=== PATIENT | female | born 1995 | race Two or more races ===

== ENCOUNTER 2024-10-04 10:55 | Emergency (ER) | payer SELFPAY ==
[~2024-10-04] VITALS: Ht 152.4 cm; Wt 92.5 kg
--- NOTE | 2024-10-04 11:58 | ED.PDOC ---
History of Present Illness HPI Comments A 29 YEAR OLD FEMALE PRESENTS TO THE ED WITH COMPLAINT OF CONSTIPATION AND LUMP OF COCCYX REGION. PATIENT STATES SHE HAS BEEN CONSTIPATED FOR THE PAST 2 DAYS. PATIENT REPORTS SHE HAS ALSO HAD A PAINFUL LUMP/CYST ON HER COCCYX REGION FOR THE PAST 2 DAYS. PATIENT DENIES FEVER, CHILLS, SHORTNESS OF BREATH, CHEST PAIN, ABDOMINAL PAIN, NAUSEA, VOMITING, HEADACHE, OR OTHER COMPLAINTS. NO OTHER SYMPTOMS OR MODIFYING FACTORS AT THIS TIME. PATIENT IS ALERT, ORIENTED X 4, AND HAS STEADY GAIT. 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 MAINTENANCE TECHNICIAN History Family History Family History: Reviewed,noncontributory to illness Social History Smoker: Non-Smoker Alcohol: Denies ETOH Use Drugs: Denies Drug Use Lives In: Home Constitutional: denies: chills, diaphoresis, fatigue, fever, malaise, sweats, weakness, others EENTM: denies: blurred vision, double vision, ear bleeding, ear discharge, ear drainage, ear pain, ear ringing, eye pain, eye redness, hearing loss, mouth pain, mouth swelling, nasal discharge, nose bleeding, nose congestion, nose pain, photophobia, tearing, throat pain, throat swelling, voice changes, others Respiratory: denies: cough, hemoptysis, orthopnea, SOB at rest, shortness of breath, SOB with excertion, stridor, wheezing, others Cardiovascular: denies: chest pain, dizzy spells, diaphoresis, Dyspnea on exertion, edema, irregular heart beat, left arm pain, lightheadedness, palpitations, PND, syncope, others Gastrointestinal: reports: constipated; denies: abdomen distended, abdominal pain, blood streaked bowels, diarrhea, dysphagia, difficulty swallowing, hematemesis, melena, nausea, poor appetite, poor fluid intake, rectal bleeding, rectal pain, vomiting, others Genitourinary: denies: abnormal vagina bleeding, burning, dyspareunia, dysuria, flank pain, frequency, hematuria, incontinence, pain, , vagina discharge, urgency, others Neurological: denies: dizziness, fainting, headache, left sided numbness, left sided weakness, numbness, paresthesia, pre-existing deficit, right sided numbness, right sided weakness, seizure, speech problems, tingling, tremors, weakness, others Musculoskeletal: reports: back pain; denies: gout, joint pain, joint swelling, muscle pain, muscle stiffness, neck pain, others Integumetry: reports: lumps (LUMP OF COCCYX REGION); denies: bruises, change in color, change in hair/nails, dryness, laceration, lesions, rash, wounds, others Allergic/Immunocompromised: denies: Difficulty Healing, Frequent Infections, Hives, Itching, others Hematologic/Lymphatic: denies: anemia, blood clots, easy bleeding, easy bruising, swollen glands, others Endocrine: denies: excessive hunger, excessive sweating, excessive thirst, excessive urination, flushing, intolerance to cold, intolerance to heat, unexplained weight gain, unexplained weight loss, others Psychiatric: denies: anxiety, bipolar disorder, depression, hopeless, panic disorder, schizophrenia, sleepless, suicidal, others All Other Systems: Reviewed and Negative Physical Exam General Appearance: Mild Distress, Obese HEENT: Normal ENT Inspection, PERRL/EOMI, Pharynx Normal, TMs Normal Neck: Full Range of Motion, Non-Tender, Normal, Normal Inspection Respiratory: Chest Non-Tender, Lungs Clear, No Accessory Muscle Use, No Respiratory Distress, Normal Breath Sounds Cardiovascular: No Edema, No JVD, No Murmur, No Gallop, Normal Peripheral Pulses, Regular Rate/Rhythm Breast Exam: Deferred Gastrointestinal: No Organomegaly, Non Tender, No Pulsatile Mass, Normal Bowel Sounds, Soft Genitalia: Deferred Pelvic: Deferred Rectal: Deferred Extremities: No calf tenderness, Normal capillary refill, Normal inspection, Normal range of motion, Non-tender, No pedal edema Musculoskeletal : Location: Bilateral Extremity Location: Back Apperance: Tenderness (WITH RED BUMP ON TAILBONE REGION, +PILONIDAL CYST, ) 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 ) Peripheral Pulses: 2+ carotid (R), 2+ carotid (L) Lymphatic: No Adenopathy Was a procedure done? Was a procedure done?: No Differential Dx Considerations may include: PILONIDAL CYST, PILONIDAL ABSCESS, SOFT TISSUE INFECTION, SKIN PIMPLE, CONSTIPATION, FECAL IMPACTION X-Ray, Labs, Meds, VS Vital Signs Date Time Temp Pulse Resp B/P (MAP) Pulse Ox O2 Delivery O2 Flow Rate FiO2 10/04/24 11:26 98.2 109 16 117/99 (105) 98 98.2 Lab Test 10/04/24 11:23 Range/Units POC Glucose 302 H 70-106 mg/dl X-Ray, Labs, Meds, VS Comment EXTERNAL MEDICAL RECORDS REVIEWED: [NONE] INDEPENDENT HISTORIANS: [NONE] SOCIAL DETERMINANTS OF HEALTH: [NONE] LABS ORDERED: NONE REVIEWED AND INTERPRETED RESULTS: NONE IMAGING ORDERED: NONE PATIENT DECLINED ANY IMAGING AT THIS TIME AND IS REQUESTING ONLY PAIN MEDICINE HERE IN THE ED. TREATMENTS ORDERED: TORADOL 60MG IM, LACTULOSE 60ML PO AND ROCEPHIN 1GM IM PROCEDURES PERFORMED: NONE CRITICAL CARE TIME: NONE I HAVE DISCUSSED THE PATIENT WITH THE ATTENDING PHYSICIAN AND HE AGREES WITH THE PATIENT'S PLAN OF CARE AND DISPOSITION. BASED ON HISTORY OF PRESENT ILLNESS, AND PHYSICAL EXAM, PATIENT WILL BE DISCHARGED HOME. DISCUSSED PLAN FOR DISCHARGE HOME WITH RX [LACTULOSE, MOTRIN 800MG, AND KEFLEX]. MEDICATION WARNINGS GIVEN. SHARED DECISION MAKING: PATIENT INSTRUCTED TO FOLLOW UP WITH PRIMARY CARE PROVIDER IN 1-2 DAYS FOR RE-EVALUATION OF SYMPTOMS. PATIENT VERBALIZES UNDERSTANDING TO RETURN TO ED FOR NEW OR WORSENING SYMPTOMS OR IF FOLLOW UP WITH PCP CANNOT BE OBTAINED. PATIENT FEELS COMFORTABLE GOING HOME AT THIS TIME. ALL QUESTIONS ADDRESSED AT TIME OF DISCHARGE. Time of 1ST Reevaluation: 13:20 Reevaluation 1ST: Improved Patient Education/Counseling: Diagnosis, Treatment, Need For Follow Up Family Education/Counseling: Diagnosis, Treatment, Need For Follow Up Medical Screening: No EMC Exist At This Time SEPSIS Sepsis Screen Vital Signs Date Time Temp Pulse Resp B/P (MAP) Pulse Ox O2 Delivery O2 Flow Rate FiO2 10/04/24 11:26 98.2 109 16 117/99 (105) 98 98.2 Departure 1 Departure Time of Disposition: 13:20 Impression: Primary Impression: Acute constipation Additional Impression: Pilonidal cyst Disposition: HOME / SELF CARE / HOMELESS Condition: Stable Additional Instructions: FOLLOW-UP WITH PCP IN 1 TO 2 DAYS. TAKE MEDICATIONS PRESCRIBED. RETURN TO ED FOR ANY NEW OR WORSENING SYMPTOMS. e-Prescriptions Lactulose (Lactulose) 10 Gm/15 Ml Keshia 30 ML PO BID, #280 ML Prov: BERT AHUMADA 10/04/24 Cephalexin Monohydrate (Cephalexin) 500 Mg Cap 1 CAP PO QID, #40 CAP Prov: BERT AHUMADA 10/04/24 Ibuprofen (Ibuprofen) 800 Mg Tab 1 TAB PO TID, #30 TAB Prov: BERT AHUMADA 10/04/24 Discharged With: Self Critical Care Note Critical Care Time?: No Stability Stability form required: No I personally scribed for BERT AHUMADA ([email or web address]) on 10/04/24 at 11:58. Electronically submitted by Gil Boles ([email or web address]). BERT AHUMADA Oct 04, 2024 11:58
[2024-10-04] MEDS: LACTULOSE 20Gm/30ML SOLN PO ONE (12:54)
[2024-10-04] MEDS ORDERED: IBUP-1456 PO (12:55)
[2024-10-04] MEDS ORDERED: LACT10SO3 PO (12:55)
[2024-10-04] MEDS ORDERED: CEPH500C PO (12:55)
[2024-10-04] MEDS: cefTRIAXone SOD 1,000 MG VL IM ONE (12:55)
[2024-10-04] MEDS: KETOROLAC TROMETH 60MG/2ML VIAL IM ONE (12:55)
[2024-10-04 13:08] VITALS: BP 108/52; PULSE 100; RESP 20; TEMP 98; O2SAT 99
== END 2024-10-04 13:26 | disposition home or self-care (01) ==
LOC: ER 10:55
DX: L05.91 Pilonidal cyst without abscess (principal); K59.00 Constipation, unspecified; Z79.899 Other long term (current) drug therapy
CPT/HCPCS: 82947; 96372; 99284; J0696; J1885; 82962

== ENCOUNTER 2024-10-06 10:28 | Inpatient (IN) | payer MEDICAID, OTHER ==
[~2024-10-06] VITALS: Ht 154.9 cm; Wt 88.5 kg
[~2024-10-06 10:28] MED LIST: CEPH500C PO; IBUP-1456 PO; LACT10SO3 PO
--- NOTE | 2024-10-06 10:56 | ED.PDOC ---
History of present illness HPI Comments 29 y.o female with PMHx of DM and thyroid disease, presents to the ED for a chief complaint of generalized weakness associated with dizziness x 1 day and diffused abdominal pain with nausea and vomiting x today. Patient reports pain is constant, non radiating, and rating a 4/10 on the pain scale. Patient admits to no DM medication for the past 2 years and presents with BG of 524 with a blood pressure of 84/39. Patient denies any fever, chills, diarrhea, chest pain or SOB. Chief Complaint: Hyperglycemia Time Seen by MD: 10:47 Primary Care Provider: NONE History of present illness: Nurses Notes, Medications, Allergies Allergies: Coded Allergies: NO KNOWN ALLERGIES (Unverified , 10/04/24) Home Meds Active Scripts Lactulose (Lactulose) 10 Gm/15 Ml Keshia, 30 ML PO BID, #280 ML Prov:BERT AHUMADA 10/04/24 Cephalexin Monohydrate (Cephalexin) 500 Mg Cap, 1 CAP PO QID, #40 CAP Prov:BERT AHUMADA 10/04/24 Ibuprofen (Ibuprofen) 800 Mg Tab, 1 TAB PO TID, #30 TAB Prov:BERT AHUMADA 10/04/24 Information Source: Patient Mode of Arrival: Ambulatory Timing: Days (1) Duration: Since onset [place]: Other History of: Diabetes Modifying factors: Nothing Associated signs and symptoms: Abdominal Pain Past Medical History PAST MEDICAL HISTORY: DM, Thyroid Surgical History: Denies all surgeries COMMERCIAL LINES MANAGER 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: No Pertinent COMMERCIAL LINES MANAGER History Family History Family History: Family hx of DM Social History Smoker: Non-Smoker Alcohol: Denies ETOH Use Drugs: Denies Drug Use Lives In: Home Constitutional: reports: weakness; denies: chills, diaphoresis, fatigue, fever, malaise, sweats, others EENTM: denies: blurred vision, double vision, ear bleeding, ear discharge, ear drainage, ear pain, ear ringing, eye pain, eye redness, hearing loss, mouth pain, mouth swelling, nasal discharge, nose bleeding, nose congestion, nose pain, photophobia, tearing, throat pain, throat swelling, voice changes, others Respiratory: denies: cough, hemoptysis, orthopnea, SOB at rest, shortness of breath, SOB with excertion, stridor, wheezing, others Cardiovascular: denies: chest pain, dizzy spells, diaphoresis, Dyspnea on exertion, edema, irregular heart beat, left arm pain, lightheadedness, palpitations, PND, syncope, others Gastrointestinal: reports: abdominal pain; denies: abdomen distended, blood streaked bowels, constipated, diarrhea, dysphagia, difficulty swallowing, hematemesis, melena, nausea, poor appetite, poor fluid intake, rectal bleeding, rectal pain, vomiting, others Genitourinary: denies: abnormal vagina bleeding, burning, dyspareunia, dysuria, flank pain, frequency, hematuria, incontinence, pain, , vagina discharge, urgency, others Neurological: reports: dizziness; denies: fainting, headache, left sided numbness, left sided weakness, numbness, paresthesia, pre-existing deficit, right sided numbness, right sided weakness, seizure, speech problems, tingling, tremors, weakness, others Musculoskeletal: denies: back pain, gout, joint pain, joint swelling, muscle pain, muscle stiffness, neck pain, others Integumetry: denies: bruises, change in color, change in hair/nails, dryness, laceration, lesions, lumps, rash, wounds, others Allergic/Immunocompromised: denies: Difficulty Healing, Frequent Infections, Hives, Itching, others Hematologic/Lymphatic: denies: anemia, blood clots, easy bleeding, easy bruising, swollen glands, others Endocrine: denies: excessive hunger, excessive sweating, excessive thirst, excessive urination, flushing, intolerance to cold, intolerance to heat, unexplained weight gain, unexplained weight loss, others Psychiatric: denies: anxiety, bipolar disorder, depression, hopeless, panic disorder, schizophrenia, sleepless, suicidal, others All Other Systems: Reviewed and Negative Physical Exam General Appearance: Moderate Distress, Obese HEENT: Pale Conjuntivae (L), Pale Conjuntivae (R), Pharynx Normal, TMs Normal Neck: Full Range of Motion, Non-Tender, Normal, Normal Inspection Respiratory: Chest Non-Tender, Lungs Clear, No Accessory Muscle Use, No Respiratory Distress, Normal Breath Sounds Cardiovascular: No Edema, No JVD, No Murmur, No Gallop, Normal Peripheral Pulses, Regular Rate/Rhythm Breast Exam: Deferred Gastrointestinal: No Organomegaly, Non Tender, No Pulsatile Mass, Normal Bowel Sounds, Soft Genitalia: Deferred Pelvic: Deferred Rectal: Deferred Extremities: No calf tenderness, Normal capillary refill, Normal inspection, Normal range of motion, Non-tender, No pedal edema Musculoskeletal : Apperance: Normal 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 Was a procedure done?: No Differential Diagnosis (DM) Differential Diagnosis: Dehydration, Diabetic Coma, DKA, Electrolyte Abnormality, Gastritis, Gastroenteritis, Hyperglycemia, Hyperosmolar State, Pancreatitis, Pyelonephritis X-Ray, Labs, Meds, VS Vital Signs Date Time Temp Pulse Resp B/P (MAP) Pulse Ox O2 Delivery O2 Flow Rate FiO2 10/06/24 14:00 100 31 99/46 (63) 97 10/06/24 13:02 109 20 120/51 (74) 10/06/24 12:14 102 20 89/32 10/06/24 12:01 99 10/06/24 12:01 108 24 64/27 (39) 96 10/06/24 12:00 111 10/06/24 11:25 101 10/06/24 11:00 100 22 96 Room Air* 0 21 10/06/24 10:54 80/60 (67) 10/06/24 10:46 101 10/06/24 10:30 98.2 109 24 84/37 (53) 99 98.2 10/06/24 10:28 98.2 109 18 84/39 (54) 99 98.2 Lab Test 10/06/24 13:12 10/06/24 11:19 10/06/24 11:15 10/06/24 11:10 Range/Units Lactic Acid Level 4.9 *H 4.5 *H 0.4-2.0 mmol/L White Blood Count 31.0 *H 4.4-10.8 10^3/uL Red Blood Count 3.80 L 4.0-5.20 10^6/uL Hemoglobin 11.1 L 12.2-16.2 g/dL Hematocrit 33.1 L 36.0-46.0 % Mean Corpuscular Volume 87.1 80.0-100.0 fL Mean Corpuscular Hemoglobin 29.2 28.0-32.0 pg Mean Corpuscular Hemoglobin Concent 33.5 32.0-36.0 g/dL Red Cell Distribution Width 13.0 11.8-14.3 % Platelet Count 369 140-450 10^3/uL Mean Platelet Volume 10.4 6.9-10.8 fL Neutrophils (%) (Auto) 37.0-80.0 % Lymphocytes (%) (Auto) 10.0-50.0 % Monocytes (%) (Auto) 0.0-12.0 % Basophils (%) (Auto) 0.0-2.0 % Neutrophils # (Auto) 1.6-8.6 10 ^3/uL Lymphocytes # (Auto) 0.4-5.4 10 ^3/uL Monocytes # (Auto) 0-1.3 10 ^3/uL Differential Total Cells Counted 100.0 100 Neutrophils % (Manual) 73 37.0-80.0 Band Neutrophils % (Manual) 17 Lymphocytes % (Manual) 4 L 10.0-50.0 Monocytes % (Manual) 6 0-12 Eosinophils % (Manual) 0 0-7 Basophils % (Manual) 0 0.0-2.0 Metamyelocytes % (manual) 0 Myelocytes % (Manual) 0 Promyelocytes % (Manual) 0 Blast Cells % (Manual) 0 Reactive Lymphocytes 0 Platelet Estimate Adequate Anisocytosis (manual) Slight Sodium Level 125 L 136-145 mmol/L Potassium Level 4.7 3.5-5.1 mmol/L Chloride Level 92 L 98-107 mmol/L Carbon Dioxide Level 17 L 20-31 mmol/L Anion Gap 16 H 5-15 Blood Urea Nitrogen 28 H 9-23 mg/dL Creatinine 2.61 H 0.550-1.02 mg/dL Glomerular Filtration Rate Calc 25 >90 mL/min BUN/Creatinine Ratio 10.7 10.0-20.0 Serum Glucose 531 *H 74-106 mg/dL Calcium Level 9.3 8.7-10.4 mg/dL Beta-Hydroxybutyric Acid 0.267 < 0.4 mmol/L Blood Gas Specimen Type Arterial Blood Gas Sample Site Right radial Blood Gas Patient Temperature 37.0 Arterial Blood Date Drawn [id number] Arterial Blood pH 7.343 L 7.350-7.450 Arterial Blood Partial Pressure CO2 26.3 L 32.0-45.0 mmHg Arterial Blood Partial Pressure O2 83.5 83.0-108.0 mmHg Arterial Blood HCO3 14.0 L 21.0-28.0 mmol/L Arterial Blood Oxygen Saturation 95.7 94.0-98.0 % Arterial Blood Base Excess -10.2 L -2.0-3.0 mmol/L Arterial Blood Oxyhemoglobin 95.0 94.0-98.0 % Arterial Blood Carboxyhemoglobin 0.4 L 0.5-1.5 % Arterial Blood Methemoglobin 0.3 0.0-1.5 % Kerwin Test Yes Blood Gas Total Hemoglobin 11.60 L 12.0-16.0 g/dL Blood Gas Modality Room air FiO2 % 21.0 Test 10/06/24 10:43 10/06/24 10:42 Range/Units POC Glucose 512 *H 491 *H 70-106 mg/dl Current Medications Medications (Trade) Dose Ordered Sig/Geo Route Start Time Stop Time Status Last Admin Sodium Chloride 1,000 ml @ 150 mls/hr Q6H40M ONCE IV 10/06/24 11:00 10/06/24 12:56 DC 10/06/24 11:25 Vancomycin HCl 200 ml @ 200 mls/hr ONCE ONCE IV 10/06/24 12:15 10/06/24 13:14 DC 10/06/24 12:21 Ceftriaxone Sodium 50 ml @ 100 mls/hr ONCE ONCE IV 10/06/24 12:15 10/06/24 12:44 GA 10/06/24 12:19 Morphine Sulfate 4 mg ONCE ONCE IV 10/06/24 12:15 10/06/24 12:16 GA 10/06/24 12:14 Ondansetron HCl (Zofran) 4 mg ONCE ONCE IV 10/06/24 12:15 10/06/24 12:16 DC 10/06/24 12:13 Insulin Human Regular (InsuLIN R) 5 units ONCE ONCE IV 10/06/24 12:30 10/06/24 12:31 DC 10/06/24 12:35 Sodium Chloride 1,450 ml @ 1,450 mls/hr ONCE ONCE IV 10/06/24 13:00 10/06/24 13:15 DC 10/06/24 13:11 Sodium Chloride 2,900 ml @ 2,900 mls/hr ONCE ONCE IV 10/06/24 13:30 10/06/24 14:29 10/06/24 13:17 CAT scan of the abdomen and pelvis shows: IMPRESSION: Bilateral gluteal region soft tissue edema and subcutaneous emphysema extending to the perianal region and lower back. Correlate for necrotizing fasciitis. Mild wall thickening of the urinary bladder which may be due to inadequate distention. Correlation with urinalysis is recommended to exclude cystitis. Mild hepatomegaly. Critical Result: Necrotizing fasciitis IV Hep-Lock was established. The patient is being bolused with normal saline per sepsis protocol The patient was given morphine 4 mg IV push for the pain The patient was given Zofran 4 mg IV push for the nausea The patient was also given insulin 5 units IV push secondary to hyperglycemia at a 512. The patient was given vancomycin IV piggyback and Rocephin IV piggyback and following blood cultures An ABG was done which shows no sign of any DKA The patient[place] an [place] [address] The lactic acid level was 4.9. The chemistry panel shows a CO2 level is 16 and an anion gap of 17 The BUN creatinine are also elevated We are contacting the general surgeon and at this time there is a concern because of the necrotizing fasciitis the patient to be transferred to higher level of care. [facility] is currently on capacity Images Reviewed?: Images reviewed and evaluated by me Time of 1ST Reevaluation: 10:53 Reevaluation 1ST: Unchanged Patient Education/Counseling: Diagnosis, Treatment, Prognosis Family Education/Counseling: No Family Present SEPSIS Sepsis Screen Date sepsis recognized/suspect: Oct 06, 2024 Time Sepsis recognized/suspect: 1028 Recent Procedure: No On Antibiotic Therapy: No Respiratory Rate >20: No Heart Rate >90: Yes Temp<36 C (96.8 F) or >38.3 C: No SBP <90 or MAP <65 mmHG: Yes New Acute Mental Status Change: No Is the patient on CPAP, BIPAP,: No Physician Orders Electrocardigram (10/06/24 11:50) Urinalysis (10/06/24 10:52) Mine Exploration Engineer (10/06/24 10:52) Pulse Oximetry (10/06/24 10:52) Blood Pressure (10/06/24 10:52) Heplock Iv (10/06/24 10:52) Blood Culture (10/06/24 10:52) Abg W/ Co-Ox (10/06/24 10:52) Ct Ab Pel Wo Con-No Oral Or Iv (10/06/24 11:02) Sodium Chloride 0.9% (10/06/24 13:30) Vital Signs Date Time Temp Pulse Resp B/P (MAP) Pulse Ox O2 Delivery O2 Flow Rate FiO2 10/06/24 14:00 100 31 99/46 (63) 97 10/06/24 13:02 109 20 120/51 (74) 10/06/24 12:14 102 20 89/32 10/06/24 12:01 99 10/06/24 12:01 108 24 64/27 (39) 96 10/06/24 12:00 111 10/06/24 11:25 101 10/06/24 11:00 100 22 96 Room Air* 0 21 10/06/24 10:54 80/60 (67) 10/06/24 10:46 101 10/06/24 10:30 98.2 109 24 84/37 (53) 99 98.2 10/06/24 10:28 98.2 109 18 84/39 (54) 99 98.2 Laboratory Tests Test 10/06/24 11:10 10/06/24 11:19 10/06/24 13:12 Lactic Acid Level 4.5 mmol/L (0.4-2.0) *H 4.9 mmol/L (0.4-2.0) *H White Blood Count 31.0 10^3/uL (4.4-10.8) *H Medications Medications Dose Ordered Sig/Geo Route Start Time Stop Time Status Last Admin Dose Admin Ceftriaxone Sodium 50 ml @ 100 mls/hr ONCE ONCE IV 10/06/24 12:15 10/06/24 12:44 DC 10/06/24 12:19 Insulin Human Regular 5 units ONCE ONCE IV 10/06/24 12:30 10/06/24 12:31 DC 10/06/24 12:35 Morphine Sulfate 4 mg ONCE ONCE IV 10/06/24 12:15 10/06/24 12:16 DC 10/06/24 12:14 Ondansetron HCl 4 mg ONCE ONCE IV 10/06/24 12:15 10/06/24 12:16 DC 10/06/24 12:13 Sodium Chloride 1,000 ml @ 150 mls/hr Q6H40M ONCE IV 10/06/24 11:00 10/06/24 12:56 DC 10/06/24 11:25 Sodium Chloride 1,450 ml @ 1,450 mls/hr ONCE ONCE IV 10/06/24 13:00 10/06/24 13:15 DC 10/06/24 13:11 Sodium Chloride 2,900 ml @ 2,900 mls/hr ONCE ONCE IV 10/06/24 13:30 10/06/24 14:29 10/06/24 13:17 Vancomycin HCl 200 ml @ 200 mls/hr ONCE ONCE IV 10/06/24 12:15 10/06/24 13:14 DC 10/06/24 12:21 Departure 1 Departure Time of Disposition: 14:30 Impression: Primary Impression: Necrotizing fasciitis Additional Impressions: Hyperglycemia Generalized weakness Sepsis Qualified Codes: A41.9 - Sepsis, unspecified organism; R65.21 - Severe sepsis with septic shock Disposition: 51 HOSPICE/MEDICAL FACILITY Condition: Guarded Critical Care Note Critical Care Time?: Yes Stability Stability form required: Yes Stable for transfer: Intended for transfer (Health plan request transfer), To designated facility Heart Score Heart Score: Heart Score Response (Comments) Value History N/A 0 EKG N/A 0 Age N/A 0 Risk Factors N/A 0 Troponin N/A 0 Total 0 I personally scribed for TAHIRA FRANKS MD ([email or web address]) on 10/06/24 at 10:56. Electronically submitted by Nubia Hinojosa ([facility]). TAHIRA FRANKS MD Oct 06, 2024 10:56
[2024-10-06 11:00] VITALS: PULSE 100; RESP 22; O2SAT 96
[2024-10-06] MEDS: SODIUM CHLORIDE 0.9% 1,000 ML IV ONE ×2 (11:25→19:58)
[2024-10-06 11:31] LABS: Base Excess -10.2 mmol/L (-2.0-3.0)
[2024-10-06 11:51] LABS: Hemoglobin 11.1 g/dL (12.2-16.2)
[2024-10-06 11:52] LABS: Hematocrit 33.1 % (36.0-46.0); Mean Corpuscular Hemoglobin 29.2 pg (28.0-32.0); Mean Corpuscular Volume 87.1 fL (80.0-100.0)
[2024-10-06 12:03] LABS: Potassium 4.7 mmol/L (3.5-5.1)
--- NOTE | 2024-10-06 12:03 | ECG ---
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
[2024-10-06 12:04] LABS: Anion Gap 16 (5-15); Calcium 9.3 mg/dL (8.7-10.4)
[2024-10-06 12:09] LABS: BUN/Creatinine Ratio 10.7 (10.0-20.0)
[2024-10-06] MEDS: ONDANSETRON HCL 4 MG/2 ML VIAL IV ONE (12:13)
[2024-10-06] MEDS: MORPHINE SULFATE 4 MG/ML SYR/VIAL IV ONE (12:14)
[2024-10-06] MEDS: cefTRIAXone 1GM/50ML D5W 50 ML IV ONE (12:19)
[2024-10-06] MEDS: VANCOMYCIN 1GM/200ML PM 200 ML IV ONE ×2 (12:21→20:45)
[2024-10-06 12:25] LABS: Lactic Acid w/Reflex 4.5 mmol/L (0.4-2.0)
[2024-10-06 12:26] LABS: Carbon Dioxide 17 mmol/L (20-31); Chloride 92 mmol/L (98-107); Sodium 125 mmol/L (136-145)
[2024-10-06 12:28] LABS: Blood Urea Nitrogen 28 mg/dL (9-23); Glucose 531 mg/dL (74-106)
[2024-10-06 12:35] LABS: Total Cells Counted 100.0 (100)
[2024-10-06] MEDS: InsuLIN REG 1unit/0.01ml Soln (100units/ml) IV ONE (12:35)
[2024-10-06 12:36] LABS: Anisocytosis Slight
[2024-10-06] MEDS: SODIUM CHLORIDE 0.9% 1,450 ML IV ONE (13:11)
[2024-10-06] MEDS: SODIUM CHLORIDE 0.9% 2,900 ML IV ONE (13:17)
--- NOTE | 2024-10-06 14:07 | DVH ---
Exam: CT CT AB PEL WO CON-NO ORAL OR IV History: pain Comparison Study: None TECHNIQUE: Multidetector CT of the abdomen and pelvis without IV contrast. Axial, coronal and sagitta l multiplanar reformats were obtained from the axial data set by the technologist. Radiation Dose Information: CT Dose: CTDI volume is 24.89 mGy. Dose-length product is 1502.7 mGy*cm FINDINGS: The lung bases are clear. Partially visualized heart is unremarkable. Mild hepatomegaly. Otherwise, liver, spleen, gallbladder, pancreas and adrenal glands are unremarkab le. Kidneys, and ureters unremarkable. Mild wall thickening of the urinary bladder. Uterus and adnexa a re unremarkable. Stomach is unremarkable. Small bowel loops are fluid-filled and nondistended. Appendix is unremarkabl e. Large bowel is unremarkable. No evidence of intraperitoneal free air or free fluid. No evidence of aortic aneurysm . No significant lymphadenopathy. Minimal body wall edema. Gluteal region subcutaneous emphysema extending into the perianal region and lower back with associated mild soft tissue edema obvious overlying wound. Bilateral inguinal lympha denopathy which are most likely reactive. No destructive osseous lesions noted. Partial fusion of the left transverse process of L5 and the sacrum IMPRESSION: Bilateral gluteal region soft tissue edema and subcutaneous emphysema extending to the perianal enrico on and lower back. Correlate for necrotizing fasciitis. Mild wall thickening of the urinary bladder which may be due to inadequate distention. Correlation w ith urinalysis is recommended to exclude cystitis. Mild hepatomegaly. Critical Result: Necrotizing fasciitis Findings discussed with TAHIRA FRANKS at 10/06/2024 02:05 PM, and acknowledged receipt and understand ing of the findings. ..
--- NOTE | 2024-10-06 16:41 | DVHPN2 ---
Progress Note Date Seen: Oct 06, 2024 Medical Necessity Reason Pt with a Central, PICC or Fol: No Objective vital signs Vital Sign Date Time Temp Pulse Resp B/P (MAP) Pulse Ox O2 Delivery O2 Flow Rate FiO2 10/06/24 16:00 96 10/06/24 14:00 31 99/46 (63) 97 10/06/24 11:00 Room Air* 0 21 10/06/24 10:30 98.2 98.2 laboratory and microbiology Laboratory Tests 10/06/24 11:19 Test 10/06/24 11:19 Range/Units Serum Glucose 531 *H 74-106 mg/dL Problem List/Assessment/Plan Problem List/Assessment/Plan 10/06/24 P[ATIENT HAS BEEN HAVING PAIN IN HER LOWER BACK AND LEFT BUTTOCK FOR TWO DAYS AND NOW PRESENTS WITH TENDERNESS AND ERYTHEMA OF THE AFFECTED AREA, THERE IS REDNESS OF THE AFFECTED SKIN, NO SUBCUTANEOUS COMITANCE IS NOTED, NO BULGING , NO DRAINAGE. THE AREA HAS THE APPEARANCE OF A PILONIDAL INFECTION, NO CLINICAL EVIDENCE OF NECROTIZING INFECTION. INCISION AND DRAINAGE AND POSSIBLE DEBRIDEMENT EXPLAINED TO PATIENT WERE RISKS AND COMPLICATIONS., Plan discussed with: Patient VERONICA TOLLIVER MD Oct 06, 2024 16:41
[2024-10-06] MEDS: LACTATED RINGER'S 1,000 ML IV ONE (17:03)
[2024-10-06 17:04] LABS: Hematocrit 32.2 % (36.0-46.0); Hemoglobin 10.7 g/dL (12.2-16.2); Mean Corpuscular Hemoglobin 29.0 pg (28.0-32.0); Mean Corpuscular Volume 87.5 fL (80.0-100.0); Nucleated Red Blood Cells % 0.0 %
[2024-10-06] MEDS ORDERED: ONDANSETRON HCL 4 MG/2 ML VIAL IV PRN (17:15)
[2024-10-06 17:20] LABS: INR 1.09 (0.9-1.15); Partial Thromboplastin Time 35.7 SEC (24.5-34.5); Prothrombin Time 11.5 sec (9.3-11.8)
--- NOTE | 2024-10-06 17:47 | DVH ---
XY CHEST PORTABLE, HISTORY: PRE OP COMPARISON: None None TECHNICAL DATA: 1 view of the chest was obtained. FINDINGS: Lines and tubes: None Cardiomediastinal silhouette: normal Pulmonary vasculature: normal Lung expansion: low Lung airspace: normal Lung interstitium: normal Pleura: normal Pneumothorax: no Bones: Unremarkable Other: no IMPRESSION: No acute intrathoracic abnormality.
[2024-10-06] MEDS: MORPHINE SULFATE INJ 2 MG/ml SYRG IV PRN (18:28)
[2024-10-06] MEDS ORDERED: MORPHINE SULFATE INJ 2 MG/ml SYRG IV PRN (19:30)
[2024-10-06] MEDS ORDERED: VANCOMYCIN PER PHARMACY 0 MG IV SCH (19:30)
[2024-10-06] MEDS ORDERED: DEXTROSE (50%) 50ML SYRG IV PRN (19:30)
[2024-10-06] MEDS ORDERED: NITROGLYCERIN 0.4 MG SL TAB SL PRN (19:30)
[2024-10-06 19:51] VITALS: PULSE 90; RESP 20; O2SAT 97
[2024-10-06] MEDS: ACCU-CHEK COMFORT CURVE STRIP VI SCH (20:20)
[2024-10-06] MEDS: InsuLIN REG 1unit/0.01ml Soln (100units/ml) SC SCH (20:45)
[2024-10-06] MEDS: SODIUM CHLORIDE 0.9% 500 ML IV ONE (23:29)
[2024-10-07] VITALS (67 sets, daily range): BP systolic 81–154; BP diastolic 23–91; PULSE 82–103; RESP 12–33; TEMP 97.8–98.4; O2SAT 90–100
[2024-10-07] MEDS: ONDANSETRON HCL 4 MG/2 ML VIAL IV PRN (01:19)
[2024-10-07] MEDS: PHENYLEPHRINE IV 250 ML IV ONE (04:02)
--- NOTE | 2024-10-07 04:02 | DVHHP2 ---
History of Present Illness Reason for Visit: Possible abscess History of Present Illness 29-year-old female presents for evaluation of possible abscess. Patient reports a two day history of not being able to keep her blood sugars under control. She also developed left gluteal lower back tenderness so she presented for evaluat ion of possible infection. She also reports having dizziness. Past Medical History Diabetes mellitus and thyroid Past Surgical History Denies Family History Noncontributory Smoke: No ALCOHOL: none Drugs: None Lives: with Family Review of Systems Review of Systems Review of systems are currently negative otherwise addressed in HPI. Allergies: Coded Allergies: NO KNOWN ALLERGIES (Unverified , 10/04/24) Medications Current Medications Medications Dose Ordered Sig/Geo Route Start Time Stop Time Status Last Admin Dose Admin Piperacillin Sod/ Tazobactam Sod 100 ml @ 25 mls/hr Q8HR IV 10/07/24 22:00 Vancomycin HCl 0 ml @ 0 mls/hr UD IV 10/06/24 19:30 UNV Diagnostic Test (Pha) 1 strip IQ4HR 10/06/24 20:00 10/06/24 23:50 1 STRIP Insulin Human Regular IQ4HR SC 10/06/24 20:00 10/06/24 23:53 10 UNITS Dextrose 50 ml UD PRN IV 10/06/24 19:30 Ondansetron HCl 4 mg Q4HP PRN IV 10/06/24 19:30 10/07/24 01:19 4 MG Morphine Sulfate 2 mg Q4HPRN PRN IV 10/06/24 19:30 Nitroglycerin 0.4 mg Q5MINP PRN SL 10/06/24 19:30 Morphine Sulfate 2 mg Q30M PRN IV 10/06/24 19:30 Phenylephrine HCl 250 ml @ 30 mls/hr Q8H20M IV 10/07/24 03:45 UNV Exam Vital Signs Vital Signs Date Time Temp Pulse Resp B/P (MAP) Pulse Ox O2 Delivery O2 Flow Rate FiO2 10/07/24 00:45 89 20 83/49 (60) 98 10/06/24 20:06 97.9 97.9 10/06/24 19:51 Room Air* 0 21 Exam Gen: 29-year-old female in mild distress Skin: Warm, dry, normal color and texture, no rash. HEENT: Normocephalic atraumatic, mucous membranes moist and pink. Neck: Cervical and supraclavicular nodes normal without enlargement, trachea is midline, thyroid gland is normal without masses. Pulmonary: Clear to auscultation and percussion bilaterally. Cardiac: Regular rate and rhythm. No murmur Abdomen: Soft, nontender, nondistended, bowel sounds present all 4 quadrants, no guarding, no rigidity, no organomegaly. Extremities: No cyanosis, clubbing, left gluteal erythema with tenderness Neuro: Cranial nerves II through XII grossly intact, normal affect and speech, no focal motor deficits. Labs/Xrays ORDERING PHYSICIAN: VERONICA TOLLIVER MD PROCEDURE(s): CXRP - CHEST PORTABLE REASON: PRE OP ORDER NUMBER(s): [id number], ACCESSION NUMBER(s): [id number] XY CHEST PORTABLE, HISTORY: PRE OP COMPARISON: None None TECHNICAL DATA: 1 view of the chest was obtained. FINDINGS: Lines and tubes: None Cardiomediastinal silhouette: normal Pulmonary vasculature: normal Lung expansion: low Lung airspace: normal Lung interstitium: normal Pleura: normal Pneumothorax: no Bones: Unremarkable Other: no IMPRESSION: No acute intrathoracic abnormality. RING PHYSICIAN: TAHIRA FRANKS MD PROCEDURE(s): ABPL - CT AB PEL WO CON-NO ORAL OR IV REASON: pain ORDER NUMBER(s): [id number], ACCESSION NUMBER(s): [id number] Exam: CT CT AB PEL WO CON-NO ORAL OR IV History: pain Comparison Study: None TECHNIQUE: Multidetector CT of the abdomen and pelvis without IV contrast. Axial, coronal and sagittal multiplanar reformats were obtained from the axial data set by the technologist. Radiation Dose Information: CT Dose: CTDI volume is 24.89 mGy. Dose-length product is 1502.7 mGy*cm FINDINGS: The lung bases are clear. Partially visualized heart is unremarkable. Mild hepatomegaly. Otherwise, liver, spleen, gallbladder, pancreas and adrenal glands are unremarkable. Kidneys, and ureters unremarkable. Mild wall thickening of the urinary bladder. Uterus and adnexa are unremarkable. Stomach is unremarkable. Small bowel loops are fluid-filled and nondistended. Appendix is unremarkable. Large bowel is unremarkable. No evidence of intraperitoneal free air or free fluid. No evidence of aortic aneurysm . No significant lymphadenopathy. Minimal body wall edema. Gluteal region subcutaneous emphysema extending into the perianal region and lower back with associated mild soft tissue edema obvious overlying wound. Bilateral inguinal lymphadenopathy which are most likely reactive. No destructive osseous lesions noted. Partial fusion of the left transverse process of L5 and the sacrum IMPRESSION: Bilateral gluteal region soft tissue edema and subcutaneous emphysema extending to the perianal region and lower back. Correlate for necrotizing fasciitis. Mild wall thickening of the urinary bladder which may be due to inadequate distention. Correlation with urinalysis is recommended to exclude cystitis. Mild hepatomegaly. Critical Result: Necrotizing fasciitis Findings discussed with TAHIRA FRANKS at 10/06/2024 02:05 PM, and acknowledged receipt and understanding of the findings. .. ATED BY: LUCÍA LEWIS DO DICTATED DATE/TIME: 10/06/24 1405 Labs Test 10/07/24 02:59 10/06/24 23:47 10/06/24 16:50 10/06/24 11:19 Range/Units POC Glucose 380 H 70-106 mg/dl Eosinophils (%) (Auto) 0.1 0.0-7.0 % Eosinophils # (Auto) 0 0-0.8 10 ^3/uL Basophils # (Auto) 0.1 0-0.2 10 ^3/uL Nucleated Red Blood Cells 0.0 % Prothrombin Time 11.5 9.3-11.8 sec Prothrombin Time INR 1.09 0.9-1.15 Activated Partial Thromboplast Time 35.7 H 24.5-34.5 SEC Differential Total Cells Counted 100.0 100 Neutrophils % (Manual) 73 37.0-80.0 Band Neutrophils % (Manual) 17 Lymphocytes % (Manual) 4 L 10.0-50.0 Monocytes % (Manual) 6 0-12 Eosinophils % (Manual) 0 0-7 Basophils % (Manual) 0 0.0-2.0 Metamyelocytes % (manual) 0 Myelocytes % (Manual) 0 Promyelocytes % (Manual) 0 Blast Cells % (Manual) 0 Reactive Lymphocytes 0 Platelet Estimate Adequate Anisocytosis (manual) Slight Beta-Hydroxybutyric Acid 0.267 < 0.4 mmol/L Test 10/06/24 11:15 Range/Units Blood Gas Specimen Type Arterial Blood Gas Sample Site Right radial Blood Gas Patient Temperature 37.0 Arterial Blood Date Drawn [id number] Arterial Blood pH 7.343 L 7.350-7.450 Arterial Blood Partial Pressure CO2 26.3 L 32.0-45.0 mmHg Arterial Blood Partial Pressure O2 83.5 83.0-108.0 mmHg Arterial Blood HCO3 14.0 L 21.0-28.0 mmol/L Arterial Blood Oxygen Saturation 95.7 94.0-98.0 % Arterial Blood Base Excess -10.2 L -2.0-3.0 mmol/L Arterial Blood Oxyhemoglobin 95.0 94.0-98.0 % Arterial Blood Carboxyhemoglobin 0.4 L 0.5-1.5 % Arterial Blood Methemoglobin 0.3 0.0-1.5 % Kerwin Test Yes Blood Gas Total Hemoglobin 11.60 L 12.0-16.0 g/dL Blood Gas Modality Room air FiO2 % 21.0 SEPSIS Sepsis Screen Date sepsis recognized/suspect: Oct 07, 2024 Time Sepsis recognized/suspect: 221 Recent Procedure: No On Antibiotic Therapy: No Respiratory Rate >20: No Heart Rate >90: No Temp<36 C (96.8 F) or >38.3 C: No SBP <90 or MAP <65 mmHG: No New Acute Mental Status Change: No Is the patient on CPAP, BIPAP,: No Physician Orders Lactic Acid W/ Reflex Order (10/07/24 04:00) Phenylephrine Iv (Phenylephrine/Ns) (10/07/24 03:45) Sodium Chloride 0.9% (10/07/24 04:00) Zosyn Extended Infusion (10/07/24 04:00) Vital Signs Date Time Temp Pulse Resp B/P (MAP) Pulse Ox O2 Delivery O2 Flow Rate FiO2 10/07/24 00:45 89 20 83/49 (60) 98 10/06/24 23:45 111/69 (83) 10/06/24 22:46 98 152/127 10/06/24 22:45 95 152/127 (135) 10/06/24 22:35 100 81/54 10/06/24 22:30 101 81/51 10/06/24 22:25 99 85/51 10/06/24 22:00 94 24 90/37 (54) 94 10/06/24 21:00 97 20 90/53 (65) 96 10/06/24 20:45 173/141 (152) 10/06/24 20:06 97.9 91 21 83/51 (62) 94 97.9 Laboratory Tests Test 10/06/24 16:50 10/07/24 02:59 White Blood Count 26.7 10^3/uL (4.4-10.8) H Pending Lactic Acid Level Pending Medications Medications Dose Ordered Sig/Geo Route Start Time Stop Time Status Last Admin Dose Admin Diagnostic Test (Pha) 1 strip IQ4HR 10/06/24 20:00 10/06/24 23:50 1 STRIP Insulin Human Regular IQ4HR SC 10/06/24 20:00 10/06/24 23:53 10 UNITS Lactated Ringer's 1,000 ml @ 100 mls/hr Q10H ONCE IV 10/06/24 16:30 10/06/24 19:54 DC 10/06/24 17:03 100 MLS/HR Metronidazole 100 ml @ 100 mls/hr ONCE ONCE IV 10/06/24 16:30 10/06/24 17:29 DC 10/06/24 17:03 100 MLS/HR Morphine Sulfate 1 mg Q4HP PRN IV 10/06/24 17:15 10/06/24 19:26 DC 10/06/24 18:28 1 MG Ondansetron HCl 4 mg Q4HP PRN IV 10/06/24 19:30 10/07/24 01:19 4 MG Sodium Chloride 500 ml @ 500 mls/hr Q1H ONCE IV 10/06/24 23:15 10/07/24 00:14 DC 10/06/24 23:29 500 MLS/HR Sodium Chloride 1,000 ml @ 100 mls/hr Q10H ONCE IV 10/06/24 19:30 10/07/24 05:29 10/06/24 19:58 100 MLS/HR Vancomycin HCl 200 ml @ 200 mls/hr ONCE ONCE IV 10/06/24 20:00 10/06/24 20:59 DC 10/06/24 20:45 200 MLS/HR Assessment/Plan Assessment/Plan Assessment Sepsis Possible pilonidal abscess Uncontrolled diabetes mellitus Plan Admit the patient to ICU to the hospitalist Zosyn/vancomycin NPO Surgical consultation Continue treatment per orders. Total critical care time excluding procedures performed this 50 minutes. Plan discussed with: Patient My Orders Orders - JESSICA SALMERON Procedure Category Date Status Time Piperacillin-Tazob PHA 10/07/24 In Process 3.375gm (Zosyn 3.375g 22:00 Vancomycin Per PHA 10/06/24 Pending Pharmacy 19:30 Sodium Chloride 0.9% PHA 10/06/24 In Process 19:30 Glucose Blood PHA 10/06/24 In Process (Accu-Chek Comfort 20:00 Insulin R (Human) PHA 10/06/24 In Process (Insulin R) 20:00 Dextrose 50% Syringe PHA 10/06/24 In Process 19:30 Admit ADMIT 10/06/24 Transmitted 19:20 Ondansetron Hcl PHA 10/06/24 In Process (Zofran) 19:30 Complete Blood Count LAB 10/07/24 In Process 04:00 Comprehensive LAB 10/07/24 In Process Metabolic Panel 04:00 Condition: Stable SHEFALI 10/06/24 In Process 19:20 Bedrest With Bathroom SHEFALI 10/06/24 In Process Privileg 19:20 Morphine Sulfate PHA 10/06/24 In Process Injection 19:30 Nitroglycerin PHA 10/06/24 In Process Sublingual (Ntrostat 19:30 Morphine Sulfate PHA 10/06/24 In Process Injection 19:30 Stat Ekg For Chest SHEFALI 10/06/24 In Process Pain 19:20 Notify Md Of Changes SHEFALI 10/06/24 In Process From Base 19:20 Hand Engraver For SHEFALI 10/06/24 In Process 24 Hours 19:20 Emergency Dysrhythmia SHEFALI 10/06/24 In Process Protocol 19:20 Rhythm Strips Once SHEFALI 10/06/24 In Process Every Shift 19:20 Oxygen By Nasal RT 10/06/24 Transmitted Cannula 19:20 Lactic Acid W/ Reflex LAB 10/07/24 In Process Order 04:00 Phenylephrine Iv PHA 10/07/24 Logged (Phenylephrine/Ns) 03:45 Sodium Chloride 0.9% PHA 10/07/24 Logged 04:00 Zosyn Extended PHA 10/07/24 Verified Infusion 04:00 Date of Service: Oct 07, 2024 Billing Provider: JESSICA SALMERON Common Visit Codes: [id number] CARE 30-74 MIN JESSICA SALMERON [facility] Oct 07, 2024 04:02
[2024-10-07 04:04] LABS: Hematocrit 32.5 % (36.0-46.0); Hemoglobin 10.7 g/dL (12.2-16.2); Mean Corpuscular Hemoglobin 29.2 pg (28.0-32.0); Mean Corpuscular Volume 88.4 fL (80.0-100.0); Nucleated Red Blood Cells % 0.0 %
[2024-10-07] MEDS: PHENYLEPHRINE IV 250 ML IV SCH (04:14)
[2024-10-07 04:18] LABS: Anion Gap 17 (5-15); BUN/Creatinine Ratio 11.3 (10.0-20.0); Chloride 100 mmol/L (98-107); Potassium 4.4 mmol/L (3.5-5.1); Total Protein 6.7 g/dL (5.7-8.2)
[2024-10-07 04:19] LABS: Albumin 3.5 g/dL (3.2-4.8)
[2024-10-07 04:36] LABS: Lactic Acid w/Reflex 4.8 mmol/L (0.4-2.0)
[2024-10-07 04:37] LABS: Alanine Aminotransferase 68 U/L (7-40); Alkaline Phosphatase 329 U/L (46-116); Bilirubin, Total 1.3 mg/dL (0.2-1.0); Blood Urea Nitrogen 33 mg/dL (9-23); Calcium 8.4 mg/dL (8.7-10.4); Carbon Dioxide 14 mmol/L (20-31); Glucose 247 mg/dL (74-106); Sodium 131 mmol/L (136-145)
[2024-10-07] MEDS: SODIUM CHLORIDE 0.9% 500 ML IV ONE (04:47)
[2024-10-07] MEDS: PIPERACILLIN-TAZOB 3.375GM 100 ML IV SCH (04:47)
[2024-10-07 05:32] LABS: Urine Protein, UAD 1+ (Negative)
[2024-10-07] MEDS ORDERED: HYDROmorphone HCL 2 MG/ML VL/or syr ONE (07:15)
[2024-10-07] MEDS ORDERED: fentaNYL CITRATE 100 MCG/2 ML VL ONE (07:15)
[2024-10-07] MEDS ORDERED: PROPOFOL 10 MG/ML 20 ML IV ONE (07:16)
[2024-10-07] MEDS ORDERED: PHENYLEPHRINE HCL 10 MG/ML VL ONE (07:18)
--- NOTE | 2024-10-07 07:21 | DVHPN2 ---
Progress Note Date Seen: Oct 07, 2024 Medical Necessity Reason Pt with a Central, PICC or Fol: No Objective vital signs Vital Sign Date Time Temp Pulse Resp B/P (MAP) Pulse Ox O2 Delivery O2 Flow Rate FiO2 10/07/24 06:50 84/49 10/07/24 06:30 86 19 99 10/07/24 06:00 Nasal Cannula* 2 28 10/07/24 04:45 98.4 98.4 Total Intake and Output 10/06/24 10/06/24 10/07/24 15:00 23:00 07:00 Intake Total 550 ml 3200 ml 1047.5 ml Output Total 50 ml Balance 550 ml 3200 ml 997.5 ml medications Current Medications Medications Dose Ordered Sig/Geo Route Start Time Stop Time Status Last Admin Dose Admin Vancomycin HCl 0 ml @ 0 mls/hr UD IV 10/06/24 19:30 UNV Diagnostic Test (Pha) 1 strip IQ4HR 10/06/24 20:00 10/07/24 04:01 1 STRIP Insulin Human Regular IQ4HR SC 10/06/24 20:00 10/07/24 04:09 4 UNITS Dextrose 50 ml UD PRN IV 10/06/24 19:30 Ondansetron HCl 4 mg Q4HP PRN IV 10/06/24 19:30 10/07/24 01:19 4 MG Morphine Sulfate 2 mg Q4HPRN PRN IV 10/06/24 19:30 Nitroglycerin 0.4 mg Q5MINP PRN SL 10/06/24 19:30 Morphine Sulfate 2 mg Q30M PRN IV 10/06/24 19:30 Phenylephrine HCl 250 ml @ 30 mls/hr Q8H20M IV 10/07/24 03:45 10/07/24 04:14 30 MLS/HR Piperacillin Sod/ Tazobactam Sod 100 ml @ 25 mls/hr Q8H IV 10/07/24 04:00 10/07/24 04:47 25 MLS/HR laboratory and microbiology Laboratory Tests 10/07/24 02:59 Test 10/07/24 02:59 Range/Units Serum Glucose 247 H 74-106 mg/dL Problem List/Assessment/Plan Problem List/Assessment/Plan 10/06/24 P[ATIENT HAS BEEN HAVING PAIN IN HER LOWER BACK AND LEFT BUTTOCK FOR TWO DAYS AND NOW PRESENTS WITH TENDERNESS AND ERYTHEMA OF THE AFFECTED AREA, THERE IS REDNESS OF THE AFFECTED SKIN, NO SUBCUTANEOUS COMITANCE IS NOTED, NO BULGING , NO DRAINAGE. THE AREA HAS THE APPEARANCE OF A PILONIDAL INFECTION, NO CLINICAL EVIDENCE OF NECROTIZING INFECTION. INCISION AND DRAINAGE AND POSSIBLE DEBRIDEMENT EXPLAINED TO PATIENT WERE RISKS AND COMPLICATIONS., 10/07/24 PATIENT HAD bp OF 90,S WHEN EXAMINED BY ME AT 1600 YESTERDAY AFTERNOON, DESPITE MY EXPLICIT COMMUNICATION ORDER TO BE NOTIFIED IF THE PATIENT DEVELOPS CHANGES IN HER BP OR HEART RATE OR DEVELOPS FEVER AND INCREASING PAIN I WAS NOT NOTIFIED UNTIL THIS MORNING AT 6:50 HRS THAT THE PATIENT IS ON 115MCG/MIN OF PHENYLEPHRINE, WHEN QUESTIONED THE ICU NURSE INFORMED ME THAT SHE RECEIVED THE PATIENT FROM THE ER ALREADY ON PHENYLEPHRINE AT 4 O'CLOCK THIS AM. Plan discussed with: VERONICA Welsh MD Oct 07, 2024 07:21
[2024-10-07] MEDS ORDERED: ONDANSETRON HCL 4 MG/2 ML VIAL ONE (08:10)
[2024-10-07] MEDS ORDERED: LACTATED RINGER'S 1,000 ML IV SCH (08:45)
[2024-10-07] MEDS: LACTATED RINGER'S 1,000 ML IV ONE (08:45)
[2024-10-07] MEDS ORDERED: HYDROmorphone HCL 2 MG/ML VL/or syr IV PRN (09:00)
[2024-10-07] MEDS ORDERED: ACETAMINOPHEN IV 1000 MG/100ML (10MG/ML) IV PRN (09:00)
[2024-10-07] MEDS: NOREPINEPHRINE 8 MG/250ML KIT 250 ML IV SCH (10:00)
--- NOTE | 2024-10-07 10:26 | DVHOP ---
DATE OF SURGERY: 10/07/2024 PREOPERATIVE DIAGNOSES: Pilonidal cyst infection plus necrotizing infection of buttocks. POSTOPERATIVE DIAGNOSES: Pilonidal cyst infection plus necrotizing infection of buttocks. SURGEON: Dennis Pretty MD. ANESTHESIA: Local with IV sedation. ANESTHESIOLOGIST: Dr. Nicholas. PREOPERATIVE NARRATIVE: The patient was admitted with a radiographic suspicion of necrotizing infection, which clinically was not evident at the time of my original inspection. However, the patient became hypotensive during the night. I was not notified and the patient came to the operating room on at max dose with a blood pressure in the 80s. She was profoundly dehydrated and not properly rehydrated during her preoperative course. The patient on inspection now had map-like demarcation of tissues with cyanosis of tissues in the buttocks including the pilonidal area. PROCEDURE IN DETAIL: The patient was placed on lateral decubitus with the left buttock facing upward, down axilla protected with an axillary roll, knees on pillows and she was given sedation and analgesia by Dr. Nicholas. Following preparation of the buttocks and lower back with Betadine, an incision was made into the map-like demarcation of the tissues, which included tissues close to the anal sphincter. Tissues were then removed. The baker nonviable tissues were submitted for histopathologic examination and cultures were obtained. An incision into the pilonidal area revealed a yellowish collection of approximately 150 mL of fluid, which was evacuated and submitted for cultures and sensitivities. The entire area that was denuded of nonviable tissue including the cyst cavity was then irrigated with pulse lavage irrigation containing antibiotic to 3 L volume. Following irrigation, the wound was packed with iodine saturated Kerlix roll. The patient was then taken to the recovery room in unchanged clinical condition. She will require massive IV rehydration, antibiotics, and then she will require a second look debridement as well as a colostomy in order to reroute her fecal stream from the affected area. The debridement did not include sphincter muscles, but is very close to them. I called the patient's father, Darwin, at [phone]. He said that he is from the patient's mother and that there is a restraining order for him not to contact the mother. He does not have the mother's phone number. I explained to Darwin, the father, that the patient is very ill. I explained that extent of the operation and the need for second operation tomorrow morning with a colostomy, and I explained what a colostomy accomplishes. The patient at the time of this dictation remains heavily sedated. I will communicate with her upon awakening. MD IRENA Park/CED/GUME TID: [id number] RECEIPT: [id number]
[2024-10-07] MEDS: MEROPENEM 1GM IVPB 50 ML IV ONE (10:37)
[2024-10-07 10:59] LABS: Base Excess -13.2 mmol/L (-2.0-3.0)
[2024-10-07] MEDS: INSULIN LANTUS (GLARGINE) 1 /0.01ml (100units/ml) SC ONE (11:15)
[2024-10-07] MEDS ORDERED: DEXTROSE (50%) 50ML SYRG IV PRN ×2 (11:15→15:00)
[2024-10-07] MEDS: LACTATED RINGER'S 1,000 ML IV SCH (11:22)
--- NOTE | 2024-10-07 11:30 | DVH ---
EXAM: XY CHEST XRAY 1 VIEW Indication: SEPTIC SHOCK Technique: Single frontal view of the chest was obtained Comparison: XY CHEST PORTABLE on DOS: 10/06/24 FINDINGS: Lines and Tubes: None Lungs: Evaluation of the left hemithorax is limited due to under penetration. Low lung volumes. Pleura: No effusion. No pneumothorax. Cardiomediastinal contours: Unremarkable Bones: No acute osseous abnormality. IMPRESSION: Evaluation of the left hemithorax is limited due to under penetration. Low lung volumes.
--- NOTE | 2024-10-07 12:02 | DVH ---
RENAL ULTRASOUND History: RULE OUT CKD Comparison: None Technique: Multiple real-time sonographic images of the kidney and bladder were obtained in conjuncti on with Doppler imaging. Findings: The bilateral kidneys are echogenic in appearance. The right kidney measures 12.6 cm and demonstrates no evidence of hydronephrosis, perinephric fluid c ollection, or shadowing stone. The left kidney measures 11.5 cm and demonstrates no evidence of hydronephrosis, perinephric fluid co llection, or shadowing stone. Urinary bladder: Decompressed by Prajapati catheter Impression: No hydronephrosis. Echogenic kidneys which can be seen with medical renal disease.
[2024-10-07] MEDS: INSULIN DRIP 100 UNIT/100ML 100 ML IV SCH ×2 (12:03→15:00)
[2024-10-07] MEDS: ACCU-CHEK COMFORT CURVE STRIP VI SCH ×2 (12:08→15:00)
[2024-10-07] MEDS: D5W/SOD CHL 0.45% 1,000 ML IV ONE (12:19)
[2024-10-07 12:22] LABS: Protein, Urine 218.6 mg/dL (1-14)
[2024-10-07 12:25] LABS: Opiate Scree,Urine Neg (NEGATIVE)
[2024-10-07 12:33] LABS: Amphetamine Screen, Urine Neg (NEGATIVE); Barbiturate Scree,Urine Neg (NEGATIVE); Benzodiazephine Screen, Urine Neg (NEGATIVE); Cannabinoid Screen, Urine Neg (NEGATIVE); Cocaine Screen, Urine Neg (NEGATIVE); Phencyclidine Screen, Urine Neg (NEGATIVE)
--- NOTE | 2024-10-07 12:46 | ECG ---
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
[2024-10-07] MEDS ORDERED: MEROPENEM 1GM IVPB 50 ML IV SCH (14:00)
--- NOTE | 2024-10-07 14:17 | DVHPN2 ---
Progress Note Date Seen: Oct 07, 2024 Medical Necessity Reason Pt with a Central, PICC or Fol: No Objective vital signs Vital Sign Date Time Temp Pulse Resp B/P (MAP) Pulse Ox O2 Delivery O2 Flow Rate FiO2 10/07/24 11:10 88/56 10/07/24 10:00 99 10/07/24 09:50 15 97 10/07/24 09:12 Nasal Cannula 4.0 98 10/07/24 08:40 97.7 97.7 Total Intake and Output 10/06/24 10/06/24 10/07/24 15:00 23:00 07:00 Intake Total 550 ml 3200 ml 1047.5 ml Output Total 50 ml Balance 550 ml 3200 ml 997.5 ml medications Current Medications Medications Dose Ordered Sig/Geo Route Start Time Stop Time Status Last Admin Dose Admin Vancomycin HCl 0 ml @ 0 mls/hr UD IV 10/06/24 19:30 Dextrose 50 ml UD PRN IV 10/06/24 19:30 Morphine Sulfate 2 mg Q4HPRN PRN IV 10/06/24 19:30 Phenylephrine HCl 250 ml @ 30 mls/hr Q8H20M IV 10/07/24 03:45 10/07/24 04:14 30 MLS/HR Norepinephrine Bitartrate 250 ml @ 3.75 mls/hr Q24H IV 10/07/24 10:00 Meropenem 50 ml @ 17 mls/hr Q12HR IV 10/07/24 22:00 Insulin Human (Reg)/Sodium Chloride 100 ml @ 0.5 mls/hr Q24H IV 10/07/24 11:15 10/07/24 12:03 2 MLS/HR Dextrose 50 ml UD PRN IV 10/07/24 11:15 Diagnostic Test (Pha) 1 strip Q90MIN 10/07/24 12:00 10/07/24 13:37 1 STRIP Insulin Glargine 15 units DAILY SC 10/08/24 10:00 Cancel Insulin Glargine 15 units DAILY SC 10/08/24 10:00 Pantoprazole Sodium 40 mg DAILY IV 10/07/24 14:00 laboratory and microbiology Laboratory Tests 10/07/24 02:59 Test 10/07/24 02:59 Range/Units Serum Glucose 247 H 74-106 mg/dL Problem List/Assessment/Plan Problem List/Assessment/Plan 10/06/24 P[ATIENT HAS BEEN HAVING PAIN IN HER LOWER BACK AND LEFT BUTTOCK FOR TWO DAYS AND NOW PRESENTS WITH TENDERNESS AND ERYTHEMA OF THE AFFECTED AREA, THERE IS REDNESS OF THE AFFECTED SKIN, NO SUBCUTANEOUS COMITANCE IS NOTED, NO BULGING , NO DRAINAGE. THE AREA HAS THE APPEARANCE OF A PILONIDAL INFECTION, NO CLINICAL EVIDENCE OF NECROTIZING INFECTION. INCISION AND DRAINAGE AND POSSIBLE DEBRIDEMENT EXPLAINED TO PATIENT WERE RISKS AND COMPLICATIONS., 10/07/24 PATIENT HAD bp OF 90,S WHEN EXAMINED BY ME AT 1600 YESTERDAY AFTERNOON, DESPITE MY EXPLICIT COMMUNICATION ORDER TO BE NOTIFIED IF THE PATIENT DEVELOPS CHANGES IN HER BP OR HEART RATE OR DEVELOPS FEVER AND INCREASING PAIN I WAS NOT NOTIFIED UNTIL THIS MORNING AT 6:50 HRS THAT THE PATIENT IS ON 115MCG/MIN OF PHENYLEPHRINE, WHEN QUESTIONED THE ICU NURSE INFORMED ME THAT SHE RECEIVED THE PATIENT FROM THE ER ALREADY ON PHENYLEPHRINE AT 4 O'CLOCK THIS AM. 10/07/24 waited till patient fully awake after this morning operation, she is fully oriented, explained the seriousness of her problems and the need for a diverting colostomy, also explained that I spoke to her father, sshe expressed wish not to communicate with her mother.operation, risks and complications explained in detail Plan discussed with: Patient Dietary Evaluation Review Comments: 1) TPN if NPO > 7 days 2) [facility] 3) Cuco 1 pk BID for wound healing 4) Monitor I/O, lab values, wt trend Expected Outcomes/Goals: To meet >75% estimated needs wound to improve Fu 2-3 days VERONICA TOLLIVER MD Oct 07, 2024 14:17
[2024-10-07] MEDS: PANTOPRAZOLE 40 MG/10 ML VIAL INJ IV SCH (14:48)
[2024-10-07 14:49] LABS: Albumin 3.3 g/dL (3.2-4.8); Anion Gap 14 (5-15); BUN/Creatinine Ratio 10.7 (10.0-20.0); Chloride 103 mmol/L (98-107); Potassium 4.9 mmol/L (3.5-5.1); Total Protein 6.5 g/dL (5.7-8.2)
[2024-10-07 14:53] LABS: Free T3 1.18 pg/mL (2.3-4.2); Free T4 (Free Thyroxine) 0.71 ng/dL (0.89-1.76)
[2024-10-07 15:04] LABS: Alanine Aminotransferase 70 U/L (7-40); Alkaline Phosphatase 328 U/L (46-116); Bilirubin, Total 1.8 mg/dL (0.2-1.0); Blood Urea Nitrogen 32 mg/dL (9-23); Calcium 8.6 mg/dL (8.7-10.4); Carbon Dioxide 14 mmol/L (20-31); Glucose 275 mg/dL (74-106); Sodium 131 mmol/L (136-145)
[2024-10-07 15:09] LABS: Lactic Acid w/Reflex 2.2 mmol/L (0.4-2.0)
[2024-10-07 15:10] LABS: Magnesium 1.5 mg/dL (1.6-2.6)
[2024-10-07 15:49] LABS: Base Excess -14.7 mmol/L (-2.0-3.0)
[2024-10-07] MEDS: SODIUM BICARB 50mEq/50ml Vial 50 ML in SOD CHL 0.45% 1,000 ML IV SCH (15:58)
[2024-10-07] MEDS: CLINDAMYCIN 600MG IV 50 ML IV ONE (16:02)
--- NOTE | 2024-10-07 16:14 | ECG ---
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
--- NOTE | 2024-10-07 17:17 | DVHPNRES ---
Progress Note Date Seen: Oct 07, 2024 Resident Creating Document: UMESH BARAHONA RESIDENT Medical Necessity Reason Pt with a Central, PICC or Fol: No Subjective Review of Systems 29-year-old female with PMHx of poorly controlled DM and hypothyroidism (not on medications), presented with 1 day of generalized weakness, dizziness, and diffuse abdominal pain with nausea and vomiting. BG was 524 and BP 84/39 at triage. On further evaluation, she had left lower back pain for 2 weeks with associated tenderness and erythema over the gluteal area. CT abdomen/pelvis revealed extensive soft tissue edema and subcutaneous emphysema extending into the perianal region, concerning for necrotizing fasciitis. Hospital Course: She was started on sepsis protocol with IV fluids, broad-spectrum antibiotics and insulin for hyperglycemia. Labs showed leukocytosis (WBC up to 31K), lactic acidosis, anion gap metabolic acidosis, and elevated inflammatory markers. She underwent emergent surgical debridement for necrotizing fasciitis and pilonidal cyst infection with removal of nonviable tissues and drain placement. Intra-op cultures were obtained. She remains intubated and sedated post-op with plans for possible colostomy depending on extent of further debridement. PMHx: DM (off meds 1 yrs), hypothyroidism (no meds) PSHx: None FHx: DM SHx: Social alcohol, non-smoker, no drug use, live with his father and brother, previously was working on [employer] Vitals on admission: BP 84/39, BG 524 Objective vital signs Vital Sign Date Time Temp Pulse Resp B/P (MAP) Pulse Ox O2 Delivery O2 Flow Rate FiO2 10/07/24 17:00 98 21 101/63 (76) 96 10/07/24 16:00 97.8 97.8 10/07/24 16:00 Nasal Cannula* 2 28 Total Intake and Output 10/06/24 10/06/24 10/07/24 15:00 23:00 07:00 Intake Total 550 ml 3200 ml 1133.75 ml Output Total 50 ml Balance 550 ml 3200 ml 1083.75 ml medications Current Medications Medications Dose Ordered Sig/Ego Route Start Time Stop Time Status Last Admin Dose Admin Vancomycin HCl 0 ml @ 0 mls/hr UD IV 10/06/24 19:30 Morphine Sulfate 2 mg Q4HPRN PRN IV 10/06/24 19:30 Phenylephrine HCl 250 ml @ 30 mls/hr Q8H20M IV 10/07/24 03:45 10/07/24 04:14 30 MLS/HR Norepinephrine Bitartrate 250 ml @ 3.75 mls/hr Q24H IV 10/07/24 10:00 Meropenem 50 ml @ 17 mls/hr Q12HR IV 10/07/24 22:00 Dextrose 50 ml UD PRN IV 10/07/24 11:15 Cancel Insulin Glargine 15 units DAILY SC 10/08/24 10:00 Cancel Pantoprazole Sodium 40 mg DAILY IV 10/07/24 14:00 10/07/24 14:48 40 MG Diagnostic Test (Pha) 1 strip Q90MIN 10/07/24 15:00 10/07/24 17:15 1 STRIP Insulin Human (Reg)/Sodium Chloride 100 ml @ 0.5 mls/hr Q24H IV 10/07/24 15:00 Dextrose 50 ml PRN PRN IV 10/07/24 15:00 Sodium Bicarbonate 50 ml/ Sodium Chloride 1,050 ml @ 100 mls/hr [id number] IV 10/07/24 15:45 10/07/24 15:58 100 MLS/HR Clindamycin Phosphate 50 ml @ 50 mls/hr Q8HR IV 10/07/24 22:00 Examination Gen: 29-year-old female in acute distress Skin: Warm, dry, normal color and texture, no rash. HEENT: Normocephalic atraumatic, mucous membranes moist and pink.hypothyroisidm fascies Neck: Cervical and supraclavicular nodes normal without enlargement, trachea is midline, thyroid gland is normal without masses. Pulmonary: hypoventilation Cardiac: Regular rate and rhythm. No murmur Abdomen: Soft, nontender, nondistended, bowel sounds present all 4 quadrants, no guarding, no rigidity, no organomegaly. Extremities: lumbar an sacral area coverd by dressing, per dr Pretty do not open Neuro: Cranial nerves II through XII grossly intact, normal affect and speech, no focal motor deficits, drowsy AX2 laboratory and microbiology Laboratory Tests 10/07/24 14:19 10/07/24 02:59 Test 10/07/24 14:19 Range/Units Serum Glucose 275 H 74-106 mg/dL Microbiology Date/Time Source Procedure Growth Status 10/07/24 04:30 Nose MRSA Screen - Final Complete 10/06/24 11:20 Blood Blood Culture - Preliminary NO GROWTH AFTER 24 HOURS OF INCUBATION. Resulted Problem List/Assessment/Plan Problem List/Assessment/Plan -Neurologic: #Acute metabolic encephalopathy secondary to sepsis and metabolic derangements. No focal neurological deficits documented. Drowsy, AOX2 No signs of seizure. Infectious Diseases #Septic shock due to necrotizing fasciitis of the gluteal and sacral region secondary to pilonidal cyst infection. Confirmed intra-op with devitalized tissue and large purulent collection WBC peaked at 31K with left shift Source control achieved with surgical debridement Started on broad-spectrum antibiotics (Zosyn + Vanc): now meropenem+ vanco+ clindamycin Blood cultures pending Cardiovascular: #Septic shock due to necrotizing fasciitis with hypotension (84/39 on arrival), requiring fluid resuscitation and vasopressor support with phenylephrine. Lactate peaked at 4.9 MAP goal >65 mmHg maintained Improving hemodynamics post-op wean off phenylephrine levophed drip midline placed Respiratory: #Acute hypoxemic respiratory failure secondary to sepsis and poor perfusion #Respiratory acidosis possible obesity hypoventilation syndrome O2 sat >95% on 23 L NC No mechanical ventilation ABG trends: 10/06: pH 7.34, HCO 14 compensated metabolic acidosis 10/07: pH 7.18 then 7.20, HCO 12.1 worsening primary metabolic acidosis No respiratory compensation, consistent with acute process: respiratory acidosis Lactate-driven AGMA, more than DKA Metabolic/Endocrine: #Severe AGMA due to lactic acidosis B, but beta-hydroxybutyrate only 0.9, no ketonemia AG >17, HCO <15 consistent with lactic acidosis Insulin drip started for tight control of sugars 140- 180 Bicarbonate drip initiated #Uncontrolled diabetes hba1c 13 continue insulin drip to achieve control 140-180 of the sugars #Hypothyroidism: TSH 12.1, low free T4 free T3 Given severity of illness, IV levothyroxine started to prevent myxedema Cortisol: 30.84 normal, adrenal insufficiency ruled out #Hypomagnesemia replaced Hematology: #Leukocytosis with neutrophilic predominance (WBC >30K) #Anemia Hgb trending down (11 --> 9.7), likely hemodilutional or inflammatory No evidence of DIC, platelets stable Monitor for anemia of critical illness Renal: АНДРЕЙ due to VMN on CKD stage 4? (from hypoperfusion and sepsis + chronic component from diabetes) Cr trending high UA: proteinuria (1+), trace ketones, glucosuria (4+), WBC 16 possible UTI component or inflammation Protein/Creatinine ratio = 218.6 mg/g suggests underlying CKD Renal US: Echogenic kidneys, no hydronephrosis, medical kidney disease consistent with diabetic nephropathy : #Complicated UTI UA: trace ketones, glucosuria, 1+ protein, few bacteria Bladder decompressed via Prajapati, likely due to altered mental status and hypotension No obstruction on renal imaging MSK/Soft Tissue: #Extensive necrotizing fasciitis involving gluteal/sacral regions Large abscess drained (~150 mL purulent fluid), tissue debrided Pulse lavage and wound packed Second-look surgery planned; possible colostomy pending involvement of deeper structures Case discussed with Dr Orr Time spent on critical care 113 min, excluding procedures, extensive discussion with the father Darwin, full code Plan discussed with: Patient, Other (father) My Orders My Orders Orders - UMESH BARAHONA Procedure Category Date Status Time * Picc Line Consult CONS 10/07/24 Transmitted 09:44 Norepinephrine 8 PHA 10/07/24 In Process Mg/250ml Kit 10:00 Abg W/ Co-Ox RT 10/07/24 Logged 10:18 Kidney US 10/07/24 Resulted 10:18 Chest Xray 1 View XY 10/07/24 Resulted 10:21 Urine Bacterial BRONSON 10/07/24 In Process Culture 10:22 * Wound Consult CONS 10/07/24 Transmitted Meropenem 1gm Ivpb PHA 10/07/24 In Process (Merrem 1gm/ Ns) 22:00 Insulin Drip Protocol SHEFALI 10/07/24 In Process Basic Metabolic Panel LAB 10/07/24 Logged 17:03 Basic Metabolic Panel LAB 10/07/24 Logged 23:03 Basic Metabolic Panel LAB 10/08/24 Verified 05:03 Neurological SHEFALI 10/07/24 In Process Assessment 11:03 Vs/Hemodynamics SHEFALI 10/07/24 In Process 11:03 Electrocardigram EKG 10/07/24 Resulted 11:19 Pantoprazole PHA 10/07/24 In Process (Protonix) 14:00 Glucose Blood PHA 10/07/24 In Process (Accu-Chek Comfort 15:00 Insulin Drip 100 PHA 10/07/24 In Process Unit/100ml (Myxredlin 15:00 Dextrose 50% Syringe PHA 10/07/24 In Process 15:00 Cortisol Am LAB 10/07/24 Logged 15:47 Communication Order ORDERS 10/07/24 Transmitted 15:47 Basic Metabolic Panel LAB 10/07/24 Logged 20:00 Insert Midline ORDERS 10/07/24 Transmitted 17:15 Dietary Evaluation Review Comments: 1) TPN if NPO > 7 days 2) [facility] 3) Cuco 1 pk BID for wound healing 4) Monitor I/O, lab values, wt trend Expected Outcomes/Goals: To meet >75% estimated needs wound to improve Fu 2-3 days Date of Service: Oct 07, 2024 Billing Provider: DARWIN ORR MD Common Visit Codes: 69731-[id number] CARE 30-74 MIN, 70192-RAZTFTER CARE-EACH +30MIN (x2) UMESH BARAHONA RESIDENT Oct 07, 2024 17:17 DARWIN ORR MD Oct 08, 2024 15:51
[2024-10-07 17:54] LABS: Chloride 104 mmol/L (98-107); Potassium 4.7 mmol/L (3.5-5.1)
[2024-10-07 17:55] LABS: Anion Gap 14 (5-15)
[2024-10-07 17:56] LABS: Calcium 8.3 mg/dL (8.7-10.4); Carbon Dioxide 14 mmol/L (20-31); Sodium 132 mmol/L (136-145)
[2024-10-07 18:00] LABS: BUN/Creatinine Ratio 11.4 (10.0-20.0)
[2024-10-07 18:03] LABS: Blood Urea Nitrogen 35 mg/dL (9-23); Glucose 240 mg/dL (74-106)
[2024-10-07 20:29] LABS: Chloride 105 mmol/L (98-107); Potassium 4.8 mmol/L (3.5-5.1)
[2024-10-07 20:30] LABS: Anion Gap 13 (5-15); Carbon Dioxide 15 mmol/L (20-31); Sodium 133 mmol/L (136-145)
[2024-10-07 20:35] LABS: BUN/Creatinine Ratio 12.3 (10.0-20.0)
[2024-10-07 20:37] LABS: Blood Urea Nitrogen 38 mg/dL (9-23); Calcium 8.3 mg/dL (8.7-10.4); Glucose 227 mg/dL (74-106)
[2024-10-07] MEDS: MEROPENEM 1GM IVPB 50 ML IV SCH (21:25)
[2024-10-07] MEDS: CLINDAMYCIN 600MG IV 50 ML IV SCH (21:25)
[2024-10-07] MEDS ORDERED: PIPERACILLIN-TAZOB 3.375GM 100 ML IV SCH (22:00)
[2024-10-07] MEDS: MAGNESIUM SULFATE 1GM/100ML 100 ML IV ONE (23:24)
[2024-10-07 23:31] LABS: Chloride 104 mmol/L (98-107); Potassium 4.7 mmol/L (3.5-5.1)
[2024-10-07 23:32] LABS: Anion Gap 12 (5-15)
[2024-10-07 23:33] LABS: Calcium 7.8 mg/dL (8.7-10.4); Carbon Dioxide 16 mmol/L (20-31); Sodium 132 mmol/L (136-145)
[2024-10-07 23:37] LABS: BUN/Creatinine Ratio 13.3 (10.0-20.0)
[2024-10-07 23:43] LABS: Blood Urea Nitrogen 40 mg/dL (9-23); Glucose 175 mg/dL (74-106)
[2024-10-08] VITALS (52 sets, daily range): BP systolic 78–123; BP diastolic 39–73; PULSE 79–97; RESP 11–27; TEMP 97.3–99; O2SAT 92–100
[2024-10-08] MEDS: ACCU-CHEK COMFORT CURVE STRIP VI SCH ×2 (00:05→09:03)
[2024-10-08] MEDS: InsuLIN REG 1unit/0.01ml Soln (100units/ml) SC SCH (00:09)
[2024-10-08 03:36] LABS: Anion Gap 17 (5-15); BUN/Creatinine Ratio 13.9 (10.0-20.0); Chloride 103 mmol/L (98-107); Magnesium 1.8 mg/dL (1.6-2.6); Potassium 5.0 mmol/L (3.5-5.1); Total Protein 6.0 g/dL (5.7-8.2)
[2024-10-08 03:37] LABS: Alanine Aminotransferase 58 U/L (7-40); Albumin 3.0 g/dL (3.2-4.8); Alkaline Phosphatase 268 U/L (46-116); Bilirubin, Total 1.7 mg/dL (0.2-1.0); Blood Urea Nitrogen 41 mg/dL (9-23); Calcium 7.8 mg/dL (8.7-10.4); Carbon Dioxide 12 mmol/L (20-31); Glucose 237 mg/dL (74-106); Sodium 132 mmol/L (136-145)
[2024-10-08 03:44] LABS: Hematocrit 28.5 % (36.0-46.0); Hemoglobin 9.7 g/dL (12.2-16.2); Mean Corpuscular Hemoglobin 29.8 pg (28.0-32.0); Mean Corpuscular Volume 87.9 fL (80.0-100.0)
[2024-10-08] MEDS: INSULIN LANTUS (GLARGINE) 1 /0.01ml (100units/ml) SC ONE (03:57)
[2024-10-08] MEDS: LEVOTHYROXINE SODIUM 50 MCG TAB PO SCH (04:21)
[2024-10-08 04:51] LABS: Total Cells Counted 100.0 (100)
--- NOTE | 2024-10-08 06:57 | DVH ---
CHEST RADIOGRAPH Indication: intubated Technique: Single frontal view of the chest was obtained Comparison: XY CHEST XRAY 1 VIEW on DOS: 10/07/24 FINDINGS: Lines and Tubes: None Lungs: Hazy bilateral opacities. Pleura: No effusion. No pneumothorax. Cardiomediastinal contours: Cardiomegaly. Bones: No acute osseous abnormality. IMPRESSION: 1. Pulmonary vascular congestion. 2. Cardiomegaly.
[2024-10-08] MEDS ORDERED: DEXTROSE (50%) 50ML SYRG IV PRN (08:15)
[2024-10-08] MEDS: INSULIN DRIP 100 UNIT/100ML 100 ML IV SCH (09:10)
[2024-10-08] MEDS: SODIUM BICARB 50mEq/50ml Vial 100 ML in SOD CHL 0.45% 1,000 ML IV SCH (09:11)
[2024-10-08] MEDS: LEVOTHYROXINE SODIUM 100 MCG/5 ML INJ IV SCH (09:34)
[2024-10-08] MEDS ORDERED: INSULIN LANTUS (GLARGINE) 1 /0.01ml (100units/ml) SC SCH ×2 (10:00)
[2024-10-08 11:12] LABS: Base Excess -10.6 mmol/L (-2.0-3.0)
--- NOTE | 2024-10-08 12:32 | DVHPN2 ---
Progress Note Date Seen: Oct 08, 2024 Medical Necessity Reason Pt with a Central, PICC or Fol: No Objective vital signs Vital Sign Date Time Temp Pulse Resp B/P (MAP) Pulse Ox O2 Delivery O2 Flow Rate FiO2 10/08/24 11:30 84 16 98/69 (79) 92 10/08/24 10:00 Nasal Cannula* 2 28 10/08/24 08:00 98.6 98.6 Total Intake and Output 10/07/24 10/07/24 10/08/24 15:00 23:00 07:00 Intake Total 1502.50 ml 817 ml 767 ml Output Total 300 ml 750 ml Balance 1502.50 ml 517 ml 17 ml medications Current Medications Medications Dose Ordered Sig/Geo Route Start Time Stop Time Status Last Admin Dose Admin Vancomycin HCl 0 ml @ 0 mls/hr UD IV 10/06/24 19:30 Morphine Sulfate 2 mg Q4HPRN PRN IV 10/06/24 19:30 Phenylephrine HCl 250 ml @ 30 mls/hr Q8H20M IV 10/07/24 03:45 10/07/24 04:14 30 MLS/HR Norepinephrine Bitartrate 250 ml @ 3.75 mls/hr Q24H IV 10/07/24 10:00 Meropenem 50 ml @ 17 mls/hr Q12HR IV 10/07/24 22:00 10/08/24 09:34 17 MLS/HR Dextrose 50 ml UD PRN IV 10/07/24 11:15 Cancel Insulin Glargine 15 units DAILY SC 10/08/24 10:00 Cancel Pantoprazole Sodium 40 mg DAILY IV 10/07/24 14:00 10/08/24 09:33 40 MG Dextrose 50 ml PRN PRN IV 10/07/24 15:00 Cancel Clindamycin Phosphate 50 ml @ 50 mls/hr Q8HR IV 10/07/24 22:00 10/08/24 05:37 50 MLS/HR Levothyroxine Sodium 50 mcg DAILY IV 10/08/24 10:00 10/08/24 09:34 50 MCG Sodium Bicarbonate 100 ml/Sodium Chloride 1,100 ml @ 100 mls/hr Q11H IV 10/08/24 08:00 10/08/24 09:11 100 MLS/HR Insulin Human (Reg)/Sodium Chloride 100 ml @ 0.5 mls/hr Q24H IV 10/08/24 08:15 10/08/24 09:10 3 MLS/HR Diagnostic Test (Pha) 1 strip Q90MIN 10/08/24 09:00 10/08/24 12:01 1 STRIP Dextrose 50 ml PRN PRN IV 10/08/24 08:15 laboratory and microbiology Laboratory Tests 10/08/24 03:05 Test 10/08/24 03:05 Range/Units Serum Glucose 237 H 74-106 mg/dL Problem List/Assessment/Plan Problem List/Assessment/Plan 10/06/24 P[ATIENT HAS BEEN HAVING PAIN IN HER LOWER BACK AND LEFT BUTTOCK FOR TWO DAYS AND NOW PRESENTS WITH TENDERNESS AND ERYTHEMA OF THE AFFECTED AREA, THERE IS REDNESS OF THE AFFECTED SKIN, NO SUBCUTANEOUS COMITANCE IS NOTED, NO BULGING , NO DRAINAGE. THE AREA HAS THE APPEARANCE OF A PILONIDAL INFECTION, NO CLINICAL EVIDENCE OF NECROTIZING INFECTION. INCISION AND DRAINAGE AND POSSIBLE DEBRIDEMENT EXPLAINED TO PATIENT WERE RISKS AND COMPLICATIONS., 10/07/24 PATIENT HAD bp OF 90,S WHEN EXAMINED BY ME AT 1600 YESTERDAY AFTERNOON, DESPITE MY EXPLICIT COMMUNICATION ORDER TO BE NOTIFIED IF THE PATIENT DEVELOPS CHANGES IN HER BP OR HEART RATE OR DEVELOPS FEVER AND INCREASING PAIN I WAS NOT NOTIFIED UNTIL THIS MORNING AT 6:50 HRS THAT THE PATIENT IS ON 115MCG/MIN OF PHENYLEPHRINE, WHEN QUESTIONED THE ICU NURSE INFORMED ME THAT SHE RECEIVED THE PATIENT FROM THE ER ALREADY ON PHENYLEPHRINE AT 4 O'CLOCK THIS AM. 10/07/24 waited till patient fully awake after this morning operation, she is fully oriented, explained the seriousness of her problems and the need for a diverting colostomy, also explained that I spoke to her father, sshe expressed wish not to communicate with her mother.operation, risks and complications explained in detail 10/08/24 BP and HR improved. continues with acidosis and leukocytosis, had several bowel movements, explained upcoming re operation on her buttocks again and again explained colostomy procedure Plan discussed with: Patient Dietary Evaluation Review Comments: 1) TPN if NPO > 7 days 2) [facility] 3) Cuco 1 pk BID for wound healing 4) Monitor I/O, lab values, wt trend Expected Outcomes/Goals: To meet >75% estimated needs wound to improve Fu 2-3 days VERONICA TOLLIVER MD Oct 08, 2024 12:32
[2024-10-08] MEDS ORDERED: MIDAZOLAM HCL 2MG/2ML 2ml VIAL (1mg/ml) ONE (13:08)
[2024-10-08] MEDS ORDERED: METOCLOPRAMIDE HCL 5MG/ml INJ 2ml VIAL ONE (13:08)
[2024-10-08] MEDS ORDERED: ONDANSETRON HCL 4 MG/2 ML VIAL ONE (13:08)
[2024-10-08] MEDS ORDERED: LIDOCAINE 2% (LOCAL ANESTH.) PF 5ml SDV ONE (13:08)
[2024-10-08] MEDS ORDERED: fentaNYL CITRATE 100 MCG/2 ML VL ONE (13:08)
[2024-10-08] MEDS ORDERED: PROPOFOL 10 MG/ML 20 ML IV ONE (13:09)
[2024-10-08] MEDS ORDERED: ROCURONIUM 10MG/ML 10ML VIAL IV ONE (13:09)
[2024-10-08] MEDS: VANCOMYCIN HCL 1000 MG VL ONE (14:25)
[2024-10-08] MEDS ORDERED: SUGAMMADEX 200mg/2ml Vial (100MG/ML) IV ONE (15:41)
[2024-10-08] MEDS ORDERED: ACETAMINOPHEN IV 1000 MG/100ML (10MG/ML) IV PRN (16:30)
[2024-10-08] MEDS ORDERED: HYDROmorphone HCL 2 MG/ML VL/or syr IV PRN (16:30)
[2024-10-08] MEDS ORDERED: SODIUM BICARB 50mEq/50ml Vial 150 ML in D5W 5% 1,000 ML IV SCH (16:45)
--- NOTE | 2024-10-08 16:46 | DVHOP ---
PREOPERATIVE DIAGNOSES: Necrotizing infection, pilonidal cyst, buttocks, perianal area. POSTOPERATIVE DIAGNOSES: Necrotizing infection, pilonidal cyst, buttocks, perianal area. SURGEON: Dennis Pretty MD MANAGER MARKET INTELLIGENCE: Rodriguez King NP ANESTHESIA: General endotracheal, Shayan Figueroa. PROCEDURES: Secondary debridement of affected area (pilonidal cyst both buttocks, perianal area) and creation of a diverting colostomy. DESCRIPTION OF PROCEDURE: Under general endotracheal anesthesia with the patient in lateral decubitus position with the body secured with a beanbag and propped up with the left side up and axilla was protected on an axillary roll, knees by pillows, the patient's area of previous debridement was exposed and inspected. There was necrotic tissue in the cavity of the pilonidal cyst as well as necrotic tissue in the buttocks areas which were excised. The debridement continued with all the non-vital devitalized tissue which was submitted for histopathologic examination. Great caution was exercised so as to not enter the retroperitoneum and injure the rectum and to attempt to avoid incision of the anal sphincter. 3 liter saline pulse lavage containing 2 grams of vancomycin was then used after achievement of complete hemostasis. Subsequently, the wound was packed with iodoform, iodine-saturated Kerlix, and sterilely dressed. The patient was then returned into supine position. The second operation was performed with new instruments and after changing gloves and gowns and re-scrubbing, the surgical team continued to perform a colostomy with the incision being made into the lower abdomen after the skin was prepped and draped. The abdomen was entered and manually explored. The rectosigmoid colon was delivered into the wound. The mesentery was divided between metallic clips, carefully avoiding the large vessels, namely the inferior mesenteric artery remaining intact. The descending rectosigmoid segment was mobilized to allow its exteriorization through a defect in the left lower abdominal wall which was created to accommodate two of the surgeon's fingers through which the rectosigmoid segment was delivered after dividing the continuity of the bowel with a JAVIER stapler. The distal portion of the division of the rectosigmoid colon was allowed to retreat into the pelvis. The colostomy was exteriorized and the bowel was protected. The abdomen was irrigated. The irrigant was aspirated. Hemostasis was meticulously accomplished. Closure of the abdominal wall with #1 double-stranded PDS skin tico was accomplished and only following closure of the abdominal wall did the colostomy undergo maturation with 3-0 Monocryl sutures. The mucosa and all the layers of the bowel appeared well-perfused and viable. The patient remained hemodynamically stable and left the operating room following an accurate needle and sponge count. The patient's father, Darwin, was thoroughly informed in person in the waiting area. I explained to him that his daughter is very critically ill, that this infection could progress to , that the infection is causing of the tissues of her buttocks, and the buttocks had to be partially resected due to the of the tissues. I also explained that the dissection is close to the anal sphincter and that the patient's colostomy might become a permanent fixture. Depending on the patient's progress if she continues to remain acidotic and septic and more tissues are nonviable, then the patient would have to be transferred to a higher level of care for definitive management. MD IRENA Park/USHA/DAVE TID: [id number] RECEIPT: [id number]
[2024-10-08] MEDS: SODIUM BICARB 50mEq/50ml Vial 150 ML in D5W 5% 1,000 ML IV SCH (17:47)
[2024-10-08] MEDS: ONDANSETRON HCL 4 MG/2 ML VIAL IV ONE ×2 (17:58→17:59)
[2024-10-08] MEDS: POVIDONE IODINE 10 % TOPICAL OINT 30GM TOP ONE (17:58)
[2024-10-08] MEDS: BUPIVACAINE 0.5% P/F INJ 10 ML VIAL ONE (18:00)
[2024-10-08] MEDS: METHYLENE BLUE 0.5% 5MG/ML 10ml AMP IV ONE (18:00)
[2024-10-08] MEDS: LIDOCAINE W/ EPINEPHRINE 1% 20ML VIAL ONE (18:01)
[2024-10-08 18:44] LABS: Chloride 106 mmol/L (98-107); Potassium 4.3 mmol/L (3.5-5.1)
[2024-10-08 18:45] LABS: Anion Gap 14 (5-15)
[2024-10-08 18:49] LABS: Calcium 7.7 mg/dL (8.7-10.4); Carbon Dioxide 16 mmol/L (20-31); Sodium 136 mmol/L (136-145)
[2024-10-08 18:50] LABS: BUN/Creatinine Ratio 16.8 (10.0-20.0)
[2024-10-08 18:51] LABS: Blood Urea Nitrogen 49 mg/dL (9-23); Glucose 212 mg/dL (74-106)
--- NOTE | 2024-10-08 21:36 | DVHPNRES ---
Progress Note Date Seen: Oct 08, 2024 Resident Creating Document: UMESH BARAHONA RESIDENT Medical Necessity Reason Pt with a Central, PICC or Fol: No Subjective Review of Systems 29-year-old female with PMHx of poorly controlled DM and hypothyroidism (not on medications), presented with 1 day of generalized weakness, dizziness, and diffuse abdominal pain with nausea and vomiting. BG was 524 and BP 84/39 at triage. On further evaluation, she had left lower back pain for 2 weeks with associated tenderness and erythema over the gluteal area. CT abdomen/pelvis revealed extensive soft tissue edema and subcutaneous emphysema extending into the perianal region, concerning for necrotizing fasciitis. Hospital Course: She was started on sepsis protocol with IV fluids, broad-spectrum antibiotics and insulin for hyperglycemia. Labs showed leukocytosis (WBC up to 31K), lactic acidosis, anion gap metabolic acidosis, and elevated inflammatory markers. She underwent emergent surgical debridement for necrotizing fasciitis and pilonidal cyst infection with removal of nonviable tissues and drain placement. Intra-op cultures were obtained. She remains intubated and sedated post-op with plans for possible colostomy depending on extent of further debridement. PMHx: DM (off meds 1 yrs), hypothyroidism (no meds) PSHx: None FHx: DM SHx: Social alcohol, non-smoker, no drug use, live with his father and brother, previously was working on [employer] Vitals on admission: BP 84/39, BG 524 10/08/24: ABG still showing acidosis, we restarted insulin drip, dressing change was done, extensive sacral and lumbar ulcer, extending trough anal area, extensive discussion was held with the father and brother about the poor prognosis of the condition, later in the afternoon patient was taken to Secondary debridement of affected area (pilonidal cyst both buttocks, perianal area) and creation of a diverting colostomy. Patient came back to the unit, on levophed low dose, extubated, we changed the fluids: d5w+ 3amp hco3: 125cc/h Objective vital signs Vital Sign Date Time Temp Pulse Resp B/P (MAP) Pulse Ox O2 Delivery O2 Flow Rate FiO2 10/08/24 20:00 86 10/08/24 20:00 20 92 Room Air* 0 21 10/08/24 19:00 123/72 (89) 10/08/24 17:30 97.8 97.8 Total Intake and Output 10/07/24 10/07/24 10/08/24 15:00 23:00 07:00 Intake Total 1502.50 ml 817 ml 767 ml Output Total 300 ml 750 ml Balance 1502.50 ml 517 ml 17 ml medications Current Medications Medications Dose Ordered Sig/Geo Route Start Time Stop Time Status Last Admin Dose Admin Vancomycin HCl 0 ml @ 0 mls/hr UD IV 10/06/24 19:30 Morphine Sulfate 2 mg Q4HPRN PRN IV 10/06/24 19:30 Phenylephrine HCl 250 ml @ 30 mls/hr Q8H20M IV 10/07/24 03:45 10/07/24 04:14 30 MLS/HR Norepinephrine Bitartrate 250 ml @ 3.75 mls/hr Q24H IV 10/07/24 10:00 10/08/24 16:44 3.75 MLS/HR Meropenem 50 ml @ 17 mls/hr Q12HR IV 10/07/24 22:00 10/08/24 09:34 17 MLS/HR Dextrose 50 ml UD PRN IV 10/07/24 11:15 Cancel Insulin Glargine 15 units DAILY SC 10/08/24 10:00 Cancel Pantoprazole Sodium 40 mg DAILY IV 10/07/24 14:00 10/08/24 09:33 40 MG Dextrose 50 ml PRN PRN IV 10/07/24 15:00 Cancel Clindamycin Phosphate 50 ml @ 50 mls/hr Q8HR IV 10/07/24 22:00 10/08/24 05:37 50 MLS/HR Levothyroxine Sodium 50 mcg DAILY IV 10/08/24 10:00 10/08/24 09:34 50 MCG Insulin Human (Reg)/Sodium Chloride 100 ml @ 0.5 mls/hr Q24H IV 10/08/24 08:15 10/08/24 09:10 3 MLS/HR Diagnostic Test (Pha) 1 strip Q90MIN 10/08/24 09:00 10/08/24 21:12 1 STRIP Dextrose 50 ml PRN PRN IV 10/08/24 08:15 Insulin Glargine 20 units HS SC 10/08/24 22:00 Sodium Bicarbonate 150 ml/Dextrose 1,150 ml @ 125 mls/hr Q9H12M IV 10/08/24 17:15 10/08/24 17:47 125 MLS/HR Examination Gen: 29-year-old female in acute distress Skin: Warm, dry, normal color and texture, no rash. HEENT: Normocephalic atraumatic, mucous membranes moist and pink.hypothyroisidm fascies Neck: Cervical and supraclavicular nodes normal without enlargement, trachea is midline, thyroid gland is normal without masses. Pulmonary: hypoventilation Cardiac: Regular rate and rhythm. No murmur Abdomen: Soft, nontender, nondistended, bowel sounds present all 4 quadrants, no guarding, no rigidity, no organomegaly. Extremities: extensive sacral and lumbar ulcer, extending trough anal area with necrotic tissue Neuro: Cranial nerves II through XII grossly intact, normal affect and speech, no focal motor deficits, drowsy AX2 laboratory and microbiology Laboratory Tests 10/08/24 18:02 10/08/24 03:05 Test 10/08/24 18:02 Range/Units Serum Glucose 212 H 74-106 mg/dL Microbiology Date/Time Source Procedure Growth Status 10/07/24 10:30 Voided Urine Urine Culture - Preliminary Resulted 10/07/24 08:21 Other Other Gram Stain - Final Resulted 10/07/24 08:21 Other Other Anaerobic Culture - Preliminary Resulted 10/07/24 08:21 Other Other Aerobic Culture - Preliminary Resulted 10/06/24 11:20 Blood Blood Culture - Preliminary NO GROWTH AFTER 48 HOURS OF INCUBATION. Resulted Problem List/Assessment/Plan Problem List/Assessment/Plan -Neurologic: #Acute metabolic encephalopathy secondary to sepsis and metabolic derangements. No focal neurological deficits documented. Drowsy, AOX2 No signs of seizure. Infectious Diseases #Septic shock due to necrotizing fasciitis of the gluteal and sacral region secondary to pilonidal cyst infection. #sp I&D 10/07/24 #sp debridement of affected area (pilonidal cyst both buttocks, perianal area) and creation of a diverting colostomy 10/08/24 Confirmed intra-op with devitalized tissue and large purulent collection WBC peaked at 31K with left shift Source control achieved with surgical debridement Started on broad-spectrum antibiotics (Zosyn + Vanc): now meropenem+ vanco+ clindamycin Blood cultures pending ID consulted per Dr Pretty Cardiovascular: #Septic shock due to necrotizing fasciitis with hypotension (84/39 on arrival), requiring fluid resuscitation and vasopressor support with phenylephrine. Lactate peaked at 4.9 MAP goal >65 mmHg maintained Improving hemodynamics post-op wean off phenylephrine levophed drip: low dose midline placed Respiratory: #Acute hypoxemic respiratory failure secondary to sepsis and poor perfusion #Respiratory acidosis possible obesity hypoventilation syndrome O2 sat >95% on 23 L NC No mechanical ventilation ABG trends: 10/06: pH 7.34, HCO 14 compensated metabolic acidosis 10/07: pH 7.18 then 7.20, HCO 12.1 worsening primary metabolic acidosis No respiratory compensation, consistent with acute process: respiratory acidosis Lactate-driven AGMA, more than DKA 10/08 ph 7.316 pco2 28.6 po2 99.2 hco3 14.3 Metabolic/Endocrine: #Severe AGMA due to lactic acidosis B, but beta-hydroxybutyrate only 0.9, no ketonemia AG >17, HCO <15 consistent with lactic acidosis Insulin drip started for tight control of sugars 140- 180 Bicarbonate drip initiated: d5w + 3amp = 125cc/h lantus 20 ui #Uncontrolled diabetes hba1c 13 continue insulin drip to achieve control 140-180 of the sugars #Hypothyroidism: TSH 12.1, low free T4 free T3 Given severity of illness, IV levothyroxine started to prevent myxedema daily Cortisol: 30.84 normal, adrenal insufficiency ruled out #Hypomagnesemia replaced Hematology: #Leukocytosis with neutrophilic predominance (WBC >30K) #Anemia Hgb trending down (11 --> 9.7 --> 8.7), likely hemodilutional or inflammatory No evidence of DIC, platelets stable Monitor for anemia of critical illness Renal: АНДРЕЙ due to VMN on possible CKD, baseline creatinine unknown (from hypoperfusion and sepsis + chronic component from diabetes) Cr trending high UA: proteinuria (1+), trace ketones, glucosuria (4+), WBC 16 possible UTI component or inflammation Protein/Creatinine ratio = 218.6 mg/g suggests underlying CKD Renal US: Echogenic kidneys, no hydronephrosis, medical kidney disease consistent with diabetic nephropathy Nephrology consulted : #Complicated UTI UA: trace ketones, glucosuria, 1+ protein, few bacteria Bladder decompressed via Prajapati, likely due to altered mental status and hypotension MSK/Soft Tissue: #Extensive necrotizing fasciitis involving gluteal/sacral regions Large abscess drained (~150 mL purulent fluid), tissue debrided Pulse lavage and wound packed sp debridement of affected area (pilonidal cyst both buttocks, perianal area) and creation of a diverting colostomy 10/08/[address] Orr Time spent on critical care 93 min, excluding procedures, extensive discussion with the father Darwin, full code Plan discussed with: Other (father and brother ) My Orders My Orders Orders - UMESH BARAHONA RESIDENT Procedure Category Date Status Time Levothyroxine PHA 10/08/24 In Process Injection (Synthroid 10:00 Insulin Drip 100 PHA 10/08/24 In Process Unit/100ml (Myxredlin 08:15 Glucose Blood PHA 10/08/24 In Process (Accu-Chek Comfort 09:00 Dextrose 50% Syringe PHA 10/08/24 In Process 08:15 *[facility] CONS 10/08/24 Transmitted -[place] 16:42 Insulin Lantus PHA 10/08/24 In Process (Glargine) (Lantus) 22:00 D5w 5% (Dextrose 5%) PHA 10/08/24 In Process W/Sodium Bicarb 50m 17:15 Complete Blood Count LAB 10/09/24 Verified 04:00 Comprehensive LAB 10/09/24 Verified Metabolic Panel 04:00 Chest Xray 1 View XY 10/09/24 Logged 04:00 Abg W/ Co-Ox RT 10/09/24 Logged 04:00 Basic Metabolic Panel LAB 10/09/24 Verified 00:00 Basic Metabolic Panel LAB 10/09/24 Verified 06:00 Basic Metabolic Panel LAB 10/09/24 Verified 12:00 Basic Metabolic Panel LAB 10/09/24 Verified 18:00 Dietary Evaluation Review Comments: 1) TPN if NPO > 7 days 2) Advance to CCHO 60gm as medically feasible 3) Cuco 1 pk BID for wound healing 4) Monitor I/O, lab values, wt trend Expected Outcomes/Goals: To meet >75% estimated needs wound to improve Fu 2-3 days Date of Service: Oct 08, 2024 Billing Provider: DARWIN ORR MD Common Visit Codes: 88821-[id number] CARE 30-74 MIN, [id number] CARE-EACH +30MIN UMESH BARAHONA Oct 08, 2024 21:36 DARWIN ORR MD Oct 09, 2024 14:57
[2024-10-08] MEDS: INSULIN LANTUS (GLARGINE) 1 /0.01ml (100units/ml) SC SCH (21:38)
--- NOTE | 2024-10-08 21:48 | DVHINCON2 ---
Date of service: Oct 08, 2024 History of Present Illness 29-year-old female presents for evaluation of possible abscess. Patient reports a two day history of not being able to keep her blood sugars under control. She also developed left gluteal lower back tenderness so she presented for evaluation of possible infection. She also reports having dizziness. Past Medical History Past Medical History Diabetes mellitus and thyroid Past Surgical History Denies Family History Noncontributory Smoke: No ALCOHOL: none Drugs: None Lives: with Family Family History: Diabetes mellitus G8 FATHER Hypertension G8 FATHER Allergies: Coded Allergies: NO KNOWN ALLERGIES (Unverified , 10/04/24) Home Meds Active Scripts Lactulose (Lactulose) 10 Gm/15 Ml Keshia, 30 ML PO BID, #280 ML Prov:BERT AHUMADA 10/04/24 Cephalexin Monohydrate (Cephalexin) 500 Mg Cap, 1 CAP PO QID, #40 CAP Prov:BERT AHUMADA 10/04/24 Ibuprofen (Ibuprofen) 800 Mg Tab, 1 TAB PO TID, #30 TAB Prov:BERT AHUMADA 10/04/24 Current Medications Current Medications Medications (Trade) Dose Ordered Sig/Geo Route PRN Reason Start Time Stop Time Status Last Admin Piperacillin Sod/ Tazobactam Sod 100 ml @ 25 mls/hr Q8HR IV 10/07/24 22:00 10/07/24 03:57 DC Meropenem 50 ml @ 17 mls/hr Q12HR IV 10/07/24 22:00 10/08/24 21:35 Insulin Glargine (Lantus) 15 units DAILY SC 10/08/24 10:00 Cancel Insulin Glargine (Lantus) 15 units DAILY SC 10/08/24 10:00 10/07/24 16:48 DC Clindamycin Phosphate 50 ml @ 50 mls/hr Q8HR IV 10/07/24 22:00 10/08/24 21:35 Levothyroxine Sodium (Synthroid Tablet) 50 mcg QAM PO 10/08/24 07:00 10/08/24 07:54 DC Diagnostic Test (Pha) (Accu-Chek Comfort Curve T) 1 strip IQ4HR 10/08/24 00:00 10/08/24 08:36 DC 10/08/24 08:04 Insulin Human Regular (InsuLIN R) IQ4HR SC 10/08/24 00:00 10/08/24 11:06 DC 10/08/24 04:32 Levothyroxine Sodium (Synthroid Injection) 50 mcg DAILY IV 10/08/24 10:00 10/08/24 09:34 Sodium Bicarbonate 100 ml/Sodium Chloride 1,100 ml @ 100 mls/hr Q11H IV 10/08/24 08:00 10/08/24 16:52 DC 10/08/24 09:11 Insulin Human (Reg)/Sodium Chloride 100 ml @ 0.5 mls/hr Q24H IV 10/08/24 08:15 10/08/24 09:10 Diagnostic Test (Pha) (Accu-Chek Comfort Curve T) 1 strip Q90MIN 10/08/24 09:00 10/08/24 21:12 Dextrose 50 ml PRN PRN IV BG LESS Than 70 AND CALL MD 10/08/24 08:15 Acetaminophen (Ofirmev) 1,000 mg [id number] PRN IV PAIN SCALE 1-3 OR TEMP>100.4 10/08/24 16:30 10/08/24 16:31 DC Hydromorphone HCl (Dilaudid Injection) 0.5 mg Q10M PRN IV SEVERE PAIN (7-10 PAIN SCALE) 10/08/24 16:30 10/08/24 17:11 DC Sodium Bicarbonate 150 ml/Dextrose 1,150 ml @ 100 mls/hr [id number] IV 10/08/24 16:45 10/08/24 17:03 DC Insulin Glargine (Lantus) 20 units HS SC 10/08/24 22:00 10/08/24 21:38 Sodium Bicarbonate 150 ml/Dextrose 1,150 ml @ 125 mls/hr Q9H12M IV 10/08/24 17:15 10/08/24 17:47 Vital Signs Vital Signs Date Time Temp Pulse Resp B/P (MAP) Pulse Ox O2 Delivery O2 Flow Rate FiO2 10/08/24 20:00 86 10/08/24 20:00 20 92 Room Air* 0 21 10/08/24 19:00 123/72 (89) 10/08/24 17:30 97.8 97.8 Labs/Diagnostic Data Labs Test 10/08/24 21:14 10/08/24 18:02 10/08/24 11:07 10/08/24 03:05 Range/Units POC Glucose 209 H 70-106 mg/dl Sodium Level 136 136-145 mmol/L Potassium Level 4.3 3.5-5.1 mmol/L Chloride Level 106 98-107 mmol/L Carbon Dioxide Level 16 L 20-31 mmol/L Anion Gap 14 5-15 Blood Urea Nitrogen 49 H 9-23 mg/dL Creatinine 2.92 H 0.550-1.02 mg/dL Glomerular Filtration Rate Calc 22 >90 mL/min BUN/Creatinine Ratio 16.8 10.0-20.0 Serum Glucose 212 H 74-106 mg/dL Calcium Level 7.7 L 8.7-10.4 mg/dL Blood Gas Specimen Type Arterial Blood Gas Sample Site Right radial Blood Gas Patient Temperature 37.0 Arterial Blood Date Drawn [id number] Arterial Blood pH 7.316 L 7.350-7.450 Arterial Blood Partial Pressure CO2 28.6 L 32.0-45.0 mmHg Arterial Blood Partial Pressure O2 99.2 83.0-108.0 mmHg Arterial Blood HCO3 14.3 L 21.0-28.0 mmol/L Arterial Blood Oxygen Saturation 96.7 94.0-98.0 % Arterial Blood Base Excess -10.6 L -2.0-3.0 mmol/L Arterial Blood Oxyhemoglobin 95.9 94.0-98.0 % Arterial Blood Carboxyhemoglobin 0.5 0.5-1.5 % Arterial Blood Methemoglobin 0.3 0.0-1.5 % Kerwin Test Yes Blood Gas Total Hemoglobin 9.90 L 12.0-16.0 g/dL Blood Gas Liter Flow 2.00 Blood Gas Modality Nasal cannula FiO2 % 28.0 White Blood Count 29.8 H 4.4-10.8 10^3/uL Red Blood Count 3.24 L 4.0-5.20 10^6/uL Hemoglobin 9.7 L 12.2-16.2 g/dL Hematocrit 28.5 #L 36.0-46.0 % Mean Corpuscular Volume 87.9 80.0-100.0 fL Mean Corpuscular Hemoglobin 29.8 28.0-32.0 pg Mean Corpuscular Hemoglobin Concent 34.0 32.0-36.0 g/dL Red Cell Distribution Width 13.6 11.8-14.3 % Platelet Count 282 140-450 10^3/uL Mean Platelet Volume 9.5 6.9-10.8 fL Neutrophils (%) (Auto) 37.0-80.0 % Lymphocytes (%) (Auto) 10.0-50.0 % Monocytes (%) (Auto) 0.0-12.0 % Basophils (%) (Auto) 0.0-2.0 % Neutrophils # (Auto) 1.6-8.6 10 ^3/uL Lymphocytes # (Auto) 0.4-5.4 10 ^3/uL Monocytes # (Auto) 0-1.3 10 ^3/uL Differential Total Cells Counted 100.0 100 Neutrophils % (Manual) 89 H 37.0-80.0 Band Neutrophils % (Manual) 2 Lymphocytes % (Manual) 5 L 10.0-50.0 Monocytes % (Manual) 4 0-12 Eosinophils % (Manual) 0 0-7 Basophils % (Manual) 0 0.0-2.0 Metamyelocytes % (manual) 0 Myelocytes % (Manual) 0 Promyelocytes % (Manual) 0 Blast Cells % (Manual) 0 Reactive Lymphocytes 0 Platelet Estimate Adequate Magnesium Level 1.8 1.6-2.6 mg/dL Total Bilirubin 1.7 H 0.2-1.0 mg/dL Aspartate Amino Transferase (AST) 66 H 13-40 U/L Alanine Aminotransferase (ALT) 58 H 7-40 U/L Alkaline Phosphatase 268 H 46-116 U/L Total Protein 6.0 5.7-8.2 g/dL Albumin 3.0 L 3.2-4.8 g/dL Random Vancomycin Level 22.6 H 5-10 ug/mL Test 10/07/24 17:24 10/07/24 15:43 10/07/24 14:19 10/07/24 11:26 Range/Units Lactic Acid Level 2.8 *H 0.4-2.0 mmol/L Blood Gas Critical Value Read Back yes Blood Gas Notified Whom kannan pabon Blood Gas Notified Time [id number] Blood Gas Notified By jacqueline brown Serum Osmolality 301 H 278-298 mOsm/kg Phosphorus Level 3.7 2.4-5.1 mg/dL B-Type Natriuretic Peptide 682.46 0-100 pg/mL Beta-Hydroxybutyric Acid 0.927 H < 0.4 mmol/L Free Thyroxine (T4) Calculated 0.71 L 0.89-1.76 ng/dL Free Triiodothyronine (T3) pg/mL 1.18 L 2.3-4.2 pg/mL Cortisol AM Sample 30.84 H 5.27-22.45 ug/dL Urine Osmolality 241 mOsm/kg Urine Opiates Screen Neg NEGATIVE Urine Fentanyl Screen Neg NEGATIVE Urine Barbiturates Screen Neg NEGATIVE Urine Phencyclidine Screen Neg NEGATIVE Urine Amphetamines Screen Neg NEGATIVE Urine Benzodiazepines Screen Neg NEGATIVE Urine Cocaine Screen Neg NEGATIVE Urine Cannabinoids Screen Neg NEGATIVE Test 10/07/24 11:25 10/07/24 02:59 10/06/24 16:50 10/06/24 11:19 Range/Units Urine Creatinine 77.58 30.0-125.0 mg/dL Urine Sodium 33 L 40-220 mmol/L Urine Total Protein 218.6 H 1-14 mg/dL Eosinophils (%) (Auto) 1.3 0.0-7.0 % Eosinophils # (Auto) 0.3 0-0.8 10 ^3/uL Basophils # (Auto) 0 0-0.2 10 ^3/uL Nucleated Red Blood Cells 0.0 % Hemoglobin A1c 13.1 H <5.7 % A1C Thyroid Stimulating Hormone (TSH) 12.12 H 0.55-4.78 uIU/mL Prothrombin Time 11.5 9.3-11.8 sec Prothrombin Time INR 1.09 0.9-1.15 Activated Partial Thromboplast Time 35.7 H 24.5-34.5 SEC Anisocytosis (manual) Slight Test 10/06/24 05:09 Range/Units Urine Color Yellow Yellow Urine Clarity Turbid H Clear Urine pH 5.5 5.0-9.0 Urine Specific [place] 1.019 1.001-1.035 Urine Protein 1+ H Negative Urine Ketones Trace Negative Urine Blood 1+ H Negative /uL Urine Nitrite Negative Negative Urine Bilirubin Negative Negative Urine Urobilinogen Normal Negative mg/dL Urine Leukocyte Esterase 1+ Negative /uL Urine RBC 3 0 - 4 /hpf Urine Microscopic WBC 16 H 0-5 /HPF Urine Squamous Epithelial Cells Few <5 /hpf Urine Bacteria Few H None Seen /hpf Urine Glucose 4+ H Normal mg/dL Urine Test Negative Negative Microbiology Date/Time Source Procedure Growth Status 10/07/24 10:30 Voided Urine Urine Culture - Preliminary Resulted 10/07/24 08:21 Other Other Gram Stain - Final Resulted 10/07/24 08:21 Other Other Anaerobic Culture - Preliminary Resulted 10/07/24 08:21 Other Other Aerobic Culture - Preliminary Resulted 10/06/24 11:20 Blood Blood Culture - Preliminary NO GROWTH AFTER 48 HOURS OF INCUBATION. Resulted Plan discussed with: Other AGNIESZKA MARSH MD Oct 08, 2024 21:48
[2024-10-09] VITALS (96 sets, daily range): BP systolic 79–125; BP diastolic 39–81; PULSE 77–89; RESP 7–26; TEMP 97.3–98.1; O2SAT 89–99
[2024-10-09 01:09] LABS: Chloride 105 mmol/L (98-107); Potassium 4.1 mmol/L (3.5-5.1); Sodium 136 mmol/L (136-145)
[2024-10-09 01:10] LABS: Anion Gap 13 (5-15); Calcium 7.4 mg/dL (8.7-10.4); Carbon Dioxide 18 mmol/L (20-31)
[2024-10-09 01:15] LABS: BUN/Creatinine Ratio 16.6 (10.0-20.0)
[2024-10-09 01:20] LABS: Blood Urea Nitrogen 51 mg/dL (9-23); Glucose 239 mg/dL (74-106)
[2024-10-09 04:00] LABS: Hematocrit 25.8 % (36.0-46.0); Hemoglobin 8.7 g/dL (12.2-16.2); Mean Corpuscular Hemoglobin 29.1 pg (28.0-32.0); Mean Corpuscular Volume 86.3 fL (80.0-100.0); Nucleated Red Blood Cells % 0.0 %
[2024-10-09 04:19] LABS: Anion Gap 13 (5-15); BUN/Creatinine Ratio 17.0 (10.0-20.0); Bilirubin, Total 1.1 mg/dL (0.2-1.0); Chloride 105 mmol/L (98-107); Potassium 3.9 mmol/L (3.5-5.1); Sodium 137 mmol/L (136-145)
[2024-10-09 04:20] LABS: Alanine Aminotransferase 53 U/L (7-40); Albumin 2.7 g/dL (3.2-4.8); Alkaline Phosphatase 220 U/L (46-116); Blood Urea Nitrogen 51 mg/dL (9-23); Calcium 7.3 mg/dL (8.7-10.4); Carbon Dioxide 19 mmol/L (20-31); Glucose 210 mg/dL (74-106); Total Protein 5.6 g/dL (5.7-8.2)
--- NOTE | 2024-10-09 05:09 | DVH ---
CHEST RADIOGRAPH Indication: septic shock Technique: Single frontal view of the chest was obtained COMPARISON: XY CHEST XRAY 1 VIEW on DOS: 10/08/24, XY CHEST XRAY 1 VIEW on DOS: 10/07/24, XY CHEST PORT ABLE on DOS: 10/06/24 FINDINGS: Lines and Tubes: None Lungs: Redistribution of opacification now predominantly on the left, likely secondary to positioning and layering of pleural fluid. No definite evidence of focal consolidation. No pneumothorax. Cardiomediastinal contours: Unremarkable Bones: Unremarkable IMPRESSION: 1. Probable layering bilateral pleural effusions.
[2024-10-09] MEDS ORDERED: APIX5TAB PO (08:57)
[2024-10-09] MEDS ORDERED: ATOR40TA52 PO (08:59)
[2024-10-09] MEDS ORDERED: DIPH25CA66 PO (09:03)
[2024-10-09] MEDS ORDERED: BUSP1TAB57 PO (09:06)
[2024-10-09] MEDS ORDERED: CALC750C98 PO (09:09)
[2024-10-09] MEDS ORDERED: CARV25TA55 PO (09:11)
[2024-10-09] MEDS ORDERED: FER325T PO (09:14)
[2024-10-09] MEDS ORDERED: IPRIH INH (09:18)
[2024-10-09] MEDS ORDERED: GLUC0.8I2 (09:18)
[2024-10-09] MEDS ORDERED: HYDR-4609 PO (09:20)
[2024-10-09] MEDS ORDERED: POLY335015 PO (09:23)
[2024-10-09] MEDS ORDERED: IPRA0.00 IN ×2 (09:23→09:33)
[2024-10-09] MEDS ORDERED: SEVE800T8 PO (09:25)
[2024-10-09] MEDS ORDERED: B-CO-5 OR (09:25)
[2024-10-09] MEDS ORDERED: INSLISPI SC (09:27)
[2024-10-09] MEDS ORDERED: [UNRECOGNIZED DRUG - CODE] OR (09:27)
[2024-10-09] MEDS ORDERED: FURO1TAB32 PO (09:29)
[2024-10-09] MEDS ORDERED: ESCI20TA PO (09:31)
[2024-10-09] MEDS ORDERED: GUAI600T78 PO (09:32)
[2024-10-09] MEDS ORDERED: ACET-6 PO (09:34)
[2024-10-09] MEDS: VANCOMYCIN 500mg/100mL 100 ML IV ONE (10:23)
[2024-10-09 11:52] LABS: Base Excess -2.9 mmol/L (-2.0-3.0)
[2024-10-09] MEDS: LEVOTHYROXINE SODIUM 100 MCG/5 ML INJ IV ONE (12:25)
[2024-10-09 12:43] LABS: Chloride 105 mmol/L (98-107); Potassium 3.7 mmol/L (3.5-5.1); Sodium 139 mmol/L (136-145)
[2024-10-09 12:44] LABS: Anion Gap 11 (5-15); Carbon Dioxide 23 mmol/L (20-31)
[2024-10-09 12:45] LABS: Calcium 8.0 mg/dL (8.7-10.4)
[2024-10-09 12:49] LABS: BUN/Creatinine Ratio 19.6 (10.0-20.0)
[2024-10-09 12:50] LABS: Blood Urea Nitrogen 53 mg/dL (9-23); Glucose 149 mg/dL (74-106)
--- NOTE | 2024-10-09 12:58 | DVHPN2 ---
Subjective Date Seen: Oct 09, 2024 Post op day Post op day: 1 Patient reports: No new complaints Nursing reports: No new complaints General: Normal HNT: Normal Cardiovascular: Normal Respiratory: Normal Gastrointestinal: Normal Genitourinary: Normal Musculoskeletal: Normal Neurological: Normal Objective Vitals Vital Sign Date Time Temp Pulse Resp B/P (MAP) Pulse Ox O2 Delivery O2 Flow Rate FiO2 10/09/24 11:45 82 22 102/61 (75) 92 10/09/24 10:00 Room Air* 0 21 10/09/24 08:00 97.9 97.9 Total Intake and Output 10/08/24 10/08/24 10/09/24 15:00 23:00 07:00 Intake Total 461 ml 849 ml 909 ml Output Total 1200 ml 900 ml Balance 461 ml -351 ml 9 ml Medications Current Medications Medications Dose Ordered Sig/Geo Route Start Time Stop Time Status Last Admin Dose Admin Vancomycin HCl 0 ml @ 0 mls/hr UD IV 10/06/24 19:30 Morphine Sulfate 2 mg Q4HPRN PRN IV 10/06/24 19:30 Phenylephrine HCl 250 ml @ 30 mls/hr Q8H20M IV 10/07/24 03:45 10/07/24 04:14 30 MLS/HR Norepinephrine Bitartrate 250 ml @ 3.75 mls/hr Q24H IV 10/07/24 10:00 10/08/24 16:44 3.75 MLS/HR Meropenem 50 ml @ 17 mls/hr Q12HR IV 10/07/24 22:00 10/08/24 21:35 17 MLS/HR Dextrose 50 ml UD PRN IV 10/07/24 11:15 Cancel Insulin Glargine 15 units DAILY SC 10/08/24 10:00 Cancel Pantoprazole Sodium 40 mg DAILY IV 10/07/24 14:00 10/09/24 10:03 40 MG Dextrose 50 ml PRN PRN IV 10/07/24 15:00 Cancel Clindamycin Phosphate 50 ml @ 50 mls/hr Q8HR IV 10/07/24 22:00 10/09/24 06:04 50 MLS/HR Insulin Human (Reg)/Sodium Chloride 100 ml @ 0.5 mls/hr Q24H IV 10/08/24 08:15 10/08/24 09:10 3 MLS/HR Diagnostic Test (Pha) 1 strip Q90MIN 10/08/24 09:00 10/09/24 12:12 1 STRIP Dextrose 50 ml PRN PRN IV 10/08/24 08:15 Insulin Glargine 20 units HS SC 10/08/24 22:00 10/08/24 21:38 20 UNITS Sodium Bicarbonate 150 ml/Dextrose 1,150 ml @ 125 mls/hr Q9H12M IV 10/08/24 17:15 10/09/24 02:43 125 MLS/HR Levothyroxine Sodium 50 mcg QAM IV 10/10/24 07:00 General: Normal, Obese Head/Eyes: Normal ENT: Normal Neck: Normal Lungs: Normal Cardiovascular: Normal, Regular rate and rhythm Musculoskeletal: Normal Extremities: Normal Skin: Other (sacral/ buttock wound ) Labs and Microbiology Laboratory Tests 10/09/24 12:02 10/09/24 03:34 Test 10/09/24 12:02 Range/Units Serum Glucose 149 H 74-106 mg/dL Ass/Plan Labs and/or images reviewed: Labs reviewed by me Problem List -Neurologic: #Acute metabolic encephalopathy secondary to sepsis and metabolic derangements. No focal neurological deficits documented. Drowsy, AOX2 No signs of seizure. Infectious Diseases #Septic shock due to necrotizing fasciitis of the gluteal and sacral region secondary to pilonidal cyst infection. #sp I&D 10/07/24 #sp debridement of affected area (pilonidal cyst both buttocks, perianal area) and creation of a diverting colostomy 10/08/24 Confirmed intra-op with devitalized tissue and large purulent collection WBC peaked at 31K with left shift Source control achieved with surgical debridement Started on broad-spectrum antibiotics (Zosyn + Vanc): now meropenem+ vanco+ clindamycin Blood cultures pending ID consulted per Dr Pretty Cardiovascular: #Septic shock due to necrotizing fasciitis with hypotension (84/39 on arrival), requiring fluid resuscitation and vasopressor support with phenylephrine. Lactate peaked at 4.9 MAP goal >65 mmHg maintained Improving hemodynamics post-op wean off phenylephrine levophed drip: low dose midline placed Respiratory: #Acute hypoxemic respiratory failure secondary to sepsis and poor perfusion #Respiratory acidosis possible obesity hypoventilation syndrome O2 sat >95% on 23 L NC No mechanical ventilation ABG trends: 10/06: pH 7.34, HCO 14 compensated metabolic acidosis 10/07: pH 7.18 then 7.20, HCO 12.1 worsening primary metabolic acidosis No respiratory compensation, consistent with acute process: respiratory acidosis Lactate-driven AGMA, more than DKA 10/08 ph 7.316 pco2 28.6 po2 99.2 hco3 14.3 Metabolic/Endocrine: #Severe AGMA due to lactic acidosis B, but beta-hydroxybutyrate only 0.9, no ketonemia AG >17, HCO <15 consistent with lactic acidosis Insulin drip started for tight control of sugars 140- 180 Bicarbonate drip initiated: d5w + 3amp = 125cc/h lantus 20 ui #Uncontrolled diabetes hba1c 13 continue insulin drip to achieve control 140-180 of the sugars #Hypothyroidism: TSH 12.1, low free T4 free T3 Given severity of illness, IV levothyroxine started to prevent myxedema daily Cortisol: 30.84 normal, adrenal insufficiency ruled out #Hypomagnesemia replaced Hematology: #Leukocytosis with neutrophilic predominance (WBC >30K) #Anemia Hgb trending down (11 --> 9.7 --> 8.7), likely hemodilutional or inflammatory No evidence of DIC, platelets stable Monitor for anemia of critical illness Renal: АНДРЕЙ due to VMN on possible CKD, baseline creatinine unknown (from hypoperfusion and sepsis + chronic component from diabetes) Cr trending high UA: proteinuria (1+), trace ketones, glucosuria (4+), WBC 16 possible UTI component or inflammation Protein/Creatinine ratio = 218.6 mg/g suggests underlying CKD Renal US: Echogenic kidneys, no hydronephrosis, medical kidney disease consistent with diabetic nephropathy Nephrology consulted : #Complicated UTI UA: trace ketones, glucosuria, 1+ protein, few bacteria Bladder decompressed via Prajapati, likely due to altered mental status and hypotension MSK/Soft Tissue: #Extensive necrotizing fasciitis involving gluteal/sacral regions Large abscess drained (~150 mL purulent fluid), tissue debrided Pulse lavage and wound packed sp debridement of affected area (pilonidal cyst both buttocks, perianal area) and creation of a diverting colostomy 10/08/[address] Shore Time spent on critical care 113 min, excluding procedures, extensive discussion with the father Darwin, full code Problems(with codes): (1) Necrotizing fasciitis Assessment/Plan stoma ok , no gas wound clean dry and intact Nurse reports overnight drainage from wound labs and notes reviewed Plan: wound dressing to be change twice a day patient to lie on right or left side, not on her back continue current treatment Plan discussed with patient, Dr. Pretty Visit Coding Surgery Date of Service if different f: Oct 09, 2024 Billing Provider: VERONICA PRETTY MD Surgery Visit Codes: [id number] INP/OBS CARE(HIGH) MAGNOLIA TELLO NP Oct 09, 2024 12:58
[2024-10-09] MEDS: SODIUM BICARB 50mEq/50ml Vial 150 ML in D5W 5% 1,000 ML IV SCH (15:00)
--- NOTE | 2024-10-09 15:22 | DVHCONRES ---
Date Seen: Oct 09, 2024 Resident Creating Document: LEORA FULLER RESIDENT Referring Physician This is a 29-year-old with diabetes mellitus type 1 diagnosed at the age of 12, hypothyroidism, does not take any medications at home who presented to the ER with a chief complaint of buttock pain and generalized weakness. Patient reports that she has been experiencing pain in her buttock, redness and swelling, nausea vomiting for the past 2 days. On arrival patient was hypotensive 84/39 mmHg, tachycardic and tachypneic. CT scan showed necrotizing fascitis in the patient underwent I and D 10/07, 150 mL of yellow colored fluid was drained and sent for culture. 10/08-patient underwent colostomy placement. Serum glucose was 500 on arrival and patient was started on IV insulin drip. A1c greater than 13. Nephrology consulted for АНДРЕЙ likely on CKD Past medical history: See above Home medication: None Social history: Lives with family Patient seen and examined at bedside. Urine output 2100 cc. Serum bicarb improving, acidosis resolving. Creatinine trending down. Family History: Diabetes mellitus G8 FATHER Hypertension G8 FATHER Allergies: Coded Allergies: NO KNOWN ALLERGIES (Unverified , 10/04/24) Home Meds Active Scripts Lactulose (Lactulose) 10 Gm/15 Ml Kayden, 30 ML PO BID, #280 ML Prov:BERT AHUMADA 10/04/24 Cephalexin Monohydrate (Cephalexin) 500 Mg Cap, 1 CAP PO QID, #40 CAP Prov:BERT AHUMADA 10/04/24 Ibuprofen (Ibuprofen) 800 Mg Tab, 1 TAB PO TID, #30 TAB Prov:BERT AHUMADA 10/04/24 Reported Medications Acetaminophen (Acetaminophen Extra Stren) 500 Mg Tab, 500 MG PO Q6HPRN PRN for Mild pain (1-4), TAB 10/09/24 Ipratropium-Albuterol (Ipratropium Randolph/Albut) 1 Kayden Kayden, 1 KAYDEN IN Q6HPRN PRN for SHORTNESS OF BREATH, ML 10/09/24 Guaifenesin (Mucinex) 600 Mg Tab, 1 TAB PO BID PRN for FOR COUGH, #14 TAB 10/09/24 Escitalopram Oxalate (Lexapro) 20 Mg Tab, 1 TAB PO DAILY, #90 TAB 3 Refills 10/09/24 Furosemide (Lasix) 80 Mg Tab, 1 TAB PO DAILY, TAB 5 Refills 10/09/24 Insulin Lispro (Human) (Humalog) 100 Unit/Ml Inj, 100 UNIT SC, INJ 10/09/24 Nutritional Supplements (Nepro With Carb Steady) Liq, 1 OR, LIQ 10/09/24 Sevelamer Carbonate (Renvela) 800 Mg Tab, 3 TAB PO TID for hyperphospetemia r/t ESRD, #810 TAB 3 Refills 10/09/24 B-Complex W/ C & Folic Acid (Caroline-Wilton) Tab, 1 OR, TAB 10/09/24 Polyethylene Glycol 3350 (Miralax) 17 Gm Pow, 17 GM PO for constipation, POW 10/09/24 Ipratropium-Albuterol (Ipratropium Randolph/Albut) 1 Kayden Kayden, 1 KAYDEN IN, ML 10/09/24 Hydrocodone-Acetaminophen (Hydrocodone Bitartrate/AC 7.5-300 mg) 1 Tab Tab, 1 TAB PO every 8 hours for moderate to severe pain (6-10), TAB 10/09/24 Ipratropium Randolph Hfa (Atrovent Hfa) 17 Mcg Aer, 2 PUFF INH QID, #12.9 GRAMS 5 Refills 10/09/24 Ferrous Sulfate (FERROUS SULFATE) 325 Mg Tb, 1 TAB PO DAILY, #30 TAB 3 Refills 10/09/24 Carvedilol (Carvedilol) 25 Mg Tab, 25 MG PO BID for hypertension for 30 Days, MG 10/09/24 Calcium Carbonate (Antacid) (Antacid) 750 Mg Chw, 750 MG PO every 8 hours for indigestion, TAB.CHEW 10/09/24 Buspirone HCl (Buspirone Hydrochloride) 7.5 Mg Tab, 7.5 MG PO BID PRN for ANXIETY, TAB 10/09/24 Diphenhydramine Hcl (Benadryl Allergy) 25 Mg Cap, 25 MG PO every 6 hours PRN for FOR ITCHING, CAP 10/09/24 Atorvastatin Calcium (ATORVASTATIN CALCIUM) 40 Mg Tab, 1 TAB PO DAILY for hyperlipidemia, #30 TAB 5 Refills 10/09/24 Apixaban Base (ELIQUIS) 5 Mg Tab, 5 MG PO BID, TAB 10/09/24 Current Medications Current Medications Medications (Trade) Dose Ordered Sig/Geo Route PRN Reason Start Time Stop Time Status Last Admin Acetaminophen (Ofirmev) 1,000 mg [id number] PRN IV PAIN SCALE 1-3 OR TEMP>100.4 10/08/24 16:30 10/08/24 16:31 DC Hydromorphone HCl (Dilaudid Injection) 0.5 mg Q10M PRN IV SEVERE PAIN (7-10 PAIN SCALE) 10/08/24 16:30 10/08/24 17:11 DC Sodium Bicarbonate 150 ml/Dextrose 1,150 ml @ 100 mls/hr [id number] IV 10/08/24 16:45 10/08/24 17:03 DC Insulin Glargine (Lantus) 20 units HS SC 10/08/24 22:00 10/08/24 21:38 Sodium Bicarbonate 150 ml/Dextrose 1,150 ml @ 125 mls/hr Q9H12M IV 10/08/24 17:15 10/09/24 14:54 DC 10/09/24 13:00 Levothyroxine Sodium (Synthroid Injection) 50 mcg QAM IV 10/10/24 07:00 Sodium Bicarbonate 150 ml/Dextrose 1,150 ml @ 75 mls/hr [id number] IV 10/09/24 15:00 UNV Vital Signs Vital Signs Date Time Temp Pulse Resp B/P (MAP) Pulse Ox O2 Delivery O2 Flow Rate FiO2 10/09/24 11:45 82 22 102/61 (75) 92 10/09/24 10:00 Room Air* 0 21 10/09/24 08:00 97.9 97.9 Physical Exam Young female patient lying in bed, in no acute distress General: Morbidly obese, afebrile, mucosae are moist Cardiovascular: Regular S1 and S2. No murmurs, gallops or rubs. No JVD elevation. No pedal edema Respiratory: Normal B/L air entry on room air. Clear lung sounds on auscultation Abdomen: Soft, nontender, nondistended, hypoactive bowel sounds, no rebound tenderness, no organomegaly, no masses. Status post I&D and abscess drainage, not draining purulent substance. Genitourinary: Prajapati catheter seen MSK/skin: Mobilizes 4 limbs. Skin is dry and warm Neurological: No motor, no sensitive deficits, normal speech. Pupils are isocoric and reactive. Psych/Mental Status: A/Ox3 Labs/Diagnostic Data Labs Test 10/09/24 13:50 10/09/24 12:11 10/09/24 12:02 10/09/24 11:31 Range/Units Lactic Acid Level 1.6 0.4-2.0 mmol/L Vitamin D 25-Hydroxy 9.2 L 30.0-100 ng/mL POC Glucose 171 H 70-106 mg/dl Sodium Level 139 136-145 mmol/L Potassium Level 3.7 3.5-5.1 mmol/L Chloride Level 105 98-107 mmol/L Carbon Dioxide Level 23 20-31 mmol/L Anion Gap 11 5-15 Blood Urea Nitrogen 53 H 9-23 mg/dL Creatinine 2.71 H 0.550-1.02 mg/dL Glomerular Filtration Rate Calc 24 >90 mL/min BUN/Creatinine Ratio 19.6 10.0-20.0 Serum Glucose 149 H 74-106 mg/dL Calcium Level 8.0 L 8.7-10.4 mg/dL Phosphorus Level 4.6 2.4-5.1 mg/dL Creatine Kinase 59 34-145 U/L Blood Gas Specimen Type Arterial Blood Gas Sample Site Right radial Blood Gas Patient Temperature 37.0 Arterial Blood Date Drawn [id number] Arterial Blood pH 7.429 7.350-7.450 Arterial Blood Partial Pressure CO2 32.3 32.0-45.0 mmHg Arterial Blood Partial Pressure O2 73.6 L 83.0-108.0 mmHg Arterial Blood HCO3 20.9 L 21.0-28.0 mmol/L Arterial Blood Oxygen Saturation 93.6 L 94.0-98.0 % Arterial Blood Base Excess -2.9 L -2.0-3.0 mmol/L Arterial Blood Oxyhemoglobin 92.6 L 94.0-98.0 % Arterial Blood Carboxyhemoglobin 0.8 0.5-1.5 % Arterial Blood Methemoglobin 0.3 0.0-1.5 % Kerwin Test Yes Blood Gas Total Hemoglobin 9.20 L 12.0-16.0 g/dL Blood Gas Liter Flow 0.00 Blood Gas Modality Room air FiO2 % 21.0 Test 10/09/24 03:34 10/08/24 03:05 10/07/24 15:43 10/07/24 14:19 Range/Units White Blood Count 19.5 #H 4.4-10.8 10^3/uL Red Blood Count 2.99 L 4.0-5.20 10^6/uL Hemoglobin 8.7 L 12.2-16.2 g/dL Hematocrit 25.8 L 36.0-46.0 % Mean Corpuscular Volume 86.3 80.0-100.0 fL Mean Corpuscular Hemoglobin 29.1 28.0-32.0 pg Mean Corpuscular Hemoglobin Concent 33.7 32.0-36.0 g/dL Red Cell Distribution Width 13.5 11.8-14.3 % Platelet Count 320 140-450 10^3/uL Mean Platelet Volume 8.9 6.9-10.8 fL Neutrophils (%) (Auto) 88.0 H 37.0-80.0 % Lymphocytes (%) (Auto) 7.6 L 10.0-50.0 % Monocytes (%) (Auto) 4.1 0.0-12.0 % Eosinophils (%) (Auto) 0.2 0.0-7.0 % Basophils (%) (Auto) 0.1 0.0-2.0 % Neutrophils # (Auto) 17.1 H 1.6-8.6 10 ^3/uL Lymphocytes # (Auto) 1.5 0.4-5.4 10 ^3/uL Monocytes # (Auto) 0.8 0-1.3 10 ^3/uL Eosinophils # (Auto) 0 0-0.8 10 ^3/uL Basophils # (Auto) 0 0-0.2 10 ^3/uL Nucleated Red Blood Cells 0.0 % Magnesium Level 1.8 1.6-2.6 mg/dL Total Bilirubin 1.1 H 0.2-1.0 mg/dL Aspartate Amino Transferase (AST) 63 H 13-40 U/L Alanine Aminotransferase (ALT) 53 H 7-40 U/L Alkaline Phosphatase 220 H 46-116 U/L Total Protein 5.6 L 5.7-8.2 g/dL Albumin 2.7 L 3.2-4.8 g/dL Parathyroid Hormone (Intact) 372.1 H 18.4-80.1 pg/mL Random Vancomycin Level 14.5 H 5-10 ug/mL Differential Total Cells Counted 100.0 100 Neutrophils % (Manual) 89 H 37.0-80.0 Band Neutrophils % (Manual) 2 Lymphocytes % (Manual) 5 L 10.0-50.0 Monocytes % (Manual) 4 0-12 Eosinophils % (Manual) 0 0-7 Basophils % (Manual) 0 0.0-2.0 Metamyelocytes % (manual) 0 Myelocytes % (Manual) 0 Promyelocytes % (Manual) 0 Blast Cells % (Manual) 0 Reactive Lymphocytes 0 Platelet Estimate Adequate Blood Gas Critical Value Read Back yes Blood Gas Notified Whom kannan pabon Blood Gas Notified Time [id number] Blood Gas Notified By jacqueline brown Serum Osmolality 301 H 278-298 mOsm/kg B-Type Natriuretic Peptide 682.46 0-100 pg/mL Beta-Hydroxybutyric Acid 0.927 H < 0.4 mmol/L Free Thyroxine (T4) Calculated 0.71 L 0.89-1.76 ng/dL Free Triiodothyronine (T3) pg/mL 1.18 L 2.3-4.2 pg/mL Cortisol AM Sample 30.84 H 5.27-22.45 ug/dL Test 10/07/24 11:26 10/07/24 11:25 10/07/24 02:59 10/06/24 16:50 Range/Units Urine Osmolality 241 mOsm/kg Urine Opiates Screen Neg NEGATIVE Urine Fentanyl Screen Neg NEGATIVE Urine Barbiturates Screen Neg NEGATIVE Urine Phencyclidine Screen Neg NEGATIVE Urine Amphetamines Screen Neg NEGATIVE Urine Benzodiazepines Screen Neg NEGATIVE Urine Cocaine Screen Neg NEGATIVE Urine Cannabinoids Screen Neg NEGATIVE Urine Creatinine 77.58 30.0-125.0 mg/dL Urine Sodium 33 L 40-220 mmol/L Urine Total Protein 218.6 H 1-14 mg/dL Hemoglobin A1c 13.1 H <5.7 % A1C Thyroid Stimulating Hormone (TSH) 12.12 H 0.55-4.78 uIU/mL Prothrombin Time 11.5 9.3-11.8 sec Prothrombin Time INR 1.09 0.9-1.15 Activated Partial Thromboplast Time 35.7 H 24.5-34.5 SEC Test 10/06/24 11:19 10/06/24 05:09 Range/Units Anisocytosis (manual) Slight Urine Color Yellow Yellow Urine Clarity Turbid H Clear Urine pH 5.5 5.0-9.0 Urine Specific [place] 1.019 1.001-1.035 Urine Protein 1+ H Negative Urine Ketones Trace Negative Urine Blood 1+ H Negative /uL Urine Nitrite Negative Negative Urine Bilirubin Negative Negative Urine Urobilinogen Normal Negative mg/dL Urine Leukocyte Esterase 1+ Negative /uL Urine RBC 3 0 - 4 /hpf Urine Microscopic WBC 16 H 0-5 /HPF Urine Squamous Epithelial Cells Few <5 /hpf Urine Bacteria Few H None Seen /hpf Urine Glucose 4+ H Normal mg/dL Urine Test Negative Negative Microbiology Date/Time Source Procedure Growth Status 10/07/24 10:30 Voided Urine Urine Culture - Preliminary Resulted 10/07/24 08:21 Other Other Gram Stain - Final Resulted 10/07/24 08:21 Other Other Anaerobic Culture - Preliminary Resulted 10/07/24 08:21 Other Other Aerobic Culture - Preliminary Resulted 10/06/24 11:20 Blood Blood Culture - Preliminary NO GROWTH AFTER 72 HOURS OF INCUBATION. Resulted Assessment Acute kidney injury likely in the setting of sepsis and likely contrast induced nephropathy Likely baseline chronic kidney disease Uncontrolled type 1 diabetes mellitus-A1c greater than 13 Septic shock due to necrotizing fascitis and perineal abscess status post I and D and colostomy requiring pressor support Anion gap metabolic acidosis secondary to lactic acidosis Complicated cystitis Anemia likely due to chronic kidney disease Secondary hyperparathyroidism Vitamin-D deficiency FENA 0.9% 10/06 Renal ultrasound shows bilateral echogenic kidneys Urine culture growing ten thousand CFU yeast Blood culture prelim negative, MRSA nares neck Wound culture resulting in preliminary anaerobes, Gram-positive cocci and Gram- negative Plan: BUN/creatinine downtrending, GFR improving, serum bicarb improving, we recommend continuing IV D5W with serum bicarb at 75 cc/hour. FENA 0.9% consistent with prerenal Patient likely has CKD given uncontrolled diabetes mellitus, secondary parathyroidism, anemia, echogenic kidneys on ultrasound Continue renal dose antibiotics Patient is off pressors Follow up with iron panel and ferritin We will continue to follow up NPO Plan discussed with patient, nurse at bedside in which all questions have been answered Case discussed with Plan discussed with: Patient LEORA FULLER RESIDENT Oct 09, 2024 15:22
--- NOTE | 2024-10-09 17:26 | DVHPNRES ---
Progress Note Date Seen: Oct 09, 2024 Resident Creating Document: UMESH BARAHONA RESIDENT Medical Necessity Reason Pt with a Central, PICC or Fol: No Subjective Review of Systems 29-year-old female with PMHx of poorly controlled DM and hypothyroidism (not on medications), presented with 1 day of generalized weakness, dizziness, and diffuse abdominal pain with nausea and vomiting. BG was 524 and BP 84/39 at triage. On further evaluation, she had left lower back pain for 2 weeks with associated tenderness and erythema over the gluteal area. CT abdomen/pelvis revealed extensive soft tissue edema and subcutaneous emphysema extending into the perianal region, concerning for necrotizing fasciitis. Hospital Course: She was started on sepsis protocol with IV fluids, broad-spectrum antibiotics and insulin for hyperglycemia. Labs showed leukocytosis (WBC up to 31K), lactic acidosis, anion gap metabolic acidosis, and elevated inflammatory markers. She underwent emergent surgical debridement for necrotizing fasciitis and pilonidal cyst infection with removal of nonviable tissues and drain placement. Intra-op cultures were obtained. She remains intubated and sedated post-op with plans for possible colostomy depending on extent of further debridement. PMHx: DM (off meds 1 yrs), hypothyroidism (no meds) PSHx: None FHx: DM SHx: Social alcohol, non-smoker, no drug use, live with his father and brother, previously was working on [employer] Vitals on admission: BP 84/39, BG 524 10/08/24: ABG still showing acidosis, we restarted insulin drip, dressing change was done, extensive sacral and lumbar ulcer, extending trough anal area, extensive discussion was held with the father and brother about the poor prognosis of the condition, later in the afternoon patient was taken to Secondary debridement of affected area (pilonidal cyst both buttocks, perianal area) and creation of a diverting colostomy. Patient came back to the unit, on levophed low dose, extubated, we changed the fluids: d5w+ 3amp hco3: 125cc/h 10/09/24: dressing change, there are some baker and white patches in the ulcer, nephrology agrees on continue bicarb drip, decrease rate 75cc/h, transfer to [facility] for plastic surgery due to extensive skin defect, continue current treatment, patient can be downgraded to MISAEL Objective vital signs Vital Sign Date Time Temp Pulse Resp B/P (MAP) Pulse Ox O2 Delivery O2 Flow Rate FiO2 10/09/24 11:45 82 22 102/61 (75) 92 10/09/24 10:00 Room Air* 0 21 10/09/24 08:00 97.9 97.9 Total Intake and Output 10/08/24 10/08/24 10/09/24 15:00 23:00 07:00 Intake Total 461 ml 849 ml 911 ml Output Total 1200 ml 900 ml Balance 461 ml -351 ml 11 ml medications Current Medications Medications Dose Ordered Sig/Geo Route Start Time Stop Time Status Last Admin Dose Admin Vancomycin HCl 0 ml @ 0 mls/hr UD IV 10/06/24 19:30 Morphine Sulfate 2 mg Q4HPRN PRN IV 10/06/24 19:30 Phenylephrine HCl 250 ml @ 30 mls/hr Q8H20M IV 10/07/24 03:45 10/07/24 04:14 30 MLS/HR Norepinephrine Bitartrate 250 ml @ 3.75 mls/hr Q24H IV 10/07/24 10:00 10/08/24 16:44 3.75 MLS/HR Meropenem 50 ml @ 17 mls/hr Q12HR IV 10/07/24 22:00 10/09/24 13:01 17 MLS/HR Dextrose 50 ml UD PRN IV 10/07/24 11:15 Cancel Insulin Glargine 15 units DAILY SC 10/08/24 10:00 Cancel Pantoprazole Sodium 40 mg DAILY IV 10/07/24 14:00 10/09/24 10:03 40 MG Dextrose 50 ml PRN PRN IV 10/07/24 15:00 Cancel Clindamycin Phosphate 50 ml @ 50 mls/hr Q8HR IV 10/07/24 22:00 10/09/24 15:37 50 MLS/HR Insulin Human (Reg)/Sodium Chloride 100 ml @ 0.5 mls/hr Q24H IV 10/08/24 08:15 10/08/24 09:10 3 MLS/HR Diagnostic Test (Pha) 1 strip Q90MIN 10/08/24 09:00 10/09/24 16:30 1 STRIP Dextrose 50 ml PRN PRN IV 10/08/24 08:15 Insulin Glargine 20 units HS SC 10/08/24 22:00 10/08/24 21:38 20 UNITS Levothyroxine Sodium 50 mcg QAM IV 10/10/24 07:00 Sodium Bicarbonate 150 ml/Dextrose 1,150 ml @ 75 mls/hr [id number] IV 10/09/24 15:00 10/09/24 15:00 75 MLS/HR Fluconazole 100 ml @ 100 mls/hr DAILY@1800 IV 10/09/24 17:15 Examination Gen: 29-year-old female in acute distress Skin: Warm, dry, normal color and texture, no rash. HEENT: Normocephalic atraumatic, mucous membranes moist and pink.hypothyroisidm fascies Neck: Cervical and supraclavicular nodes normal without enlargement, trachea is midline, thyroid gland is normal without masses. Pulmonary: hypoventilation Cardiac: Regular rate and rhythm. No murmur Abdomen: Soft, nontender, nondistended, bowel sounds present all 4 quadrants, no guarding, no rigidity, no organomegaly. Extremities: extensive sacral and lumbar ulcer, extending trough anal area with necrotic tissue, now baker and white patches Neuro: Cranial nerves II through XII grossly intact, normal affect and speech, no focal motor deficits, drowsy AX2 laboratory and microbiology Laboratory Tests 10/09/24 12:02 10/09/24 03:34 Test 10/09/24 12:02 Range/Units Serum Glucose 149 H 74-106 mg/dL Microbiology Date/Time Source Procedure Growth Status 10/07/24 10:30 Voided Urine Urine Culture - Preliminary Resulted 10/07/24 08:21 Other Other Gram Stain - Final Resulted 10/07/24 08:21 Other Other Anaerobic Culture - Preliminary Resulted 10/07/24 08:21 Other Other Aerobic Culture - Preliminary Resulted 10/06/24 11:20 Blood Blood Culture - Preliminary NO GROWTH AFTER 72 HOURS OF INCUBATION. Resulted Problem List/Assessment/Plan Problem List/Assessment/Plan -Neurologic: #Acute metabolic encephalopathy secondary to sepsis and metabolic derangements. No focal neurological deficits documented. more alert, AOX3 No signs of seizure. Infectious Diseases #Septic shock due to necrotizing fasciitis of the gluteal and sacral region secondary to pilonidal cyst infection. #sp I&D 10/07/24 #sp debridement of affected area (pilonidal cyst both buttocks, perianal area) and creation of a diverting colostomy 10/08/24 Confirmed intra-op with devitalized tissue and large purulent collection WBC peaked at 31K with left shift Source control achieved with surgical debridement Started on broad-spectrum antibiotics (Zosyn + Vanc): now meropenem+ vanco+ clindamycin Blood cultures pending ID consulted per Dr Pretty Cardiovascular: #Septic shock due to necrotizing fasciitis with hypotension (84/39 on arrival), requiring fluid resuscitation and vasopressor support with phenylephrine. Lactate peaked at 4.9 MAP goal >65 mmHg maintained Improving hemodynamics post-op wean off phenylephrine levophed drip: low dose midline placed Respiratory: #Acute hypoxemic respiratory failure secondary to sepsis and poor perfusion #Respiratory acidosis possible obesity hypoventilation syndrome O2 sat >95% on 23 L NC, today room air No mechanical ventilation ABG trends: 10/06: pH 7.34, HCO 14 compensated metabolic acidosis 10/07: pH 7.18 then 7.20, HCO 12.1 worsening primary metabolic acidosis No respiratory compensation, consistent with acute process: respiratory acidosis Lactate-driven AGMA, more than DKA 10/08 ph 7.316 pco2 28.6 po2 99.2 hco3 14.3 Metabolic/Endocrine: #Severe AGMA due to lactic acidosis B, but beta-hydroxybutyrate only 0.9, no ketonemia AG >17, HCO <15 consistent with lactic acidosis Insulin drip started for tight control of sugars 140- 180 Bicarbonate drip initiated: d5w + 3amp = 125cc/h lantus 20 ui #Uncontrolled diabetes hba1c 13 continue insulin drip to achieve control 140-180 of the sugars #Hypothyroidism: TSH 12.1, low free T4 free T3 Given severity of illness, IV levothyroxine started to prevent myxedema daily Cortisol: 30.84 normal, adrenal insufficiency ruled out #Hypomagnesemia replaced Hematology: #Leukocytosis, improving with neutrophilic predominance (WBC >30K) #Anemia Hgb trending (11 --> 9.7 --> 8.7 -->8,9 ), likely hemodilutional or inflammatory No evidence of DIC, platelets stable Monitor for anemia of critical illness Renal: АНДРЕЙ due to VMN on possible CKD, baseline creatinine unknown, mildly improving (from hypoperfusion and sepsis + chronic component from diabetes) Cr trending high UA: proteinuria (1+), trace ketones, glucosuria (4+), WBC 16 possible UTI component or inflammation Protein/Creatinine ratio = 218.6 mg/g suggests underlying CKD Renal US: Echogenic kidneys, no hydronephrosis, medical kidney disease consistent with diabetic nephropathy Nephrology consulted: continue current treatment bicarb drip 75 cc/h : #Complicated UTI, yeast UA: trace ketones, glucosuria, 1+ protein, few bacteria Bladder decompressed via Prajapati, likely due to altered mental status and hypotension fluconazol iv MSK/Soft Tissue: #Extensive necrotizing fasciitis involving gluteal/sacral regions Large abscess drained (~150 mL purulent fluid), tissue debrided Pulse lavage and wound packed sp debridement of affected area (pilonidal cyst both buttocks, perianal area) and creation of a diverting colostomy 10/08/24 wound is having baker and white patches, patient will benefit for transfer to [facility] for plastic surgery Case discussed with Dr Orr Time spent on critical care 82 min, excluding procedures, extensive discussion with the father Darwin, full code Plan discussed with: Patient, Other (father ) My Orders My Orders Orders - UMESH BARAHONA RESIDENT Procedure Category Date Status Time Levothyroxine PHA 10/10/24 In Process Injection (Synthroid 07:00 Incentive Spirometry ORDERS 10/09/24 Transmitted 09:03 Thyroid Stimulating LAB 10/10/24 Verified Hormone 04:00 Complete Blood Count LAB 10/10/24 Verified 04:00 Comprehensive LAB 10/10/24 Verified Metabolic Panel 04:00 Magnesium LAB 10/10/24 Verified 04:00 Phosphorus LAB 10/10/24 Verified 04:00 Chest Xray 1 View XY 10/10/24 Logged 04:00 Abg W/ Co-Ox RT 10/10/24 Logged 04:00 Fluconazole PHA 10/09/24 In Process 200mg/100ml (Diflucan 17:15 * Science Education Professor CONS 10/09/24 Transmitted Consult Dietary Evaluation Review Comments: 1) TPN if NPO > 7 days 2) Advance to [facility] 60gm as medically feasible 3) Cuco 1 pk BID for wound healing 4) Monitor I/O, lab values, wt trend Expected Outcomes/Goals: To meet >75% estimated needs wound to improve Fu 2-3 days Date of Service: Oct 09, 2024 Billing Provider: DARWIN ORR MD Common Visit Codes: 96286-ALTTAOZP CARE 30-74 MIN, 05090-ZATNBXSH CARE-EACH +30MIN UMESH BARAHONA RESIDENT Oct 09, 2024 17:26 DARWIN ORR MD Oct 10, 2024 11:08
[2024-10-09] MEDS: FLUCONAZOLE 200MG/100ML 100 ML IV SCH (17:34)
[2024-10-09 18:41] LABS: Anion Gap 12 (5-15); Carbon Dioxide 24 mmol/L (20-31); Chloride 104 mmol/L (98-107); Potassium 3.7 mmol/L (3.5-5.1); Sodium 140 mmol/L (136-145)
[2024-10-09 18:47] LABS: BUN/Creatinine Ratio 22.2 (10.0-20.0); Blood Urea Nitrogen 55 mg/dL (9-23); Calcium 7.7 mg/dL (8.7-10.4); Glucose 148 mg/dL (74-106)
[2024-10-10] VITALS (72 sets, daily range): BP systolic 92–139; BP diastolic 46–85; PULSE 78–89; RESP 6–27; TEMP 97.5–98.5; O2SAT 87–100
[2024-10-10 04:14] LABS: Iron 55.0 ug/dL (50-170)
[2024-10-10 04:15] LABS: Hematocrit 26.1 % (36.0-46.0); Hemoglobin 8.9 g/dL (12.2-16.2); Mean Corpuscular Hemoglobin 29.2 pg (28.0-32.0); Mean Corpuscular Volume 85.5 fL (80.0-100.0)
[2024-10-10 04:18] LABS: Anion Gap 9 (5-15); BUN/Creatinine Ratio 22.1 (10.0-20.0); Carbon Dioxide 27 mmol/L (20-31); Chloride 105 mmol/L (98-107); Glucose 100 mg/dL (74-106); Magnesium 1.7 mg/dL (1.6-2.6); Potassium 3.6 mmol/L (3.5-5.1); Sodium 141 mmol/L (136-145)
[2024-10-10 04:19] LABS: Bilirubin, Total 1.0 mg/dL (0.2-1.0)
[2024-10-10 04:22] LABS: Total Iron Binding Capacity 184.0 ug/dL (250-425)
[2024-10-10 04:24] LABS: Alanine Aminotransferase 44 U/L (7-40); Albumin 2.6 g/dL (3.2-4.8); Alkaline Phosphatase 198 U/L (46-116); Blood Urea Nitrogen 49 mg/dL (9-23); Calcium 8.5 mg/dL (8.7-10.4); Total Protein 5.5 g/dL (5.7-8.2)
[2024-10-10 04:54] LABS: Total Cells Counted 100.0 (100)
--- NOTE | 2024-10-10 05:37 | DVH ---
CHEST RADIOGRAPH Indication: septic shock Technique: Single frontal view of the chest was obtained Comparison: XY CHEST XRAY 1 VIEW on DOS: 10/09/24 FINDINGS: Lines and Tubes: None Lungs: Hazy right lung opacities. Pleura: No effusion. No pneumothorax. Cardiomediastinal contours: Stable Cardiovascular silhouette. Bones: No acute osseous abnormality. IMPRESSION: 1. Right lung opacities reflecting pulmonary edema.
[2024-10-10] MEDS: LEVOTHYROXINE SODIUM 100 MCG/5 ML INJ IV SCH (06:17)
[2024-10-10] MEDS ORDERED: DEXTROSE (50%) 50ML SYRG IV PRN (08:45)
--- NOTE | 2024-10-10 09:36 | DVHPN2 ---
Progress Note Date Seen: Oct 10, 2024 Medical Necessity Reason Pt with a Central, PICC or Fol: No Objective vital signs Vital Sign Date Time Temp Pulse Resp B/P (MAP) Pulse Ox O2 Delivery O2 Flow Rate FiO2 10/10/24 06:30 83 16 111/67 (82) 97 10/10/24 06:00 Nasal Cannula* 1 24 10/10/24 04:00 98.3 98.3 Total Intake and Output 10/09/24 10/09/24 10/10/24 15:00 23:00 07:00 Intake Total 775.0 ml 828.0 ml 580.0 ml Output Total 1200 ml 1300 ml Balance 775.0 ml -372.0 ml -720.0 ml medications Current Medications Medications Dose Ordered Sig/Geo Route Start Time Stop Time Status Last Admin Dose Admin Vancomycin HCl 0 ml @ 0 mls/hr UD IV 10/06/24 19:30 Morphine Sulfate 2 mg Q4HPRN PRN IV 10/06/24 19:30 Phenylephrine HCl 250 ml @ 30 mls/hr Q8H20M IV 10/07/24 03:45 10/07/24 04:14 30 MLS/HR Norepinephrine Bitartrate 250 ml @ 3.75 mls/hr Q24H IV 10/07/24 10:00 10/08/24 16:44 3.75 MLS/HR Meropenem 50 ml @ 17 mls/hr Q12HR IV 10/07/24 22:00 10/09/24 21:49 17 MLS/HR Dextrose 50 ml UD PRN IV 10/07/24 11:15 Cancel Insulin Glargine 15 units DAILY SC 10/08/24 10:00 Cancel Pantoprazole Sodium 40 mg DAILY IV 10/07/24 14:00 10/09/24 10:03 40 MG Dextrose 50 ml PRN PRN IV 10/07/24 15:00 Cancel Clindamycin Phosphate 50 ml @ 50 mls/hr Q8HR IV 10/07/24 22:00 10/10/24 06:11 50 MLS/HR Dextrose 50 ml PRN PRN IV 10/08/24 08:15 Cancel Insulin Glargine 20 units HS SC 10/08/24 22:00 10/09/24 21:59 20 UNITS Levothyroxine Sodium 50 mcg QAM IV 10/10/24 07:00 10/10/24 06:17 50 MCG Fluconazole 100 ml @ 100 mls/hr DAILY@1800 IV 10/09/24 17:15 10/09/24 17:34 100 MLS/HR Diagnostic Test (Pha) 1 strip IQ4HR 10/10/24 12:00 Insulin Human Regular IQ4HR SC 10/10/24 12:00 Dextrose 50 ml UD PRN IV 10/10/24 08:45 Lactated Ringer's 1,000 ml @ 75 mls/hr [id number] IV 10/10/24 08:45 laboratory and microbiology Laboratory Tests 10/10/24 03:25 Test 10/10/24 03:25 Range/Units Serum Glucose 100 74-106 mg/dL Problem List/Assessment/Plan Problem List/Assessment/Plan 10/06/24 P[ATIENT HAS BEEN HAVING PAIN IN HER LOWER BACK AND LEFT BUTTOCK FOR TWO DAYS AND NOW PRESENTS WITH TENDERNESS AND ERYTHEMA OF THE AFFECTED AREA, THERE IS REDNESS OF THE AFFECTED SKIN, NO SUBCUTANEOUS COMITANCE IS NOTED, NO BULGING , NO DRAINAGE. THE AREA HAS THE APPEARANCE OF A PILONIDAL INFECTION, NO CLINICAL EVIDENCE OF NECROTIZING INFECTION. INCISION AND DRAINAGE AND POSSIBLE DEBRIDEMENT EXPLAINED TO PATIENT WERE RISKS AND COMPLICATIONS., 10/07/24 PATIENT HAD bp OF 90,S WHEN EXAMINED BY ME AT 1600 YESTERDAY AFTERNOON, DESPITE MY EXPLICIT COMMUNICATION ORDER TO BE NOTIFIED IF THE PATIENT DEVELOPS CHANGES IN HER BP OR HEART RATE OR DEVELOPS FEVER AND INCREASING PAIN I WAS NOT NOTIFIED UNTIL THIS MORNING AT 6:50 HRS THAT THE PATIENT IS ON 115MCG/MIN OF PHENYLEPHRINE, WHEN QUESTIONED THE ICU NURSE INFORMED ME THAT SHE RECEIVED THE PATIENT FROM THE ER ALREADY ON PHENYLEPHRINE AT 4 O'CLOCK THIS AM. 10/07/24 waited till patient fully awake after this morning operation, she is fully oriented, explained the seriousness of her problems and the need for a diverting colostomy, also explained that I spoke to her father, sshe expressed wish not to communicate with her mother.operation, risks and complications explained in detail 10/08/24 BP and HR improved. continues with acidosis and leukocytosis, had several bowel movements, explained upcoming re operation on her buttocks again and again explained colostomy procedure 10/10/24 slightly improved, stoma viable without output, wound dressings being changed, the patient will need to transfer to a facility with higher level of care, needs plastic,reconstructive surgical expertise which I do not have. Plan discussed with: Patient, Other Dietary Evaluation Review Comments: 1) TPN if NPO > 7 days 2) Advance to [facility] 60gm as medically feasible 3) Cuco 1 pk BID for wound healing 4) Monitor I/O, lab values, wt trend Expected Outcomes/Goals: To meet >75% estimated needs wound to improve Fu 2-3 days VERONICA TOLLIVER MD Oct 10, 2024 09:36
[2024-10-10] MEDS ORDERED: VANCOMYCIN 750MG KIT 100 ML IV ONE (10:00)
[2024-10-10] MEDS: MAGNESIUM SULFATE 1GM/100ML 100 ML IV ONE (10:23)
[2024-10-10] MEDS: LACTATED RINGER'S 1,000 ML IV SCH (10:23)
--- NOTE | 2024-10-10 10:26 | DVHPN2 ---
Progress Note Date Seen: Oct 10, 2024 Resident Creating Document: LEORA FULLER RESIDENT Medical Necessity Reason Pt with a Central, PICC or Fol: No Subjective Review of Systems This is a 29-year-old with diabetes mellitus type 1 diagnosed at the age of 12, hypothyroidism, does not take any medications at home who presented to the ER with a chief complaint of buttock pain and generalized weakness. Patient reports that she has been experiencing pain in her buttock, redness and swelling, nausea vomiting for the past 2 days. On arrival patient was hypotensive 84/39 mmHg, tachycardic and tachypneic. CT scan showed necrotizing fascitis in the patient underwent I and D 10/07, 150 mL of yellow colored fluid was drained and sent for culture. 10/08-patient underwent colostomy placement. Serum glucose was 500 on arrival and patient was started on IV insulin drip. A1c greater than 13. Nephrology consulted for АНДРЕЙ likely on CKD Past medical history: See above Home medication: None Social history: Lives with family 10/09-Patient seen and examined at bedside. Urine output 2100 cc. Serum bicarb improving, acidosis resolving. Creatinine trending down. 10/10-patient reports feeling better, 2500 cc of urine in 24 hours. Surgeon started full liquid diet. BUN/creatinine downtrending, GFR improving. Magnesium and potassium replenished. Objective vital signs Vital Sign Date Time Temp Pulse Resp B/P (MAP) Pulse Ox O2 Delivery O2 Flow Rate FiO2 10/10/24 06:30 83 16 111/67 (82) 97 10/10/24 06:00 Nasal Cannula* 1 24 10/10/24 04:00 98.3 98.3 Total Intake and Output 10/09/24 10/09/24 10/10/24 15:00 23:00 07:00 Intake Total 775.0 ml 828.0 ml 580.0 ml Output Total 1200 ml 1300 ml Balance 775.0 ml -372.0 ml -720.0 ml medications Current Medications Medications Dose Ordered Sig/Geo Route Start Time Stop Time Status Last Admin Dose Admin Vancomycin HCl 0 ml @ 0 mls/hr UD IV 10/06/24 19:30 Morphine Sulfate 2 mg Q4HPRN PRN IV 10/06/24 19:30 Phenylephrine HCl 250 ml @ 30 mls/hr Q8H20M IV 10/07/24 03:45 10/07/24 04:14 30 MLS/HR Norepinephrine Bitartrate 250 ml @ 3.75 mls/hr Q24H IV 10/07/24 10:00 10/08/24 16:44 3.75 MLS/HR Meropenem 50 ml @ 17 mls/hr Q12HR IV 10/07/24 22:00 10/09/24 21:49 17 MLS/HR Dextrose 50 ml UD PRN IV 10/07/24 11:15 Cancel Insulin Glargine 15 units DAILY SC 10/08/24 10:00 Cancel Pantoprazole Sodium 40 mg DAILY IV 10/07/24 14:00 10/09/24 10:03 40 MG Dextrose 50 ml PRN PRN IV 10/07/24 15:00 Cancel Clindamycin Phosphate 50 ml @ 50 mls/hr Q8HR IV 10/07/24 22:00 10/10/24 06:11 50 MLS/HR Dextrose 50 ml PRN PRN IV 10/08/24 08:15 Cancel Insulin Glargine 20 units HS SC 10/08/24 22:00 10/09/24 21:59 20 UNITS Levothyroxine Sodium 50 mcg QAM IV 10/10/24 07:00 10/10/24 06:17 50 MCG Fluconazole 100 ml @ 100 mls/hr DAILY@1800 IV 10/09/24 17:15 10/09/24 17:34 100 MLS/HR Diagnostic Test (Pha) 1 strip IQ4HR 10/10/24 12:00 Insulin Human Regular IQ4HR SC 10/10/24 12:00 Dextrose 50 ml UD PRN IV 10/10/24 08:45 Lactated Ringer's 1,000 ml @ 75 mls/hr [id number] IV 10/10/24 08:45 Examination Young female patient lying in bed, in no acute distress General: Morbidly obese, afebrile, mucosae are moist Cardiovascular: Regular S1 and S2. No murmurs, gallops or rubs. No JVD elevation. No pedal edema Respiratory: Normal B/L air entry on room air. Clear lung sounds on auscultation Abdomen: Soft, nontender, nondistended, hypoactive bowel sounds, no rebound tenderness, no organomegaly, no masses. Colostomy bag seen with 10 cc output. Status post I&D and abscess drainage, not draining purulent substance. Genitourinary: Prajapati catheter seen MSK/skin: Mobilizes 4 limbs. Skin is dry and warm Neurological: No motor, no sensitive deficits, normal speech. Pupils are isocoric and reactive. Psych/Mental Status: A/Ox3 laboratory and microbiology Laboratory Tests 10/10/24 03:25 Test 10/10/24 03:25 Range/Units Serum Glucose 100 74-106 mg/dL Microbiology Date/Time Source Procedure Growth Status 10/07/24 10:30 Voided Urine Urine Culture - Preliminary Resulted 10/07/24 08:21 Other Other Gram Stain - Final Resulted 10/07/24 08:21 Other Other Anaerobic Culture - Preliminary Resulted 10/07/24 08:21 Other Other Aerobic Culture - Preliminary Resulted 10/06/24 11:20 Blood Blood Culture - Preliminary NO GROWTH AFTER 72 HOURS OF INCUBATION. Resulted Labs and/or images reviewed: Labs reviewed by me, Image(s) reviewed by me Problem List/Assessment/Plan Problem List/Assessment/Plan Acute kidney injury likely in the setting of sepsis and likely contrast induced nephropathy Likely baseline chronic kidney disease Uncontrolled type 1 diabetes mellitus-A1c greater than 13 Septic shock due to necrotizing fascitis and perineal abscess status post I and D and colostomy requiring pressor support Anion gap metabolic acidosis secondary to lactic acidosis Complicated cystitis Anemia likely due to chronic kidney disease Secondary hyperparathyroidism Vitamin-D deficiency FENA 0.9% 10/06 Renal ultrasound shows bilateral echogenic kidneys Urine culture growing ten thousand CFU yeast Blood culture prelim negative, MRSA nares neck Wound culture resulting in preliminary anaerobes, Gram-positive cocci and Gram- negative Plan: BUN/creatinine downtrending, GFR improving, serum bicarb improving, discontinued bicarb supplementation. Continue LR 75 cc/hour. Discontinue if the patient tolerates diet. FENA 0.9% consistent with prerenal Patient likely has CKD given uncontrolled diabetes mellitus, secondary parathyroidism, anemia, echogenic kidneys on ultrasound Continue renal dose antibiotics Patient is off pressors Iron panel suggestive of chronic kidney disease, we will consider Epogen supplementation We will continue to follow up Diet started: full liquid Plan discussed with patient, nurse at bedside in which all questions have been answered Case discussed with Plan discussed with: Patient My Orders My Orders Orders - LEORA FULLER RESIDENT Procedure Category Date Status Time Strict I & O SHEFALI 10/09/24 In Process 12:59 Potassium Chl PHA 10/10/24 In Process 20meq/100ml 10:15 Dietary Evaluation Review Comments: 1) TPN if NPO > 7 days 2) Advance to [facility] 60gm as medically feasible 3) Cuco 1 pk BID for wound healing 4) Monitor I/O, lab values, wt trend Expected Outcomes/Goals: To meet >75% estimated needs wound to improve Fu 2-3 days Critical Care Time (mins): 33 ADDENDUM ADDENDUM agree with resident A/P carlos today acidosis resolved fluids now LR rest of care per primary team LEORA FULLER Oct 10, 2024 10:26 INES MASON MD Oct 10, 2024 16:03
[2024-10-10] MEDS: MORPHINE SULFATE INJ 2 MG/ml SYRG IV PRN (11:16)
[2024-10-10] MEDS: ACCU-CHEK COMFORT CURVE STRIP VI SCH (11:16)
[2024-10-10] MEDS: InsuLIN REG 1unit/0.01ml Soln (100units/ml) SC SCH (11:17)
[2024-10-10] MEDS: POTASSIUM CHL 20MEQ/100ML 100 ML IV ONE (11:17)
[2024-10-10 12:10] LABS: Base Excess 1.2 mmol/L (-2.0-3.0)
--- NOTE | 2024-10-10 13:55 | DVHPNRES ---
Progress Note Date Seen: Oct 10, 2024 Resident Creating Document: UMESH BARAHONA RESIDENT Medical Necessity Reason Pt with a Central, PICC or Fol: No Subjective Review of Systems 29-year-old female with PMHx of poorly controlled DM and hypothyroidism (not on medications), presented with 1 day of generalized weakness, dizziness, and diffuse abdominal pain with nausea and vomiting. BG was 524 and BP 84/39 at triage. On further evaluation, she had left lower back pain for 2 weeks with associated tenderness and erythema over the gluteal area. CT abdomen/pelvis revealed extensive soft tissue edema and subcutaneous emphysema extending into the perianal region, concerning for necrotizing fasciitis. Hospital Course: She was started on sepsis protocol with IV fluids, broad-spectrum antibiotics and insulin for hyperglycemia. Labs showed leukocytosis (WBC up to 31K), lactic acidosis, anion gap metabolic acidosis, and elevated inflammatory markers. She underwent emergent surgical debridement for necrotizing fasciitis and pilonidal cyst infection with removal of nonviable tissues and drain placement. Intra-op cultures were obtained. She remains intubated and sedated post-op with plans for possible colostomy depending on extent of further debridement. PMHx: DM (off meds 1 yrs), hypothyroidism (no meds) PSHx: None FHx: DM SHx: Social alcohol, non-smoker, no drug use, live with his father and brother, previously was working on [employer] Vitals on admission: BP 84/39, BG 524 10/08/24: ABG still showing acidosis, we restarted insulin drip, dressing change was done, extensive sacral and lumbar ulcer, extending trough anal area, extensive discussion was held with the father and brother about the poor prognosis of the condition, later in the afternoon patient was taken to Secondary debridement of affected area (pilonidal cyst both buttocks, perianal area) and creation of a diverting colostomy. Patient came back to the unit, on levophed low dose, extubated, we changed the fluids: d5w+ 3amp hco3: 125cc/h 10/09/24: dressing change, there are some baker and white patches in the ulcer, nephrology agrees on continue bicarb drip, decrease rate 75cc/h, transfer to [facility] for plastic surgery due to extensive skin defect, continue current treatment, patient can be downgraded to MISAEL 10/10/24: dressing change: less necrotic tissue, bicarb and insulin drip stopped, downgrade to the floor, continue transfer, surgery ordered a ct scan: Redemonstrated bilateral gluteal region soft tissue edema and subcutaneous emphysema which extends from the perianal region to the lower back, suggestive of necrotizing fasciitis. Appears improved from prior.Interval laparotomy and left lower quadrant ostomy with associated postsurgical changes. Hepatomegaly. Objective vital signs Vital Sign Date Time Temp Pulse Resp B/P (MAP) Pulse Ox O2 Delivery O2 Flow Rate FiO2 10/10/24 12:00 83 10/10/24 12:00 16 97 Nasal Cannula* 1 24 10/10/24 11:16 107/68 10/10/24 04:00 98.3 98.3 Total Intake and Output 10/09/24 10/09/24 10/10/24 15:00 23:00 07:00 Intake Total 775.0 ml 828.0 ml 580.0 ml Output Total 1200 ml 1300 ml Balance 775.0 ml -372.0 ml -720.0 ml medications Current Medications Medications Dose Ordered Sig/Geo Route Start Time Stop Time Status Last Admin Dose Admin Vancomycin HCl 0 ml @ 0 mls/hr UD IV 10/06/24 19:30 Morphine Sulfate 2 mg Q4HPRN PRN IV 10/06/24 19:30 10/10/24 11:16 2 MG Phenylephrine HCl 250 ml @ 30 mls/hr Q8H20M IV 10/07/24 03:45 10/07/24 04:14 30 MLS/HR Meropenem 50 ml @ 17 mls/hr Q12HR IV 10/07/24 22:00 10/10/24 10:23 17 MLS/HR Dextrose 50 ml UD PRN IV 10/07/24 11:15 Cancel Insulin Glargine 15 units DAILY SC 10/08/24 10:00 Cancel Pantoprazole Sodium 40 mg DAILY IV 10/07/24 14:00 10/10/24 10:23 40 MG Dextrose 50 ml PRN PRN IV 10/07/24 15:00 Cancel Clindamycin Phosphate 50 ml @ 50 mls/hr Q8HR IV 10/07/24 22:00 10/10/24 06:11 50 MLS/HR Dextrose 50 ml PRN PRN IV 10/08/24 08:15 Cancel Insulin Glargine 20 units HS SC 10/08/24 22:00 10/09/24 21:59 20 UNITS Fluconazole 100 ml @ 100 mls/hr DAILY@1800 IV 10/09/24 17:15 10/09/24 17:34 100 MLS/HR Diagnostic Test (Pha) 1 strip IQ4HR 10/10/24 12:00 10/10/24 11:16 1 STRIP Insulin Human Regular IQ4HR SC 10/10/24 12:00 Dextrose 50 ml UD PRN IV 10/10/24 08:45 Lactated Ringer's 1,000 ml @ 75 mls/hr [id number] IV 10/10/24 08:45 10/10/24 10:23 75 MLS/HR Levothyroxine Sodium 50 mcg QAM@0600 PO 10/11/24 06:00 Sertraline HCl 50 mg DAILY PO 10/10/24 12:30 Examination Gen: 29-year-old female in acute distress Skin: Warm, dry, normal color and texture, no rash. HEENT: Normocephalic atraumatic, mucous membranes moist and pink.hypothyroidism facies Neck: Cervical and supraclavicular nodes normal without enlargement, trachea is midline, thyroid gland is normal without masses. Pulmonary: hypoventilation Cardiac: Regular rate and rhythm. No murmur Abdomen: Soft, nontender, nondistended, bowel sounds present all 4 quadrants, no guarding, no rigidity, no organomegaly. Extremities: extensive sacral and lumbar ulcer, extending trough anal area with less necrotic tissue Neuro: Cranial nerves II through XII grossly intact, normal affect and speech, no focal motor deficits, more alert AX3 laboratory and microbiology Laboratory Tests 10/10/24 03:25 Test 10/10/24 03:25 Range/Units Serum Glucose 100 74-106 mg/dL Microbiology Date/Time Source Procedure Growth Status 10/07/24 10:30 Voided Urine Urine Culture - Preliminary Presumptive Judie albicans Resulted 10/07/24 08:21 Other Other Gram Stain - Final Complete 10/07/24 08:21 Anaerobic Culture - Final Prevotella loescheii Complete 10/07/24 08:21 Other Other Aerobic Culture - Final Complete 10/06/24 11:20 Blood Blood Culture - Preliminary NO GROWTH AFTER 72 HOURS OF INCUBATION. Resulted Problem List/Assessment/Plan Problem List/Assessment/Plan -Neurologic: #Acute metabolic encephalopathy secondary to sepsis and metabolic derangements. No focal neurological deficits documented. more alert, AOX3 No signs of seizure. Infectious Diseases #Septic shock due to necrotizing fasciitis of the gluteal and sacral region secondary to pilonidal cyst infection due to prevotella loescheii #sp I&D 10/07/24 #sp debridement of affected area (pilonidal cyst both buttocks, perianal area) and creation of a diverting colostomy 10/08/24 Confirmed intra-op with devitalized tissue and large purulent collection WBC peaked at 31K with left shift Source control achieved with surgical debridement Started on broad-spectrum antibiotics (Zosyn + Vanc): now meropenem+ vanco+ clindamycin Blood cultures pending ID consulted per Dr Pretty 10/10/24: dressing change: less necrotic tissue, bicarb and insulin drip stopped, downgrade to the floor, continue transfer, surgery ordered a ct scan: Redemonstrated bilateral gluteal region soft tissue edema and subcutaneous emphysema which extends from the perianal region to the lower back, suggestive of necrotizing fasciitis. Appears improved from prior.Interval laparotomy and left lower quadrant ostomy with associated postsurgical changes. Hepatomegaly. Cardiovascular: #Septic shock due to necrotizing fasciitis with hypotension (84/39 on arrival), requiring fluid resuscitation and vasopressor support with phenylephrine. Lactate peaked at 4.9 MAP goal >65 mmHg maintained Improving hemodynamics post-op wean off phenylephrine levophed off midline placed Respiratory: #Acute hypoxemic respiratory failure secondary to sepsis and poor perfusion #Respiratory acidosis possible obesity hypoventilation syndrome today room air No mechanical ventilation ABG trends: 10/06: pH 7.34, HCO 14 compensated metabolic acidosis 10/07: pH 7.18 then 7.20, HCO 12.1 worsening primary metabolic acidosis No respiratory compensation, consistent with acute process: respiratory acidosis Lactate-driven AGMA, more than DKA 10/08 ph 7.316 pco2 28.6 po2 99.2 hco3 14.3 10/10 ph 7.44 pco2 37.5 po2 89.6 hco3 25.2 Metabolic/Endocrine: #Severe AGMA due to lactic acidosis B, but beta-hydroxybutyrate only 0.9, no ketonemia AG >17, HCO <15 consistent with lactic acidosis dc bicarb and insulin drip lantus 20 ui #Uncontrolled diabetes hba1c 13 continue insulin drip to achieve control 140-180 of the sugars #Hypothyroidism: TSH 12.1, low free T4 free T3 Given severity of illness, IV levothyroxine started to prevent myxedema daily Cortisol: 30.84 normal, adrenal insufficiency ruled out #Hypomagnesemia replaced Hematology: #Leukocytosis, improving with neutrophilic predominance (WBC >30K) at admission #Anemia Hgb trending (11 --> 9.7 --> 8.7 -->8,9 --> 9.7), likely hemodilutional or inflammatory No evidence of DIC, platelets stable Monitor for anemia of critical illness Renal: АНДРЕЙ due to VMN on possible CKD, baseline creatinine unknown, improving (from hypoperfusion and sepsis + chronic component from diabetes) Cr trending high UA: proteinuria (1+), trace ketones, glucosuria (4+), WBC 16 possible UTI component or inflammation Protein/Creatinine ratio = 218.6 mg/g suggests underlying CKD Renal US: Echogenic kidneys, no hydronephrosis, medical kidney disease consistent with diabetic nephropathy GI #sp colostomy 10/08/24 healthy restart diet : #Complicated UTI, presumptive judie albicans UA: trace ketones, glucosuria, 1+ protein, few bacteria Bladder decompressed via Prajapati, likely due to altered mental status and hypotension fluconazol iv MSK/Soft Tissue: #Extensive necrotizing fasciitis involving gluteal/sacral regions Large abscess drained (~150 mL purulent fluid), tissue debrided Pulse lavage and wound packed sp debridement of affected area (pilonidal cyst both buttocks, perianal area) and creation of a diverting colostomy 10/08/24 wound is having baker and white patches, patient will benefit for transfer to [facility] for plastic surgery 10/10/24: dressing change: less necrotic tissue Case discussed with Dr Orr Time spent on critical care 67 min, excluding procedures, extensive discussion with the father Darwin, full code Plan discussed with: Patient, Other (father ) My Orders My Orders Orders - UMESH BARAHONA RESIDENT Procedure Category Date Status Time Chest Xray 1 View XY 10/10/24 Resulted 04:00 Abg W/ Co-Ox RT 10/10/24 Logged 04:00 Fluconazole PHA 10/09/24 In Process 200mg/100ml (Diflucan 17:15 * Licensed Marriage And Family Therapist CONS 10/09/24 Transmitted Consult Transfer Orders XFER 10/10/24 Transmitted 08:28 Glucose Blood PHA 10/10/24 In Process (Accu-Chek Comfort 12:00 Insulin R (Human) PHA 10/10/24 In Process (Insulin R) 12:00 Dextrose 50% Syringe PHA 10/10/24 In Process 08:45 Lactated Ringer's PHA 10/10/24 In Process 08:45 Levothyroxine Tablet PHA 10/11/24 In Process (Synthroid Tablet) 06:00 Pt Request For Service PT 10/10/24 Logged 12:25 Sertraline Hcl PHA 10/10/24 In Process (Zoloft) 12:30 Dietary Evaluation Review Comments: 1) TPN if NPO > 7 days 2) [facility] to [facility] as medically feasible 3) Cuco 1 pk BID for wound healing 4) Monitor I/O, lab values, wt trend Expected Outcomes/Goals: To meet >75% estimated needs wound to improve Fu 2-3 days Date of Service: Oct 10, 2024 Billing Provider: DARWIN ORR MD Common Visit Codes: [id number] CARE 30-74 MIN UMESH BARAHONA RESIDENT Oct 10, 2024 13:55 DARWIN ORR MD Oct 12, 2024 11:05
--- NOTE | 2024-10-10 16:16 | DVH ---
Exam: CT CT AB PEL WO CON-NO ORAL OR IV History: f/u necrotizing infection both buttocks Comparison Study: CT CT AB PEL WO CON-NO ORAL OR IV on DOS: 10/06/24 TECHNIQUE: Multidetector CT of the abdomen and pelvis was performed from lung bases to pubic symphysi s. Imaging was performed without IV contrast. Axial, coronal, and sagittal multiplanar reformats were obtained from the axial data set by the technologist. RADIATION DOSE: DLP 1611.11 mGy.cm; CTDI vol 24.03 mGy. Findings: Lungs: Dependent atelectasis. Small bilateral pleural effusions. Heart: No cardiomegaly or pericardial effusion. Liver: The liver measures 19.8 cm in craniocaudal dimension. Gallbladder: Unremarkable. Spleen: Unremarkable Pancreas: Unremarkable Adrenals: Unremarkable Kidneys: Unremarkable GI tract: Postsurgical changes of the bowel. : The urinary bladder is decompressed via Prajapati catheter with intraluminal air. Vasculature: Unremarkable Lymphadenopathy: Enlarged bilateral inguinal nodes. Peritoneum: No ascites Musculoskeletal: Unremarkable Soft tissues: Interval laparotomy and left lower quadrant ostomy with associated postsurgical changes . Pockets of hyperattenuation along the midline anterior abdominal wall may reflect postsurgical mark sammie. Mild anasarca. Redemonstrated bilateral gluteal region soft tissue edema and subcutaneous emph ysema which extends from the perianal region to the lower back, appears improved. Impression: 1. Redemonstrated bilateral gluteal region soft tissue edema and subcutaneous emphysema which extends from the perianal region to the lower back, suggestive of necrotizing fasciitis. Appears improved f rom prior. 2. Interval laparotomy and left lower quadrant ostomy with associated postsurgical changes. 3. Hepatomegaly.
[2024-10-10] MEDS: VANCOMYCIN 500mg/100mL 100 ML IV ONE (17:03)
[2024-10-10] MEDS: SERTRALINE HCL 50 MG TAB PO SCH (17:15)
[2024-10-10] MEDS: EPOETIN ALFA-EPBX 10,000 UNIT/1ML VIAL SC ONE (21:38)
[2024-10-11] VITALS (8 sets, daily range): BP systolic 101–131; BP diastolic 54–83; PULSE 76–85; RESP 16–18; TEMP 97.5–98.3; O2SAT 95–99
[2024-10-11 05:38] LABS: Hematocrit 29.2 % (36.0-46.0); Hemoglobin 9.7 g/dL (12.2-16.2); Mean Corpuscular Hemoglobin 28.6 pg (28.0-32.0); Mean Corpuscular Volume 86.3 fL (80.0-100.0)
[2024-10-11 05:56] LABS: Anion Gap 8 (5-15); Carbon Dioxide 28 mmol/L (20-31); Chloride 106 mmol/L (98-107); Potassium 4.2 mmol/L (3.5-5.1); Sodium 142 mmol/L (136-145)
[2024-10-11 05:57] LABS: Iron 44.0 ug/dL (50-170)
[2024-10-11 05:58] LABS: Calcium 8.3 mg/dL (8.7-10.4)
[2024-10-11 06:02] LABS: BUN/Creatinine Ratio 25.8 (10.0-20.0); Blood Urea Nitrogen 41 mg/dL (9-23); Glucose 128 mg/dL (74-106); Total Iron Binding Capacity 184.0 ug/dL (250-425)
[2024-10-11] MEDS: LEVOTHYROXINE SODIUM 50 MCG TAB PO SCH (06:18)
[2024-10-11 06:35] LABS: Total Cells Counted 100.0 (100)
[2024-10-11] MEDS: VANCOMYCIN 1GM/200ML PM 200 ML IV ONE (10:02)
--- NOTE | 2024-10-11 11:07 | DVHPN2 ---
Progress Note Date Seen: Oct 11, 2024 Resident Creating Document: LEORA FULLER RESIDENT Medical Necessity Reason Pt with a Central, PICC or Fol: No Subjective Review of Systems This is a 29-year-old with diabetes mellitus type 1 diagnosed at the age of 12, hypothyroidism, does not take any medications at home who presented to the ER with a chief complaint of buttock pain and generalized weakness. Patient reports that she has been experiencing pain in her buttock, redness and swelling, nausea vomiting for the past 2 days. On arrival patient was hypotensive 84/39 mmHg, tachycardic and tachypneic. CT scan showed necrotizing fascitis in the patient underwent I and D 10/07, 150 mL of yellow colored fluid was drained and sent for culture. 10/08-patient underwent colostomy placement. Serum glucose was 500 on arrival and patient was started on IV insulin drip. A1c greater than 13. Nephrology consulted for АНДРЕЙ likely on CKD Past medical history: See above Home medication: None Social history: Lives with family 10/09-Patient seen and examined at bedside. Urine output 2100 cc. Serum bicarb improving, acidosis resolving. Creatinine trending down. 10/10-patient reports feeling better, 2500 cc of urine in 24 hours. Surgeon started full liquid diet. BUN/creatinine downtrending, GFR improving. Magnesium and potassium replenished. 10/11 - afebrile, getting better, u/o 1450cc, Hb trending up Objective vital signs Vital Sign Date Time Temp Pulse Resp B/P (MAP) Pulse Ox O2 Delivery O2 Flow Rate FiO2 10/11/24 09:00 97.7 76 18 115/65 (82) 98 97.7 10/10/24 20:00 Nasal Cannula* 2 28 Total Intake and Output 10/10/24 10/10/24 10/11/24 15:00 23:00 07:00 Intake Total 525 ml 1045 ml 320 ml Output Total 1450 ml Balance 525 ml -405 ml 320 ml medications Current Medications Medications Dose Ordered Sig/Geo Route Start Time Stop Time Status Last Admin Dose Admin Vancomycin HCl 0 ml @ 0 mls/hr UD IV 10/06/24 19:30 Morphine Sulfate 2 mg Q4HPRN PRN IV 10/06/24 19:30 10/11/24 01:55 2 MG Phenylephrine HCl 250 ml @ 30 mls/hr Q8H20M IV 10/07/24 03:45 10/07/24 04:14 30 MLS/HR Meropenem 50 ml @ 17 mls/hr Q12HR IV 10/07/24 22:00 10/10/24 21:36 17 MLS/HR Dextrose 50 ml UD PRN IV 10/07/24 11:15 Cancel Insulin Glargine 15 units DAILY SC 10/08/24 10:00 Cancel Pantoprazole Sodium 40 mg DAILY IV 10/07/24 14:00 10/10/24 10:23 40 MG Dextrose 50 ml PRN PRN IV 10/07/24 15:00 Cancel Clindamycin Phosphate 50 ml @ 50 mls/hr Q8HR IV 10/07/24 22:00 10/11/24 06:18 50 MLS/HR Dextrose 50 ml PRN PRN IV 10/08/24 08:15 Cancel Insulin Glargine 20 units HS SC 10/08/24 22:00 10/10/24 21:42 20 UNITS Fluconazole 100 ml @ 100 mls/hr DAILY@1800 IV 10/09/24 17:15 10/10/24 21:34 100 MLS/HR Diagnostic Test (Pha) 1 strip IQ4HR 10/10/24 12:00 10/11/24 08:07 1 STRIP Insulin Human Regular IQ4HR SC 10/10/24 12:00 10/11/24 01:57 2 UNITS Dextrose 50 ml UD PRN IV 10/10/24 08:45 Lactated Ringer's 1,000 ml @ 75 mls/hr [id number] IV 10/10/24 08:45 10/10/24 10:23 75 MLS/HR Levothyroxine Sodium 50 mcg QAM@0600 PO 10/11/24 06:00 10/11/24 06:18 50 MCG Sertraline HCl 50 mg DAILY PO 10/10/24 12:30 10/10/24 17:15 50 MG Examination Young female patient lying in bed, in no acute distress General: Morbidly obese, afebrile, mucosae are moist Cardiovascular: Regular S1 and S2. No murmurs, gallops or rubs. No JVD elevation. No pedal edema Respiratory: Normal B/L air entry on room air. Clear lung sounds on auscultation Abdomen: Soft, nontender, nondistended, hypoactive bowel sounds, no rebound tenderness, no organomegaly, no masses. Colostomy bag seen with 10 cc output. Status post I&D and abscess drainage, not draining purulent substance. Genitourinary: Prajapati catheter seen MSK/skin: Mobilizes 4 limbs. Skin is dry and warm Neurological: No motor, no sensitive deficits, normal speech. Pupils are isocoric and reactive. Psych/Mental Status: A/Ox3 laboratory and microbiology Laboratory Tests 10/11/24 04:49 Test 10/11/24 04:49 Range/Units Serum Glucose 128 H 74-106 mg/dL Microbiology Date/Time Source Procedure Growth Status 10/07/24 10:30 Voided Urine Urine Culture - Final Presumptive Tran albicans Complete 10/07/24 08:21 Other Other Gram Stain - Final Complete 10/07/24 08:21 Anaerobic Culture - Final Prevotella loescheii Complete 10/07/24 08:21 Other Other Aerobic Culture - Final Complete 10/06/24 11:20 Blood Blood Culture - Preliminary NO GROWTH AFTER 72 HOURS OF INCUBATION. Resulted Labs and/or images reviewed: Labs reviewed by me, Image(s) reviewed by me Problem List/Assessment/Plan Problem List/Assessment/Plan Acute kidney injury likely in the setting of sepsis and likely contrast induced nephropathy Likely baseline chronic kidney disease Uncontrolled type 1 diabetes mellitus-A1c greater than 13 Septic shock due to necrotizing fascitis and perineal abscess status post I and D and colostomy requiring pressor support Anion gap metabolic acidosis secondary to lactic acidosis Complicated cystitis Anemia likely due to chronic kidney disease Secondary hyperparathyroidism Vitamin-D deficiency FENA 0.9% 10/06 Renal ultrasound shows bilateral echogenic kidneys Urine culture growing ten thousand CFU yeast Blood culture prelim negative, MRSA nares neck Wound culture resulting in preliminary anaerobes, Gram-positive cocci and Gram- negative Plan: BUN/creatinine downtrending, GFR improving. Disontinue LR 75 cc/hour. FENA 0.9% consistent with prerenal Patient likely has CKD given uncontrolled diabetes mellitus, secondary parathyroidism, anemia, echogenic kidneys on ultrasound Continue renal dose antibiotics Patient is off pressors Sc Epogen 10.000units supplemented We will continue to follow up Diet started: Cons Carb diet Plan discussed with patient, nurse at bedside in which all questions have been answered Case discussed with Plan discussed with: Patient Dietary Evaluation Review Comments: 1) TPN if NPO > 7 days 2) [facility] as [facility] 3) Cuco 1 pk BID for wound healing 4) Monitor I/O, lab values, wt trend Expected Outcomes/Goals: To meet >75% estimated needs wound to improve Fu 2-3 days LEORA FULLER RESIDENT Oct 11, 2024 11:07
--- NOTE | 2024-10-11 12:46 | DVHPN2 ---
Subjective Date Seen: Oct 11, 2024 Post op day Post op day: 3 Patient reports: No new complaints Nursing reports: No new complaints General: Normal HNT: Normal Cardiovascular: Normal Respiratory: Normal Gastrointestinal: Normal Genitourinary: Normal Musculoskeletal: Normal Neurological: Normal Objective Vitals Vital Sign Date Time Temp Pulse Resp B/P (MAP) Pulse Ox O2 Delivery O2 Flow Rate FiO2 10/11/24 11:29 76 18 115/65 10/11/24 09:00 97.7 98 97.7 10/10/24 20:00 Nasal Cannula* 2 28 Total Intake and Output 10/10/24 10/10/24 10/11/24 15:00 23:00 07:00 Intake Total 525 ml 1045 ml 320 ml Output Total 1450 ml Balance 525 ml -405 ml 320 ml Medications Current Medications Medications Dose Ordered Sig/Geo Route Start Time Stop Time Status Last Admin Dose Admin Vancomycin HCl 0 ml @ 0 mls/hr UD IV 10/06/24 19:30 Morphine Sulfate 2 mg Q4HPRN PRN IV 10/06/24 19:30 10/11/24 11:29 2 MG Phenylephrine HCl 250 ml @ 30 mls/hr Q8H20M IV 10/07/24 03:45 10/07/24 04:14 30 MLS/HR Meropenem 50 ml @ 17 mls/hr Q12HR IV 10/07/24 22:00 10/11/24 10:00 17 MLS/HR Dextrose 50 ml UD PRN IV 10/07/24 11:15 Cancel Insulin Glargine 15 units DAILY SC 10/08/24 10:00 Cancel Pantoprazole Sodium 40 mg DAILY IV 10/07/24 14:00 10/11/24 11:26 40 MG Dextrose 50 ml PRN PRN IV 10/07/24 15:00 Cancel Clindamycin Phosphate 50 ml @ 50 mls/hr Q8HR IV 10/07/24 22:00 10/11/24 06:18 50 MLS/HR Dextrose 50 ml PRN PRN IV 10/08/24 08:15 Cancel Insulin Glargine 20 units HS SC 10/08/24 22:00 10/10/24 21:42 20 UNITS Fluconazole 100 ml @ 100 mls/hr DAILY@1800 IV 10/09/24 17:15 10/10/24 21:34 100 MLS/HR Diagnostic Test (Pha) 1 strip IQ4HR 10/10/24 12:00 10/11/24 08:07 1 STRIP Insulin Human Regular IQ4HR SC 10/10/24 12:00 10/11/24 01:57 2 UNITS Dextrose 50 ml UD PRN IV 10/10/24 08:45 Levothyroxine Sodium 50 mcg QAM@0600 PO 10/11/24 06:00 10/11/24 06:18 50 MCG Sertraline HCl 50 mg DAILY PO 10/10/24 12:30 10/11/24 11:27 50 MG General: Normal, Obese Head/Eyes: Normal ENT: Normal Neck: Normal Lungs: Normal Cardiovascular: Normal, Regular rate and rhythm Musculoskeletal: Normal Extremities: Normal Skin: Other (sacral/ buttock wound ) Labs and Microbiology Laboratory Tests 10/11/24 04:49 Test 10/11/24 04:49 Range/Units Serum Glucose 128 H 74-106 mg/dL Ass/Plan Labs and/or images reviewed: Labs reviewed by me, Image(s) reviewed by me Problem List Acute kidney injury likely in the setting of sepsis and likely contrast induced nephropathy Likely baseline chronic kidney disease Uncontrolled type 1 diabetes mellitus-A1c greater than 13 Septic shock due to necrotizing fascitis and perineal abscess status post I and D and colostomy requiring pressor support Anion gap metabolic acidosis secondary to lactic acidosis Complicated cystitis Anemia likely due to chronic kidney disease Secondary hyperparathyroidism Vitamin-D deficiency FENA 0.9% 10/06 Renal ultrasound shows bilateral echogenic kidneys Urine culture growing ten thousand CFU yeast Blood culture prelim negative, MRSA nares neck Wound culture resulting in preliminary anaerobes, Gram-positive cocci and Gram- negative Plan: BUN/creatinine downtrending, GFR improving. Disontinue LR 75 cc/hour. FENA 0.9% consistent with prerenal Patient likely has CKD given uncontrolled diabetes mellitus, secondary parathyroidism, anemia, echogenic kidneys on ultrasound Continue renal dose antibiotics Patient is off pressors Sc Epogen 10.000units supplemented We will continue to follow up Diet started: Cons Carb diet Plan discussed with patient, nurse at bedside in which all questions have been answered Case discussed with Assessment/Plan stoma ok, no gas wound clean dry and intact Nurse reports overnight drainage from wound labs and notes reviewed Plan: wound dressing to be change twice a day patient to lie on right or left side, not on her back continue current treatment 10/11/24 s/p debridement of sacral buttock necrotic tissue / colostomy no new complaints, stoma functioning wound covered in dressing per Nurse wound dressing changed today Plan: wound dressing to be changed as ordered wound consult patient needs Higher level of care for plastic surgery reconstruction sacral area Plan discussed with patient, Nurse, Dr. Pretty Visit Coding Surgery Date of Service if different f: Oct 11, 2024 Billing Provider: VERONICA PRETTY MD Surgery Visit Codes: [id number] INP/OBS CARE(HIGH) MAGNOLIA TELLO NP Oct 11, 2024 12:46
--- NOTE | 2024-10-11 15:50 | DVHPNRES ---
Progress Note Date Seen: Oct 11, 2024 Resident Creating Document: UMESH BARAHONA RESIDENT Medical Necessity Reason Pt with a Central, PICC or Fol: No Subjective Review of Systems 29-year-old female with PMHx of poorly controlled DM and hypothyroidism (not on medications), presented with 1 day of generalized weakness, dizziness, and diffuse abdominal pain with nausea and vomiting. BG was 524 and BP 84/39 at triage. On further evaluation, she had left lower back pain for 2 weeks with associated tenderness and erythema over the gluteal area. CT abdomen/pelvis revealed extensive soft tissue edema and subcutaneous emphysema extending into the perianal region, concerning for necrotizing fasciitis. Hospital Course: She was started on sepsis protocol with IV fluids, broad-spectrum antibiotics and insulin for hyperglycemia. Labs showed leukocytosis (WBC up to 31K), lactic acidosis, anion gap metabolic acidosis, and elevated inflammatory markers. She underwent emergent surgical debridement for necrotizing fasciitis and pilonidal cyst infection with removal of nonviable tissues and drain placement. Intra-op cultures were obtained. She remains intubated and sedated post-op with plans for possible colostomy depending on extent of further debridement. PMHx: DM (off meds 1 yrs), hypothyroidism (no meds) PSHx: None FHx: DM SHx: Social alcohol, non-smoker, no drug use, live with his father and brother, previously was working on [employer] Vitals on admission: BP 84/39, BG 524 10/08/24: ABG still showing acidosis, we restarted insulin drip, dressing change was done, extensive sacral and lumbar ulcer, extending trough anal area, extensive discussion was held with the father and brother about the poor prognosis of the condition, later in the afternoon patient was taken to Secondary debridement of affected area (pilonidal cyst both buttocks, perianal area) and creation of a diverting colostomy. Patient came back to the unit, on levophed low dose, extubated, we changed the fluids: d5w+ 3amp hco3: 125cc/h 10/09/24: dressing change, there are some baker and white patches in the ulcer, nephrology agrees on continue bicarb drip, decrease rate 75cc/h, transfer to [facility] for plastic surgery due to extensive skin defect, continue current treatment, patient can be downgraded to MISAEL 10/10/24: dressing change: less necrotic tissue, bicarb and insulin drip stopped, downgrade to the floor, continue transfer, surgery ordered a ct scan: Redemonstrated bilateral gluteal region soft tissue edema and subcutaneous emphysema which extends from the perianal region to the lower back, suggestive of necrotizing fasciitis. Appears improved from prior.Interval laparotomy and left lower quadrant ostomy with associated postsurgical changes. Hepatomegaly. 10/11/24: wbc is trending slightly higher, wound still has necrotic tissue but looks better than yesterday, patient will benefit for transfer to [facility] for colorectal surgery due to possible involvement of anal sphincter,as well as plastic surgery right now with colostomy on place Objective vital signs Vital Sign Date Time Temp Pulse Resp B/P (MAP) Pulse Ox O2 Delivery O2 Flow Rate FiO2 10/11/24 13:00 98.0 81 17 106/62 (77) 96 98.0 10/11/24 08:00 Nasal Cannula* 1 24 Total Intake and Output 10/10/24 10/10/24 10/11/24 15:00 23:00 07:00 Intake Total 525 ml 1045 ml 320 ml Output Total 1450 ml Balance 525 ml -405 ml 320 ml medications Current Medications Medications Dose Ordered Sig/Geo Route Start Time Stop Time Status Last Admin Dose Admin Vancomycin HCl 0 ml @ 0 mls/hr UD IV 10/06/24 19:30 Morphine Sulfate 2 mg Q4HPRN PRN IV 10/06/24 19:30 10/11/24 11:29 2 MG Phenylephrine HCl 250 ml @ 30 mls/hr Q8H20M IV 10/07/24 03:45 10/07/24 04:14 30 MLS/HR Meropenem 50 ml @ 17 mls/hr Q12HR IV 10/07/24 22:00 10/11/24 10:00 17 MLS/HR Dextrose 50 ml UD PRN IV 10/07/24 11:15 Cancel Insulin Glargine 15 units DAILY SC 10/08/24 10:00 Cancel Pantoprazole Sodium 40 mg DAILY IV 10/07/24 14:00 10/11/24 11:26 40 MG Dextrose 50 ml PRN PRN IV 10/07/24 15:00 Cancel Clindamycin Phosphate 50 ml @ 50 mls/hr Q8HR IV 10/07/24 22:00 10/11/24 14:00 50 MLS/HR Dextrose 50 ml PRN PRN IV 10/08/24 08:15 Cancel Insulin Glargine 20 units HS SC 10/08/24 22:00 10/10/24 21:42 20 UNITS Fluconazole 100 ml @ 100 mls/hr DAILY@1800 IV 10/09/24 17:15 10/10/24 21:34 100 MLS/HR Diagnostic Test (Pha) 1 strip IQ4HR 10/10/24 12:00 10/11/24 15:28 1 STRIP Insulin Human Regular IQ4HR SC 10/10/24 12:00 10/11/24 15:28 2 UNITS Dextrose 50 ml UD PRN IV 10/10/24 08:45 Levothyroxine Sodium 50 mcg QAM@0600 PO 10/11/24 06:00 10/11/24 06:18 50 MCG Sertraline HCl 50 mg DAILY PO 10/10/24 12:30 10/11/24 11:27 50 MG Examination Gen: 29-year-old female in acute distress Skin: Warm, dry, normal color and texture, no rash. HEENT: Normocephalic atraumatic, mucous membranes moist and pink.hypothyroidism facies Neck: Cervical and supraclavicular nodes normal without enlargement, trachea is midline, thyroid gland is normal without masses. Pulmonary: hypoventilation Cardiac: Regular rate and rhythm. No murmur Abdomen: Soft, nontender, nondistended, bowel sounds present all 4 quadrants, no guarding, no rigidity, no organomegaly. Extremities: extensive sacral and lumbar ulcer, extending trough anal area with less necrotic tissue than yesterdar Neuro: Cranial nerves II through XII grossly intact, normal affect and speech, no focal motor deficits, more alert AX3 laboratory and microbiology Laboratory Tests 10/11/24 04:49 Test 10/11/24 04:49 Range/Units Serum Glucose 128 H 74-106 mg/dL Microbiology Date/Time Source Procedure Growth Status 10/07/24 10:30 Voided Urine Urine Culture - Final Presumptive Judie albicans Complete 10/07/24 08:21 Other Other Gram Stain - Final Complete 10/07/24 08:21 Anaerobic Culture - Final Prevotella loescheii Complete 10/07/24 08:21 Other Other Aerobic Culture - Final Complete 10/06/24 11:20 Blood Blood Culture - Final NO GROWTH AFTER 5 DAYS OF INCUBATION. Complete Problem List/Assessment/Plan Problem List/Assessment/Plan -Neurologic: #Acute metabolic encephalopathy secondary to sepsis and metabolic derangements. No focal neurological deficits documented. more alert, AOX3 Infectious Diseases #Septic shock due to necrotizing fasciitis of the gluteal and sacral region secondary to pilonidal cyst infection due to prevotella loescheii #sp I&D 10/07/24 #sp debridement of affected area (pilonidal cyst both buttocks, perianal area) and creation of a diverting colostomy 10/08/24 Confirmed intra-op with devitalized tissue and large purulent collection WBC peaked at 31K with left shift Source control achieved with surgical debridement Started on broad-spectrum antibiotics (Zosyn + Vanc): now meropenem+ vanco+ clindamycin Blood cultures pending ID consulted per Dr Pretty 10/10/24: dressing change: less necrotic tissue, bicarb and insulin drip stopped, downgrade to the floor, continue transfer, surgery ordered a ct scan: Redemonstrated bilateral gluteal region soft tissue edema and subcutaneous emphysema which extends from the perianal region to the lower back, suggestive of necrotizing fasciitis. Appears improved from prior.Interval laparotomy and left lower quadrant ostomy with associated postsurgical changes. Hepatomegaly. 10/11/24: wbc is trending slightly higher, wound still has necrotic tissue but looks better than yesterday, patient will benefit for transfer to [facility] for colorectal surgery due to possible involvement of anal sphincter,as well as plastic surgery right now with colostomy on place Cardiovascular: #Septic shock due to necrotizing fasciitis with hypotension (84/39 on arrival), requiring fluid resuscitation and vasopressor support with phenylephrine. Lactate peaked at 4.9 MAP goal >65 mmHg maintained Improving hemodynamics post-op wean off phenylephrine levophed off midline placed Respiratory: #Acute hypoxemic respiratory failure secondary to sepsis and poor perfusion #Respiratory acidosis possible obesity hypoventilation syndrome today room air No mechanical ventilation ABG trends: 10/06: pH 7.34, HCO 14 compensated metabolic acidosis 10/07: pH 7.18 then 7.20, HCO 12.1 worsening primary metabolic acidosis No respiratory compensation, consistent with acute process: respiratory acidosis Lactate-driven AGMA, more than DKA 10/08 ph 7.316 pco2 28.6 po2 99.2 hco3 14.3 10/10 ph 7.44 pco2 37.5 po2 89.6 hco3 25.2 Metabolic/Endocrine: #Severe AGMA due to lactic acidosis B, but beta-hydroxybutyrate only 0.9, no ketonemia AG >17, HCO <15 consistent with lactic acidosis dc bicarb and insulin drip lantus 20 ui #Uncontrolled diabetes hba1c 13 continue insulin drip to achieve control 140-180 of the sugars #Hypothyroidism: TSH 12.1, low free T4 free T3 Given severity of illness, IV levothyroxine started to prevent myxedema daily Cortisol: 30.84 normal, adrenal insufficiency ruled out #Hypomagnesemia replaced Hematology: #Leukocytosis, improving with neutrophilic predominance (WBC >30K) at admission #Anemia Hgb trending (11 --> 9.7 --> 8.7 -->8,9 --> 9.7), likely hemodilutional or inflammatory No evidence of DIC, platelets stable Monitor for anemia of critical illness Renal: АНДРЕЙ due to VMN on possible CKD, baseline creatinine unknown, improving (from hypoperfusion and sepsis + chronic component from diabetes) Cr trending high UA: proteinuria (1+), trace ketones, glucosuria (4+), WBC 16 possible UTI component or inflammation Protein/Creatinine ratio = 218.6 mg/g suggests underlying CKD Renal US: Echogenic kidneys, no hydronephrosis, medical kidney disease consistent with diabetic nephropathy GI #sp colostomy 10/08/24 healthy diabetic diet : #Complicated UTI, presumptive judie albicans UA: trace ketones, glucosuria, 1+ protein, few bacteria Bladder decompressed via Prajapati, likely due to altered mental status and hypotension fluconazol iv MSK/Soft Tissue: #Extensive necrotizing fasciitis involving gluteal/sacral regions Large abscess drained (~150 mL purulent fluid), tissue debrided Pulse lavage and wound packed sp debridement of affected area (pilonidal cyst both buttocks, perianal area) and creation of a diverting colostomy 10/08/24 wound is having baker and white patches, patient will benefit for transfer to [facility] for plastic surgery 10/10/24: dressing change: less necrotic tissue Case discussed with Dr Darby Time spent on critical care 37 min, excluding procedures, extensive discussion with the father Darwin, full code Plan discussed with: Patient My Orders My Orders Orders - UMESH BARAHONA RESIDENT Procedure Category Date Status Time Consistent DIET 10/10/24 [facility]Diabetes Dinner * [employer] CONS 10/11/24 Transmitted Consult 14:59 Dietary Evaluation Review Comments: 1) TPN if NPO > 7 days 2) Advance to [facility] 60gm as medically feasible 3) Cuco 1 pk BID for wound healing 4) Monitor I/O, lab values, wt trend Expected Outcomes/Goals: To meet >75% estimated needs wound to improve Fu 2-3 days UMESH BARAHONA RESIDENT Oct 11, 2024 15:50
[2024-10-11] MEDS: MEROPENEM 1GM IVPB 50 ML IV SCH (22:19)
[2024-10-12] VITALS (8 sets, daily range): BP systolic 116–131; BP diastolic 69–83; PULSE 72–78; RESP 17–18; TEMP 98–98.6; O2SAT 92–94
[2024-10-12 07:18] LABS: Hematocrit 30.2 % (36.0-46.0); Hemoglobin 10.0 g/dL (12.2-16.2); Mean Corpuscular Hemoglobin 28.8 pg (28.0-32.0); Mean Corpuscular Volume 86.9 fL (80.0-100.0); Nucleated Red Blood Cells % 0.1 %
[2024-10-12 07:23] LABS: Alanine Aminotransferase 24 U/L (7-40); Anion Gap 5 (5-15); BUN/Creatinine Ratio 32.7 (10.0-20.0); Carbon Dioxide 28 mmol/L (20-31); Chloride 105 mmol/L (98-107); Potassium 4.7 mmol/L (3.5-5.1); Sodium 138 mmol/L (136-145)
[2024-10-12 07:24] LABS: Albumin 2.3 g/dL (3.2-4.8); Alkaline Phosphatase 217 U/L (46-116); Blood Urea Nitrogen 36 mg/dL (9-23); Calcium 8.5 mg/dL (8.7-10.4); Glucose 116 mg/dL (74-106); Total Protein 5.3 g/dL (5.7-8.2)
[2024-10-12 07:25] LABS: Bilirubin, Total 0.7 mg/dL (0.2-1.0)
--- NOTE | 2024-10-12 11:09 | DVHPN2 ---
Progress Note Date Seen: Oct 12, 2024 Medical Necessity Reason Pt with a Central, PICC or Fol: No Objective vital signs Vital Sign Date Time Temp Pulse Resp B/P (MAP) Pulse Ox O2 Delivery O2 Flow Rate FiO2 10/12/24 09:27 72 18 127/77 10/12/24 09:00 98.2 94 98.2 10/11/24 20:00 Room Air* 0 21 Total Intake and Output 10/11/24 10/11/24 10/12/24 14:59 22:59 06:59 Intake Total 1050 ml 1400 ml Output Total 1650 ml Balance 1050 ml -250 ml medications Current Medications Medications Dose Ordered Sig/Geo Route Start Time Stop Time Status Last Admin Dose Admin Vancomycin HCl 0 ml @ 0 mls/hr UD IV 10/06/24 19:30 Morphine Sulfate 2 mg Q4HPRN PRN IV 10/06/24 19:30 10/12/24 09:27 2 MG Phenylephrine HCl 250 ml @ 30 mls/hr Q8H20M IV 10/07/24 03:45 10/07/24 04:14 30 MLS/HR Dextrose 50 ml UD PRN IV 10/07/24 11:15 Cancel Insulin Glargine 15 units DAILY SC 10/08/24 10:00 Cancel Pantoprazole Sodium 40 mg DAILY IV 10/07/24 14:00 10/12/24 09:08 40 MG Dextrose 50 ml PRN PRN IV 10/07/24 15:00 Cancel Clindamycin Phosphate 50 ml @ 50 mls/hr Q8HR IV 10/07/24 22:00 10/12/24 05:07 50 MLS/HR Dextrose 50 ml PRN PRN IV 10/08/24 08:15 Cancel Insulin Glargine 20 units HS SC 10/08/24 22:00 10/11/24 22:23 20 UNITS Fluconazole 100 ml @ 100 mls/hr DAILY@1800 IV 10/09/24 17:15 10/11/24 18:00 100 MLS/HR Diagnostic Test (Pha) 1 strip IQ4HR 10/10/24 12:00 10/12/24 08:00 1 STRIP Insulin Human Regular IQ4HR SC 10/10/24 12:00 10/12/24 04:35 2 UNITS Dextrose 50 ml UD PRN IV 10/10/24 08:45 Levothyroxine Sodium 50 mcg QAM@0600 PO 10/11/24 06:00 10/12/24 06:20 50 MCG Sertraline HCl 50 mg DAILY PO 10/10/24 12:30 10/12/24 09:08 50 MG Meropenem 50 ml @ 17 mls/hr Q8HR IV 10/11/24 22:00 10/12/24 06:20 17 MLS/HR laboratory and microbiology Laboratory Tests 10/12/24 06:30 Test 10/12/24 06:30 Range/Units Serum Glucose 116 H 74-106 mg/dL Problem List/Assessment/Plan Problem List/Assessment/Plan 10/06/24 P[ATIENT HAS BEEN HAVING PAIN IN HER LOWER BACK AND LEFT BUTTOCK FOR TWO DAYS AND NOW PRESENTS WITH TENDERNESS AND ERYTHEMA OF THE AFFECTED AREA, THERE IS REDNESS OF THE AFFECTED SKIN, NO SUBCUTANEOUS COMITANCE IS NOTED, NO BULGING , NO DRAINAGE. THE AREA HAS THE APPEARANCE OF A PILONIDAL INFECTION, NO CLINICAL EVIDENCE OF NECROTIZING INFECTION. INCISION AND DRAINAGE AND POSSIBLE DEBRIDEMENT EXPLAINED TO PATIENT WERE RISKS AND COMPLICATIONS., 10/07/24 PATIENT HAD bp OF 90,S WHEN EXAMINED BY ME AT 1600 YESTERDAY AFTERNOON, DESPITE MY EXPLICIT COMMUNICATION ORDER TO BE NOTIFIED IF THE PATIENT DEVELOPS CHANGES IN HER BP OR HEART RATE OR DEVELOPS FEVER AND INCREASING PAIN I WAS NOT NOTIFIED UNTIL THIS MORNING AT 6:50 HRS THAT THE PATIENT IS ON 115MCG/MIN OF PHENYLEPHRINE, WHEN QUESTIONED THE ICU NURSE INFORMED ME THAT SHE RECEIVED THE PATIENT FROM THE ER ALREADY ON PHENYLEPHRINE AT 4 O'CLOCK THIS AM. 10/07/24 waited till patient fully awake after this morning operation, she is fully oriented, explained the seriousness of her problems and the need for a diverting colostomy, also explained that I spoke to her father, sshe expressed wish not to communicate with her mother.operation, risks and complications explained in detail 10/08/24 BP and HR improved. continues with acidosis and leukocytosis, had several bowel movements, explained upcoming re operation on her buttocks again and again explained colostomy procedure 10/10/24 slightly improved, stoma viable without output, wound dressings being changed, the patient will need to transfer to a facility with higher level of care, needs plastic,reconstructive surgical expertise which I do not have. 10/11/24 feels 'a little better" wbc higher, afebrile, colostomy functioning, will inspect wound and possibly debried more tissue if needed in the operating room on monday Plan discussed with: Patient, Other Dietary Evaluation Review Comments: 1) TPN if NPO > 7 days 2) Advance to [facility] 60gm as medically feasible 3) Cuco 1 pk BID for wound healing 4) Monitor I/O, lab values, wt trend Expected Outcomes/Goals: To meet >75% estimated needs wound to improve Fu 2-3 days VERONICA TOLLIVER MD Oct 12, 2024 11:09
--- NOTE | 2024-10-12 11:56 | DVHPN2 ---
Progress Note Date Seen: Oct 12, 2024 Medical Necessity Reason Pt with a Central, PICC or Fol: No Subjective Patient reports: Feels better Review of Systems: Deferred Objective vital signs Vital Sign Date Time Temp Pulse Resp B/P (MAP) Pulse Ox O2 Delivery O2 Flow Rate FiO2 10/12/24 09:27 72 18 127/77 10/12/24 09:00 98.2 94 98.2 10/11/24 20:00 Room Air* 0 21 Total Intake and Output 10/11/24 10/11/24 10/12/24 15:00 23:00 07:00 Intake Total 1050 ml 1400 ml Output Total 50 ml 1600 ml Balance 1000 ml -200 ml medications Current Medications Medications Dose Ordered Sig/Geo Route Start Time Stop Time Status Last Admin Dose Admin Vancomycin HCl 0 ml @ 0 mls/hr UD IV 10/06/24 19:30 Morphine Sulfate 2 mg Q4HPRN PRN IV 10/06/24 19:30 10/12/24 09:27 2 MG Phenylephrine HCl 250 ml @ 30 mls/hr Q8H20M IV 10/07/24 03:45 10/07/24 04:14 30 MLS/HR Dextrose 50 ml UD PRN IV 10/07/24 11:15 Cancel Insulin Glargine 15 units DAILY SC 10/08/24 10:00 Cancel Pantoprazole Sodium 40 mg DAILY IV 10/07/24 14:00 10/12/24 09:08 40 MG Dextrose 50 ml PRN PRN IV 10/07/24 15:00 Cancel Clindamycin Phosphate 50 ml @ 50 mls/hr Q8HR IV 10/07/24 22:00 10/12/24 05:07 50 MLS/HR Dextrose 50 ml PRN PRN IV 10/08/24 08:15 Cancel Insulin Glargine 20 units HS SC 10/08/24 22:00 10/11/24 22:23 20 UNITS Fluconazole 100 ml @ 100 mls/hr DAILY@1800 IV 10/09/24 17:15 10/11/24 18:00 100 MLS/HR Diagnostic Test (Pha) 1 strip IQ4HR 10/10/24 12:00 10/12/24 08:00 1 STRIP Insulin Human Regular IQ4HR SC 10/10/24 12:00 10/12/24 04:35 2 UNITS Dextrose 50 ml UD PRN IV 10/10/24 08:45 Levothyroxine Sodium 50 mcg QAM@0600 PO 10/11/24 06:00 10/12/24 06:20 50 MCG Sertraline HCl 50 mg DAILY PO 10/10/24 12:30 10/12/24 09:08 50 MG Meropenem 50 ml @ 17 mls/hr Q8HR IV 10/11/24 22:00 10/12/24 06:20 17 MLS/HR Examination: GENERAL:Abnormal, ABDOMEN:Abnormal, SKIN:Abnormal laboratory and microbiology Laboratory Tests 10/12/24 06:30 Test 10/12/24 06:30 Range/Units Serum Glucose 116 H 74-106 mg/dL Microbiology Date/Time Source Procedure Growth Status 10/07/24 10:30 Voided Urine Urine Culture - Final Presumptive Tran albicans Complete 10/07/24 08:21 Other Other Gram Stain - Final Complete 10/07/24 08:21 Anaerobic Culture - Final Prevotella loescheii Complete 10/07/24 08:21 Other Other Aerobic Culture - Final Complete 10/06/24 11:20 Blood Blood Culture - Final NO GROWTH AFTER 5 DAYS OF INCUBATION. Complete Problem List/Assessment/Plan Problem List/Assessment/Plan 29-year-old morbidly obese female with no previous medical follow-up presented to the hospital due to severe sepsis in the setting of necrotizing fasciitis which required debridement x2 with open back wound as well as now requiring colostomy. Nephrology was consulted for acute kidney injury Acute kidney injury has now resolved electrolytes have returned to acceptable limits. Replace electrolytes p.r.n. No further recommendations at this time I will sign off the case care time 26mins Plan discussed with: Patient Dietary Evaluation Review Comments: 1) TPN if NPO > 7 days 2) Advance to [facility] 60gm as medically feasible 3) Cuco 1 pk BID for wound healing 4) Monitor I/O, lab values, wt trend Expected Outcomes/Goals: To meet >75% estimated needs wound to improve Fu 2-3 days INES MASON MD Oct 12, 2024 11:56
--- NOTE | 2024-10-12 13:54 | DVHPN2 ---
Reviewed: Care Plan, H&P, Labs, Medications, Radiology Changes from previous H/P or p: No Changes General: Per HPI Objective Vitals Vital Signs Date Time Temp Pulse Resp B/P (MAP) Pulse Ox O2 Delivery O2 Flow Rate FiO2 10/12/24 09:27 72 18 127/77 10/12/24 09:00 98.2 94 98.2 10/11/24 20:00 Room Air* 0 21 Intake/Output Intake and Output 10/12/24 07:00 Intake Total 2450 ml Output Total 1650 ml Balance 800 ml Intake Oral 1300 ml IV Total 1150 ml Output Urine Total 1600 ml Stool Total 50 ml General Appearance: Alert, Oriented X3 HEENT: Atraumatic Abdomen: Normal bowel sounds, Soft Neuro: Normal gait, Normal speech Medications Current Medications Medications Dose Ordered Sig/Geo Route Start Time Stop Time Status Last Admin Dose Admin Vancomycin HCl 0 ml @ 0 mls/hr UD IV 10/06/24 19:30 Morphine Sulfate 2 mg Q4HPRN PRN IV 10/06/24 19:30 10/12/24 09:27 2 MG Phenylephrine HCl 250 ml @ 30 mls/hr Q8H20M IV 10/07/24 03:45 10/07/24 04:14 30 MLS/HR Dextrose 50 ml UD PRN IV 10/07/24 11:15 Cancel Insulin Glargine 15 units DAILY SC 10/08/24 10:00 Cancel Pantoprazole Sodium 40 mg DAILY IV 10/07/24 14:00 10/12/24 09:08 40 MG Dextrose 50 ml PRN PRN IV 10/07/24 15:00 Cancel Clindamycin Phosphate 50 ml @ 50 mls/hr Q8HR IV 10/07/24 22:00 10/12/24 12:53 50 MLS/HR Dextrose 50 ml PRN PRN IV 10/08/24 08:15 Cancel Insulin Glargine 20 units HS SC 10/08/24 22:00 10/11/24 22:23 20 UNITS Fluconazole 100 ml @ 100 mls/hr DAILY@1800 IV 10/09/24 17:15 10/11/24 18:00 100 MLS/HR Diagnostic Test (Pha) 1 strip IQ4HR 10/10/24 12:00 10/12/24 12:00 1 STRIP Insulin Human Regular IQ4HR SC 10/10/24 12:00 10/12/24 12:54 3 UNITS Dextrose 50 ml UD PRN IV 10/10/24 08:45 Levothyroxine Sodium 50 mcg QAM@0600 PO 10/11/24 06:00 10/12/24 06:20 50 MCG Sertraline HCl 50 mg DAILY PO 10/10/24 12:30 10/12/24 09:08 50 MG Meropenem 50 ml @ 17 mls/hr Q8HR IV 10/11/24 22:00 10/12/24 06:20 17 MLS/HR Laboratory Results Laboratory Tests 10/12/24 06:30 Chemistry Test 10/12/24 06:30 Albumin 2.3 g/dL (3.2-4.8) L Calcium Level 8.5 mg/dL (8.7-10.4) L Total Protein 5.3 g/dL (5.7-8.2) L LFT Test 10/12/24 06:30 Alanine Aminotransferase (ALT) 24 U/L (7-40) Alkaline Phosphatase 217 U/L (46-116) H Aspartate Amino Transferase (AST) 28 U/L (13-40) Total Bilirubin 0.7 mg/dL (0.2-1.0) Urinalysis Test 10/06/24 05:09 10/07/24 11:25 10/07/24 11:26 Urine Color Yellow (Yellow) Urine Clarity Turbid (Clear) H Urine pH 5.5 (5.0-9.0) Urine Specific Termo 1.019 (1.001-1.035) Urine Protein 1+ (Negative) H Urine Ketones Trace (Negative) Urine Blood 1+ /uL (Negative) H Urine Nitrite Negative (Negative) Urine Bilirubin Negative (Negative) Urine Urobilinogen Normal mg/dL (Negative) Urine Leukocyte Esterase 1+ /uL (Negative) Urine RBC 3 /hpf (0 - 4) Urine Microscopic WBC 16 /HPF (0-5) H Urine Squamous Epithelial Cells Few /hpf (<5) Urine Bacteria Few /hpf (None Seen) H Urine Glucose 4+ mg/dL (Normal) H Urine Test Negative (Negative) Urine Creatinine 77.58 mg/dL (30.0-125.0) Urine Sodium 33 mmol/L (40-220) L Urine Total Protein 218.6 mg/dL (1-14) H Urine Osmolality 241 mOsm/kg Microbiology Microbiology Date/Time Source Procedure Growth Status 10/07/24 10:30 Voided Urine Urine Culture - Final Presumptive Judie albicans Complete 10/07/24 08:21 Other Other Gram Stain - Final Complete 10/07/24 08:21 Anaerobic Culture - Final Prevotella loescheii Complete 10/07/24 08:21 Other Other Aerobic Culture - Final Complete 10/06/24 11:20 Blood Blood Culture - Final NO GROWTH AFTER 5 DAYS OF INCUBATION. Complete Labs and/or images reviewed: Labs reviewed by me, Image(s) reviewed by me Assessment/Plan Assessment/Plan #Acute metabolic encephalopathy secondary to sepsis and metabolic derangements. #Septic shock due to necrotizing fasciitis of the gluteal and sacral region secondary to pilonidal cyst infection due to prevotella loescheii #sp I&D 10/07/24 #sp debridement of affected area (pilonidal cyst both buttocks, perianal area) and creation of a diverting colostomy 10/08/24 #Septic shock due to necrotizing fasciitis #Acute hypoxemic respiratory failure secondary to sepsis and poor perfusion #Respiratory acidosis possible obesity hypoventilation syndrome #Severe AGMA due to lactic acidosis #Uncontrolled diabetes hba1c 13 #Hypothyroidism: #Hypomagnesemia #Leukocytosis, improving #Anemia АНДРЕЙ due to VMN on possible CKD, baseline creatinine unknown, improving #sp colostomy 10/08/24 #Complicated UTI, presumptive judie albicans #Extensive necrotizing fasciitis involving gluteal/sacral regions Plan discussed with: Patient Date of Service: Oct 12, 2024 Billing Provider: DAVID PENNINGTON DO Common Visit Codes: [id number] INP/OBS CARE(HIGH) DAVID PENNINGTON DO Oct 12, 2024 13:54
[2024-10-12] MEDS: VANCOMYCIN 1GM/200ML PM 200 ML IV ONE (16:17)
[2024-10-13] VITALS (8 sets, daily range): BP systolic 118–132; BP diastolic 63–83; PULSE 72–76; RESP 17–20; TEMP 97.7–98.7; O2SAT 92–99
--- NOTE | 2024-10-13 09:17 | DVHPN2 ---
Progress Note Date Seen: Oct 13, 2024 Medical Necessity Reason Pt with a Central, PICC or Fol: No Subjective Patient reports: Feels better Changes from previous H/P or p: No Changes Objective vital signs Vital Sign Date Time Temp Pulse Resp B/P (MAP) Pulse Ox O2 Delivery O2 Flow Rate FiO2 10/13/24 05:00 97.7 73 17 123/81 (95) 97 97.7 10/12/24 20:00 Room Air* 0 21 Total Intake and Output 10/12/24 10/12/24 10/13/24 15:00 23:00 07:00 Intake Total 50 ml 1400 ml 350 ml Output Total 1800 ml 1850 ml Balance 50 ml -400 ml -1500 ml medications Current Medications Medications Dose Ordered Sig/Geo Route Start Time Stop Time Status Last Admin Dose Admin Vancomycin HCl 0 ml @ 0 mls/hr UD IV 10/06/24 19:30 Morphine Sulfate 2 mg Q4HPRN PRN IV 10/06/24 19:30 10/13/24 01:59 2 MG Phenylephrine HCl 250 ml @ 30 mls/hr Q8H20M IV 10/07/24 03:45 10/07/24 04:14 30 MLS/HR Dextrose 50 ml UD PRN IV 10/07/24 11:15 Cancel Insulin Glargine 15 units DAILY SC 10/08/24 10:00 Cancel Pantoprazole Sodium 40 mg DAILY IV 10/07/24 14:00 10/12/24 09:08 40 MG Dextrose 50 ml PRN PRN IV 10/07/24 15:00 Cancel Clindamycin Phosphate 50 ml @ 50 mls/hr Q8HR IV 10/07/24 22:00 10/13/24 04:58 50 MLS/HR Dextrose 50 ml PRN PRN IV 10/08/24 08:15 Cancel Insulin Glargine 20 units HS SC 10/08/24 22:00 10/12/24 22:19 20 UNITS Fluconazole 100 ml @ 100 mls/hr DAILY@1800 IV 10/09/24 17:15 10/12/24 18:07 100 MLS/HR Diagnostic Test (Pha) 1 strip IQ4HR 10/10/24 12:00 10/13/24 04:08 1 STRIP Insulin Human Regular IQ4HR SC 10/10/24 12:00 10/12/24 23:56 2 UNITS Dextrose 50 ml UD PRN IV 10/10/24 08:45 Levothyroxine Sodium 50 mcg QAM@0600 PO 10/11/24 06:00 10/13/24 05:51 50 MCG Sertraline HCl 50 mg DAILY PO 10/10/24 12:30 10/12/24 09:08 50 MG Meropenem 50 ml @ 17 mls/hr Q8HR IV 10/11/24 22:00 10/13/24 06:08 17 MLS/HR Examination: GENERAL:Abnormal, CVS:Normal, ABDOMEN:Abnormal, NEURO:Normal laboratory and microbiology Laboratory Tests 10/13/24 07:01 10/12/24 06:30 Test 10/12/24 06:30 Range/Units Serum Glucose 116 H 74-106 mg/dL Microbiology Date/Time Source Procedure Growth Status 10/07/24 10:30 Voided Urine Urine Culture - Final Presumptive Tran albicans Complete 10/07/24 08:21 Other Other Gram Stain - Final Complete 10/07/24 08:21 Anaerobic Culture - Final Prevotella loescheii Complete 10/07/24 08:21 Other Other Aerobic Culture - Final Complete 10/06/24 11:20 Blood Blood Culture - Final NO GROWTH AFTER 5 DAYS OF INCUBATION. Complete Problem List/Assessment/Plan Problem List/Assessment/Plan 29-year-old morbidly obese female with no previous medical follow-up presented to the hospital due to severe sepsis in the setting of necrotizing fasciitis which required debridement x2 with open back wound as well as now requiring colostomy. Nephrology was consulted for acute kidney injury Acute kidney injury has now resolved electrolytes have returned to acceptable limits. Replace electrolytes p.r.n. No further recommendations at this time I will sign off the case care time 26mins Plan discussed with: Patient Dietary Evaluation Review Comments: 1) TPN if NPO > 7 days 2) [facility] 3) Cuco 1 pk BID for wound healing 4) Monitor I/O, lab values, wt trend Expected Outcomes/Goals: To meet >75% estimated needs wound to improve Fu 2-3 days Total Time (mins): 33 INES MASON MD Oct 13, 2024 09:17
[2024-10-13] MEDS: VANCOMYCIN 750mg/150ml 150 ML IV SCH (13:12)
--- NOTE | 2024-10-13 13:40 | DVHPN2 ---
Reviewed: Care Plan, H&P, Labs, Medications, Radiology Changes from previous H/P or p: No Changes General: Per HPI Objective Vitals Vital Signs Date Time Temp Pulse Resp B/P (MAP) Pulse Ox O2 Delivery O2 Flow Rate FiO2 10/13/24 12:40 98.1 73 20 118/73 (88) 96 98.1 10/12/24 20:00 Room Air* 0 21 Intake/Output Intake and Output 10/13/24 07:00 Intake Total 1800 ml Output Total 3650 ml Balance -1850 ml Intake Oral 1500 ml IV Total 300 ml Output Urine Total 3600 ml Stool Total 50 ml General Appearance: Alert, Oriented X3 HEENT: Atraumatic Abdomen: Normal bowel sounds, Soft Neuro: Normal gait, Normal speech Medications Current Medications Medications Dose Ordered Sig/Geo Route Start Time Stop Time Status Last Admin Dose Admin Vancomycin HCl 0 ml @ 0 mls/hr UD IV 10/06/24 19:30 Morphine Sulfate 2 mg Q4HPRN PRN IV 10/06/24 19:30 10/13/24 09:17 2 MG Phenylephrine HCl 250 ml @ 30 mls/hr Q8H20M IV 10/07/24 03:45 10/07/24 04:14 30 MLS/HR Dextrose 50 ml UD PRN IV 10/07/24 11:15 Cancel Insulin Glargine 15 units DAILY SC 10/08/24 10:00 Cancel Pantoprazole Sodium 40 mg DAILY IV 10/07/24 14:00 10/13/24 09:25 40 MG Dextrose 50 ml PRN PRN IV 10/07/24 15:00 Cancel Clindamycin Phosphate 50 ml @ 50 mls/hr Q8HR IV 10/07/24 22:00 10/13/24 04:58 50 MLS/HR Dextrose 50 ml PRN PRN IV 10/08/24 08:15 Cancel Insulin Glargine 20 units HS SC 10/08/24 22:00 10/12/24 22:19 20 UNITS Fluconazole 100 ml @ 100 mls/hr DAILY@1800 IV 10/09/24 17:15 10/12/24 18:07 100 MLS/HR Diagnostic Test (Pha) 1 strip IQ4HR 10/10/24 12:00 10/13/24 11:42 1 STRIP Insulin Human Regular IQ4HR SC 10/10/24 12:00 10/12/24 23:56 2 UNITS Dextrose 50 ml UD PRN IV 10/10/24 08:45 Levothyroxine Sodium 50 mcg QAM@0600 PO 10/11/24 06:00 10/13/24 05:51 50 MCG Sertraline HCl 50 mg DAILY PO 10/10/24 12:30 10/13/24 09:25 50 MG Meropenem 50 ml @ 17 mls/hr Q8HR IV 10/11/24 22:00 10/13/24 06:08 17 MLS/HR Vancomycin HCl 150 ml @ 150 mls/hr Q24H IV 10/13/24 12:15 10/13/24 13:12 150 MLS/HR Laboratory Results Laboratory Tests 10/12/24 06:30 10/13/24 07:01 Urinalysis Test 10/06/24 05:09 10/07/24 11:25 10/07/24 11:26 Urine Color Yellow (Yellow) Urine Clarity Turbid (Clear) H Urine pH 5.5 (5.0-9.0) Urine Specific Boss 1.019 (1.001-1.035) Urine Protein 1+ (Negative) H Urine Ketones Trace (Negative) Urine Blood 1+ /uL (Negative) H Urine Nitrite Negative (Negative) Urine Bilirubin Negative (Negative) Urine Urobilinogen Normal mg/dL (Negative) Urine Leukocyte Esterase 1+ /uL (Negative) Urine RBC 3 /hpf (0 - 4) Urine Microscopic WBC 16 /HPF (0-5) H Urine Squamous Epithelial Cells Few /hpf (<5) Urine Bacteria Few /hpf (None Seen) H Urine Glucose 4+ mg/dL (Normal) H Urine Test Negative (Negative) Urine Creatinine 77.58 mg/dL (30.0-125.0) Urine Sodium 33 mmol/L (40-220) L Urine Total Protein 218.6 mg/dL (1-14) H Urine Osmolality 241 mOsm/kg Microbiology Microbiology Date/Time Source Procedure Growth Status 10/07/24 10:30 Voided Urine Urine Culture - Final Presumptive Judie albicans Complete 10/07/24 08:21 Other Other Gram Stain - Final Complete 10/07/24 08:21 Anaerobic Culture - Final Prevotella loescheii Complete 10/07/24 08:21 Other Other Aerobic Culture - Final Complete 10/06/24 11:20 Blood Blood Culture - Final NO GROWTH AFTER 5 DAYS OF INCUBATION. Complete Assessment/Plan Assessment/Plan #Acute metabolic encephalopathy secondary to sepsis and metabolic derangements. #Septic shock due to necrotizing fasciitis of the gluteal and sacral region secondary to pilonidal cyst infection due to prevotella loescheii #sp I&D 10/07/24 #sp debridement of affected area (pilonidal cyst both buttocks, perianal area) and creation of a diverting colostomy 10/08/24 #Septic shock due to necrotizing fasciitis #Acute hypoxemic respiratory failure secondary to sepsis and poor perfusion #Respiratory acidosis possible obesity hypoventilation syndrome #Severe AGMA due to lactic acidosis #Uncontrolled diabetes hba1c 13 #Hypothyroidism: #Hypomagnesemia #Leukocytosis, improving #Anemia #АНДРЕЙ due to VMN on possible CKD, baseline creatinine unknown, improving #sp colostomy 10/08/24 #Complicated UTI, presumptive judie albicans #Extensive necrotizing fasciitis involving gluteal/sacral regions pending further debridement on Monday Plan discussed with: Patient My Orders Orders - DAVID PENNINGTON DO Procedure Category Date Status Time Cleanse Wound With SHEFALI 10/12/24 In Process Wound Clean 11:50 Date of Service: Oct 13, 2024 Billing Provider: DAVID PENNINGTON DO Common Visit Codes: [id number] INP/OBS CARE(HIGH) DAVID PENNINGTON DO Oct 13, 2024 13:40
[2024-10-13] MEDS ORDERED: PIPERACILLIN-TAZOB 3.375GM 100 ML IV SCH (22:00)
[2024-10-14] VITALS (9 sets, daily range): BP systolic 100–125; BP diastolic 58–82; PULSE 78–91; RESP 17–20; TEMP 97.6–98.3; O2SAT 93–100
[2024-10-14] MEDS ORDERED: fentaNYL CITRATE 100 MCG/2 ML VL ONE (07:04)
[2024-10-14] MEDS ORDERED: HYDROmorphone HCL 2 MG/ML VL/or syr ONE (07:04)
[2024-10-14] MEDS ORDERED: ONDANSETRON HCL 4 MG/2 ML VIAL ONE (07:04)
[2024-10-14] MEDS ORDERED: PROPOFOL 10 MG/ML 20 ML IV ONE (07:04)
[2024-10-14] MEDS ORDERED: LIDOCAINE 1% INJ PF 5ML AMP ONE (07:04)
[2024-10-14] MEDS ORDERED: ROCURONIUM 10MG/ML 10ML VIAL IV ONE (07:04)
[2024-10-14] MEDS ORDERED: LIDOCAINE HCL 2% TOP JELLY 5ML TOP ONE (07:04)
[2024-10-14] MEDS ORDERED: MIDAZOLAM HCL 2MG/2ML 2ml VIAL (1mg/ml) ONE (07:04)
[2024-10-14] MEDS ORDERED: KETAMINE 50mg/ML 1ml syringe ONE (07:04)
[2024-10-14] MEDS ORDERED: SODIUM CHLORIDE LOCK 10 ML ONE (07:04)
[2024-10-14] MEDS: ceFAZolin 1GM/50ML 150 ML IV ONE (07:23)
[2024-10-14] MEDS: ceFAZolin 1GM VL ONE (08:00)
--- NOTE | 2024-10-14 08:18 | DVHOP ---
DATE OF SURGERY: 10/14/2024 PREOPERATIVE DIAGNOSIS: Wound, both buttocks. POSTOPERATIVE DIAGNOSIS: Wound, both buttocks. SURGEON: Dennis Pretty MD QUANTITATIVE RESEARCHER: Rodriguez King NP ANESTHESIA: General endotracheal. ANESTHESIOLOGIST: Dr. Arrieta. PROCEDURE: Debridement of wound. DESCRIPTION OF PROCEDURE: The patient was brought to the operating room, anesthetized, placed on lateral decubitus position, buttock , prepped and draped. Debridement of devitalized tissue was undertaken. There was no further evidence of necrotizing infection. The wound was then pulse lavaged with 3 L of saline containing Ancef. The wound was packed loosely with iodine saturated Kerlix. The patient will need plastic surgical attention which is not available at this facility as I had initially requested the patient to be transferred to a higher level of care, however, due to overwhelming sepsis and life-threatening condition, I intervened on the night of admission, explaining to the family and to the attending physicians that the patient would be better served at a facility of higher level of care. This remains my request at this point. MD IRENA Park/SIS TID: [id number] RECEIPT: [id number]
[2024-10-14] MEDS ORDERED: MORPHINE SULFATE INJ 2 MG/ml SYRG IV PRN (08:30)
[2024-10-14] MEDS: METOCLOPRAMIDE HCL 5MG/ml INJ 2ml VIAL IV ONE (08:30)
[2024-10-14] MEDS ORDERED: HYDROmorphone HCL 2 MG/ML VL/or syr IV PRN (08:30)
[2024-10-14] MEDS ORDERED: MORPHINE SULFATE 4 MG/ML SYR/VIAL IV PRN (08:30)
[2024-10-14] MEDS: HYDROmorphone HCL 2 MG/ML VL/or syr ONE (08:35)
[2024-10-14] MEDS: HYDROmorphone HCL 2 MG/ML VL/or syr IV PRN (08:37)
[2024-10-14 09:32] LABS: Hematocrit 29.5 % (36.0-46.0); Hemoglobin 10.1 g/dL (12.2-16.2); Mean Corpuscular Hemoglobin 29.2 pg (28.0-32.0); Mean Corpuscular Volume 85.5 fL (80.0-100.0); Nucleated Red Blood Cells % 0.1 %
[2024-10-14 09:40] LABS: Alanine Aminotransferase 15 U/L (7-40); Albumin 2.8 g/dL (3.2-4.8); Alkaline Phosphatase 205 U/L (46-116); Anion Gap 9 (5-15); BUN/Creatinine Ratio 15.9 (10.0-20.0); Bilirubin, Total 0.6 mg/dL (0.2-1.0); Blood Urea Nitrogen 13 mg/dL (9-23); Calcium 8.9 mg/dL (8.7-10.4); Carbon Dioxide 29 mmol/L (20-31); Chloride 102 mmol/L (98-107); Glucose 86 mg/dL (74-106); Potassium 4.3 mmol/L (3.5-5.1); Sodium 140 mmol/L (136-145); Total Protein 6.3 g/dL (5.7-8.2)
--- NOTE | 2024-10-14 11:13 | DVHPN2 ---
Progress Note Date Seen: Oct 14, 2024 Medical Necessity Reason Pt with a Central, PICC or Fol: No Subjective Changes from previous H/P or p: No Changes Objective vital signs Vital Sign Date Time Temp Pulse Resp B/P (MAP) Pulse Ox O2 Delivery O2 Flow Rate FiO2 10/14/24 10:10 Room Air* 0 21 10/14/24 10:09 98.1 83 100/64 (76) 98 98.1 10/14/24 09:31 15 Total Intake and Output 10/13/24 10/13/24 10/14/24 15:00 23:00 07:00 Intake Total 100 ml Output Total 1800 ml 1900 ml Balance -1800 ml -1800 ml medications Current Medications Medications Dose Ordered Sig/Geo Route Start Time Stop Time Status Last Admin Dose Admin Vancomycin HCl 0 ml @ 0 mls/hr UD IV 10/06/24 19:30 Morphine Sulfate 2 mg Q4HPRN PRN IV 10/06/24 19:30 10/14/24 04:08 2 MG Phenylephrine HCl 250 ml @ 30 mls/hr Q8H20M IV 10/07/24 03:45 Hold 10/07/24 04:14 30 MLS/HR Dextrose 50 ml UD PRN IV 10/07/24 11:15 Cancel Insulin Glargine 15 units DAILY SC 10/08/24 10:00 Cancel Pantoprazole Sodium 40 mg DAILY IV 10/07/24 14:00 10/13/24 09:25 40 MG Dextrose 50 ml PRN PRN IV 10/07/24 15:00 Cancel Clindamycin Phosphate 50 ml @ 50 mls/hr Q8HR IV 10/07/24 22:00 10/14/24 07:30 Dextrose 50 ml PRN PRN IV 10/08/24 08:15 Cancel Insulin Glargine 20 units HS SC 10/08/24 22:00 10/12/24 22:19 20 UNITS Fluconazole 100 ml @ 100 mls/hr DAILY@1800 IV 10/09/24 17:15 10/13/24 18:00 100 MLS/HR Diagnostic Test (Pha) 1 strip IQ4HR 10/10/24 12:00 10/14/24 04:12 1 STRIP Insulin Human Regular IQ4HR SC 10/10/24 12:00 10/12/24 23:56 2 UNITS Dextrose 50 ml UD PRN IV 10/10/24 08:45 Levothyroxine Sodium 50 mcg QAM@0600 PO 10/11/24 06:00 10/13/24 05:51 50 MCG Sertraline HCl 50 mg DAILY PO 10/10/24 12:30 10/13/24 09:25 50 MG Meropenem 50 ml @ 17 mls/hr Q8HR IV 10/11/24 22:00 10/13/24 22:02 17 MLS/HR Vancomycin HCl 150 ml @ 150 mls/hr Q24H IV 10/13/24 12:15 10/13/24 13:12 150 MLS/HR Morphine Sulfate 2 mg Q4H PRN IV 10/14/24 08:30 10/14/24 12:31 Examination: GENERAL:Normal, ABDOMEN:Abnormal laboratory and microbiology Laboratory Tests 10/14/24 08:00 10/14/24 05:57 Test 10/14/24 08:00 Range/Units Serum Glucose 86 74-106 mg/dL Microbiology Date/Time Source Procedure Growth Status 10/07/24 10:30 Voided Urine Urine Culture - Final Presumptive Tran albicans Complete 10/07/24 08:21 Other Other Gram Stain - Final Complete 10/07/24 08:21 Anaerobic Culture - Final Prevotella loescheii Complete 10/07/24 08:21 Other Other Aerobic Culture - Final Complete 10/06/24 11:20 Blood Blood Culture - Final NO GROWTH AFTER 5 DAYS OF INCUBATION. Complete Problem List/Assessment/Plan Problem List/Assessment/Plan 29-year-old morbidly obese female with no previous medical follow-up presented to the hospital due to severe sepsis in the setting of necrotizing fasciitis which required debridement x2 with open back wound as well as now requiring colostomy. Nephrology was consulted for acute kidney injury Acute kidney injury has now resolved electrolytes have returned to acceptable limits. Replace electrolytes p.r.n. went to OR today f/u labs and replace appropriately care time 26mins Plan discussed with: Patient Dietary Evaluation Review Comments: 1) TPN if NPO > 7 days 2) [facility] 3) Cuco 1 pk BID for wound healing 4) Monitor I/O, lab values, wt trend Expected Outcomes/Goals: To meet >75% estimated needs wound to improve Fu 2-3 days Total Time (mins): 25 OLADELE,INES M MD Oct 14, 2024 11:13
[2024-10-14] MEDS: InsuLIN REG 1unit/0.01ml Soln (100units/ml) SC SCH (17:00)
[2024-10-14] MEDS: ACCU-CHEK COMFORT CURVE STRIP VI SCH (17:00)
[2024-10-14] MEDS: INSULIN LANTUS (GLARGINE) 1 /0.01ml (100units/ml) SC SCH (22:46)
--- NOTE | 2024-10-14 23:02 | DVHPNRES ---
Progress Note Date Seen: Oct 14, 2024 Resident Creating Document: UMESH BARAHONA RESIDENT Medical Necessity Reason Pt with a Central, PICC or Fol: No Subjective Review of Systems 29-year-old female with PMHx of poorly controlled DM and hypothyroidism (not on medications), presented with 1 day of generalized weakness, dizziness, and diffuse abdominal pain with nausea and vomiting. BG was 524 and BP 84/39 at triage. On further evaluation, she had left lower back pain for 2 weeks with associated tenderness and erythema over the gluteal area. CT abdomen/pelvis revealed extensive soft tissue edema and subcutaneous emphysema extending into the perianal region, concerning for necrotizing fasciitis. Hospital Course: She was started on sepsis protocol with IV fluids, broad-spectrum antibiotics and insulin for hyperglycemia. Labs showed leukocytosis (WBC up to 31K), lactic acidosis, anion gap metabolic acidosis, and elevated inflammatory markers. She underwent emergent surgical debridement for necrotizing fasciitis and pilonidal cyst infection with removal of nonviable tissues and drain placement. Intra-op cultures were obtained. She remains intubated and sedated post-op with plans for possible colostomy depending on extent of further debridement. PMHx: DM (off meds 1 yrs), hypothyroidism (no meds) PSHx: None FHx: DM SHx: Social alcohol, non-smoker, no drug use, live with his father and brother, previously was working on [employer] Vitals on admission: BP 84/39, BG 524 10/08/24: ABG still showing acidosis, we restarted insulin drip, dressing change was done, extensive sacral and lumbar ulcer, extending trough anal area, extensive discussion was held with the father and brother about the poor prognosis of the condition, later in the afternoon patient was taken to Secondary debridement of affected area (pilonidal cyst both buttocks, perianal area) and creation of a diverting colostomy. Patient came back to the unit, on levophed low dose, extubated, we changed the fluids: d5w+ 3amp hco3: 125cc/h 10/09/24: dressing change, there are some baker and white patches in the ulcer, nephrology agrees on continue bicarb drip, decrease rate 75cc/h, transfer to [facility] for plastic surgery due to extensive skin defect, continue current treatment, patient can be downgraded to MISAEL 10/10/24: dressing change: less necrotic tissue, bicarb and insulin drip stopped, downgrade to the floor, continue transfer, surgery ordered a ct scan: Redemonstrated bilateral gluteal region soft tissue edema and subcutaneous emphysema which extends from the perianal region to the lower back, suggestive of necrotizing fasciitis. Appears improved from prior.Interval laparotomy and left lower quadrant ostomy with associated postsurgical changes. Hepatomegaly. 10/11/24: wbc is trending slightly higher, wound still has necrotic tissue but looks better than yesterday, patient will benefit for transfer to [facility] for colorectal surgery due to possible involvement of anal sphincter,as well as plastic surgery right now with colostomy on place 10/14/24: new Debridement of devitalized tissue was undertaken. There was no further evidence of necrotizing infection. The wound was then pulse lavaged with 3 L of saline containing Ancef. The wound was packed loosely with iodine saturated Kerlix. The patient will need plastic surgical attention which is not available at this facility, per general surgery patient will benefit for transfer to [facility], wound consult was placed for vac placement, kidney function recovers, lantus was decreased to 15 ui Objective vital signs Vital Sign Date Time Temp Pulse Resp B/P (MAP) Pulse Ox O2 Delivery O2 Flow Rate FiO2 10/14/24 21:03 97.7 80 17 119/72 (88) 95 97.7 10/14/24 10:10 Room Air* 0 21 Total Intake and Output 10/13/24 10/13/24 10/14/24 15:00 23:00 07:00 Intake Total 100 ml Output Total 1800 ml 1900 ml Balance -1800 ml -1800 ml medications Current Medications Medications Dose Ordered Sig/Geo Route Start Time Stop Time Status Last Admin Dose Admin Vancomycin HCl 0 ml @ 0 mls/hr UD IV 10/06/24 19:30 Morphine Sulfate 2 mg Q4HPRN PRN IV 10/06/24 19:30 10/14/24 20:24 2 MG Phenylephrine HCl 250 ml @ 30 mls/hr Q8H20M IV 10/07/24 03:45 Hold 10/07/24 04:14 30 MLS/HR Dextrose 50 ml UD PRN IV 10/07/24 11:15 Cancel Insulin Glargine 15 units DAILY SC 10/08/24 10:00 Cancel Pantoprazole Sodium 40 mg DAILY IV 10/07/24 14:00 10/14/24 11:11 40 MG Dextrose 50 ml PRN PRN IV 10/07/24 15:00 Cancel Clindamycin Phosphate 50 ml @ 50 mls/hr Q8HR IV 10/07/24 22:00 10/14/24 22:19 50 MLS/HR Dextrose 50 ml PRN PRN IV 10/08/24 08:15 Cancel Fluconazole 100 ml @ 100 mls/hr DAILY@1800 IV 10/09/24 17:15 10/14/24 17:37 100 MLS/HR Dextrose 50 ml UD PRN IV 10/10/24 08:45 Levothyroxine Sodium 50 mcg QAM@0600 PO 10/11/24 06:00 10/13/24 05:51 50 MCG Sertraline HCl 50 mg DAILY PO 10/10/24 12:30 10/14/24 11:12 50 MG Meropenem 50 ml @ 17 mls/hr Q8HR IV 10/11/24 22:00 10/14/24 22:19 17 MLS/HR Vancomycin HCl 150 ml @ 150 mls/hr Q24H IV 10/13/24 12:15 10/14/24 12:57 150 MLS/HR Diagnostic Test (Pha) 1 strip ACHS 10/14/24 17:00 10/14/24 22:36 1 STRIP Insulin Human Regular ACHS SC 10/14/24 17:00 Insulin Glargine 15 units HS SC 10/14/24 22:00 10/14/24 22:46 15 UNITS Examination Gen: 29-year-old female in acute distress Skin: Warm, dry, normal color and texture, no rash. HEENT: Normocephalic atraumatic, mucous membranes moist and pink.hypothyroidism facies Neck: Cervical and supraclavicular nodes normal without enlargement, trachea is midline, thyroid gland is normal without masses. Pulmonary: hypoventilation Cardiac: Regular rate and rhythm. No murmur Abdomen: Soft, nontender, nondistended, bowel sounds present all 4 quadrants, no guarding, no rigidity, no organomegaly.laparotomy with no bleeding, colostomy with stool Extremities: extensive sacral and lumbar ulcer, covered by dressing Neuro: Cranial nerves II through XII grossly intact, normal affect and speech, no focal motor deficits, more alert AX3 laboratory and microbiology Laboratory Tests 10/14/24 08:00 10/14/24 05:57 Test 10/14/24 08:00 Range/Units Serum Glucose 86 74-106 mg/dL Microbiology Date/Time Source Procedure Growth Status 10/07/24 10:30 Voided Urine Urine Culture - Final Presumptive Judie albicans Complete 10/07/24 08:21 Other Other Gram Stain - Final Complete 10/07/24 08:21 Anaerobic Culture - Final Prevotella loescheii Complete 10/07/24 08:21 Other Other Aerobic Culture - Final Complete 10/06/24 11:20 Blood Blood Culture - Final NO GROWTH AFTER 5 DAYS OF INCUBATION. Complete Problem List/Assessment/Plan Problem List/Assessment/Plan -Neurologic: #Acute metabolic encephalopathy secondary to sepsis and metabolic derangements. No focal neurological deficits documented. more alert, AOX3 Infectious Diseases #Septic shock due to necrotizing fasciitis of the gluteal and sacral region secondary to pilonidal cyst infection due to prevotella loescheii #sp I&D 10/07/24 #sp debridement of affected area (pilonidal cyst both buttocks, perianal area) and creation of a diverting colostomy 10/08/24 Confirmed intra-op with devitalized tissue and large purulent collection WBC peaked at 31K with left shift Source control achieved with surgical debridement Started on broad-spectrum antibiotics (Zosyn + Vanc): now meropenem+ vanco+ clindamycin Blood cultures pending ID consulted per Dr Pretty 10/10/24: dressing change: less necrotic tissue, bicarb and insulin drip stopped, downgrade to the floor, continue transfer, surgery ordered a ct scan: Redemonstrated bilateral gluteal region soft tissue edema and subcutaneous emphysema which extends from the perianal region to the lower back, suggestive of necrotizing fasciitis. Appears improved from prior.Interval laparotomy and left lower quadrant ostomy with associated postsurgical changes. Hepatomegaly. 10/11/24: wbc is trending slightly higher, wound still has necrotic tissue but looks better than yesterday, patient will benefit for transfer to [facility] for colorectal surgery due to possible involvement of anal sphincter,as well as plastic surgery right now with colostomy on place 10/14/24: new Debridement of devitalized tissue was undertaken. There was no further evidence of necrotizing infection. The wound was then pulse lavaged with 3 L of saline containing Ancef. The wound was packed loosely with iodine saturated Kerlix. The patient will need plastic surgical attention which is not available at this facility, per general surgery patient will benefit for transfer to [facility], wound consult was placed for vac placement, kidney function recovers, lantus was decreased to 15 ui Cardiovascular: #Septic shock due to necrotizing fasciitis with hypotension (84/39 on arrival), requiring fluid resuscitation and vasopressor support with phenylephrine. Lactate peaked at 4.9 MAP goal >65 mmHg maintained Improving hemodynamics post-op wean off phenylephrine levophed off midline placed Respiratory: #Acute hypoxemic respiratory failure secondary to sepsis and poor perfusion #Respiratory acidosis possible obesity hypoventilation syndrome today room air No mechanical ventilation ABG trends: 10/06: pH 7.34, HCO 14 compensated metabolic acidosis 10/07: pH 7.18 then 7.20, HCO 12.1 worsening primary metabolic acidosis No respiratory compensation, consistent with acute process: respiratory acidosis Lactate-driven AGMA, more than DKA 10/08 ph 7.316 pco2 28.6 po2 99.2 hco3 14.3 10/10 ph 7.44 pco2 37.5 po2 89.6 hco3 25.2 Metabolic/Endocrine: #Severe AGMA due to lactic acidosis #Uncontrolled diabetes hba1c 13 B, but beta-hydroxybutyrate only 0.9, no ketonemia AG >17, HCO <15 consistent with lactic acidosis dc bicarb and insulin drip lantus 15 ui #Hypothyroidism: TSH 12.1, low free T4 free T3 Given severity of illness, IV levothyroxine started to prevent myxedema daily Cortisol: 30.84 normal, adrenal insufficiency ruled out levothyroxine PO #Hypomagnesemia replaced Hematology: #Leukocytosis, improving with neutrophilic predominance (WBC >30K) at admission #Anemia Hgb 8.8, likely hemodilutional or inflammatory No evidence of DIC, platelets stable Monitor for anemia of critical illness Renal: АНДРЕЙ due to VMN on possible CKD, baseline creatinine unknown, resolved (from hypoperfusion and sepsis + chronic component from diabetes) Cr trending high UA: proteinuria (1+), trace ketones, glucosuria (4+), WBC 16 possible UTI component or inflammation Protein/Creatinine ratio = 218.6 mg/g suggests underlying CKD Renal US: Echogenic kidneys, no hydronephrosis, medical kidney disease consistent with diabetic nephropathy GI #sp colostomy 10/08/24 healthy diabetic diet : #Complicated UTI, presumptive judie albicans UA: trace ketones, glucosuria, 1+ protein, few bacteria Bladder decompressed via Prajapati, likely due to altered mental status and hypotension fluconazol iv MSK/Soft Tissue: #Extensive necrotizing fasciitis involving gluteal/sacral regions Large abscess drained (~150 mL purulent fluid), tissue debrided Pulse lavage and wound packed sp debridement of affected area (pilonidal cyst both buttocks, perianal area) and creation of a diverting colostomy 10/08/24 wound is having baker and white patches, patient will benefit for transfer to [facility] for plastic surgery 10/10/24: dressing change: less necrotic tissue 10/14/24: new Debridement of devitalized tissue was undertaken. There was no further evidence of necrotizing infection. The wound was then pulse lavaged with 3 L of saline containing Ancef. The wound was packed loosely with iodine saturated Kerlix. The patient will need plastic surgical attention which is not available at this facility, per general surgery patient will benefit for transfer to [facility], wound consult was placed for vac placement Case discussed with Dr Orr Time spent on critical care 36 min, excluding procedures, extensive discussion with the father Darwin, full code Plan discussed with: Patient, Other (father ) My Orders My Orders Orders - UMESH BARAHONA Procedure Category Date Status Time Glucose Blood PHA 10/14/24 In Process (Accu-Chek Comfort 17:00 Insulin R (Human) PHA 10/14/24 In Process (Insulin R) 17:00 Insulin Lantus PHA 10/14/24 In Process (Glargine) (Lantus) 22:00 Dietary Evaluation Review Comments: 1) TPN if NPO > 7 days 2) [facility] 3) Cuco 1 pk BID for wound healing 4) Monitor I/O, lab values, wt trend Expected Outcomes/Goals: To meet >75% estimated needs wound to improve Fu 2-3 days Date of Service: Oct 15, 2024 Billing Provider: DARWIN ORR MD Common Visit Codes: [id number] INP/OBS CARE(HIGH) Secondary Visit Codes: [id number] CARE PLAN 30 MINUTES UMESH BARAHONA Oct 14, 2024 23:02 DARWIN ORR MD Oct 15, 2024 16:50
[2024-10-15] VITALS (8 sets, daily range): BP systolic 104–123; BP diastolic 58–80; PULSE 78–85; RESP 15–18; TEMP 97.7–98.9; O2SAT 94–98
[2024-10-15 06:09] LABS: Hemoglobin 8.8 g/dL (12.2-16.2); Mean Corpuscular Volume 85.2 fL (80.0-100.0)
[2024-10-15 06:10] LABS: Hematocrit 25.9 % (36.0-46.0); Mean Corpuscular Hemoglobin 28.9 pg (28.0-32.0); Nucleated Red Blood Cells % 0.1 %
[2024-10-15 06:27] LABS: Alanine Aminotransferase 14 U/L (7-40); Anion Gap 7 (5-15); BUN/Creatinine Ratio 18.9 (10.0-20.0); Blood Urea Nitrogen 14 mg/dL (9-23); Carbon Dioxide 28 mmol/L (20-31); Chloride 102 mmol/L (98-107); Glucose 82 mg/dL (74-106); Potassium 4.0 mmol/L (3.5-5.1); Sodium 137 mmol/L (136-145); Total Protein 6.0 g/dL (5.7-8.2)
[2024-10-15 06:28] LABS: Bilirubin, Total 0.5 mg/dL (0.2-1.0)
[2024-10-15 06:29] LABS: Albumin 2.6 g/dL (3.2-4.8); Alkaline Phosphatase 206 U/L (46-116); Calcium 7.9 mg/dL (8.7-10.4)
[2024-10-15] MEDS: MORPHINE SULFATE INJ 2 MG/ml SYRG IV ONE (12:40)
[2024-10-15] MEDS: SODIUM CHLORIDE 0.9% 500 ML IV ONE (13:15)
--- NOTE | 2024-10-15 17:56 | DVHPNRES ---
Progress Note Date Seen: Oct 15, 2024 Resident Creating Document: UMESH BARAHONA RESIDENT Has the PT tested + for MRSA If YES, has PT been informed?: No Medical Necessity Reason Pt with a Central, PICC or Fol: No Subjective Review of Systems 29-year-old female with PMHx of poorly controlled DM and hypothyroidism (not on medications), presented with 1 day of generalized weakness, dizziness, and diffuse abdominal pain with nausea and vomiting. BG was 524 and BP 84/39 at triage. On further evaluation, she had left lower back pain for 2 weeks with associated tenderness and erythema over the gluteal area. CT abdomen/pelvis revealed extensive soft tissue edema and subcutaneous emphysema extending into the perianal region, concerning for necrotizing fasciitis. Hospital Course: She was started on sepsis protocol with IV fluids, broad-spectrum antibiotics and insulin for hyperglycemia. Labs showed leukocytosis (WBC up to 31K), lactic acidosis, anion gap metabolic acidosis, and elevated inflammatory markers. She underwent emergent surgical debridement for necrotizing fasciitis and pilonidal cyst infection with removal of nonviable tissues and drain placement. Intra-op cultures were obtained. She remains intubated and sedated post-op with plans for possible colostomy depending on extent of further debridement. PMHx: DM (off meds 1 yrs), hypothyroidism (no meds) PSHx: None FHx: DM SHx: Social alcohol, non-smoker, no drug use, live with his father and brother, previously was working on [employer] Vitals on admission: BP 84/39, BG 524 10/08/24: ABG still showing acidosis, we restarted insulin drip, dressing change was done, extensive sacral and lumbar ulcer, extending trough anal area, extensive discussion was held with the father and brother about the poor prognosis of the condition, later in the afternoon patient was taken to Secondary debridement of affected area (pilonidal cyst both buttocks, perianal area) and creation of a diverting colostomy. Patient came back to the unit, on levophed low dose, extubated, we changed the fluids: d5w+ 3amp hco3: 125cc/h 10/09/24: dressing change, there are some baker and white patches in the ulcer, nephrology agrees on continue bicarb drip, decrease rate 75cc/h, transfer to [facility] for plastic surgery due to extensive skin defect, continue current treatment, patient can be downgraded to MISAEL 10/10/24: dressing change: less necrotic tissue, bicarb and insulin drip stopped, downgrade to the floor, continue transfer, surgery ordered a ct scan: Redemonstrated bilateral gluteal region soft tissue edema and subcutaneous emphysema which extends from the perianal region to the lower back, suggestive of necrotizing fasciitis. Appears improved from prior.Interval laparotomy and left lower quadrant ostomy with associated postsurgical changes. Hepatomegaly. 10/11/24: wbc is trending slightly higher, wound still has necrotic tissue but looks better than yesterday, patient will benefit for transfer to [facility] for colorectal surgery due to possible involvement of anal sphincter,as well as plastic surgery right now with colostomy on place 10/14/24: new Debridement of devitalized tissue was undertaken. There was no further evidence of necrotizing infection. The wound was then pulse lavaged with 3 L of saline containing Ancef. The wound was packed loosely with iodine saturated Kerlix. The patient will need plastic surgical attention which is not available at this facility, per general surgery patient will benefit for transfer to [facility], wound consult was placed for vac placement, kidney function recovers, lantus was decreased to 15 ui 10/15/24: wound vac was placed, extra dose of morphine due to pain, BPs soft, 500 cc bolus, pending transfer [facility] Objective vital signs Vital Sign Date Time Temp Pulse Resp B/P (MAP) Pulse Ox O2 Delivery O2 Flow Rate FiO2 10/15/24 16:59 98.9 85 16 110/72 (85) 94 98.9 10/15/24 08:00 Nasal Cannula* 2 28 Total Intake and Output 10/14/24 10/14/24 10/15/24 15:00 23:00 07:00 Intake Total 250 ml 950 ml 770 ml Output Total 450 ml 1600 ml Balance 250 ml 500 ml -830 ml medications Current Medications Medications Dose Ordered Sig/Geo Route Start Time Stop Time Status Last Admin Dose Admin Vancomycin HCl 0 ml @ 0 mls/hr UD IV 10/06/24 19:30 Morphine Sulfate 2 mg Q4HPRN PRN IV 10/06/24 19:30 10/15/24 10:08 2 MG Dextrose 50 ml UD PRN IV 10/07/24 11:15 Cancel Insulin Glargine 15 units DAILY SC 10/08/24 10:00 Cancel Dextrose 50 ml PRN PRN IV 10/07/24 15:00 Cancel Dextrose 50 ml PRN PRN IV 10/08/24 08:15 Cancel Fluconazole 100 ml @ 100 mls/hr DAILY@1800 IV 10/09/24 17:15 10/14/24 17:37 100 MLS/HR Dextrose 50 ml UD PRN IV 10/10/24 08:45 Levothyroxine Sodium 50 mcg QAM@0600 PO 10/11/24 06:00 10/15/24 05:30 50 MCG Sertraline HCl 50 mg DAILY PO 10/10/24 12:30 10/15/24 09:44 50 MG Meropenem 50 ml @ 17 mls/hr Q8HR IV 10/11/24 22:00 10/15/24 14:28 17 MLS/HR Vancomycin HCl 150 ml @ 150 mls/hr Q24H IV 10/13/24 12:15 10/15/24 13:00 150 MLS/HR Diagnostic Test (Pha) 1 strip ACHS 10/14/24 17:00 10/15/24 16:48 1 STRIP Insulin Human Regular ACHS SC 10/14/24 17:00 10/15/24 11:30 2 UNITS Insulin Glargine 15 units HS SC 10/14/24 22:00 10/14/24 22:46 15 UNITS Acetaminophen 650 mg Q4HP PRN PO 10/15/24 12:15 Clindamycin HCl 300 mg Q8HR PO 10/15/24 22:00 Pantoprazole Sodium 40 mg DAILY@0600 PO 10/16/24 06:00 Examination Gen: 29-year-old female in acute distress Skin: Warm, dry, normal color and texture, no rash. HEENT: Normocephalic atraumatic, mucous membranes moist and pink.hypothyroidism facies Neck: Cervical and supraclavicular nodes normal without enlargement, trachea is midline, thyroid gland is normal without masses. Pulmonary: hypoventilation Cardiac: Regular rate and rhythm. No murmur Abdomen: Soft, nontender, nondistended, bowel sounds present all 4 quadrants, no guarding, no rigidity, no organomegaly.laparotomy with no bleeding, colostomy with stool Extremities: extensive sacral and lumbar ulcer, covered by wound vac Neuro: Cranial nerves II through XII grossly intact, normal affect and speech, no focal motor deficits, more alert AX3 laboratory and microbiology Laboratory Tests 10/15/24 05:14 Test 10/15/24 05:14 Range/Units Serum Glucose 82 74-106 mg/dL Microbiology Date/Time Source Procedure Growth Status 10/07/24 10:30 Voided Urine Urine Culture - Final Presumptive Judie albicans Complete 10/07/24 08:21 Other Other Gram Stain - Final Complete 10/07/24 08:21 Anaerobic Culture - Final Prevotella loescheii Complete 10/07/24 08:21 Other Other Aerobic Culture - Final Complete 10/06/24 11:20 Blood Blood Culture - Final NO GROWTH AFTER 5 DAYS OF INCUBATION. Complete Problem List/Assessment/Plan Problem List/Assessment/Plan -Neurologic: #Acute metabolic encephalopathy secondary to sepsis and metabolic derangements. No focal neurological deficits documented. more alert, AOX3 Infectious Diseases #Septic shock due to necrotizing fasciitis of the gluteal and sacral region secondary to pilonidal cyst infection due to prevotella loescheii #sp I&D 10/07/24 #sp debridement of affected area (pilonidal cyst both buttocks, perianal area) and creation of a diverting colostomy 10/08/24 Confirmed intra-op with devitalized tissue and large purulent collection WBC peaked at 31K with left shift Source control achieved with surgical debridement Started on broad-spectrum antibiotics (Zosyn + Vanc): now meropenem+ vanco+ clindamycin Blood cultures pending ID consulted per Dr Pretty 10/10/24: dressing change: less necrotic tissue, bicarb and insulin drip stopped, downgrade to the floor, continue transfer, surgery ordered a ct scan: Redemonstrated bilateral gluteal region soft tissue edema and subcutaneous emphysema which extends from the perianal region to the lower back, suggestive of necrotizing fasciitis. Appears improved from prior.Interval laparotomy and left lower quadrant ostomy with associated postsurgical changes. Hepatomegaly. 10/11/24: wbc is trending slightly higher, wound still has necrotic tissue but looks better than yesterday, patient will benefit for transfer to [facility] for colorectal surgery due to possible involvement of anal sphincter,as well as plastic surgery right now with colostomy on place 10/14/24: new Debridement of devitalized tissue was undertaken. There was no further evidence of necrotizing infection. The wound was then pulse lavaged with 3 L of saline containing Ancef. The wound was packed loosely with iodine saturated Kerlix. The patient will need plastic surgical attention which is not available at this facility, per general surgery patient will benefit for transfer to [facility], wound consult was placed for vac placement, kidney function recovers, lantus was decreased to 15 ui 10/15/24: wound vac was placed, extra dose of morphine due to pain, BPs soft, 500 cc bolus, pending transfer [facility] Cardiovascular: #Septic shock due to necrotizing fasciitis with hypotension (84/39 on arrival), requiring fluid resuscitation and vasopressor support with phenylephrine. Lactate peaked at 4.9 MAP goal >65 mmHg maintained Improving hemodynamics post-op wean off phenylephrine levophed off midline placed Respiratory: #Acute hypoxemic respiratory failure secondary to sepsis and poor perfusion #Respiratory acidosis possible obesity hypoventilation syndrome today room air No mechanical ventilation ABG trends: 10/06: pH 7.34, HCO 14 compensated metabolic acidosis 10/07: pH 7.18 then 7.20, HCO 12.1 worsening primary metabolic acidosis No respiratory compensation, consistent with acute process: respiratory acidosis Lactate-driven AGMA, more than DKA 10/08 ph 7.316 pco2 28.6 po2 99.2 hco3 14.3 10/10 ph 7.44 pco2 37.5 po2 89.6 hco3 25.2 Metabolic/Endocrine: #Severe AGMA due to lactic acidosis #Uncontrolled diabetes hba1c 13 B, but beta-hydroxybutyrate only 0.9, no ketonemia AG >17, HCO <15 consistent with lactic acidosis dc bicarb and insulin drip lantus 15 ui #Hypothyroidism: TSH 12.1, low free T4 free T3 Given severity of illness, IV levothyroxine started to prevent myxedema daily Cortisol: 30.84 normal, adrenal insufficiency ruled out levothyroxine PO #Hypomagnesemia replaced Hematology: #Leukocytosis, improving with neutrophilic predominance (WBC >30K) at admission #Anemia Hgb 9.3, likely hemodilutional or inflammatory No evidence of DIC, platelets stable Monitor for anemia of critical illness Renal: АНДРЕЙ due to VMN on possible CKD, baseline creatinine unknown, resolved (from hypoperfusion and sepsis + chronic component from diabetes) Cr trending high UA: proteinuria (1+), trace ketones, glucosuria (4+), WBC 16 possible UTI component or inflammation Protein/Creatinine ratio = 218.6 mg/g suggests underlying CKD Renal US: Echogenic kidneys, no hydronephrosis, medical kidney disease consistent with diabetic nephropathy GI #sp colostomy 10/08/24 healthy diabetic diet : #Complicated UTI, presumptive judie albicans UA: trace ketones, glucosuria, 1+ protein, few bacteria Bladder decompressed via Prajapati, likely due to altered mental status and hypotension fluconazol iv MSK/Soft Tissue: #Extensive necrotizing fasciitis involving gluteal/sacral regions Large abscess drained (~150 mL purulent fluid), tissue debrided Pulse lavage and wound packed sp debridement of affected area (pilonidal cyst both buttocks, perianal area) and creation of a diverting colostomy 10/08/24 wound is having baker and white patches, patient will benefit for transfer to [facility] for plastic surgery 10/10/24: dressing change: less necrotic tissue 10/14/24: new Debridement of devitalized tissue was undertaken. There was no further evidence of necrotizing infection. The wound was then pulse lavaged with 3 L of saline containing Ancef. The wound was packed loosely with iodine saturated Kerlix. The patient will need plastic surgical attention which is not available at this facility, per general surgery patient will benefit for transfer to [facility], wound consult was placed for vac placement 10/15/24: wound vac was placed, extra dose of morphine due to pain, BPs soft, 500 cc bolus, pending transfer [facility] Case discussed with Dr Orr Time spent on critical care 37 min, excluding procedures, extensive discussion with the father Darwin, full code Plan discussed with: Patient My Orders My Orders Orders - UMESH BARAHONA RESIDENT Procedure Category Date Status Time Insulin Lantus PHA 10/14/24 In Process (Glargine) (Lantus) 22:00 Acetaminophen Tablet PHA 10/15/24 In Process (Tylenol Tablet) 12:15 Wound Vac SHEFALI 10/15/24 In Process 10:18 Clindamycin Capsule PHA 10/15/24 In Process (Cleocin Capsule) 22:00 Pantoprazole Tablet PHA 10/16/24 In Process (Protonix Tablet) 06:00 Dietary Evaluation Review Comments: 1) TPN if NPO > 7 days 2) Advance to [facility] 60gm as medically feasible 3) Cuco 1 pk BID for wound healing 4) Monitor I/O, lab values, wt trend Expected Outcomes/Goals: To meet >75% estimated needs wound to improve Fu 2-3 days Date of Service: Oct 15, 2024 Billing Provider: DARWIN ORR MD Common Visit Codes: 01092-[id number] CARE 30-74 MIN UMESH BARAHONA RESIDENT Oct 15, 2024 17:56 DARWIN ORR MD Oct 16, 2024 14:03
[2024-10-15] MEDS: CLINDAMYCIN HCL 150 MG CAP PO SCH (22:01)
[2024-10-16] VITALS (9 sets, daily range): BP systolic 115–139; BP diastolic 59–84; PULSE 62–85; RESP 17–20; TEMP 98.1–98.7; O2SAT 93–99
[2024-10-16] MEDS: PANTOPRAZOLE 40 MG TAB PO SCH (05:57)
[2024-10-16 06:24] LABS: Hematocrit 28.0 % (36.0-46.0); Hemoglobin 9.3 g/dL (12.2-16.2); Mean Corpuscular Hemoglobin 28.6 pg (28.0-32.0); Mean Corpuscular Volume 85.8 fL (80.0-100.0); Nucleated Red Blood Cells % 0.0 %
[2024-10-16 06:41] LABS: Alanine Aminotransferase 15 U/L (7-40); Anion Gap 8 (5-15); BUN/Creatinine Ratio 14.1 (10.0-20.0); Blood Urea Nitrogen 10 mg/dL (9-23); Calcium 8.9 mg/dL (8.7-10.4); Carbon Dioxide 28 mmol/L (20-31); Chloride 103 mmol/L (98-107); Potassium 3.8 mmol/L (3.5-5.1); Sodium 139 mmol/L (136-145); Total Protein 6.4 g/dL (5.7-8.2)
[2024-10-16 06:42] LABS: Bilirubin, Total 0.5 mg/dL (0.2-1.0)
[2024-10-16 06:49] LABS: Albumin 2.8 g/dL (3.2-4.8); Alkaline Phosphatase 192 U/L (46-116); Glucose 111 mg/dL (74-106)
[2024-10-16] MEDS: PANTOPRAZOLE 40 MG/10 ML VIAL INJ IV ONE (08:15)
--- NOTE | 2024-10-16 10:15 | DVHPN2 ---
Progress Note Date Seen: Oct 16, 2024 Has the PT tested + for MRSA If YES, has PT been informed?: No Medical Necessity Reason Pt with a Central, PICC or Fol: No Objective vital signs Vital Sign Date Time Temp Pulse Resp B/P (MAP) Pulse Ox O2 Delivery O2 Flow Rate FiO2 10/16/24 08:58 98.6 76 20 129/77 (94) 96 98.6 10/15/24 20:00 Room Air* 0 21 Total Intake and Output 10/15/24 10/15/24 10/16/24 15:00 23:00 07:00 Intake Total 650 ml 1300 ml 1650 ml Output Total 1000 ml 2400 ml Balance 650 ml 300 ml -750 ml medications Current Medications Medications Dose Ordered Sig/Geo Route Start Time Stop Time Status Last Admin Dose Admin Vancomycin HCl 0 ml @ 0 mls/hr UD IV 10/06/24 19:30 Morphine Sulfate 2 mg Q4HPRN PRN IV 10/06/24 19:30 10/16/24 08:12 2 MG Dextrose 50 ml UD PRN IV 10/07/24 11:15 Cancel Insulin Glargine 15 units DAILY SC 10/08/24 10:00 Cancel Dextrose 50 ml PRN PRN IV 10/07/24 15:00 Cancel Dextrose 50 ml PRN PRN IV 10/08/24 08:15 Cancel Fluconazole 100 ml @ 100 mls/hr DAILY@1800 IV 10/09/24 17:15 10/15/24 17:58 100 MLS/HR Dextrose 50 ml UD PRN IV 10/10/24 08:45 Levothyroxine Sodium 50 mcg QAM@0600 PO 10/11/24 06:00 10/16/24 05:57 50 MCG Sertraline HCl 50 mg DAILY PO 10/10/24 12:30 10/16/24 09:44 50 MG Meropenem 50 ml @ 17 mls/hr Q8HR IV 10/11/24 22:00 10/16/24 05:58 17 MLS/HR Vancomycin HCl 150 ml @ 150 mls/hr Q24H IV 10/13/24 12:15 10/15/24 13:00 150 MLS/HR Diagnostic Test (Pha) 1 strip ACHS 10/14/24 17:00 10/16/24 06:22 1 STRIP Insulin Human Regular ACHS SC 10/14/24 17:00 10/15/24 21:56 3 UNITS Insulin Glargine 15 units HS SC 10/14/24 22:00 10/15/24 22:00 15 UNITS Acetaminophen 650 mg Q4HP PRN PO 10/15/24 12:15 Clindamycin HCl 300 mg Q8HR PO 10/15/24 22:00 10/16/24 05:57 300 MG Pantoprazole Sodium 40 mg DAILY@0600 PO 10/16/24 06:00 10/16/24 05:57 40 MG laboratory and microbiology Laboratory Tests 10/16/24 05:12 Test 10/16/24 05:12 Range/Units Serum Glucose 111 H 74-106 mg/dL Problem List/Assessment/Plan Problem List/Assessment/Plan 10/06/24 P[ATIENT HAS BEEN HAVING PAIN IN HER LOWER BACK AND LEFT BUTTOCK FOR TWO DAYS AND NOW PRESENTS WITH TENDERNESS AND ERYTHEMA OF THE AFFECTED AREA, THERE IS REDNESS OF THE AFFECTED SKIN, NO SUBCUTANEOUS COMITANCE IS NOTED, NO BULGING , NO DRAINAGE. THE AREA HAS THE APPEARANCE OF A PILONIDAL INFECTION, NO CLINICAL EVIDENCE OF NECROTIZING INFECTION. INCISION AND DRAINAGE AND POSSIBLE DEBRIDEMENT EXPLAINED TO PATIENT WERE RISKS AND COMPLICATIONS., 10/07/24 PATIENT HAD bp OF 90,S WHEN EXAMINED BY ME AT 1600 YESTERDAY AFTERNOON, DESPITE MY EXPLICIT COMMUNICATION ORDER TO BE NOTIFIED IF THE PATIENT DEVELOPS CHANGES IN HER BP OR HEART RATE OR DEVELOPS FEVER AND INCREASING PAIN I WAS NOT NOTIFIED UNTIL THIS MORNING AT 6:50 HRS THAT THE PATIENT IS ON 115MCG/MIN OF PHENYLEPHRINE, WHEN QUESTIONED THE ICU NURSE INFORMED ME THAT SHE RECEIVED THE PATIENT FROM THE ER ALREADY ON PHENYLEPHRINE AT 4 O'CLOCK THIS AM. 10/07/24 waited till patient fully awake after this morning operation, she is fully oriented, explained the seriousness of her problems and the need for a diverting colostomy, also explained that I spoke to her father, sshe expressed wish not to communicate with her mother.operation, risks and complications explained in detail 10/08/24 BP and HR improved. continues with acidosis and leukocytosis, had several bowel movements, explained upcoming re operation on her buttocks again and again explained colostomy procedure 10/10/24 slightly improved, stoma viable without output, wound dressings being changed, the patient will need to transfer to a facility with higher level of care, needs plastic,reconstructive surgical expertise which I do not have. 10/11/24 feels 'a little better" wbc higher, afebrile, colostomy functioning, will inspect wound and possibly debrided more tissue if needed in the operating room on Monday10/16/24 feels better, wound care note reviewed, wound vac in place with good seal. Plan discussed with: Patient Dietary Evaluation Review Comments: 1) TPN if NPO > 7 days 2) Advance to [facility] 60gm as medically feasible 3) Cuco 1 pk BID for wound healing 4) Monitor I/O, lab values, wt trend Expected Outcomes/Goals: To meet >75% estimated needs wound to improve Fu 2-3 days VERONICA TOLLIVER MD Oct 16, 2024 10:15
--- NOTE | 2024-10-16 15:21 | DVHPNRES ---
Progress Note Date Seen: Oct 16, 2024 Resident Creating Document: UMESH BARAHONA RESIDENT Has the PT tested + for MRSA If YES, has PT been informed?: No Medical Necessity Reason Pt with a Central, PICC or Fol: No Subjective Review of Systems 29-year-old female with PMHx of poorly controlled DM and hypothyroidism (not on medications), presented with 1 day of generalized weakness, dizziness, and diffuse abdominal pain with nausea and vomiting. BG was 524 and BP 84/39 at triage. On further evaluation, she had left lower back pain for 2 weeks with associated tenderness and erythema over the gluteal area. CT abdomen/pelvis revealed extensive soft tissue edema and subcutaneous emphysema extending into the perianal region, concerning for necrotizing fasciitis. Hospital Course: She was started on sepsis protocol with IV fluids, broad-spectrum antibiotics and insulin for hyperglycemia. Labs showed leukocytosis (WBC up to 31K), lactic acidosis, anion gap metabolic acidosis, and elevated inflammatory markers. She underwent emergent surgical debridement for necrotizing fasciitis and pilonidal cyst infection with removal of nonviable tissues and drain placement. Intra-op cultures were obtained. She remains intubated and sedated post-op with plans for possible colostomy depending on extent of further debridement. PMHx: DM (off meds 1 yrs), hypothyroidism (no meds) PSHx: None FHx: DM SHx: Social alcohol, non-smoker, no drug use, live with his father and brother, previously was working on [employer] Vitals on admission: BP 84/39, BG 524 10/08/24: ABG still showing acidosis, we restarted insulin drip, dressing change was done, extensive sacral and lumbar ulcer, extending trough anal area, extensive discussion was held with the father and brother about the poor prognosis of the condition, later in the afternoon patient was taken to Secondary debridement of affected area (pilonidal cyst both buttocks, perianal area) and creation of a diverting colostomy. Patient came back to the unit, on levophed low dose, extubated, we changed the fluids: d5w+ 3amp hco3: 125cc/h 10/09/24: dressing change, there are some baker and white patches in the ulcer, nephrology agrees on continue bicarb drip, decrease rate 75cc/h, transfer to [facility] for plastic surgery due to extensive skin defect, continue current treatment, patient can be downgraded to MISAEL 10/10/24: dressing change: less necrotic tissue, bicarb and insulin drip stopped, downgrade to the floor, continue transfer, surgery ordered a ct scan: Redemonstrated bilateral gluteal region soft tissue edema and subcutaneous emphysema which extends from the perianal region to the lower back, suggestive of necrotizing fasciitis. Appears improved from prior.Interval laparotomy and left lower quadrant ostomy with associated postsurgical changes. Hepatomegaly. 10/11/24: wbc is trending slightly higher, wound still has necrotic tissue but looks better than yesterday, patient will benefit for transfer to [facility] for colorectal surgery due to possible involvement of anal sphincter,as well as plastic surgery right now with colostomy on place 10/14/24: new Debridement of devitalized tissue was undertaken. There was no further evidence of necrotizing infection. The wound was then pulse lavaged with 3 L of saline containing Ancef. The wound was packed loosely with iodine saturated Kerlix. The patient will need plastic surgical attention which is not available at this facility, per general surgery patient will benefit for transfer to [facility], wound consult was placed for vac placement, kidney function recovers, lantus was decreased to 15 ui 10/15/24: wound vac was placed, extra dose of morphine due to pain, BPs soft, 500 cc bolus, pending transfer [facility] 10/16/24: patient was having epigastric pain, dr villafana came at bedside, pain improved with analgesia, meropenem dc and Levaquin PO was started, also fluconazol was transitioned to PO, later in the late afternoon, patient was having abdominal pain, immigration guard team ordered a CT scan that showed: The patient is status post sigmoidectomy with a left lower quadrant colostomy. There is moderate stool burden in the colon. The appendix is normal. There is fluid within a few proximal ileal small bowel loops although not pathologically enlarged and fecal material within a loop of ileum in the left abdomen which enters a convergence of bowel loops in the midabdomen and can no longer be distinguished. The distal ileum in the right lower quadrant is completely decompressed. There is trace free fluid in the abdomen and pelvis, new compared with the prior study. Consolidation of much of the visualized right middle and right lower lobes with air bronchograms concerning for pneumonia. At least small right pleural effusion. Significantly worse compared with the prior study. Objective vital signs Vital Sign Date Time Temp Pulse Resp B/P (MAP) Pulse Ox O2 Delivery O2 Flow Rate FiO2 10/16/24 13:33 85 18 122/54 10/16/24 13:00 98.4 93 98.4 10/15/24 20:00 Room Air* 0 21 Total Intake and Output 10/15/24 10/15/24 10/16/24 15:00 23:00 07:00 Intake Total 650 ml 1300 ml 1650 ml Output Total 1000 ml 2400 ml Balance 650 ml 300 ml -750 ml medications Current Medications Medications Dose Ordered Sig/Geo Route Start Time Stop Time Status Last Admin Dose Admin Vancomycin HCl 0 ml @ 0 mls/hr UD IV 10/06/24 19:30 Morphine Sulfate 2 mg Q4HPRN PRN IV 10/06/24 19:30 10/16/24 13:33 2 MG Dextrose 50 ml UD PRN IV 10/07/24 11:15 Cancel Insulin Glargine 15 units DAILY SC 10/08/24 10:00 Cancel Dextrose 50 ml PRN PRN IV 10/07/24 15:00 Cancel Dextrose 50 ml PRN PRN IV 10/08/24 08:15 Cancel Dextrose 50 ml UD PRN IV 10/10/24 08:45 Levothyroxine Sodium 50 mcg QAM@0600 PO 10/11/24 06:00 10/16/24 05:57 50 MCG Sertraline HCl 50 mg DAILY PO 10/10/24 12:30 10/16/24 09:44 50 MG Vancomycin HCl 150 ml @ 150 mls/hr Q24H IV 10/13/24 12:15 10/16/24 13:49 150 MLS/HR Diagnostic Test (Pha) 1 strip ACHS 10/14/24 17:00 10/16/24 11:30 1 STRIP Insulin Human Regular ACHS SC 10/14/24 17:00 10/15/24 21:56 3 UNITS Insulin Glargine 15 units HS SC 10/14/24 22:00 10/15/24 22:00 15 UNITS Acetaminophen 650 mg Q4HP PRN PO 10/15/24 12:15 Clindamycin HCl 300 mg Q8HR PO 10/15/24 22:00 10/16/24 13:34 300 MG Pantoprazole Sodium 40 mg DAILY@0600 PO 10/16/24 06:00 10/16/24 05:57 40 MG Levofloxacin 750 mg DAILY PO 10/17/24 10:00 UNV Fluconazole 200 mg DAILY PO 10/17/24 10:00 UNV Examination Gen: 29-year-old female in acute distress Skin: Warm, dry, normal color and texture, no rash. HEENT: Normocephalic atraumatic, mucous membranes moist and pink.hypothyroidism facies Neck: Cervical and supraclavicular nodes normal without enlargement, trachea is midline, thyroid gland is normal without masses. Pulmonary: hypoventilation Cardiac: Regular rate and rhythm. No murmur Abdomen: Soft, nontender, nondistended, bowel sounds present all 4 quadrants, no guarding, no rigidity, no organomegaly.laparotomy with no bleeding, colostomy with stool Extremities: extensive sacral and lumbar ulcer, covered by wound vac Neuro: Cranial nerves II through XII grossly intact, normal affect and speech, no focal motor deficits, more alert AX3 laboratory and microbiology Laboratory Tests 10/16/24 05:12 Test 10/16/24 05:12 Range/Units Serum Glucose 111 H 74-106 mg/dL Microbiology Date/Time Source Procedure Growth Status 10/07/24 10:30 Voided Urine Urine Culture - Final Presumptive Judie albicans Complete 10/07/24 08:21 Other Other Gram Stain - Final Complete 10/07/24 08:21 Anaerobic Culture - Final Prevotella loescheii Complete 10/07/24 08:21 Other Other Aerobic Culture - Final Complete 10/06/24 11:20 Blood Blood Culture - Final NO GROWTH AFTER 5 DAYS OF INCUBATION. Complete Problem List/Assessment/Plan Problem List/Assessment/Plan -Neurologic: #Acute metabolic encephalopathy secondary to sepsis and metabolic derangements. No focal neurological deficits documented. more alert, AOX3 Infectious Diseases #Septic shock due to necrotizing fasciitis of the gluteal and sacral region secondary to pilonidal cyst infection due to prevotella loescheii #sp I&D 10/07/24 #sp debridement of affected area (pilonidal cyst both buttocks, perianal area) and creation of a diverting colostomy 10/08/24 Confirmed intra-op with devitalized tissue and large purulent collection WBC peaked at 31K with left shift Source control achieved with surgical debridement Started on broad-spectrum antibiotics (Zosyn + Vanc): now meropenem+ vanco+ clindamycin Blood cultures pending ID consulted per Dr Villafana 10/10/24: dressing change: less necrotic tissue, bicarb and insulin drip stopped, downgrade to the floor, continue transfer, surgery ordered a ct scan: Redemonstrated bilateral gluteal region soft tissue edema and subcutaneous emphysema which extends from the perianal region to the lower back, suggestive of necrotizing fasciitis. Appears improved from prior.Interval laparotomy and left lower quadrant ostomy with associated postsurgical changes. Hepatomegaly. 10/11/24: wbc is trending slightly higher, wound still has necrotic tissue but looks better than yesterday, patient will benefit for transfer to [facility] for colorectal surgery due to possible involvement of anal sphincter,as well as plastic surgery right now with colostomy on place 10/14/24: new Debridement of devitalized tissue was undertaken. There was no further evidence of necrotizing infection. The wound was then pulse lavaged with 3 L of saline containing Ancef. The wound was packed loosely with iodine saturated Kerlix. The patient will need plastic surgical attention which is not available at this facility, per general surgery patient will benefit for transfer to [facility], wound consult was placed for vac placement, kidney function recovers, lantus was decreased to 15 ui 10/15/24: wound vac was placed, extra dose of morphine due to pain, BPs soft, 500 cc bolus, pending transfer [facility] Cardiovascular: #Septic shock due to necrotizing fasciitis with hypotension (84/39 on arrival), requiring fluid resuscitation and vasopressor support with phenylephrine. Lactate peaked at 4.9 MAP goal >65 mmHg maintained Improving hemodynamics post-op wean off phenylephrine levophed off midline placed Respiratory: #Pneumonia gram+/gram- Consolidation of much of the visualized right middle and right lower lobes with air bronchograms concerning for pneumonia. At least small right pleural effusion. clindamycin, levaquin, metronidazole #Acute hypoxemic respiratory failure secondary to sepsis and poor perfusion #Respiratory acidosis possible obesity hypoventilation syndrome today room air No mechanical ventilation ABG trends: 10/06: pH 7.34, HCO 14 compensated metabolic acidosis 10/07: pH 7.18 then 7.20, HCO 12.1 worsening primary metabolic acidosis No respiratory compensation, consistent with acute process: respiratory acidosis Lactate-driven AGMA, more than DKA 10/08 ph 7.316 pco2 28.6 po2 99.2 hco3 14.3 10/10 ph 7.44 pco2 37.5 po2 89.6 hco3 25.2 Metabolic/Endocrine: #Severe AGMA due to lactic acidosis #Uncontrolled diabetes hba1c 13 B, but beta-hydroxybutyrate only 0.9, no ketonemia AG >17, HCO <15 consistent with lactic acidosis dc bicarb and insulin drip lantus 15 ui #Hypothyroidism: TSH 12.1, low free T4 free T3 Given severity of illness, IV levothyroxine started to prevent myxedema daily Cortisol: 30.84 normal, adrenal insufficiency ruled out levothyroxine PO #Hypomagnesemia replaced Hematology: #Leukocytosis, improving with neutrophilic predominance (WBC >30K) at admission #Anemia Hgb 9.3, likely hemodilutional or inflammatory No evidence of DIC, platelets stable Monitor for anemia of critical illness Renal: АНДРЕЙ due to VMN on possible CKD, baseline creatinine unknown, resolved (from hypoperfusion and sepsis + chronic component from diabetes) Cr trending high UA: proteinuria (1+), trace ketones, glucosuria (4+), WBC 16 possible UTI component or inflammation Protein/Creatinine ratio = 218.6 mg/g suggests underlying CKD Renal US: Echogenic kidneys, no hydronephrosis, medical kidney disease consistent with diabetic nephropathy GI #sp colostomy 10/08/24 #Possible low-grade small bowel obstruction #Trace free fluid in the abdomen and pelvis NPO 10/16/24: patient was having epigastric pain, dr villafana came at bedside, pain improved with analgesia, meropenem dc and Levaquin PO was started, also fluconazol was transitioned to PO, later in the late afternoon, patient was having abdominal pain, immigration guard team ordered a CT scan that showed: The patient is status post sigmoidectomy with a left lower quadrant colostomy. There is moderate stool burden in the colon. The appendix is normal. There is fluid within a few proximal ileal small bowel loops although not pathologically enlarged and fecal material within a loop of ileum in the left abdomen which enters a convergence of bowel loops in the midabdomen and can no longer be distinguished. The distal ileum in the right lower quadrant is completely decompressed. There is trace free fluid in the abdomen and pelvis, new compared with the prior study. Consolidation of much of the visualized right middle and right lower lobes with air bronchograms concerning for pneumonia. At least small right pleural effusion. Significantly worse compared with the prior study. Findings discussed with dr Villafana : #Complicated UTI, presumptive judie albicans UA: trace ketones, glucosuria, 1+ protein, few bacteria Bladder decompressed via Prajapati, likely due to altered mental status and hypotension fluconazol iv MSK/Soft Tissue: #Extensive necrotizing fasciitis involving gluteal/sacral regions Large abscess drained (~150 mL purulent fluid), tissue debrided Pulse lavage and wound packed sp debridement of affected area (pilonidal cyst both buttocks, perianal area) and creation of a diverting colostomy 10/08/24 wound is having baker and white patches, patient will benefit for transfer to [facility] for plastic surgery 10/10/24: dressing change: less necrotic tissue 10/14/24: new Debridement of devitalized tissue was undertaken. There was no further evidence of necrotizing infection. The wound was then pulse lavaged with 3 L of saline containing Ancef. The wound was packed loosely with iodine saturated Kerlix. The patient will need plastic surgical attention which is not available at this facility, per general surgery patient will benefit for transfer to [facility], wound consult was placed for vac placement 10/15/24: wound vac was placed, extra dose of morphine due to pain, BPs soft, 500 cc bolus, pending transfer [facility] Case discussed with Dr Orr Time spent on critical care 34 min, excluding procedures, extensive discussion with the father Darwin, full code Plan discussed with: Patient, Other (rn) My Orders My Orders Orders - UMESH BARAHONA RESIDENT Procedure Category Date Status Time Clindamycin Capsule PHA 10/15/24 In Process (Cleocin Capsule) 22:00 Pantoprazole Tablet PHA 10/16/24 In Process (Protonix Tablet) 06:00 Levofloxacin Tablet PHA 10/17/24 Logged (Levaquin Tablet) 10:00 Fluconazole Tablet PHA 10/17/24 Logged (Diflucan Tablet) 10:00 Dietary Evaluation Review Comments: 1) TPN if NPO > 7 days 2) [facility] 3) Cuco 1 pk BID for wound healing 4) Monitor I/O, lab values, wt trend Expected Outcomes/Goals: To meet >75% estimated needs wound to improve Fu 2-3 days Date of Service: Oct 16, 2024 Billing Provider: DARWIN ORR MD Common Visit Codes: [id number] CARE 30-74 MIN UMESH BARAHONA RESIDENT Oct 16, 2024 15:21 DARWIN ORR MD Oct 17, 2024 12:43
--- NOTE | 2024-10-16 15:26 | DVHPN2 ---
Progress Note Date Seen: Oct 16, 2024 Has the PT tested + for MRSA If YES, has PT been informed?: No Medical Necessity Reason Pt with a Central, PICC or Fol: No Subjective Changes from previous H/P or p: No Changes Objective vital signs Vital Sign Date Time Temp Pulse Resp B/P (MAP) Pulse Ox O2 Delivery O2 Flow Rate FiO2 10/16/24 13:33 85 18 122/54 10/16/24 13:00 98.4 93 98.4 10/15/24 20:00 Room Air* 0 21 Total Intake and Output 10/15/24 10/15/24 10/16/24 15:00 23:00 07:00 Intake Total 650 ml 1300 ml 1650 ml Output Total 1000 ml 2400 ml Balance 650 ml 300 ml -750 ml medications Current Medications Medications Dose Ordered Sig/Geo Route Start Time Stop Time Status Last Admin Dose Admin Vancomycin HCl 0 ml @ 0 mls/hr UD IV 10/06/24 19:30 Morphine Sulfate 2 mg Q4HPRN PRN IV 10/06/24 19:30 10/16/24 13:33 2 MG Dextrose 50 ml UD PRN IV 10/07/24 11:15 Cancel Insulin Glargine 15 units DAILY SC 10/08/24 10:00 Cancel Dextrose 50 ml PRN PRN IV 10/07/24 15:00 Cancel Dextrose 50 ml PRN PRN IV 10/08/24 08:15 Cancel Dextrose 50 ml UD PRN IV 10/10/24 08:45 Levothyroxine Sodium 50 mcg QAM@0600 PO 10/11/24 06:00 10/16/24 05:57 50 MCG Sertraline HCl 50 mg DAILY PO 10/10/24 12:30 10/16/24 09:44 50 MG Vancomycin HCl 150 ml @ 150 mls/hr Q24H IV 10/13/24 12:15 10/16/24 13:49 150 MLS/HR Diagnostic Test (Pha) 1 strip ACHS 10/14/24 17:00 10/16/24 11:30 1 STRIP Insulin Human Regular ACHS SC 10/14/24 17:00 10/15/24 21:56 3 UNITS Insulin Glargine 15 units HS SC 10/14/24 22:00 10/15/24 22:00 15 UNITS Acetaminophen 650 mg Q4HP PRN PO 10/15/24 12:15 Clindamycin HCl 300 mg Q8HR PO 10/15/24 22:00 10/16/24 13:34 300 MG Pantoprazole Sodium 40 mg DAILY@0600 PO 10/16/24 06:00 10/16/24 05:57 40 MG Levofloxacin 750 mg DAILY PO 10/17/24 10:00 UNV Fluconazole 200 mg DAILY PO 10/17/24 10:00 UNV laboratory and microbiology Laboratory Tests 10/16/24 05:12 Test 10/16/24 05:12 Range/Units Serum Glucose 111 H 74-106 mg/dL Microbiology Date/Time Source Procedure Growth Status 10/07/24 10:30 Voided Urine Urine Culture - Final Presumptive Tran albicans Complete 10/07/24 08:21 Other Other Gram Stain - Final Complete 10/07/24 08:21 Anaerobic Culture - Final Prevotella loescheii Complete 10/07/24 08:21 Other Other Aerobic Culture - Final Complete 10/06/24 11:20 Blood Blood Culture - Final NO GROWTH AFTER 5 DAYS OF INCUBATION. Complete Problem List/Assessment/Plan Problem List/Assessment/Plan 29-year-old morbidly obese female with no previous medical follow-up presented to the hospital due to severe sepsis in the setting of necrotizing fasciitis which required debridement x2 with open back wound as well as now requiring colostomy. Nephrology was consulted for acute kidney injury Acute kidney injury has now resolved electrolytes have returned to acceptable limits. Replace electrolytes p.r.n. f/u labs and replace appropriately From a nephrology standpoint patient has been stable no further recommendations at this time. We will sign off the case. Reconsult if you have further questions or if condition changes care time 26mins Plan discussed with: Patient Dietary Evaluation Review Comments: 1) TPN if NPO > 7 days 2) Advance to [facility] 60gm as medically feasible 3) Cuco 1 pk BID for wound healing 4) Monitor I/O, lab values, wt trend Expected Outcomes/Goals: To meet >75% estimated needs wound to improve Fu 2-3 days Total Time (mins): 25 INES MASON MD Oct 16, 2024 15:26
--- NOTE | 2024-10-16 23:17 | DVH ---
COMPUTERIZED TOMOGRAPHY ABDOMEN AND PELVIS WITHOUT CONTRAST REASON FOR EXAM: Rule out small-bowel obstruction. Abdominal pain. COMPARISON: CT CT AB PEL WO CON-NO ORAL OR IV on DOS: 10/10/24, CT CT AB PEL WO CON-NO ORAL OR IV on D OS: 10/06/24 TECHNIQUE: Spiral scans were acquired from the diaphragm to the symphysis pubis without intravenous c ontrast administration. 2-D coronal and sagittal reformatted images were provided. Radiation optimiza tion: All CT scans at this facility use at least one of these dose optimization techniques: Automated exposure control mA and/or kV adjustment per patient size (includes targeted exams where dose is mat ched to clinical indication) or iterative reconstruction. RADIATION DOSE: CTDI: 27 mGy DLP: 1778 mGy-cm FINDINGS: There is consolidation of much of the visualized right middle and right lower lobes with air bronchog reza. The left lung base is unremarkable. There is at least small right pleural effusion. There is n o significant left pleural effusion. There is no pericardial effusion. The spleen is not enlarged. The liver is normal in size and contour. Evaluation of the abdominal orga ns is suboptimal in the absence of intravenous contrast. No calcified gallstone is identified. Unenha nced appearance of the pancreas is grossly unremarkable. Evaluation of the abdomen is further degrade d by streak artifact from the patient's arms. The adrenal glands are normal. The kidneys are similar in size. There is no hydronephrosis of either kidney. The urinary bladder is decompressed about a Fo justin catheter balloon. The uterus is within normal limits. The ovaries are not definitely seen. The p atient is status post sigmoidectomy with a left lower quadrant colostomy. There is moderate stool bu rden in the colon. The appendix is normal. There is fluid within a few proximal ileal small bowel lo ops although not pathologically enlarged and fecal material within a loop of ileum in the left abdome n which enters a convergence of bowel loops in the midabdomen and can no longer be distinguished. The distal ileum in the right lower quadrant is completely decompressed. There is trace free fluid in th e abdomen and pelvis, new compared with the prior study. There is no abdominal aortic aneurysm. There is severe sacral decubitus ulcer with gas reaching the coccyx and the pelvic floor musculature. No a cute osseous abnormality is identified. IMPRESSION: Possible early or low-grade small bowel obstruction in the midabdomen as described above. Trace free fluid in the abdomen and pelvis, new since the prior study. Consolidation of much of the visualized right middle and right lower lobes with air bronchograms conc erning for pneumonia. At least small right pleural effusion. Significantly worse compared with the pr ior study. Surgical changes associated with sigmoidectomy and a left lower quadrant colostomy. Normal appendix
[2024-10-17] VITALS (7 sets, daily range): BP systolic 108–123; BP diastolic 66–79; PULSE 73–78; RESP 16–19; TEMP 97.6–98.1; O2SAT 90–100
[2024-10-17 06:06] LABS: Hematocrit 25.7 % (36.0-46.0); Hemoglobin 9.1 g/dL (12.2-16.2); Mean Corpuscular Hemoglobin 29.9 pg (28.0-32.0); Mean Corpuscular Volume 84.4 fL (80.0-100.0); Nucleated Red Blood Cells % 0.0 %
[2024-10-17 06:22] LABS: Alanine Aminotransferase 13 U/L (7-40); Anion Gap 7 (5-15); BUN/Creatinine Ratio 15.2 (10.0-20.0); Blood Urea Nitrogen 10 mg/dL (9-23); Carbon Dioxide 30 mmol/L (20-31); Chloride 103 mmol/L (98-107); Potassium 4.2 mmol/L (3.5-5.1); Sodium 140 mmol/L (136-145); Total Protein 6.4 g/dL (5.7-8.2)
[2024-10-17 06:23] LABS: Bilirubin, Total 0.4 mg/dL (0.2-1.0)
[2024-10-17 06:35] LABS: Albumin 2.8 g/dL (3.2-4.8); Alkaline Phosphatase 174 U/L (46-116); Calcium 8.3 mg/dL (8.7-10.4); Glucose 120 mg/dL (74-106)
[2024-10-17] MEDS: levoFLOXacin 250 MG TAB PO SCH (09:45)
[2024-10-17] MEDS: FLUCONAZOLE 100 MG TAB PO SCH (09:45)
--- NOTE | 2024-10-17 10:36 | DVH ---
CHEST RADIOGRAPH Indication: pneumonia Technique: Single frontal view of the chest was obtained Comparison: XY CHEST XRAY 1 VIEW on DOS: 10/10/24, XY CHEST XRAY 1 VIEW on DOS: 10/09/24, XY CHEST XRAY 1 VIEW on DOS: 10/08/24, XY CHEST XRAY 1 VIEW on DOS: 10/07/24, XY CHEST PORTABLE on DOS: 10/06/24 FINDINGS: Lines and Tubes: None Lungs: Hazy right lung opacities. Pleura: No effusion. No pneumothorax. Cardiomediastinal contours: Stable Cardiovascular silhouette. Bones: No acute osseous abnormality. IMPRESSION: 1. Right lung opacities reflecting pulmonary edema.
[2024-10-17] MEDS: ACCU-CHEK COMFORT CURVE STRIP VI ONE (11:20)
[2024-10-17] MEDS: GASTROGRAFIN 120 ML SOL ONE (11:21)
--- NOTE | 2024-10-17 12:07 | DVHPN2 ---
Progress Note Date Seen: Oct 17, 2024 Has the PT tested + for MRSA If YES, has PT been informed?: No Medical Necessity Reason Pt with a Central, PICC or Fol: No Objective vital signs Vital Sign Date Time Temp Pulse Resp B/P (MAP) Pulse Ox O2 Delivery O2 Flow Rate FiO2 10/17/24 09:42 75 16 123/66 10/17/24 08:48 97.6 90 97.6 10/16/24 20:00 Room Air* 0 21 Total Intake and Output 10/16/24 10/16/24 10/17/24 15:00 23:00 07:00 Intake Total 17 ml 600 ml Output Total 1500 ml 550 ml Balance 17 ml -900 ml -550 ml medications Current Medications Medications Dose Ordered Sig/Geo Route Start Time Stop Time Status Last Admin Dose Admin Vancomycin HCl 0 ml @ 0 mls/hr UD IV 10/06/24 19:30 Morphine Sulfate 2 mg Q4HPRN PRN IV 10/06/24 19:30 10/17/24 09:42 2 MG Dextrose 50 ml UD PRN IV 10/07/24 11:15 Cancel Insulin Glargine 15 units DAILY SC 10/08/24 10:00 Cancel Dextrose 50 ml PRN PRN IV 10/07/24 15:00 Cancel Dextrose 50 ml PRN PRN IV 10/08/24 08:15 Cancel Dextrose 50 ml UD PRN IV 10/10/24 08:45 Levothyroxine Sodium 50 mcg QAM@0600 PO 10/11/24 06:00 10/16/24 05:57 50 MCG Sertraline HCl 50 mg DAILY PO 10/10/24 12:30 10/17/24 09:45 50 MG Diagnostic Test (Pha) 1 strip ACHS 10/14/24 17:00 10/17/24 11:56 1 STRIP Insulin Human Regular ACHS SC 10/14/24 17:00 10/16/24 21:48 2 UNITS Insulin Glargine 15 units HS SC 10/14/24 22:00 10/16/24 21:49 15 UNITS Acetaminophen 650 mg Q4HP PRN PO 10/15/24 12:15 Clindamycin HCl 300 mg Q8HR PO 10/15/24 22:00 10/16/24 21:46 300 MG Pantoprazole Sodium 40 mg DAILY@0600 PO 10/16/24 06:00 10/16/24 05:57 40 MG Levofloxacin 750 mg DAILY PO 10/17/24 10:00 10/17/24 09:45 750 MG Fluconazole 200 mg DAILY PO 10/17/24 10:00 10/17/24 09:45 200 MG Vancomycin HCl 200 ml @ 200 mls/hr Q8H IV 10/17/24 10:00 10/17/24 09:45 200 MLS/HR laboratory and microbiology Laboratory Tests 10/17/24 05:25 Test 10/17/24 05:25 Range/Units Serum Glucose 120 H 74-106 mg/dL Problem List/Assessment/Plan Problem List/Assessment/Plan 10/06/24 P[ATIENT HAS BEEN HAVING PAIN IN HER LOWER BACK AND LEFT BUTTOCK FOR TWO DAYS AND NOW PRESENTS WITH TENDERNESS AND ERYTHEMA OF THE AFFECTED AREA, THERE IS REDNESS OF THE AFFECTED SKIN, NO SUBCUTANEOUS COMITANCE IS NOTED, NO BULGING , NO DRAINAGE. THE AREA HAS THE APPEARANCE OF A PILONIDAL INFECTION, NO CLINICAL EVIDENCE OF NECROTIZING INFECTION. INCISION AND DRAINAGE AND POSSIBLE DEBRIDEMENT EXPLAINED TO PATIENT WERE RISKS AND COMPLICATIONS., 10/07/24 PATIENT HAD bp OF 90,S WHEN EXAMINED BY ME AT 1600 YESTERDAY AFTERNOON, DESPITE MY EXPLICIT COMMUNICATION ORDER TO BE NOTIFIED IF THE PATIENT DEVELOPS CHANGES IN HER BP OR HEART RATE OR DEVELOPS FEVER AND INCREASING PAIN I WAS NOT NOTIFIED UNTIL THIS MORNING AT 6:50 HRS THAT THE PATIENT IS ON 115MCG/MIN OF PHENYLEPHRINE, WHEN QUESTIONED THE ICU NURSE INFORMED ME THAT SHE RECEIVED THE PATIENT FROM THE ER ALREADY ON PHENYLEPHRINE AT 4 O'CLOCK THIS AM. 10/07/24 waited till patient fully awake after this morning operation, she is fully oriented, explained the seriousness of her problems and the need for a diverting colostomy, also explained that I spoke to her father, sshe expressed wish not to communicate with her mother.operation, risks and complications explained in detail 10/08/24 BP and HR improved. continues with acidosis and leukocytosis, had several bowel movements, explained upcoming re operation on her buttocks again and again explained colostomy procedure 10/10/24 slightly improved, stoma viable without output, wound dressings being changed, the patient will need to transfer to a facility with higher level of care, needs plastic,reconstructive surgical expertise which I do not have. 10/11/24 feels 'a little better" wbc higher, afebrile, colostomy functioning, will inspect wound and possibly debrided more tissue if needed in the operating room on Monday10/16/24 feels better, wound care note reviewed, wound vac in place with good seal. 10/17/24 COMPLANS ABOUT POST PRANDIAL UPPER ABDOMINAL PAIN, WOUND CLEAN AND WELL A[PPROXIMATED, STOMA VIABLE AND FUNCTIONING. WILL GET GI CONSULT Plan discussed with: Patient, Other Dietary Evaluation Review Comments: 1) TPN if NPO > 7 days 2) [facility] 3) Cuco 1 pk BID for wound healing 4) Monitor I/O, lab values, wt trend Expected Outcomes/Goals: To meet >75% estimated needs wound to improve Fu 2-3 days VERONICA TOLLIVER MD Oct 17, 2024 12:07
--- NOTE | 2024-10-17 14:00 | DVH ---
INDICATION: R/O GALLSTONES TECHNIQUE: Multiple real-time sonographic images were obtained of the right upper quadrant. COMPARISON: None FINDINGS: Suboptimal examination secondary to wound bandages and unable to tolerate pressure. The liver measures 17 cm. Main portal vein is patent with proper direction of flow. There is no intrahepatic or extrahepatic ductal dilatation. The common duct measures 0.4 cm. The gallbladder is without evidence of stone or sludge. The gallbladder wall measures 0.25 cm and is within normal limits. The right kidney measures 12 cm. The right kidney is normal in contour, size, and shape. The echoge nicity is normal. There is no hydronephrosis. The pancreas is not well visualized due to overlying bowel gas. IMPRESSION: 1. Unremarkable right upper quadrant sonogram within the limitations as described above.
--- NOTE | 2024-10-17 14:26 | DVH ---
Procedure: XY SMALL BOWEL SERIES-W GASTROGRA Exam Date: 10/17/2024 11:42 AM Reason for study/Clinical History: R/O OBSTRUCTION Comparison Study: None Technique: Single contrast small bowel series performed. Findings: Initial critical care unit nurse view of the abdomen and pelvis appears demonstrates no acute process. Contrast is identified within the colon by 2 hour. This represents a normal small bowel transit time . Small bowel loops are normal in size. Normal mucosal pattern. No evidence of small bowel obstructi on, stricture, or mucosal abnormality. The terminal ileum is well visualized and is unremarkable. IMPRESSION: Normal small bowel series. END IMPRESSION:
--- NOTE | 2024-10-17 14:56 | DVHINCON2 ---
GI Consult Consult Note GI consult note Date of Consultation: 10/17/2024 Chief Complaint: Upper abdominal pain, consider upper GI endoscopy Referring Physician: Dr. Pretty H&P: 29-year-old female presented to ER for possible abscess evaluation on 10/06/2024 Status post incision of pilonidal cyst infection plus necrotizing infection of buttocks Status post sigmoidectomy and left lower quadrant colostomy Patient is now complaining of courtney umbilical pain for two days, worse after eating food. No nausea vomiting.. No melena or red blood in stool Denies history of PUD. No history of GERD. No EGD in past Past Medical History: DM and thyroid Past Surgical History: As above Social History: NO smoking, drinking ETOH and use of illegal drugs. Family History: Noncontributory Review of Systems: Constitutional: no fever, chill, weight loss HEENT: no eye pain, no hearing loss, no oral lesion, no scleral icterus Heart: no chest pain, no chest pressure Lung: no cough, no dyspnea with exertion Abdomen: see HPI Physical exam: General: NAD, AAOX3 Chest: lung pinto clear to auscultation Heart: RRR, no murmur Abdomen: + mild periumbilical tenderness to palpation, +BS Labs: Test 10/16/24 05:12 Range/Units Serum Glucose 111 H 74-106 mg/dL Microbiology Date/Time Source Procedure Growth Status 10/07/24 10:30 Voided Urine Urine Culture - Final Presumptive Tran albicans Complete 10/07/24 08:21 Other Other Gram Stain - Final Complete 10/07/24 08:21 Anaerobic Culture - Final Prevotella loescheii Complete 10/07/24 08:21 Other Other Aerobic Culture - Final Complete 10/06/24 11:20 Blood Blood Culture - Final NO GROWTH AFTER 5 DAYS OF INCUBATION. Complete Imaging: CT abdomen pelvis 10/06/2024 IMPRESSION: Bilateral gluteal region soft tissue edema and subcutaneous emphysema extending to the perianal region and lower back. Correlate for necrotizing fasciitis. Mild wall thickening of the urinary bladder which may be due to inadequate distention. Correlation with urinalysis is recommended to exclude cystitis. Mild hepatomegaly. Critical Result: Necrotizing fasciitis CT abdomen pelvis 10/16/2024 IMPRESSION: Possible early or low-grade small bowel obstruction in the midabdomen as described above. Trace free fluid in the abdomen and pelvis, new since the prior study. Consolidation of much of the visualized right middle and right lower lobes with air bronchograms concerning for pneumonia. At least small right pleural effusion. Significantly worse compared with the prior study. Surgical changes associated with sigmoidectomy and a left lower quadrant colostomy. Normal appendix Assessment: Abdominal pain Small-bowel obstruction Septic shock due to necrotizing fasciitis Pneumonia UTI Plan: Discussed with Dr. Saunders Small-bowel follow-through with Gastrografin results pending NG tube to LIS Supportive care recommended at this time Protonix and Carafate We will continue to monitor patient Thank you for this consult Date of Service: Oct 17, 2024 Billing Provider: ISAIAH SMALL Common Visit Codes: CONSULT ONLY Consultation Codes: [id number] CONSULT <60MIN ISAIAH SMALL Oct 17, 2024 14:56
--- NOTE | 2024-10-17 18:05 | DVHPNRES ---
Progress Note Date Seen: Oct 17, 2024 Resident Creating Document: UMESH BARAHONA RESIDENT Has the PT tested + for MRSA If YES, has PT been informed?: No Medical Necessity Reason Pt with a Central, PICC or Fol: No Subjective Review of Systems 29-year-old female with PMHx of poorly controlled DM and hypothyroidism (not on medications), presented with 1 day of generalized weakness, dizziness, and diffuse abdominal pain with nausea and vomiting. BG was 524 and BP 84/39 at triage. On further evaluation, she had left lower back pain for 2 weeks with associated tenderness and erythema over the gluteal area. CT abdomen/pelvis revealed extensive soft tissue edema and subcutaneous emphysema extending into the perianal region, concerning for necrotizing fasciitis. Hospital Course: She was started on sepsis protocol with IV fluids, broad-spectrum antibiotics and insulin for hyperglycemia. Labs showed leukocytosis (WBC up to 31K), lactic acidosis, anion gap metabolic acidosis, and elevated inflammatory markers. She underwent emergent surgical debridement for necrotizing fasciitis and pilonidal cyst infection with removal of nonviable tissues and drain placement. Intra-op cultures were obtained. She remains intubated and sedated post-op with plans for possible colostomy depending on extent of further debridement. PMHx: DM (off meds 1 yrs), hypothyroidism (no meds) PSHx: None FHx: DM SHx: Social alcohol, non-smoker, no drug use, live with his father and brother, previously was working on [employer] Vitals on admission: BP 84/39, BG 524 10/08/24: ABG still showing acidosis, we restarted insulin drip, dressing change was done, extensive sacral and lumbar ulcer, extending trough anal area, extensive discussion was held with the father and brother about the poor prognosis of the condition, later in the afternoon patient was taken to Secondary debridement of affected area (pilonidal cyst both buttocks, perianal area) and creation of a diverting colostomy. Patient came back to the unit, on levophed low dose, extubated, we changed the fluids: d5w+ 3amp hco3: 125cc/h 10/09/24: dressing change, there are some baker and white patches in the ulcer, nephrology agrees on continue bicarb drip, decrease rate 75cc/h, transfer to [facility] for plastic surgery due to extensive skin defect, continue current treatment, patient can be downgraded to MISAEL 10/10/24: dressing change: less necrotic tissue, bicarb and insulin drip stopped, downgrade to the floor, continue transfer, surgery ordered a ct scan: Redemonstrated bilateral gluteal region soft tissue edema and subcutaneous emphysema which extends from the perianal region to the lower back, suggestive of necrotizing fasciitis. Appears improved from prior.Interval laparotomy and left lower quadrant ostomy with associated postsurgical changes. Hepatomegaly. 10/11/24: wbc is trending slightly higher, wound still has necrotic tissue but looks better than yesterday, patient will benefit for transfer to [facility] for colorectal surgery due to possible involvement of anal sphincter,as well as plastic surgery right now with colostomy on place 10/14/24: new Debridement of devitalized tissue was undertaken. There was no further evidence of necrotizing infection. The wound was then pulse lavaged with 3 L of saline containing Ancef. The wound was packed loosely with iodine saturated Kerlix. The patient will need plastic surgical attention which is not available at this facility, per general surgery patient will benefit for transfer to [facility], wound consult was placed for vac placement, kidney function recovers, lantus was decreased to 15 ui 10/15/24: wound vac was placed, extra dose of morphine due to pain, BPs soft, 500 cc bolus, pending transfer [facility] 10/16/24: patient was having epigastric pain, dr villfaana came at bedside, pain improved with analgesia, meropenem dc and Levaquin PO was started, also fluconazol was transitioned to PO, later in the late afternoon, patient was having abdominal pain, residential remodeling subcontractor team ordered a CT scan that showed: The patient is status post sigmoidectomy with a left lower quadrant colostomy. There is moderate stool burden in the colon. The appendix is normal. There is fluid within a few proximal ileal small bowel loops although not pathologically enlarged and fecal material within a loop of ileum in the left abdomen which enters a convergence of bowel loops in the midabdomen and can no longer be distinguished. The distal ileum in the right lower quadrant is completely decompressed. There is trace free fluid in the abdomen and pelvis, new compared with the prior study. Consolidation of much of the visualized right middle and right lower lobes with air bronchograms concerning for pneumonia. At least small right pleural effusion. Significantly worse compared with the prior study. 10/17/24: gastrografin showed no small bowel obstruction, abdominal pain is improving, RUQ US: normal, we will continue PO AB, wound vac change tomorrow Objective vital signs Vital Sign Date Time Temp Pulse Resp B/P (MAP) Pulse Ox O2 Delivery O2 Flow Rate FiO2 10/17/24 17:00 97.8 78 17 122/79 (93) 92 97.8 10/17/24 08:00 Room Air* 0 21 Total Intake and Output 10/16/24 10/16/24 10/17/24 15:00 23:00 07:00 Intake Total 17 ml 600 ml Output Total 1500 ml 550 ml Balance 17 ml -900 ml -550 ml medications Current Medications Medications Dose Ordered Sig/Geo Route Start Time Stop Time Status Last Admin Dose Admin Vancomycin HCl 0 ml @ 0 mls/hr UD IV 10/06/24 19:30 Morphine Sulfate 2 mg Q4HPRN PRN IV 10/06/24 19:30 10/17/24 13:55 2 MG Dextrose 50 ml UD PRN IV 10/07/24 11:15 Cancel Insulin Glargine 15 units DAILY SC 10/08/24 10:00 Cancel Dextrose 50 ml PRN PRN IV 10/07/24 15:00 Cancel Dextrose 50 ml PRN PRN IV 10/08/24 08:15 Cancel Dextrose 50 ml UD PRN IV 10/10/24 08:45 Levothyroxine Sodium 50 mcg QAM@0600 PO 10/11/24 06:00 10/16/24 05:57 50 MCG Sertraline HCl 50 mg DAILY PO 10/10/24 12:30 10/17/24 09:45 50 MG Diagnostic Test (Pha) 1 strip ACHS 10/14/24 17:00 10/17/24 11:56 1 STRIP Insulin Human Regular ACHS SC 10/14/24 17:00 10/16/24 21:48 2 UNITS Acetaminophen 650 mg Q4HP PRN PO 10/15/24 12:15 Clindamycin HCl 300 mg Q8HR PO 10/15/24 22:00 10/17/24 13:50 300 MG Pantoprazole Sodium 40 mg DAILY@0600 PO 10/16/24 06:00 10/16/24 05:57 40 MG Levofloxacin 750 mg DAILY PO 10/17/24 10:00 10/17/24 09:45 750 MG Fluconazole 200 mg DAILY PO 10/17/24 10:00 10/17/24 09:45 200 MG Vancomycin HCl 200 ml @ 200 mls/hr Q8H IV 10/17/24 10:00 10/17/24 09:45 200 MLS/HR Examination Gen: 29-year-old female in acute distress Skin: Warm, dry, normal color and texture, no rash. HEENT: Normocephalic atraumatic, mucous membranes moist and pink.hypothyroidism facies Neck: Cervical and supraclavicular nodes normal without enlargement, trachea is midline, thyroid gland is normal without masses. Pulmonary: hypoventilation Cardiac: Regular rate and rhythm. No murmur Abdomen: Soft, nontender, nondistended, bowel sounds present all 4 quadrants, no guarding, no rigidity, no organomegaly.laparotomy with no bleeding, colostomy with stool Extremities: extensive sacral and lumbar ulcer, covered by wound vac Neuro: Cranial nerves II through XII grossly intact, normal affect and speech, no focal motor deficits, more alert AX3 laboratory and microbiology Laboratory Tests 10/17/24 05:25 Test 10/17/24 05:25 Range/Units Serum Glucose 120 H 74-106 mg/dL Microbiology Date/Time Source Procedure Growth Status 10/07/24 10:30 Voided Urine Urine Culture - Final Presumptive Judie albicans Complete 10/07/24 08:21 Other Other Gram Stain - Final Complete 10/07/24 08:21 Anaerobic Culture - Final Prevotella loescheii Complete 10/07/24 08:21 Other Other Aerobic Culture - Final Complete 10/06/24 11:20 Blood Blood Culture - Final NO GROWTH AFTER 5 DAYS OF INCUBATION. Complete Problem List/Assessment/Plan Problem List/Assessment/Plan -Neurologic: #Acute metabolic encephalopathy secondary to sepsis and metabolic derangements. No focal neurological deficits documented. more alert, AOX3 Infectious Diseases #Septic shock due to necrotizing fasciitis of the gluteal and sacral region secondary to pilonidal cyst infection due to prevotella loescheii #sp I&D 10/07/24 #sp debridement of affected area (pilonidal cyst both buttocks, perianal area) and creation of a diverting colostomy 10/08/24 Confirmed intra-op with devitalized tissue and large purulent collection WBC peaked at 31K with left shift Source control achieved with surgical debridement Started on broad-spectrum antibiotics (Zosyn + Vanc): now meropenem+ vanco+ clindamycin Blood cultures pending ID consulted per Dr Villafana 10/10/24: dressing change: less necrotic tissue, bicarb and insulin drip stopped, downgrade to the floor, continue transfer, surgery ordered a ct scan: Redemonstrated bilateral gluteal region soft tissue edema and subcutaneous emphysema which extends from the perianal region to the lower back, suggestive of necrotizing fasciitis. Appears improved from prior.Interval laparotomy and left lower quadrant ostomy with associated postsurgical changes. Hepatomegaly. 10/11/24: wbc is trending slightly higher, wound still has necrotic tissue but looks better than yesterday, patient will benefit for transfer to [facility] for colorectal surgery due to possible involvement of anal sphincter,as well as plastic surgery right now with colostomy on place 10/14/24: new Debridement of devitalized tissue was undertaken. There was no further evidence of necrotizing infection. The wound was then pulse lavaged with 3 L of saline containing Ancef. The wound was packed loosely with iodine saturated Kerlix. The patient will need plastic surgical attention which is not available at this facility, per general surgery patient will benefit for transfer to [facility], wound consult was placed for vac placement, kidney function recovers, lantus was decreased to 15 ui 10/15/24: wound vac was placed, extra dose of morphine due to pain, BPs soft, 500 cc bolus, pending transfer [facility] Cardiovascular: #Septic shock due to necrotizing fasciitis with hypotension (84/39 on arrival), requiring fluid resuscitation and vasopressor support with phenylephrine. Lactate peaked at 4.9 MAP goal >65 mmHg maintained Improving hemodynamics post-op wean off phenylephrine levophed off midline placed Respiratory: #Pneumonia gram+/gram- Consolidation of much of the visualized right middle and right lower lobes with air bronchograms concerning for pneumonia. At least small right pleural effusion. clindamycin, levaquin, metronidazole #Acute hypoxemic respiratory failure secondary to sepsis and poor perfusion #Respiratory acidosis possible obesity hypoventilation syndrome today room air No mechanical ventilation ABG trends: 10/06: pH 7.34, HCO 14 compensated metabolic acidosis 10/07: pH 7.18 then 7.20, HCO 12.1 worsening primary metabolic acidosis No respiratory compensation, consistent with acute process: respiratory acidosis Lactate-driven AGMA, more than DKA 10/08 ph 7.316 pco2 28.6 po2 99.2 hco3 14.3 10/10 ph 7.44 pco2 37.5 po2 89.6 hco3 25.2 Metabolic/Endocrine: #Severe AGMA due to lactic acidosis #Uncontrolled diabetes hba1c 13 B, but beta-hydroxybutyrate only 0.9, no ketonemia AG >17, HCO <15 consistent with lactic acidosis dc bicarb and insulin drip lantus 15 ui #Hypothyroidism: TSH 12.1, low free T4 free T3 Given severity of illness, IV levothyroxine started to prevent myxedema daily Cortisol: 30.84 normal, adrenal insufficiency ruled out levothyroxine PO #Hypomagnesemia replaced Hematology: #Leukocytosis, improving with neutrophilic predominance (WBC >30K) at admission #Anemia Hgb 9.3, likely hemodilutional or inflammatory No evidence of DIC, platelets stable Monitor for anemia of critical illness Renal: АНДРЕЙ due to VMN on possible CKD, baseline creatinine unknown, resolved (from hypoperfusion and sepsis + chronic component from diabetes) Cr trending high UA: proteinuria (1+), trace ketones, glucosuria (4+), WBC 16 possible UTI component or inflammation Protein/Creatinine ratio = 218.6 mg/g suggests underlying CKD Renal US: Echogenic kidneys, no hydronephrosis, medical kidney disease consistent with diabetic nephropathy GI #sp colostomy 10/08/24 #Possible low-grade small bowel obstruction #Trace free fluid in the abdomen and pelvis NPO 10/16/24: patient was having epigastric pain, dr villafana came at bedside, pain improved with analgesia, meropenem dc and Levaquin PO was started, also fluconazol was transitioned to PO, later in the late afternoon, patient was having abdominal pain, residential remodeling subcontractor team ordered a CT scan that showed: The patient is status post sigmoidectomy with a left lower quadrant colostomy. There is moderate stool burden in the colon. The appendix is normal. There is fluid within a few proximal ileal small bowel loops although not pathologically enlarged and fecal material within a loop of ileum in the left abdomen which enters a convergence of bowel loops in the midabdomen and can no longer be distinguished. The distal ileum in the right lower quadrant is completely decompressed. There is trace free fluid in the abdomen and pelvis, new compared with the prior study. Consolidation of much of the visualized right middle and right lower lobes with air bronchograms concerning for pneumonia. At least small right pleural effusion. Significantly worse compared with the prior study. Findings discussed with dr Villafana 10/17/24: gastrografin showed no small bowel obstruction, abdominal pain is improving, RUQ US: normal, we will continue PO AB, wound vac change tomorrow, GI on board : #Complicated UTI, presumptive judie albicans UA: trace ketones, glucosuria, 1+ protein, few bacteria Bladder decompressed via Prajapati, likely due to altered mental status and hypotension fluconazol iv MSK/Soft Tissue: #Extensive necrotizing fasciitis involving gluteal/sacral regions Large abscess drained (~150 mL purulent fluid), tissue debrided Pulse lavage and wound packed sp debridement of affected area (pilonidal cyst both buttocks, perianal area) and creation of a diverting colostomy 10/08/24 wound is having baker and white patches, patient will benefit for transfer to [facility] for plastic surgery 10/10/24: dressing change: less necrotic tissue 10/14/24: new Debridement of devitalized tissue was undertaken. There was no further evidence of necrotizing infection. The wound was then pulse lavaged with 3 L of saline containing Ancef. The wound was packed loosely with iodine saturated Kerlix. The patient will need plastic surgical attention which is not available at this facility, per general surgery patient will benefit for transfer to [facility], wound consult was placed for vac placement 10/15/24: wound vac was placed, extra dose of morphine due to pain, BPs soft, 500 cc bolus, pending transfer [facility] Case discussed with Dr Orr Time spent on critical care 36 min, excluding procedures, extensive discussion with the father Darwin, full code Plan discussed with: Patient My Orders My Orders Orders - UMESH BARAHONA RESIDENT Procedure Category Date Status Time Chest Xray 1 View XY 10/17/24 Resulted 08:05 Npo Except For SHEFALI 10/17/24 In Process Medications 08:52 * Gi Dvh Brake Machine Operator CONS 10/17/24 Transmitted 12:58 Complete Blood Count LAB 10/18/24 Verified 04:00 Comprehensive LAB 10/18/24 Verified Metabolic Panel 04:00 Lipase LAB 10/18/24 Verified 04:00 Dietary Evaluation Review Comments: 1) TPN if NPO > 7 days 2) Advance to [facility] 60gm as medically feasible 3) Cuco 1 pk BID for wound healing 4) Monitor I/O, lab values, wt trend Expected Outcomes/Goals: To meet >75% estimated needs wound to improve Fu 2-3 days Date of Service: Oct 17, 2024 Billing Provider: DARWIN ORR MD Common Visit Codes: 88438-[id number] CARE 30-74 MIN UMESH BARAHONA RESIDENT Oct 17, 2024 18:05 DARWIN ORR MD Oct 19, 2024 12:58
[2024-10-18] VITALS (8 sets, daily range): BP systolic 110–134; BP diastolic 64–86; PULSE 73–87; RESP 16–22; TEMP 97.7–98.3; O2SAT 94–100
[2024-10-18 06:43] LABS: Hematocrit 32.6 % (36.0-46.0); Hemoglobin 10.9 g/dL (12.2-16.2); Mean Corpuscular Hemoglobin 28.8 pg (28.0-32.0); Mean Corpuscular Volume 85.8 fL (80.0-100.0); Nucleated Red Blood Cells % 0.0 %
[2024-10-18 07:02] LABS: Alanine Aminotransferase 14 U/L (7-40); Albumin 3.5 g/dL (3.2-4.8); Anion Gap 11 (5-15); BUN/Creatinine Ratio 13.3 (10.0-20.0); Bilirubin, Total 0.5 mg/dL (0.2-1.0); Blood Urea Nitrogen 10 mg/dL (9-23); Calcium 9.7 mg/dL (8.7-10.4); Carbon Dioxide 26 mmol/L (20-31); Chloride 101 mmol/L (98-107); Potassium 3.9 mmol/L (3.5-5.1); Sodium 138 mmol/L (136-145); Total Protein 7.8 g/dL (5.7-8.2)
[2024-10-18 07:09] LABS: Alkaline Phosphatase 190 U/L (46-116); Glucose 66 mg/dL (74-106)
[2024-10-18 07:33] LABS: Lipase 99 U/L (12-53)
--- NOTE | 2024-10-18 10:27 | DVHPN2 ---
Progress Note Date Seen: Oct 18, 2024 Has the PT tested + for MRSA If YES, has PT been informed?: No Medical Necessity Reason Pt with a Central, PICC or Fol: No Objective vital signs Vital Sign Date Time Temp Pulse Resp B/P (MAP) Pulse Ox O2 Delivery O2 Flow Rate FiO2 10/18/24 09:00 97.7 76 17 115/80 (92) 100 97.7 10/17/24 20:00 Room Air* 0 21 Total Intake and Output 10/17/24 10/17/24 10/18/24 15:00 23:00 07:00 Intake Total 0 ml 200 ml Output Total 550 ml 1350 ml Balance -550 ml -1150 ml medications Current Medications Medications Dose Ordered Sig/Geo Route Start Time Stop Time Status Last Admin Dose Admin Vancomycin HCl 0 ml @ 0 mls/hr UD IV 10/06/24 19:30 Morphine Sulfate 2 mg Q4HPRN PRN IV 10/06/24 19:30 10/17/24 22:44 2 MG Dextrose 50 ml UD PRN IV 10/07/24 11:15 Cancel Insulin Glargine 15 units DAILY SC 10/08/24 10:00 Cancel Dextrose 50 ml PRN PRN IV 10/07/24 15:00 Cancel Dextrose 50 ml PRN PRN IV 10/08/24 08:15 Cancel Dextrose 50 ml UD PRN IV 10/10/24 08:45 Levothyroxine Sodium 50 mcg QAM@0600 PO 10/11/24 06:00 10/18/24 05:20 50 MCG Sertraline HCl 50 mg DAILY PO 10/10/24 12:30 10/18/24 09:39 50 MG Diagnostic Test (Pha) 1 strip ACHS 10/14/24 17:00 10/18/24 06:21 1 STRIP Insulin Human Regular ACHS SC 10/14/24 17:00 10/16/24 21:48 2 UNITS Acetaminophen 650 mg Q4HP PRN PO 10/15/24 12:15 Clindamycin HCl 300 mg Q8HR PO 10/15/24 22:00 10/18/24 05:20 300 MG Pantoprazole Sodium 40 mg DAILY@0600 PO 10/16/24 06:00 10/18/24 05:19 40 MG Levofloxacin 750 mg DAILY PO 10/17/24 10:00 10/18/24 09:39 750 MG Fluconazole 200 mg DAILY PO 10/17/24 10:00 10/18/24 09:39 200 MG Vancomycin HCl 200 ml @ 200 mls/hr Q8H IV 10/17/24 10:00 10/18/24 09:39 200 MLS/HR laboratory and microbiology Laboratory Tests 10/18/24 05:50 Test 10/18/24 05:50 Range/Units Serum Glucose 66 L 74-106 mg/dL Problem List/Assessment/Plan Problem List/Assessment/Plan 10/06/24 P[ATIENT HAS BEEN HAVING PAIN IN HER LOWER BACK AND LEFT BUTTOCK FOR TWO DAYS AND NOW PRESENTS WITH TENDERNESS AND ERYTHEMA OF THE AFFECTED AREA, THERE IS REDNESS OF THE AFFECTED SKIN, NO SUBCUTANEOUS COMITANCE IS NOTED, NO BULGING , NO DRAINAGE. THE AREA HAS THE APPEARANCE OF A PILONIDAL INFECTION, NO CLINICAL EVIDENCE OF NECROTIZING INFECTION. INCISION AND DRAINAGE AND POSSIBLE DEBRIDEMENT EXPLAINED TO PATIENT WERE RISKS AND COMPLICATIONS., 10/07/24 PATIENT HAD bp OF 90,S WHEN EXAMINED BY ME AT 1600 YESTERDAY AFTERNOON, DESPITE MY EXPLICIT COMMUNICATION ORDER TO BE NOTIFIED IF THE PATIENT DEVELOPS CHANGES IN HER BP OR HEART RATE OR DEVELOPS FEVER AND INCREASING PAIN I WAS NOT NOTIFIED UNTIL THIS MORNING AT 6:50 HRS THAT THE PATIENT IS ON 115MCG/MIN OF PHENYLEPHRINE, WHEN QUESTIONED THE ICU NURSE INFORMED ME THAT SHE RECEIVED THE PATIENT FROM THE ER ALREADY ON PHENYLEPHRINE AT 4 O'CLOCK THIS AM. 10/07/24 waited till patient fully awake after this morning operation, she is fully oriented, explained the seriousness of her problems and the need for a diverting colostomy, also explained that I spoke to her father, sshe expressed wish not to communicate with her mother.operation, risks and complications explained in detail 10/08/24 BP and HR improved. continues with acidosis and leukocytosis, had several bowel movements, explained upcoming re operation on her buttocks again and again explained colostomy procedure 10/10/24 slightly improved, stoma viable without output, wound dressings being changed, the patient will need to transfer to a facility with higher level of care, needs plastic,reconstructive surgical expertise which I do not have. 10/11/24 feels 'a little better" wbc higher, afebrile, colostomy functioning, will inspect wound and possibly debrided more tissue if needed in the operating room on Monday10/16/24 feels better, wound care note reviewed, wound vac in place with good seal. 10/17/24 COMPLAINS ABOUT POST PRANDIAL UPPER ABDOMINAL PAIN, WOUND CLEAN AND WELL APPROXIMATED, STOMA VIABLE AND FUNCTIONING. WILL GET GI CONSULT 10/18/24 FEELS MUCH BETTER, WOUND WITHOUT SURROUNDING ERYTHEMA, WOUND VAC IN PLACE, ABDOPMEN SOFT, NON DISTENDED, NON TENDER, STOMA VIALBLE AND FUNCTIONING, ULTRASOUND G.B. WITHOUT STONES, SMALL BOWEL SERIES NORMAL. STABLE. Plan discussed with: Patient Dietary Evaluation Review Comments: 1) TPN if NPO > 7 days 2) [facility] 3) Cuco 1 pk BID for wound healing 4) Monitor I/O, lab values, wt trend Expected Outcomes/Goals: To meet >75% estimated needs wound to improve Fu 2-3 days VERONICA TOLLIVER MD Oct 18, 2024 10:27
[2024-10-18] MEDS ORDERED: ONDANSETRON HCL 4 MG/2 ML VIAL ONE (12:56)
[2024-10-18] MEDS ORDERED: KETAMINE 50mg/ML 10ml Vial 10 ML ONE (12:56)
[2024-10-18] MEDS ORDERED: PROPOFOL 10 MG/ML 20 ML IV ONE (12:56)
[2024-10-18] MEDS ORDERED: fentaNYL CITRATE 100 MCG/2 ML VL ONE (12:56)
[2024-10-18] MEDS ORDERED: SODIUM CHLORIDE LOCK 10 ML ONE (12:56)
[2024-10-18] MEDS ORDERED: MIDAZOLAM HCL 2MG/2ML 2ml VIAL (1mg/ml) ONE (12:56)
--- NOTE | 2024-10-18 12:57 | DVHPNRES ---
Progress Note Date Seen: Oct 18, 2024 Resident Creating Document: UMESH BARAHONA RESIDENT Has the PT tested + for MRSA If YES, has PT been informed?: No Medical Necessity Reason Pt with a Central, PICC or Fol: No Subjective Review of Systems 29-year-old female with PMHx of poorly controlled DM and hypothyroidism (not on medications), presented with 1 day of generalized weakness, dizziness, and diffuse abdominal pain with nausea and vomiting. BG was 524 and BP 84/39 at triage. On further evaluation, she had left lower back pain for 2 weeks with associated tenderness and erythema over the gluteal area. CT abdomen/pelvis revealed extensive soft tissue edema and subcutaneous emphysema extending into the perianal region, concerning for necrotizing fasciitis. Hospital Course: She was started on sepsis protocol with IV fluids, broad-spectrum antibiotics and insulin for hyperglycemia. Labs showed leukocytosis (WBC up to 31K), lactic acidosis, anion gap metabolic acidosis, and elevated inflammatory markers. She underwent emergent surgical debridement for necrotizing fasciitis and pilonidal cyst infection with removal of nonviable tissues and drain placement. Intra-op cultures were obtained. She remains intubated and sedated post-op with plans for possible colostomy depending on extent of further debridement. PMHx: DM (off meds 1 yrs), hypothyroidism (no meds) PSHx: None FHx: DM SHx: Social alcohol, non-smoker, no drug use, live with his father and brother, previously was working on [employer] Vitals on admission: BP 84/39, BG 524 10/08/24: ABG still showing acidosis, we restarted insulin drip, dressing change was done, extensive sacral and lumbar ulcer, extending trough anal area, extensive discussion was held with the father and brother about the poor prognosis of the condition, later in the afternoon patient was taken to Secondary debridement of affected area (pilonidal cyst both buttocks, perianal area) and creation of a diverting colostomy. Patient came back to the unit, on levophed low dose, extubated, we changed the fluids: d5w+ 3amp hco3: 125cc/h 10/09/24: dressing change, there are some baker and white patches in the ulcer, nephrology agrees on continue bicarb drip, decrease rate 75cc/h, transfer to [facility] for plastic surgery due to extensive skin defect, continue current treatment, patient can be downgraded to MISAEL 10/10/24: dressing change: less necrotic tissue, bicarb and insulin drip stopped, downgrade to the floor, continue transfer, surgery ordered a ct scan: Redemonstrated bilateral gluteal region soft tissue edema and subcutaneous emphysema which extends from the perianal region to the lower back, suggestive of necrotizing fasciitis. Appears improved from prior.Interval laparotomy and left lower quadrant ostomy with associated postsurgical changes. Hepatomegaly. 10/11/24: wbc is trending slightly higher, wound still has necrotic tissue but looks better than yesterday, patient will benefit for transfer to [facility] for colorectal surgery due to possible involvement of anal sphincter,as well as plastic surgery right now with colostomy on place 10/14/24: new Debridement of devitalized tissue was undertaken. There was no further evidence of necrotizing infection. The wound was then pulse lavaged with 3 L of saline containing Ancef. The wound was packed loosely with iodine saturated Kerlix. The patient will need plastic surgical attention which is not available at this facility, per general surgery patient will benefit for transfer to [facility], wound consult was placed for vac placement, kidney function recovers, lantus was decreased to 15 ui 10/15/24: wound vac was placed, extra dose of morphine due to pain, BPs soft, 500 cc bolus, pending transfer [facility] 10/16/24: patient was having epigastric pain, dr villafana came at bedside, pain improved with analgesia, meropenem dc and Levaquin PO was started, also fluconazol was transitioned to PO, later in the late afternoon, patient was having abdominal pain, director of vocational guidance team ordered a CT scan that showed: The patient is status post sigmoidectomy with a left lower quadrant colostomy. There is moderate stool burden in the colon. The appendix is normal. There is fluid within a few proximal ileal small bowel loops although not pathologically enlarged and fecal material within a loop of ileum in the left abdomen which enters a convergence of bowel loops in the midabdomen and can no longer be distinguished. The distal ileum in the right lower quadrant is completely decompressed. There is trace free fluid in the abdomen and pelvis, new compared with the prior study. Consolidation of much of the visualized right middle and right lower lobes with air bronchograms concerning for pneumonia. At least small right pleural effusion. Significantly worse compared with the prior study. 10/17/24: gastrografin showed no small bowel obstruction, abdominal pain is improving, RUQ US: normal, we will continue PO AB, wound vac change tomorrow 10/18/24: wound vac was changed, possible need of new debridement?, dr Villafana and dr Zamorano informed about the vac change, Dr Saunders GI, perfomed upper endoscope, showing gastric and duondenal ulcer, protonix and sucralfate per GI, lantus 10ui Objective vital signs Vital Sign Date Time Temp Pulse Resp B/P (MAP) Pulse Ox O2 Delivery O2 Flow Rate FiO2 10/18/24 10:33 76 17 115/80 10/18/24 09:00 97.7 100 97.7 10/18/24 08:00 Room Air* 0 21 Total Intake and Output 10/17/24 10/17/24 10/18/24 15:00 23:00 07:00 Intake Total 0 ml 200 ml Output Total 550 ml 1350 ml Balance -550 ml -1150 ml medications Current Medications Medications Dose Ordered Sig/Geo Route Start Time Stop Time Status Last Admin Dose Admin Vancomycin HCl 0 ml @ 0 mls/hr UD IV 10/06/24 19:30 Morphine Sulfate 2 mg Q4HPRN PRN IV 10/06/24 19:30 10/18/24 10:33 2 MG Dextrose 50 ml UD PRN IV 10/07/24 11:15 Cancel Insulin Glargine 15 units DAILY SC 10/08/24 10:00 Cancel Dextrose 50 ml PRN PRN IV 10/07/24 15:00 Cancel Dextrose 50 ml PRN PRN IV 10/08/24 08:15 Cancel Dextrose 50 ml UD PRN IV 10/10/24 08:45 Levothyroxine Sodium 50 mcg QAM@0600 PO 10/11/24 06:00 10/18/24 05:20 50 MCG Sertraline HCl 50 mg DAILY PO 10/10/24 12:30 10/18/24 09:39 50 MG Diagnostic Test (Pha) 1 strip ACHS 10/14/24 17:00 10/18/24 11:30 1 STRIP Insulin Human Regular ACHS SC 10/14/24 17:00 10/16/24 21:48 2 UNITS Acetaminophen 650 mg Q4HP PRN PO 10/15/24 12:15 Clindamycin HCl 300 mg Q8HR PO 10/15/24 22:00 10/18/24 05:20 300 MG Pantoprazole Sodium 40 mg DAILY@0600 PO 10/16/24 06:00 10/18/24 05:19 40 MG Levofloxacin 750 mg DAILY PO 10/17/24 10:00 10/18/24 09:39 750 MG Fluconazole 200 mg DAILY PO 10/17/24 10:00 10/18/24 09:39 200 MG Vancomycin HCl 200 ml @ 200 mls/hr Q8H IV 10/17/24 10:00 10/18/24 09:39 200 MLS/HR Examination Gen: 29-year-old female in acute distress Skin: Warm, dry, normal color and texture, no rash. HEENT: Normocephalic atraumatic, mucous membranes moist and pink.hypothyroidism facies Neck: Cervical and supraclavicular nodes normal without enlargement, trachea is midline, thyroid gland is normal without masses. Pulmonary: hypoventilation Cardiac: Regular rate and rhythm. No murmur Abdomen: Soft, nontender, nondistended, bowel sounds present all 4 quadrants, no guarding, no rigidity, no organomegaly.laparotomy with no bleeding, colostomy with stool Extremities: extensive sacral and lumbar ulcer, still fibrinopurulent tissue and a possible new collection in the left buttock, vac was placed again Neuro: Cranial nerves II through XII grossly intact, normal affect and speech, no focal motor deficits, more alert AX[facility] laboratory and microbiology Laboratory Tests 10/18/24 05:50 Test 10/18/24 05:50 Range/Units Serum Glucose 66 L 74-106 mg/dL Microbiology Date/Time Source Procedure Growth Status 10/07/24 10:30 Voided Urine Urine Culture - Final Presumptive Judie albicans Complete 10/07/24 08:21 Other Other Gram Stain - Final Complete 10/07/24 08:21 Anaerobic Culture - Final Prevotella loescheii Complete 10/07/24 08:21 Other Other Aerobic Culture - Final Complete 10/06/24 11:20 Blood Blood Culture - Final NO GROWTH AFTER 5 DAYS OF INCUBATION. Complete Problem List/Assessment/Plan Problem List/Assessment/Plan -Neurologic: #Acute metabolic encephalopathy secondary to sepsis and metabolic derangements. No focal neurological deficits documented. more alert, AOX[facility] Infectious Diseases #Septic shock due to necrotizing fasciitis of the gluteal and sacral region secondary to pilonidal cyst infection due to prevotella loescheii #sp I&D 10/07/24 #sp debridement of affected area (pilonidal cyst both buttocks, perianal area) and creation of a diverting colostomy 10/08/24 Confirmed intra-op with devitalized tissue and large purulent collection WBC peaked at 31K with left shift Source control achieved with surgical debridement Started on broad-spectrum antibiotics (Zosyn + Vanc): now meropenem+ vanco+ clindamycin Blood cultures pending ID consulted per Dr Villafana 10/10/24: dressing change: less necrotic tissue, bicarb and insulin drip stopped, downgrade to the floor, continue transfer, surgery ordered a ct scan: Redemonstrated bilateral gluteal region soft tissue edema and subcutaneous emphysema which extends from the perianal region to the lower back, suggestive of necrotizing fasciitis. Appears improved from prior.Interval laparotomy and left lower quadrant ostomy with associated postsurgical changes. Hepatomegaly. 10/11/24: wbc is trending slightly higher, wound still has necrotic tissue but looks better than yesterday, patient will benefit for transfer to [facility] for colorectal surgery due to possible involvement of anal sphincter,as well as plastic surgery right now with colostomy on place 10/14/24: new Debridement of devitalized tissue was undertaken. There was no further evidence of necrotizing infection. The wound was then pulse lavaged with 3 L of saline containing Ancef. The wound was packed loosely with iodine saturated Kerlix. The patient will need plastic surgical attention which is not available at this facility, per general surgery patient will benefit for transfer to [facility], wound consult was placed for vac placement, kidney function recovers, lantus was decreased to 15 ui 10/15/24: wound vac was placed, extra dose of morphine due to pain, BPs soft, 500 cc bolus, pending transfer [facility] 10/18/24: wound vac was changed, possible need of new debridement?, dr Villafana and dr Zamorano informed about the vac change, Cardiovascular: #Septic shock due to necrotizing fasciitis with hypotension (84/39 on arrival), requiring fluid resuscitation and vasopressor support with phenylephrine. Lactate peaked at 4.9 MAP goal >65 mmHg maintained Improving hemodynamics post-op wean off phenylephrine levophed off midline placed Respiratory: #Pneumonia gram+/gram- Consolidation of much of the visualized right middle and right lower lobes with air bronchograms concerning for pneumonia. At least small right pleural effusion. clindamycin, levaquin, metronidazole #Acute hypoxemic respiratory failure secondary to sepsis and poor perfusion #Respiratory acidosis possible obesity hypoventilation syndrome today room air No mechanical ventilation ABG trends: 10/06: pH 7.34, HCO 14 compensated metabolic acidosis 10/07: pH 7.18 then 7.20, HCO 12.1 worsening primary metabolic acidosis No respiratory compensation, consistent with acute process: respiratory acidosis Lactate-driven AGMA, more than DKA 10/08 ph 7.316 pco2 28.6 po2 99.2 hco3 14.3 10/10 ph 7.44 pco2 37.5 po2 89.6 hco3 25.2 Metabolic/Endocrine: #Severe AGMA due to lactic acidosis #Uncontrolled diabetes hba1c 13 B, but beta-hydroxybutyrate only 0.9, no ketonemia AG >17, HCO <15 consistent with lactic acidosis dc bicarb and insulin drip lantus 15 ui #Hypothyroidism: TSH 12.1, low free T4 free T3 Given severity of illness, IV levothyroxine started to prevent myxedema daily Cortisol: 30.84 normal, adrenal insufficiency ruled out levothyroxine PO #Hypomagnesemia replaced Hematology: #Leukocytosis, improving with neutrophilic predominance (WBC >30K) at admission #Anemia Hgb 9.3, likely hemodilutional or inflammatory No evidence of DIC, platelets stable Monitor for anemia of critical illness Renal: АНДРЕЙ due to VMN on possible CKD, baseline creatinine unknown, resolved (from hypoperfusion and sepsis + chronic component from diabetes) Cr trending high UA: proteinuria (1+), trace ketones, glucosuria (4+), WBC 16 possible UTI component or inflammation Protein/Creatinine ratio = 218.6 mg/g suggests underlying CKD Renal US: Echogenic kidneys, no hydronephrosis, medical kidney disease consistent with diabetic nephropathy GI #sp colostomy 10/08/24 #Possible low-grade small bowel obstruction #Trace free fluid in the abdomen and pelvis #gastric ulcer #duodenal ulcer clear liquid diet 10/16/24: patient was having epigastric pain, dr villafana came at bedside, pain improved with analgesia, meropenem dc and Levaquin PO was started, also fluconazol was transitioned to PO, later in the late afternoon, patient was having abdominal pain, director of vocational guidance team ordered a CT scan that showed: The patient is status post sigmoidectomy with a left lower quadrant colostomy. There is moderate stool burden in the colon. The appendix is normal. There is fluid within a few proximal ileal small bowel loops although not pathologically enlarged and fecal material within a loop of ileum in the left abdomen which enters a convergence of bowel loops in the midabdomen and can no longer be distinguished. The distal ileum in the right lower quadrant is completely decompressed. There is trace free fluid in the abdomen and pelvis, new compared with the prior study. Consolidation of much of the visualized right middle and right lower lobes with air bronchograms concerning for pneumonia. At least small right pleural effusion. Significantly worse compared with the prior study. Findings discussed with dr Villafana 10/17/24: gastrografin showed no small bowel obstruction, abdominal pain is improving, RUQ US: normal, we will continue PO AB, wound vac change tomorrow, GI on board 10/18/24Dr Saunders GI, perfomed upper endoscope, showing gastric and duondenal ulcer, protonix and sucralfate per GI, lantus 10ui : #Complicated UTI, presumptive judie albicans UA: trace ketones, glucosuria, 1+ protein, few bacteria Bladder decompressed via Prajapati, likely due to altered mental status and hypotension fluconazol iv MSK/Soft Tissue: #Extensive necrotizing fasciitis involving gluteal/sacral regions Large abscess drained (~150 mL purulent fluid), tissue debrided Pulse lavage and wound packed sp debridement of affected area (pilonidal cyst both buttocks, perianal area) and creation of a diverting colostomy 10/08/24 wound is having baker and white patches, patient will benefit for transfer to [facility] for plastic surgery 10/10/24: dressing change: less necrotic tissue 10/14/24: new Debridement of devitalized tissue was undertaken. There was no further evidence of necrotizing infection. The wound was then pulse lavaged with 3 L of saline containing Ancef. The wound was packed loosely with iodine saturated Kerlix. The patient will need plastic surgical attention which is not available at this facility, per general surgery patient will benefit for transfer to [facility], wound consult was placed for vac placement 10/15/24: wound vac was placed, extra dose of morphine due to pain, BPs soft, 500 cc bolus, pending transfer [facility] Case discussed with Dr Darby Time spent on critical care 36 min, excluding procedures, extensive discussion with the father Darwin, full code Plan discussed with: Patient My Orders My Orders Orders - UMESH BARAHONA Procedure Category Date Status Time * Gi Dvh It Senior Software Engineer Java CONS 10/17/24 Transmitted 12:58 Dietary Evaluation Review Comments: 1) TPN if NPO > 7 days 2) Advance to [facility] 60gm as medically feasible 3) Cuco 1 pk BID for wound healing 4) Monitor I/O, lab values, wt trend Expected Outcomes/Goals: To meet >75% estimated needs wound to improve Fu 2-3 days UMESH BARAHONA RESIDENT Oct 18, 2024 12:57
--- NOTE | 2024-10-18 14:48 | DVHOP2 ---
Operative Report DATE OF OPERATION: 10/18/24 PROCEDURE: Upper Endoscopy with biopsy. PREOPERATIVE INDICATION: The patient is a 29 -year-old female undergoing endoscopy for epigastric pain and dyspepsia POSTOPERATIVE DIAGNOSES: 1. There were two 1.5- 2 cm pre-pyloric antral gastric ulcers Kg classification C with no visible vessel or active bleeding ; there was surrounding gastritis 2. There was [id number] duodenitis with superficial coalescing duodenal bulb ulcers in the duodenal bulb and postbulbar area the 3. Slightly irregular squamocolumnar junction no significant erosive esophagitis otherwise normal examination up to the 2nd and 3rd part of the duodenum PROCEDURE PERFORMED BY: Eloina Mendoza GI NURSE: Jevon SCOPE: Olympus videoendoscope. ASA CLASS: 3 PREOPERATIVE MEDICATIONS: Agustin araujo, Dr. Arrieta PROCEDURE IN DETAIL: After obtaining an informed consent, the patient was placed on left lateral decubitus position. The patient was then sedated with the above medications. A bite block was placed between her teeth. The endoscope was then passed through the oropharynx, into the esophagus, and through the stomach and pylorus up to the second and third part of the duodenum. The endoscope was then withdrawn. Second and 3rd part of the duodenum were normal. Duodenal bulb and postbulbar area showed [id number] duodenitis with coalescing superficial duodenal ulcers and erosions Pre-pyloric area and antrum showed [id number] gastritis with true pre- pyloric antral gastric ulcers Kg classification C about 2 cm in size On retroflexion the fundus cardia and angularis were normal. Duodenal and gastric biopsies were obtained. The endoscope was then withdrawn into distal esophagus where she had a slightly irregular squamocolumnar junction There was no significant erosive esophagitis in the remaining distal and proximal esophagus and oropharynx were unremarkable The patient tolerated the procedure well without difficulty. COMPLICATIONS : None SPECIMENS: Duodenal biopsies Gastric biopsies DISPOSITION: Transfer back to the floor Stable PLAN: 1. Await for biopsy result 2. Will place pt on Protonix 40 mg bid 3. Carafate suspension 1 g p.o. 4 times a day 4. DC aspirin NSAIDs smoking alcohol 5. Resume GI soft diet advance as tolerated 6. Outpatient follow up with me in 4-6 weeks to review results and discuss further management ELOINA MENDOZA MD Oct 18, 2024 14:48
[2024-10-18] MEDS: KETOROLAC TROMETH 30 MG/ML 1ML VIAL IV ONE (14:59)
[2024-10-18] MEDS: SUCRALFATE 1 GM/10 ML ORAL SUSP PO SCH (17:00)
[2024-10-18] MEDS: PANTOPRAZOLE 40 MG TAB PO SCH (22:08)
[2024-10-19] VITALS (8 sets, daily range): BP systolic 103–124; BP diastolic 57–81; PULSE 72–82; RESP 16–18; TEMP 97.3–98.3; O2SAT 95–99
[2024-10-19 05:29] LABS: Hemoglobin 8.7 g/dL (12.2-16.2)
[2024-10-19 05:32] LABS: Hematocrit 25.4 % (36.0-46.0); Mean Corpuscular Hemoglobin 28.8 pg (28.0-32.0); Mean Corpuscular Volume 84.3 fL (80.0-100.0); Nucleated Red Blood Cells % 0.1 %
[2024-10-19 05:46] LABS: Alanine Aminotransferase 14 U/L (7-40); Anion Gap 8 (5-15); BUN/Creatinine Ratio 15.5 (10.0-20.0); Bilirubin, Total 0.4 mg/dL (0.2-1.0); Blood Urea Nitrogen 13 mg/dL (9-23); Carbon Dioxide 28 mmol/L (20-31); Chloride 103 mmol/L (98-107); Potassium 4.3 mmol/L (3.5-5.1); Sodium 139 mmol/L (136-145); Total Protein 6.1 g/dL (5.7-8.2)
[2024-10-19 05:49] LABS: Albumin 2.7 g/dL (3.2-4.8); Alkaline Phosphatase 165 U/L (46-116); Calcium 8.6 mg/dL (8.7-10.4); Glucose 121 mg/dL (74-106)
--- NOTE | 2024-10-19 08:25 | DVHPN2 ---
Subjective Date Seen: Oct 19, 2024 Post op day Post op day: 5 Patient reports: Feels better Nursing reports: No new complaints General: Normal HNT: Normal Cardiovascular: Normal Respiratory: Normal Gastrointestinal: Normal Genitourinary: Normal Musculoskeletal: Normal Neurological: Normal Objective Vitals Vital Sign Date Time Temp Pulse Resp B/P (MAP) Pulse Ox O2 Delivery O2 Flow Rate FiO2 10/19/24 05:00 98.3 74 18 116/69 (85) 95 98.3 10/18/24 19:33 Room Air* 0 21 Total Intake and Output 10/18/24 10/18/24 10/19/24 15:00 23:00 07:00 Intake Total 250 ml 350 ml 480 ml Output Total 1000 ml 800 ml 350 ml Balance -750 ml -450 ml 130 ml Medications Current Medications Medications Dose Ordered Sig/Geo Route Start Time Stop Time Status Last Admin Dose Admin Vancomycin HCl 0 ml @ 0 mls/hr UD IV 10/06/24 19:30 Morphine Sulfate 2 mg Q4HPRN PRN IV 10/06/24 19:30 10/18/24 22:08 2 MG Dextrose 50 ml UD PRN IV 10/07/24 11:15 Cancel Insulin Glargine 15 units DAILY SC 10/08/24 10:00 Cancel Dextrose 50 ml PRN PRN IV 10/07/24 15:00 Cancel Dextrose 50 ml PRN PRN IV 10/08/24 08:15 Cancel Dextrose 50 ml UD PRN IV 10/10/24 08:45 Levothyroxine Sodium 50 mcg QAM@0600 PO 10/11/24 06:00 10/19/24 05:20 50 MCG Sertraline HCl 50 mg DAILY PO 10/10/24 12:30 10/18/24 09:39 50 MG Diagnostic Test (Pha) 1 strip ACHS 10/14/24 17:00 10/19/24 06:23 1 STRIP Insulin Human Regular ACHS SC 10/14/24 17:00 10/19/24 06:35 2 UNITS Acetaminophen 650 mg Q4HP PRN PO 10/15/24 12:15 Clindamycin HCl 300 mg Q8HR PO 10/15/24 22:00 10/19/24 05:20 300 MG Levofloxacin 750 mg DAILY PO 10/17/24 10:00 10/18/24 09:39 750 MG Fluconazole 200 mg DAILY PO 10/17/24 10:00 10/18/24 09:39 200 MG Pantoprazole Sodium 40 mg BID PO 10/18/24 22:00 10/18/24 22:08 40 MG Sucralfate 1 gm QID@0600,1130,1700,2200 PO 10/18/24 17:00 10/19/24 05:20 1 GM Insulin Glargine 10 units HS SC 10/19/24 22:00 General: Normal, Obese Head/Eyes: Normal ENT: Normal Neck: Normal Lungs: Normal Cardiovascular: Normal, Regular rate and rhythm Musculoskeletal: Normal Extremities: Normal Skin: Other (sacral/ buttock wound ) Labs and Microbiology Laboratory Tests 10/19/24 05:00 Test 10/19/24 05:00 Range/Units Serum Glucose 121 H 74-106 mg/dL Ass/Plan Labs and/or images reviewed: Labs reviewed by me, Image(s) reviewed by me Problem List -Neurologic: #Acute metabolic encephalopathy secondary to sepsis and metabolic derangements. No focal neurological deficits documented. more alert, AOX3 Infectious Diseases #Septic shock due to necrotizing fasciitis of the gluteal and sacral region secondary to pilonidal cyst infection due to prevotella loescheii #sp I&D 10/07/24 #sp debridement of affected area (pilonidal cyst both buttocks, perianal area) and creation of a diverting colostomy 10/08/24 Confirmed intra-op with devitalized tissue and large purulent collection WBC peaked at 31K with left shift Source control achieved with surgical debridement Started on broad-spectrum antibiotics (Zosyn + Vanc): now meropenem+ vanco+ clindamycin Blood cultures pending ID consulted per Dr Villafana 10/10/24: dressing change: less necrotic tissue, bicarb and insulin drip stopped, downgrade to the floor, continue transfer, surgery ordered a ct scan: Redemonstrated bilateral gluteal region soft tissue edema and subcutaneous emphysema which extends from the perianal region to the lower back, suggestive of necrotizing fasciitis. Appears improved from prior.Interval laparotomy and left lower quadrant ostomy with associated postsurgical changes. Hepatomegaly. 10/11/24: wbc is trending slightly higher, wound still has necrotic tissue but looks better than yesterday, patient will benefit for transfer to [facility] for colorectal surgery due to possible involvement of anal sphincter,as well as plastic surgery right now with colostomy on place 10/14/24: new Debridement of devitalized tissue was undertaken. There was no further evidence of necrotizing infection. The wound was then pulse lavaged with 3 L of saline containing Ancef. The wound was packed loosely with iodine saturated Kerlix. The patient will need plastic surgical attention which is not available at this facility, per general surgery patient will benefit for transfer to [facility], wound consult was placed for vac placement, kidney function recovers, lantus was decreased to 15 ui 10/15/24: wound vac was placed, extra dose of morphine due to pain, BPs soft, 500 cc bolus, pending transfer [facility] 10/18/24: wound vac was changed, possible need of new debridement?, dr Villafana and dr Zamorano informed about the vac change, Cardiovascular: #Septic shock due to necrotizing fasciitis with hypotension (84/39 on arrival), requiring fluid resuscitation and vasopressor support with phenylephrine. Lactate peaked at 4.9 MAP goal >65 mmHg maintained Improving hemodynamics post-op wean off phenylephrine levophed off midline placed Respiratory: #Pneumonia gram+/gram- Consolidation of much of the visualized right middle and right lower lobes with air bronchograms concerning for pneumonia. At least small right pleural effusion. clindamycin, levaquin, metronidazole #Acute hypoxemic respiratory failure secondary to sepsis and poor perfusion #Respiratory acidosis possible obesity hypoventilation syndrome today room air No mechanical ventilation ABG trends: 10/06: pH 7.34, HCO 14 compensated metabolic acidosis 10/07: pH 7.18 then 7.20, HCO 12.1 worsening primary metabolic acidosis No respiratory compensation, consistent with acute process: respiratory acidosis Lactate-driven AGMA, more than DKA 10/08 ph 7.316 pco2 28.6 po2 99.2 hco3 14.3 10/10 ph 7.44 pco2 37.5 po2 89.6 hco3 25.2 Metabolic/Endocrine: #Severe AGMA due to lactic acidosis #Uncontrolled diabetes hba1c 13 B, but beta-hydroxybutyrate only 0.9, no ketonemia AG >17, HCO <15 consistent with lactic acidosis dc bicarb and insulin drip lantus 15 ui #Hypothyroidism: TSH 12.1, low free T4 free T3 Given severity of illness, IV levothyroxine started to prevent myxedema daily Cortisol: 30.84 normal, adrenal insufficiency ruled out levothyroxine PO #Hypomagnesemia replaced Hematology: #Leukocytosis, improving with neutrophilic predominance (WBC >30K) at admission #Anemia Hgb 9.3, likely hemodilutional or inflammatory No evidence of DIC, platelets stable Monitor for anemia of critical illness Renal: АНДРЕЙ due to VMN on possible CKD, baseline creatinine unknown, resolved (from hypoperfusion and sepsis + chronic component from diabetes) Cr trending high UA: proteinuria (1+), trace ketones, glucosuria (4+), WBC 16 possible UTI component or inflammation Protein/Creatinine ratio = 218.6 mg/g suggests underlying CKD Renal US: Echogenic kidneys, no hydronephrosis, medical kidney disease consistent with diabetic nephropathy GI #sp colostomy 10/08/24 #Possible low-grade small bowel obstruction #Trace free fluid in the abdomen and pelvis #gastric ulcer #duodenal ulcer clear liquid diet 10/16/24: patient was having epigastric pain, dr villafana came at bedside, pain improved with analgesia, meropenem dc and Levaquin PO was started, also fluconazol was transitioned to PO, later in the late afternoon, patient was having abdominal pain, transition of care specialist team ordered a CT scan that showed: The patient is status post sigmoidectomy with a left lower quadrant colostomy. There is moderate stool burden in the colon. The appendix is normal. There is fluid within a few proximal ileal small bowel loops although not pathologically enlarged and fecal material within a loop of ileum in the left abdomen which enters a convergence of bowel loops in the midabdomen and can no longer be distinguished. The distal ileum in the right lower quadrant is completely decompressed. There is trace free fluid in the abdomen and pelvis, new compared with the prior study. Consolidation of much of the visualized right middle and right lower lobes with air bronchograms concerning for pneumonia. At least small right pleural effusion. Significantly worse compared with the prior study. Findings discussed with dr Villafana 10/17/24: gastrografin showed no small bowel obstruction, abdominal pain is improving, RUQ US: normal, we will continue PO AB, wound vac change tomorrow, GI on board 10/18/24Dr Saunders GI, perfomed upper endoscope, showing gastric and duondenal ulcer, protonix and sucralfate per GI, lantus 10ui : #Complicated UTI, presumptive judie albicans UA: trace ketones, glucosuria, 1+ protein, few bacteria Bladder decompressed via Prajapati, likely due to altered mental status and hypotension fluconazol iv MSK/Soft Tissue: #Extensive necrotizing fasciitis involving gluteal/sacral regions Large abscess drained (~150 mL purulent fluid), tissue debrided Pulse lavage and wound packed sp debridement of affected area (pilonidal cyst both buttocks, perianal area) and creation of a diverting colostomy 10/08/24 wound is having baker and white patches, patient will benefit for transfer to [facility] for plastic surgery 10/10/24: dressing change: less necrotic tissue 10/14/24: new Debridement of devitalized tissue was undertaken. There was no further evidence of necrotizing infection. The wound was then pulse lavaged with 3 L of saline containing Ancef. The wound was packed loosely with iodine saturated Kerlix. The patient will need plastic surgical attention which is not available at this facility, per general surgery patient will benefit for transfer to [facility], wound consult was placed for vac placement 10/15/24: wound vac was placed, extra dose of morphine due to pain, BPs soft, 500 cc bolus, pending transfer [facility] Case discussed with Dr Darby Time spent on critical care 36 min, excluding procedures, extensive discussion with the father Darwin, full code Assessment/Plan stoma ok, no gas wound clean dry and intact Nurse reports overnight drainage from wound labs and notes reviewed Plan: wound dressing to be change twice a day patient to lie on right or left side, not on her back continue current treatment 10/11/24 s/p debridement of sacral buttock necrotic tissue / colostomy no new complaints, stoma functioning wound covered in dressing per Nurse wound dressing changed today Plan: wound dressing to be changed as ordered wound consult patient needs Higher level of care for plastic surgery reconstruction sacral area 10/19/24 10/11/24 s/p debridement of sacral buttock necrotic tissue / colostomy no new complaints, stoma functioning , abdomen soft, non distended, non tender wound vac, no erythema on edges of wound tolerating diet Plan: wound vac reassess wound a couple days Prognosis: Good Plan discussed with patient Visit Coding Surgery Date of Service if different f: Oct 19, 2024 Billing Provider: VERONICA VILLAFANA MD Surgery Visit Codes: [id number] INP/OBS CARE(HIGH) MAGNOLIA TELLO [employer]TER Oct 19, 2024 08:24
[2024-10-19] MEDS: VANCOMYCIN 1GM/200ML PM 200 ML IV ONE (11:33)
[2024-10-19] MEDS: VANCOMYCIN 750mg/150ml 150 ML IV SCH (17:44)
--- NOTE | 2024-10-19 19:00 | DVHPN2 ---
Subjective Feels better Reviewed: Care Plan, H&P, Labs, Medications, Previous Orders, Radiology, Other (Consultants) Changes from previous H/P or p: No Changes General: Per HPI Objective Vitals Vital Signs Date Time Temp Pulse Resp B/P (MAP) Pulse Ox O2 Delivery O2 Flow Rate FiO2 10/19/24 18:18 76 17 106/60 10/19/24 17:00 98.0 99 98.0 10/19/24 08:00 Room Air* 0 21 Intake/Output Intake and Output 10/19/24 07:00 Intake Total 1080 ml Output Total 2150 ml Balance -1070 ml Intake Oral 830 ml IV Total 250 ml Output Urine Total 2150 ml General Appearance: Alert, Oriented X3 HEENT: Atraumatic Abdomen: Normal bowel sounds, Soft Neuro: Normal gait, Normal speech Medications Current Medications Medications Dose Ordered Sig/Geo Route Start Time Stop Time Status Last Admin Dose Admin Vancomycin HCl 0 ml @ 0 mls/hr UD IV 10/06/24 19:30 Morphine Sulfate 2 mg Q4HPRN PRN IV 10/06/24 19:30 10/19/24 17:45 2 MG Dextrose 50 ml UD PRN IV 10/07/24 11:15 Cancel Insulin Glargine 15 units DAILY SC 10/08/24 10:00 Cancel Dextrose 50 ml PRN PRN IV 10/07/24 15:00 Cancel Dextrose 50 ml PRN PRN IV 10/08/24 08:15 Cancel Dextrose 50 ml UD PRN IV 10/10/24 08:45 Levothyroxine Sodium 50 mcg QAM@0600 PO 10/11/24 06:00 10/19/24 05:20 50 MCG Sertraline HCl 50 mg DAILY PO 10/10/24 12:30 10/19/24 09:11 50 MG Diagnostic Test (Pha) 1 strip ACHS 10/14/24 17:00 10/19/24 17:00 1 STRIP Insulin Human Regular ACHS SC 10/14/24 17:00 10/19/24 17:46 3 UNITS Acetaminophen 650 mg Q4HP PRN PO 10/15/24 12:15 Clindamycin HCl 300 mg Q8HR PO 10/15/24 22:00 10/19/24 13:17 300 MG Levofloxacin 750 mg DAILY PO 10/17/24 10:00 10/19/24 09:11 750 MG Fluconazole 200 mg DAILY PO 10/17/24 10:00 10/19/24 09:11 200 MG Pantoprazole Sodium 40 mg BID PO 10/18/24 22:00 10/19/24 09:11 40 MG Sucralfate 1 gm QID@0600,1130,1700,2200 PO 10/18/24 17:00 10/19/24 17:44 1 GM Insulin Glargine 10 units HS SC 10/19/24 22:00 Vancomycin HCl 150 ml @ 150 mls/hr Q12H IV 10/19/24 18:00 10/19/24 17:44 150 MLS/HR Laboratory Results Laboratory Tests 10/19/24 05:00 Chemistry Test 10/19/24 05:00 Albumin 2.7 g/dL (3.2-4.8) L Calcium Level 8.6 mg/dL (8.7-10.4) L Total Protein 6.1 g/dL (5.7-8.2) LFT Test 10/19/24 05:00 Alanine Aminotransferase (ALT) 14 U/L (7-40) Alkaline Phosphatase 165 U/L (46-116) H Aspartate Amino Transferase (AST) 28 U/L (13-40) Total Bilirubin 0.4 mg/dL (0.2-1.0) Urinalysis Test 10/06/24 05:09 10/07/24 11:25 10/07/24 11:26 Urine Color Yellow (Yellow) Urine Clarity Turbid (Clear) H Urine pH 5.5 (5.0-9.0) Urine Specific [place] 1.019 (1.001-1.035) Urine Protein 1+ (Negative) H Urine Ketones Trace (Negative) Urine Blood 1+ /uL (Negative) H Urine Nitrite Negative (Negative) Urine Bilirubin Negative (Negative) Urine Urobilinogen Normal mg/dL (Negative) Urine Leukocyte Esterase 1+ /uL (Negative) Urine RBC 3 /hpf (0 - 4) Urine Microscopic WBC 16 /HPF (0-5) H Urine Squamous Epithelial Cells Few /hpf (<5) Urine Bacteria Few /hpf (None Seen) H Urine Glucose 4+ mg/dL (Normal) H Urine Test Negative (Negative) Urine Creatinine 77.58 mg/dL (30.0-125.0) Urine Sodium 33 mmol/L (40-220) L Urine Total Protein 218.6 mg/dL (1-14) H Urine Osmolality 241 mOsm/kg Microbiology Microbiology Date/Time Source Procedure Growth Status 10/07/24 10:30 Voided Urine Urine Culture - Final Presumptive Tran albicans Complete 10/07/24 08:21 Other Other Gram Stain - Final Complete 10/07/24 08:21 Anaerobic Culture - Final Prevotella loescheii Complete 10/07/24 08:21 Other Other Aerobic Culture - Final Complete 10/06/24 11:20 Blood Blood Culture - Final NO GROWTH AFTER 5 DAYS OF INCUBATION. Complete Assessment/Plan Assessment/Plan Status post gluteal necrotizing fasciitis and sepsis status post vacuum bag Pilonidal cyst infection Diabetes /uncontrolled Pneumonia Morbid obesity of BMI 42.7 Leukocytosis and thrombocytosis Peptic ulcer disease with gastric and duodenal ulcers Hypothyroidism Anemia Acute kidney injury Plan: Continue current plan of care. Discussed with the patient the diabetes issue and then she should watch carefully her sugar and have a glucose monitor at home to keep track of her blood sugar and to follow with PCP and take her medication to keep the sugar controlled apparently she has not been doing any of that angina been seeing her primary doctor a she has diabetes and she thought she was doing okay because she had no symptoms Plan discussed with: Patient Date of Service: Oct 19, 2024 Billing Provider: DAVID LOWERY MD Common Visit Codes: [id number] INP/OBS CARE(HIGH) DAVID LOWERY MD Oct 19, 2024 19:00
[2024-10-19] MEDS: INSULIN LANTUS (GLARGINE) 1 /0.01ml (100units/ml) SC SCH (22:00)
[2024-10-20] VITALS (8 sets, daily range): BP systolic 95–136; BP diastolic 60–105; PULSE 73–83; RESP 16–20; TEMP 97.9–98.1; O2SAT 92–100
[2024-10-20 07:25] LABS: Hematocrit 25.1 % (36.0-46.0); Hemoglobin 8.6 g/dL (12.2-16.2); Mean Corpuscular Hemoglobin 29.0 pg (28.0-32.0); Mean Corpuscular Volume 85.2 fL (80.0-100.0); Nucleated Red Blood Cells % 0.0 %
--- NOTE | 2024-10-20 17:05 | DVHPN2 ---
Subjective Feels better Reviewed: Care Plan, H&P, Labs, Medications, Previous Orders, Radiology, Other (Consultants) Changes from previous H/P or p: No Changes General: Per HPI Objective Vitals Vital Signs Date Time Temp Pulse Resp B/P (MAP) Pulse Ox O2 Delivery O2 Flow Rate FiO2 10/20/24 13:02 77 17 104/60 10/20/24 08:00 Room Air* 0 21 10/20/24 05:00 97.9 100 97.9 Intake/Output Intake and Output 10/20/24 07:00 Intake Total 2251 ml Output Total 2150 ml Balance 101 ml Intake Oral 2251 ml Output Urine Total 2150 ml General Appearance: Alert, Oriented X3 HEENT: Atraumatic Abdomen: Normal bowel sounds, Soft Neuro: Normal gait, Normal speech Medications Current Medications Medications Dose Ordered Sig/Geo Route Start Time Stop Time Status Last Admin Dose Admin Vancomycin HCl 0 ml @ 0 mls/hr UD IV 10/06/24 19:30 Morphine Sulfate 2 mg Q4HPRN PRN IV 10/06/24 19:30 10/20/24 13:02 2 MG Dextrose 50 ml UD PRN IV 10/07/24 11:15 Cancel Insulin Glargine 15 units DAILY SC 10/08/24 10:00 Cancel Dextrose 50 ml PRN PRN IV 10/07/24 15:00 Cancel Dextrose 50 ml PRN PRN IV 10/08/24 08:15 Cancel Dextrose 50 ml UD PRN IV 10/10/24 08:45 Levothyroxine Sodium 50 mcg QAM@0600 PO 10/11/24 06:00 10/20/24 05:37 50 MCG Sertraline HCl 50 mg DAILY PO 10/10/24 12:30 10/20/24 09:34 50 MG Diagnostic Test (Pha) 1 strip ACHS 10/14/24 17:00 10/20/24 11:51 1 STRIP Insulin Human Regular ACHS SC 10/14/24 17:00 10/20/24 06:41 2 UNITS Acetaminophen 650 mg Q4HP PRN PO 10/15/24 12:15 Clindamycin HCl 300 mg Q8HR PO 10/15/24 22:00 10/20/24 13:01 300 MG Levofloxacin 750 mg DAILY PO 10/17/24 10:00 10/20/24 09:33 750 MG Fluconazole 200 mg DAILY PO 10/17/24 10:00 10/20/24 09:33 200 MG Pantoprazole Sodium 40 mg BID PO 10/18/24 22:00 10/20/24 09:34 40 MG Sucralfate 1 gm QID@0600,1130,1700,2200 PO 10/18/24 17:00 10/20/24 11:50 1 GM Insulin Glargine 10 units HS SC 10/19/24 22:00 10/19/24 22:00 10 UNITS Vancomycin HCl 150 ml @ 150 mls/hr Q12H IV 10/19/24 18:00 10/20/24 05:37 150 MLS/HR Laboratory Results Laboratory Tests 10/19/24 05:00 10/20/24 06:49 Urinalysis Test 10/06/24 05:09 10/07/24 11:25 10/07/24 11:26 Urine Color Yellow (Yellow) Urine Clarity Turbid (Clear) H Urine pH 5.5 (5.0-9.0) Urine Specific [place] 1.019 (1.001-1.035) Urine Protein 1+ (Negative) H Urine Ketones Trace (Negative) Urine Blood 1+ /uL (Negative) H Urine Nitrite Negative (Negative) Urine Bilirubin Negative (Negative) Urine Urobilinogen Normal mg/dL (Negative) Urine Leukocyte Esterase 1+ /uL (Negative) Urine RBC 3 /hpf (0 - 4) Urine Microscopic WBC 16 /HPF (0-5) H Urine Squamous Epithelial Cells Few /hpf (<5) Urine Bacteria Few /hpf (None Seen) H Urine Glucose 4+ mg/dL (Normal) H Urine Test Negative (Negative) Urine Creatinine 77.58 mg/dL (30.0-125.0) Urine Sodium 33 mmol/L (40-220) L Urine Total Protein 218.6 mg/dL (1-14) H Urine Osmolality 241 mOsm/kg Microbiology Microbiology Date/Time Source Procedure Growth Status 10/07/24 10:30 Voided Urine Urine Culture - Final Presumptive Tran albicans Complete 10/07/24 08:21 Other Other Gram Stain - Final Complete 10/07/24 08:21 Anaerobic Culture - Final Prevotella loescheii Complete 10/07/24 08:21 Other Other Aerobic Culture - Final Complete 10/06/24 11:20 Blood Blood Culture - Final NO GROWTH AFTER 5 DAYS OF INCUBATION. Complete Assessment/Plan Assessment/Plan Status post gluteal necrotizing fasciitis and sepsis status post vacuum bag Pilonidal cyst infection Diabetes /uncontrolled Pneumonia Morbid obesity of BMI 42.7 Leukocytosis and thrombocytosis Peptic ulcer disease with gastric and duodenal ulcers Hypothyroidism Anemia Acute kidney injury Plan: Continue current plan of care Plan discussed with: Patient Date of Service: Oct 20, 2024 Billing Provider: DAVID LOWERY MD Common Visit Codes: [id number] INP/OBS CARE(MOD) DAVID LOWERY MD Oct 20, 2024 17:04
[2024-10-21] VITALS (7 sets, daily range): BP systolic 87–113; BP diastolic 48–74; PULSE 71–87; RESP 17–18; TEMP 97.2–98.4; O2SAT 82–99
[2024-10-21] MEDS: VANCOMYCIN 750mg/150ml 150 ML IV ONE (04:52)
--- NOTE | 2024-10-21 08:57 | DVHPN2 ---
Subjective Date Seen: Oct 21, 2024 Post op day Post op day: 7 Patient reports: Feels better Nursing reports: No new complaints General: Normal HNT: Normal Cardiovascular: Normal Respiratory: Normal Gastrointestinal: Normal Genitourinary: Normal Musculoskeletal: Normal Neurological: Normal Objective Vitals Vital Sign Date Time Temp Pulse Resp B/P (MAP) Pulse Ox O2 Delivery O2 Flow Rate FiO2 10/21/24 05:59 70 17 107/68 10/21/24 05:00 98.3 95 98.3 10/20/24 20:00 Room Air* 0 21 Total Intake and Output 10/20/24 10/20/24 10/21/24 15:00 23:00 07:00 Intake Total 1455 ml 685 ml Output Total 1550 ml 1200 ml Balance -95 ml -515 ml Medications Current Medications Medications Dose Ordered Sig/Geo Route Start Time Stop Time Status Last Admin Dose Admin Vancomycin HCl 0 ml @ 0 mls/hr UD IV 10/06/24 19:30 Morphine Sulfate 2 mg Q4HPRN PRN IV 10/06/24 19:30 10/21/24 05:29 2 MG Dextrose 50 ml UD PRN IV 10/07/24 11:15 Cancel Insulin Glargine 15 units DAILY SC 10/08/24 10:00 Cancel Dextrose 50 ml PRN PRN IV 10/07/24 15:00 Cancel Dextrose 50 ml PRN PRN IV 10/08/24 08:15 Cancel Dextrose 50 ml UD PRN IV 10/10/24 08:45 Levothyroxine Sodium 50 mcg QAM@0600 PO 10/11/24 06:00 10/21/24 05:09 50 MCG Sertraline HCl 50 mg DAILY PO 10/10/24 12:30 10/20/24 09:34 50 MG Diagnostic Test (Pha) 1 strip ACHS 10/14/24 17:00 10/21/24 06:10 1 STRIP Insulin Human Regular ACHS SC 10/14/24 17:00 10/21/24 06:13 2 UNITS Acetaminophen 650 mg Q4HP PRN PO 10/15/24 12:15 Clindamycin HCl 300 mg Q8HR PO 10/15/24 22:00 10/21/24 05:09 300 MG Levofloxacin 750 mg DAILY PO 10/17/24 10:00 10/20/24 09:33 750 MG Fluconazole 200 mg DAILY PO 10/17/24 10:00 10/20/24 09:33 200 MG Pantoprazole Sodium 40 mg BID PO 10/18/24 22:00 10/20/24 21:17 40 MG Sucralfate 1 gm QID@0600,1130,1700,2200 PO 10/18/24 17:00 10/21/24 05:09 1 GM Insulin Glargine 10 units HS SC 10/19/24 22:00 10/20/24 21:37 10 UNITS Vancomycin HCl 150 ml @ 150 mls/hr Q12H IV 10/21/24 18:00 UNV General: Normal, Obese Head/Eyes: Normal ENT: Normal Neck: Normal Lungs: Normal Cardiovascular: Normal, Regular rate and rhythm Musculoskeletal: Normal Extremities: Normal Skin: Other (sacral/ buttock wound ) Labs and Microbiology Laboratory Tests 10/20/24 17:11 10/20/24 06:49 10/19/24 05:00 Test 10/19/24 05:00 Range/Units Serum Glucose 121 H 74-106 mg/dL Ass/Plan Labs and/or images reviewed: Labs reviewed by me, Image(s) reviewed by me Problem List -Neurologic: #Acute metabolic encephalopathy secondary to sepsis and metabolic derangements. No focal neurological deficits documented. more alert, AOX3 Infectious Diseases #Septic shock due to necrotizing fasciitis of the gluteal and sacral region secondary to pilonidal cyst infection due to prevotella loescheii #sp I&D 10/07/24 #sp debridement of affected area (pilonidal cyst both buttocks, perianal area) and creation of a diverting colostomy 10/08/24 Confirmed intra-op with devitalized tissue and large purulent collection WBC peaked at 31K with left shift Source control achieved with surgical debridement Started on broad-spectrum antibiotics (Zosyn + Vanc): now meropenem+ vanco+ clindamycin Blood cultures pending ID consulted per Dr Villafana 10/10/24: dressing change: less necrotic tissue, bicarb and insulin drip stopped, downgrade to the floor, continue transfer, surgery ordered a ct scan: Redemonstrated bilateral gluteal region soft tissue edema and subcutaneous emphysema which extends from the perianal region to the lower back, suggestive of necrotizing fasciitis. Appears improved from prior.Interval laparotomy and left lower quadrant ostomy with associated postsurgical changes. Hepatomegaly. 10/11/24: wbc is trending slightly higher, wound still has necrotic tissue but looks better than yesterday, patient will benefit for transfer to [facility] for colorectal surgery due to possible involvement of anal sphincter,as well as plastic surgery right now with colostomy on place 10/14/24: new Debridement of devitalized tissue was undertaken. There was no further evidence of necrotizing infection. The wound was then pulse lavaged with 3 L of saline containing Ancef. The wound was packed loosely with iodine saturated Kerlix. The patient will need plastic surgical attention which is not available at this facility, per general surgery patient will benefit for transfer to [facility], wound consult was placed for vac placement, kidney function recovers, lantus was decreased to 15 ui 10/15/24: wound vac was placed, extra dose of morphine due to pain, BPs soft, 500 cc bolus, pending transfer [facility] 10/18/24: wound vac was changed, possible need of new debridement?, dr Villafana and dr Zamorano informed about the vac change, Cardiovascular: #Septic shock due to necrotizing fasciitis with hypotension (84/39 on arrival), requiring fluid resuscitation and vasopressor support with phenylephrine. Lactate peaked at 4.9 MAP goal >65 mmHg maintained Improving hemodynamics post-op wean off phenylephrine levophed off midline placed Respiratory: #Pneumonia gram+/gram- Consolidation of much of the visualized right middle and right lower lobes with air bronchograms concerning for pneumonia. At least small right pleural effusion. clindamycin, levaquin, metronidazole #Acute hypoxemic respiratory failure secondary to sepsis and poor perfusion #Respiratory acidosis possible obesity hypoventilation syndrome today room air No mechanical ventilation ABG trends: 10/06: pH 7.34, HCO 14 compensated metabolic acidosis 10/07: pH 7.18 then 7.20, HCO 12.1 worsening primary metabolic acidosis No respiratory compensation, consistent with acute process: respiratory acidosis Lactate-driven AGMA, more than DKA 10/08 ph 7.316 pco2 28.6 po2 99.2 hco3 14.3 10/10 ph 7.44 pco2 37.5 po2 89.6 hco3 25.2 Metabolic/Endocrine: #Severe AGMA due to lactic acidosis #Uncontrolled diabetes hba1c 13 B, but beta-hydroxybutyrate only 0.9, no ketonemia AG >17, HCO <15 consistent with lactic acidosis dc bicarb and insulin drip lantus 15 ui #Hypothyroidism: TSH 12.1, low free T4 free T3 Given severity of illness, IV levothyroxine started to prevent myxedema daily Cortisol: 30.84 normal, adrenal insufficiency ruled out levothyroxine PO #Hypomagnesemia replaced Hematology: #Leukocytosis, improving with neutrophilic predominance (WBC >30K) at admission #Anemia Hgb 9.3, likely hemodilutional or inflammatory No evidence of DIC, platelets stable Monitor for anemia of critical illness Renal: АНДРЕЙ due to VMN on possible CKD, baseline creatinine unknown, resolved (from hypoperfusion and sepsis + chronic component from diabetes) Cr trending high UA: proteinuria (1+), trace ketones, glucosuria (4+), WBC 16 possible UTI component or inflammation Protein/Creatinine ratio = 218.6 mg/g suggests underlying CKD Renal US: Echogenic kidneys, no hydronephrosis, medical kidney disease consistent with diabetic nephropathy GI #sp colostomy 10/08/24 #Possible low-grade small bowel obstruction #Trace free fluid in the abdomen and pelvis #gastric ulcer #duodenal ulcer clear liquid diet 10/16/24: patient was having epigastric pain, dr villafana came at bedside, pain improved with analgesia, meropenem dc and Levaquin PO was started, also fluconazol was transitioned to PO, later in the late afternoon, patient was having abdominal pain, process control manager team ordered a CT scan that showed: The patient is status post sigmoidectomy with a left lower quadrant colostomy. There is moderate stool burden in the colon. The appendix is normal. There is fluid within a few proximal ileal small bowel loops although not pathologically enlarged and fecal material within a loop of ileum in the left abdomen which enters a convergence of bowel loops in the midabdomen and can no longer be distinguished. The distal ileum in the right lower quadrant is completely decompressed. There is trace free fluid in the abdomen and pelvis, new compared with the prior study. Consolidation of much of the visualized right middle and right lower lobes with air bronchograms concerning for pneumonia. At least small right pleural effusion. Significantly worse compared with the prior study. Findings discussed with dr Villfaana 10/17/24: gastrografin showed no small bowel obstruction, abdominal pain is improving, RUQ US: normal, we will continue PO AB, wound vac change tomorrow, GI on board 10/18/24Dr Chip GI, perfomed upper endoscope, showing gastric and duondenal ulcer, protonix and sucralfate per GI, lantus 10ui : #Complicated UTI, presumptive judie albicans UA: trace ketones, glucosuria, 1+ protein, few bacteria Bladder decompressed via Prajapati, likely due to altered mental status and hypotension fluconazol iv MSK/Soft Tissue: #Extensive necrotizing fasciitis involving gluteal/sacral regions Large abscess drained (~150 mL purulent fluid), tissue debrided Pulse lavage and wound packed sp debridement of affected area (pilonidal cyst both buttocks, perianal area) and creation of a diverting colostomy 10/08/24 wound is having baker and white patches, patient will benefit for transfer to [facility] for plastic surgery 10/10/24: dressing change: less necrotic tissue 10/14/24: new Debridement of devitalized tissue was undertaken. There was no further evidence of necrotizing infection. The wound was then pulse lavaged with 3 L of saline containing Ancef. The wound was packed loosely with iodine saturated Kerlix. The patient will need plastic surgical attention which is not available at this facility, per general surgery patient will benefit for transfer to [facility], wound consult was placed for vac placement 10/15/24: wound vac was placed, extra dose of morphine due to pain, BPs soft, 500 cc bolus, pending transfer [facility] Case discussed with Dr Darby Time spent on critical care 36 min, excluding procedures, extensive discussion with the father Darwin, full code Assessment/Plan stoma ok, no gas wound clean dry and intact Nurse reports overnight drainage from wound labs and notes reviewed Plan: wound dressing to be change twice a day patient to lie on right or left side, not on her back continue current treatment 10/11/24 s/p debridement of sacral buttock necrotic tissue / colostomy no new complaints, stoma functioning wound covered in dressing per Nurse wound dressing changed today Plan: wound dressing to be changed as ordered wound consult patient needs Higher level of care for plastic surgery reconstruction sacral area 10/19/24 s/p debridement of sacral buttock necrotic tissue / colostomy no new complaints, stoma functioning , abdomen soft, non distended, non tender wound vac, no erythema on edges of wound tolerating diet Plan: wound vac reassess wound a couple days 10/22/24 s/p debridement of sacral buttock necrotic tissue / colostomy POD#7 no new complaints, stoma functioning , abdomen soft, non distended, non tender wound vac, no erythema on edges of wound tolerating diet Plan: wound vac debridement of sacral/ buttock wound tomorrow Prognosis: Good Plan discussed with patient, Dr. Villafana Visit Coding Surgery Date of Service if different f: Oct 21, 2024 Billing Provider: VERONICA VILLAFANA MD Surgery Visit Codes: [id number] INP/OBS CARE(HIGH) MAGNOLIA TELLO NP Oct 21, 2024 08:57
--- NOTE | 2024-10-21 15:25 | DVHPNRES ---
Progress Note Date Seen: Oct 21, 2024 Resident Creating Document: LEORA FULLER RESIDENT Has the PT tested + for MRSA If YES, has PT been informed?: No Medical Necessity Reason Pt with a Central, PICC or Fol: No Subjective Review of Systems This is a 29-year-old with diabetes mellitus type 1 diagnosed at the age of 12, hypothyroidism, does not take any medications at home who presented to the ER with a chief complaint of buttock pain and generalized weakness. Patient reports that she has been experiencing pain in her buttock, redness and swelling, nausea vomiting for the past 2 days. On arrival patient was hypotensive 84/39 mmHg, tachycardic and tachypneic. CT scan showed necrotizing fascitis in the patient underwent I and D 10/07, 150 mL of yellow colored fluid was drained and sent for culture. 10/08-patient underwent colostomy placement. Serum glucose was 500 on arrival and patient was started on IV insulin drip. A1c greater than 13. 10/21-Patient seen and examined, reports no active symptoms. Continue vancomycin, fluconazole, clindamycin, Levaquin. Pending I and D tomorrow. NPO after midnight. TSH up trending, increased levothyroxine to 75 mcg daily. Follow up with free T4 Objective vital signs Vital Sign Date Time Temp Pulse Resp B/P (MAP) Pulse Ox O2 Delivery O2 Flow Rate FiO2 10/21/24 12:20 76 18 110/68 10/21/24 09:00 98.0 97 98.0 10/21/24 08:05 Room Air* 0 21 Total Intake and Output 10/20/24 10/20/24 10/21/24 15:00 23:00 07:00 Intake Total 1455 ml 685 ml Output Total 1550 ml 1200 ml Balance -95 ml -515 ml medications Current Medications Medications Dose Ordered Sig/Geo Route Start Time Stop Time Status Last Admin Dose Admin Vancomycin HCl 0 ml @ 0 mls/hr UD IV 10/06/24 19:30 Morphine Sulfate 2 mg Q4HPRN PRN IV 10/06/24 19:30 10/21/24 12:20 2 MG Dextrose 50 ml UD PRN IV 10/07/24 11:15 Cancel Insulin Glargine 15 units DAILY SC 10/08/24 10:00 Cancel Dextrose 50 ml PRN PRN IV 10/07/24 15:00 Cancel Dextrose 50 ml PRN PRN IV 10/08/24 08:15 Cancel Dextrose 50 ml UD PRN IV 10/10/24 08:45 Levothyroxine Sodium 50 mcg QAM@0600 PO 10/11/24 06:00 10/21/24 05:09 50 MCG Sertraline HCl 50 mg DAILY PO 10/10/24 12:30 10/21/24 10:18 50 MG Diagnostic Test (Pha) 1 strip ACHS 10/14/24 17:00 10/21/24 11:37 1 STRIP Insulin Human Regular ACHS SC 10/14/24 17:00 10/21/24 06:13 2 UNITS Acetaminophen 650 mg Q4HP PRN PO 10/15/24 12:15 Clindamycin HCl 300 mg Q8HR PO 10/15/24 22:00 10/21/24 13:42 300 MG Levofloxacin 750 mg DAILY PO 10/17/24 10:00 10/21/24 10:19 750 MG Fluconazole 200 mg DAILY PO 10/17/24 10:00 10/21/24 10:18 200 MG Pantoprazole Sodium 40 mg BID PO 10/18/24 22:00 10/21/24 10:19 40 MG Sucralfate 1 gm QID@0600,1130,1700,2200 PO 10/18/24 17:00 10/21/24 12:15 1 GM Insulin Glargine 10 units HS SC 10/19/24 22:00 10/20/24 21:37 10 UNITS Vancomycin HCl 150 ml @ 150 mls/hr Q12H IV 10/21/24 18:00 Examination Morbidly obese female patient lying in bed comfortably, no acute distress. General: Morbid obese, afebrile, palor, mucosae are moist Cardiovascular: Regular S1 and S2. No murmurs, gallops or rubs. No JVD elevation. No pedal edema Respiratory: Normal B/L air entry on room air. Clear lung sounds on auscultation Abdomen: Soft, nontender, nondistended, normoactive bowel sounds, no rebound tenderness, no organomegaly, no masses. Colostomy bag seen draining yellow soft stool. Status post multiple I and D bilateral gluteal cleft with a dressing covering the defect. Extensive sacral and lumbar ulcer, still fibrinopurulent tissue and a possible new collection in the left buttock, vac was placed again Genitourinary: Deferred MSK/skin: Mobilizes 4 limbs. Skin is dry and warm Neurological: No motor, no sensitive deficits, normal speech. Pupils are isocoric and reactive. Psych/Mental Status: A/Ox3 laboratory and microbiology Laboratory Tests 10/20/24 17:11 10/20/24 06:49 10/19/24 05:00 Test 10/19/24 05:00 Range/Units Serum Glucose 121 H 74-106 mg/dL Microbiology Date/Time Source Procedure Growth Status 10/07/24 10:30 Voided Urine Urine Culture - Final Presumptive Judie albicans Complete 10/07/24 08:21 Other Other Gram Stain - Final Complete 10/07/24 08:21 Anaerobic Culture - Final Prevotella loescheii Complete 10/07/24 08:21 Other Other Aerobic Culture - Final Complete 10/06/24 11:20 Blood Blood Culture - Final NO GROWTH AFTER 5 DAYS OF INCUBATION. Complete Labs and/or images reviewed: Labs reviewed by me, Image(s) reviewed by me Problem List/Assessment/Plan Problem List/Assessment/Plan -Neurologic: #Acute metabolic encephalopathy secondary to sepsis and metabolic derangements. No focal neurological deficits documented. more alert, AOX3 Infectious Diseases #Septic shock due to necrotizing fasciitis of the gluteal and sacral region secondary to pilonidal cyst infection due to prevotella loescheii #sp I&D 10/07/24 #sp debridement of affected area (pilonidal cyst both buttocks, perianal area) and creation of a diverting colostomy 10/08/24 Confirmed intra-op with devitalized tissue and large purulent collection WBC peaked at 31K with left shift on arrival, downtrending Source control achieved with surgical debridement Started on broad-spectrum antibiotics (Zosyn + Vanc): now meropenem+ vanco+ clindamycin Blood cultures on arrival negative ID consulted per Dr Villafana 10/10/24: dressing change: less necrotic tissue, bicarb and insulin drip stopped, downgrade to the floor, continue transfer, surgery ordered a ct scan: Redemonstrated bilateral gluteal region soft tissue edema and subcutaneous emphysema which extends from the perianal region to the lower back, suggestive of necrotizing fasciitis. Appears improved from prior.Interval laparotomy and left lower quadrant ostomy with associated postsurgical changes. Hepatomegaly. 10/11/24: wbc is trending slightly higher, wound still has necrotic tissue but looks better than yesterday, patient will benefit for transfer to [facility] for colorectal surgery due to possible involvement of anal sphincter,as well as plastic surgery right now with colostomy on place 10/14/24: new Debridement of devitalized tissue was undertaken. There was no further evidence of necrotizing infection. The wound was then pulse lavaged with 3 L of saline containing Ancef. The wound was packed loosely with iodine saturated Kerlix. The patient will need plastic surgical attention which is not available at this facility, per general surgery patient will benefit for transfer to [facility], wound consult was placed for vac placement, kidney function recovers, lantus was decreased to 15 ui 10/15/24: wound vac was placed, extra dose of morphine due to pain, BPs soft, 500 cc bolus, pending transfer [facility] 10/18/24: wound vac was changed, possible need of new debridement?, dr Villafana and dr Zamorano informed about the vac change, 10/21 - patient refused a wound dressing change, I and D tomorrow. Cardiovascular: #Septic shock due to necrotizing fasciitis Resolving, off pressors Continue IV vancomycin, clindamycin, Levaquin, fluconazole Respiratory: #Pneumonia gram+/gram- Consolidation of much of the visualized right middle and right lower lobes with air bronchograms concerning for pneumonia. At least small right pleural effusion. #Acute hypoxemic respiratory failure secondary to sepsis and poor perfusion #Respiratory acidosis possible obesity hypoventilation syndrome today room air No mechanical ventilation Metabolic/Endocrine: #Severe AGMA due to lactic acidosis-resolving #Uncontrolled diabetes hba1c 13 dc bicarb and insulin drip lantus 15 ui #Hypothyroidism: TSH 12.1, low free T4 free T3 Given severity of illness, IV levothyroxine started to prevent myxedema daily Cortisol: 30.84 normal, adrenal insufficiency ruled out levothyroxine increased to 75 PO #Hypomagnesemia replaced Hematology: #Leukocytosis, improving with neutrophilic predominance (WBC >30K) at admission #Anemia Hgb 9.3, likely hemodilutional or inflammatory No evidence of DIC, platelets stable Monitor for anemia of critical illness Renal: АНДРЕЙ due to VMN on possible CKD, baseline creatinine unknown, resolved (from hypoperfusion and sepsis + chronic component from diabetes) Cr trending high UA: proteinuria (1+), trace ketones, glucosuria (4+), WBC 16 possible UTI component or inflammation Protein/Creatinine ratio = 218.6 mg/g suggests underlying CKD Renal US: Echogenic kidneys, no hydronephrosis, medical kidney disease consistent with diabetic nephropathy GI #sp colostomy 10/08/24 #Possible low-grade small bowel obstruction #Trace free fluid in the abdomen and pelvis #gastric ulcer #duodenal ulcer clear liquid diet 10/16/24: patient was having epigastric pain, dr villafana came at bedside, pain improved with analgesia, meropenem dc and Levaquin PO was started, also fluconazol was transitioned to PO, later in the late afternoon, patient was having abdominal pain, deckhand sponge boat team ordered a CT scan that showed: The patient is status post sigmoidectomy with a left lower quadrant colostomy. There is moderate stool burden in the colon. The appendix is normal. There is fluid within a few proximal ileal small bowel loops although not pathologically enlarged and fecal material within a loop of ileum in the left abdomen which enters a convergence of bowel loops in the midabdomen and can no longer be distinguished. The distal ileum in the right lower quadrant is completely decompressed. There is trace free fluid in the abdomen and pelvis, new compared with the prior study. Consolidation of much of the visualized right middle and right lower lobes with air bronchograms concerning for pneumonia. At least small right pleural effusion. Significantly worse compared with the prior study. Findings discussed with dr Villafana 10/17/24: gastrografin showed no small bowel obstruction, abdominal pain is improving, RUQ US: normal, we will continue PO AB, wound vac change tomorrow, GI on board 10/18/24Dr Saunders GI, perfomed upper endoscope, showing gastric and duondenal ulcer, protonix and sucralfate per GI, lantus 10ui : #Complicated UTI, presumptive judie albicans UA: trace ketones, glucosuria, 1+ protein, few bacteria Bladder decompressed via Prajapati, likely due to altered mental status and hypotension fluconazol iv MSK/Soft Tissue: #Extensive necrotizing fasciitis involving gluteal/sacral regions Large abscess drained (~150 mL purulent fluid), tissue debrided Pulse lavage and wound packed sp debridement of affected area (pilonidal cyst both buttocks, perianal area) and creation of a diverting colostomy 10/08/24 wound is having baker and white patches, patient will benefit for transfer to [facility] for plastic surgery 10/10/24: dressing change: less necrotic tissue 10/14/24: new Debridement of devitalized tissue was undertaken. There was no further evidence of necrotizing infection. The wound was then pulse lavaged with 3 L of saline containing Ancef. The wound was packed loosely with iodine saturated Kerlix. The patient will need plastic surgical attention which is not available at this facility, per general surgery patient will benefit for transfer to [facility], wound consult was placed for vac placement 10/15/24: wound vac was placed, extra dose of morphine due to pain, BPs soft, 500 cc bolus, pending transfer [facility] Plan discussed with patient, family at bedside in which all questions have been answered Case discussed with Dr Luo Plan discussed with: Patient Dietary Evaluation Review Comments: 1) TPN if NPO > 7 days [facility] 3) Cuco 1 pk BID for wound healing 4) Monitor I/O, lab values, wt trend Expected Outcomes/Goals: To meet >75% estimated needs wound to improve Fu 2-3 days Date of Service: Oct 21, 2024 Billing Provider: GEOVANY VILLALOBOS MD Common Visit Codes: [id number] INP/OBS CARE(HIGH) LEORA FULLER RESIDENT Oct 21, 2024 15:25 GEOVANY VILLALOBOS MD Oct 23, 2024 01:52
[2024-10-21] MEDS: LEVOTHYROXINE SODIUM 25 MCG TAB PO ONE (16:26)
[2024-10-21] MEDS: VANCOMYCIN 750mg/150ml 150 ML IV SCH (18:21)
--- NOTE | 2024-10-21 23:13 | DVHPN2 ---
Progress Note - Dictate Date Seen: Oct 21, 2024 Has the PT tested + for MRSA If YES, has PT been informed?: No Medical Necessity Reason Pt with a Central, PICC or Fol: No Subjective No new complaints Patient is resting comfortably She is tolerating diet Patient was taking NSAIDs prior to admission which likely caused her ulcers vital signs Vital Sign Date Time Temp Pulse Resp B/P (MAP) Pulse Ox O2 Delivery O2 Flow Rate FiO2 10/21/24 21:39 77 19 105/55 10/21/24 21:00 97.2 82 97.2 10/21/24 20:00 Room Air* 0 21 Total Intake and Output 10/20/24 10/20/24 10/21/24 15:00 23:00 07:00 Intake Total 1455 ml 685 ml Output Total 1550 ml 1200 ml Balance -95 ml -515 ml medications Current Medications Medications Dose Ordered Sig/Geo Route Start Time Stop Time Status Last Admin Dose Admin Vancomycin HCl 0 ml @ 0 mls/hr UD IV 10/06/24 19:30 Morphine Sulfate 2 mg Q4HPRN PRN IV 10/06/24 19:30 10/21/24 21:39 2 MG Dextrose 50 ml UD PRN IV 10/07/24 11:15 Cancel Insulin Glargine 15 units DAILY SC 10/08/24 10:00 Cancel Dextrose 50 ml PRN PRN IV 10/07/24 15:00 Cancel Dextrose 50 ml PRN PRN IV 10/08/24 08:15 Cancel Dextrose 50 ml UD PRN IV 10/10/24 08:45 Sertraline HCl 50 mg DAILY PO 10/10/24 12:30 10/21/24 10:18 50 MG Diagnostic Test (Pha) 1 strip ACHS 10/14/24 17:00 10/21/24 21:21 1 STRIP Insulin Human Regular ACHS SC 10/14/24 17:00 10/21/24 21:20 3 UNITS Acetaminophen 650 mg Q4HP PRN PO 10/15/24 12:15 Clindamycin HCl 300 mg Q8HR PO 10/15/24 22:00 10/21/24 21:17 300 MG Levofloxacin 750 mg DAILY PO 10/17/24 10:00 10/21/24 10:19 750 MG Fluconazole 200 mg DAILY PO 10/17/24 10:00 10/21/24 10:18 200 MG Pantoprazole Sodium 40 mg BID PO 10/18/24 22:00 10/21/24 21:17 40 MG Sucralfate 1 gm QID@0600,1130,1700,2200 PO 10/18/24 17:00 10/21/24 21:17 1 GM Insulin Glargine 10 units HS SC 10/19/24 22:00 10/21/24 21:21 10 UNITS Vancomycin HCl 150 ml @ 150 mls/hr Q12H IV 10/21/24 18:00 10/21/24 18:21 150 MLS/HR Levothyroxine Sodium 50 mcg QAM@0600 PO 10/22/24 06:00 Levothyroxine Sodium 25 mcg QAM@0600 PO 10/22/24 06:00 objective eneral: Normal, Obese Head/Eyes: Normal ENT: Normal Neck: Normal Lungs: Normal Cardiovascular: Normal, Regular rate and rhythm Musculoskeletal: Normal Extremities: Normal Skin: Other (sacral/ buttock wound )wound vac laboratory and microbiology Laboratory Tests 10/20/24 17:11 10/20/24 06:49 10/19/24 05:00 Test 10/19/24 05:00 Range/Units Serum Glucose 121 H 74-106 mg/dL Problems(with codes): (1) Duodenal ulcer (2) Gastric peptic ulcer (3) Sepsis (4) Generalized weakness (5) Acute constipation (6) Pilonidal cyst Prognosis Plan Diet as tolerated Continue PPI and Carafate Patient is scheduled for debridement of her sacral wound Ongoing wound care IV antibiotics Dietary Evaluation Review Comments: 1) TPN if NPO > 7 days 2) Advance to [facility]gm as medically feasible 3) Cuco 1 pk BID for wound healing 4) Monitor I/O, lab values, wt trend Expected Outcomes/Goals: To meet >75% estimated needs wound to improve Fu 2-3 days Plan discussed with: Patient ELOINA MENDOZA MD Oct 21, 2024 23:13
[2024-10-22] VITALS (10 sets, daily range): BP systolic 94–125; BP diastolic 64–77; PULSE 75–87; RESP 14–20; TEMP 96.7–98.9; O2SAT 94–100
[2024-10-22 05:43] LABS: Hematocrit 24.2 % (36.0-46.0); Hemoglobin 8.5 g/dL (12.2-16.2); Mean Corpuscular Hemoglobin 29.6 pg (28.0-32.0); Mean Corpuscular Volume 84.6 fL (80.0-100.0); Nucleated Red Blood Cells % 0.0 %
[2024-10-22] MEDS: LEVOTHYROXINE SODIUM 50 MCG TAB PO SCH (05:43)
[2024-10-22] MEDS: LEVOTHYROXINE SODIUM 25 MCG TAB PO SCH (05:44)
[2024-10-22 06:04] LABS: Alanine Aminotransferase 16 U/L (7-40); Anion Gap 7 (5-15); BUN/Creatinine Ratio 13.7 (10.0-20.0); Blood Urea Nitrogen 10 mg/dL (9-23); Carbon Dioxide 27 mmol/L (20-31); Chloride 105 mmol/L (98-107); Potassium 4.3 mmol/L (3.5-5.1); Sodium 139 mmol/L (136-145); Total Protein 6.2 g/dL (5.7-8.2)
[2024-10-22 06:05] LABS: Bilirubin, Total 0.4 mg/dL (0.2-1.0)
[2024-10-22 06:13] LABS: Albumin 2.8 g/dL (3.2-4.8); Alkaline Phosphatase 137 U/L (46-116); Calcium 8.4 mg/dL (8.7-10.4); Glucose 138 mg/dL (74-106); Magnesium 1.1 mg/dL (1.6-2.6)
[2024-10-22] MEDS: MAGNESIUM SULFATE 1GM/100ML 100 ML IV SCH (07:54)
[2024-10-22] MEDS: VANCOMYCIN 750mg/150ml 150 ML IV SCH ×2 (08:11→20:18)
[2024-10-22] MEDS ORDERED: SODIUM CHLORIDE LOCK 10 ML ONE (10:20)
[2024-10-22] MEDS ORDERED: LIDOCAINE 1% INJ PF 5ML AMP ONE (10:20)
[2024-10-22] MEDS ORDERED: PROPOFOL 10 MG/ML 20 ML IV ONE (10:20)
[2024-10-22] MEDS ORDERED: ONDANSETRON HCL 4 MG/2 ML VIAL ONE (10:20)
[2024-10-22] MEDS ORDERED: MIDAZOLAM HCL 2MG/2ML 2ml VIAL (1mg/ml) ONE (10:20)
[2024-10-22] MEDS ORDERED: fentaNYL CITRATE 100 MCG/2 ML VL ONE (10:20)
[2024-10-22] MEDS ORDERED: KETAMINE 50mg/ML 1ml syringe ONE (10:20)
--- NOTE | 2024-10-22 10:48 | DVHPN2 ---
Progress Note - Dictate Date Seen: Oct 22, 2024 Has the PT tested + for MRSA If YES, has PT been informed?: No Medical Necessity Reason Pt with a Central, PICC or Fol: No Subjective No new complaints Patient is resting comfortably She is tolerating diet Patient is moving her bowels H&H stable at 8.5 Patient was taking NSAIDs prior to admission which likely caused her ulcers vital signs Vital Sign Date Time Temp Pulse Resp B/P (MAP) Pulse Ox O2 Delivery O2 Flow Rate FiO2 10/22/24 09:00 98.6 75 19 125/77 (93) 96 98.6 10/22/24 08:05 Room Air* 0 21 Total Intake and Output 10/21/24 10/21/24 10/22/24 15:00 23:00 07:00 Intake Total 400 ml 450 ml 450 ml Output Total 700 ml 500 ml 900 ml Balance -300 ml -50 ml -450 ml medications Current Medications Medications Dose Ordered Sig/Geo Route Start Time Stop Time Status Last Admin Dose Admin Vancomycin HCl 0 ml @ 0 mls/hr UD IV 10/06/24 19:30 Morphine Sulfate 2 mg Q4HPRN PRN IV 10/06/24 19:30 10/22/24 07:42 2 MG Dextrose 50 ml UD PRN IV 10/07/24 11:15 Cancel Insulin Glargine 15 units DAILY SC 10/08/24 10:00 Cancel Dextrose 50 ml PRN PRN IV 10/07/24 15:00 Cancel Dextrose 50 ml PRN PRN IV 10/08/24 08:15 Cancel Dextrose 50 ml UD PRN IV 10/10/24 08:45 Sertraline HCl 50 mg DAILY PO 10/10/24 12:30 10/21/24 10:18 50 MG Diagnostic Test (Pha) 1 strip ACHS 10/14/24 17:00 10/22/24 06:23 1 STRIP Insulin Human Regular ACHS SC 10/14/24 17:00 10/22/24 06:23 2 UNITS Acetaminophen 650 mg Q4HP PRN PO 10/15/24 12:15 Clindamycin HCl 300 mg Q8HR PO 10/15/24 22:00 10/22/24 05:43 300 MG Levofloxacin 750 mg DAILY PO 10/17/24 10:00 10/22/24 10:29 750 MG Fluconazole 200 mg DAILY PO 10/17/24 10:00 10/21/24 10:18 200 MG Pantoprazole Sodium 40 mg BID PO 10/18/24 22:00 10/21/24 21:17 40 MG Sucralfate 1 gm QID@0600,1130,1700,2200 PO 10/18/24 17:00 10/22/24 05:43 1 GM Insulin Glargine 10 units HS SC 10/19/24 22:00 10/21/24 21:21 10 UNITS Enteral Nutritional Formula 240 ml TIDWM PO 10/22/24 15:00 Levothyroxine Sodium 75 mcg QAM@0600 PO 10/23/24 06:00 Vancomycin HCl 150 ml @ 150 mls/hr Q12H IV 10/22/24 20:00 objective eneral: Normal, Obese Head/Eyes: Normal ENT: Normal Neck: Normal Lungs: Normal Cardiovascular: Normal, Regular rate and rhythm Musculoskeletal: Normal Extremities: Normal Skin: Other (sacral/ buttock wound )wound vac laboratory and microbiology Laboratory Tests 10/22/24 05:03 Test 10/22/24 05:03 Range/Units Serum Glucose 138 H 74-106 mg/dL Problems(with codes): (1) Acute constipation (2) Gastric peptic ulcer (3) Pilonidal cyst (4) Duodenal ulcer (5) Sepsis (6) Generalized weakness Prognosis Plan Diet as tolerated Continue PPI and Carafate Patient is scheduled for debridement of her sacral wound Ongoing wound care IV antibiotics Dietary Evaluation Review Comments: 1) TPN if NPO > 7 days 2) [facility] as [facility] 3) Cuco 1 pk BID for wound healing 4) Monitor I/O, lab values, wt trend Expected Outcomes/Goals: To meet >75% estimated needs wound to improve Fu 2-3 days Plan discussed with: Patient, Other (Nurse Jose) ELOINA MENDOZA MD Oct 22, 2024 10:48
[2024-10-22] MEDS ORDERED: HYDROmorphone HCL 2 MG/ML VL/or syr IV PRN ×2 (12:45)
[2024-10-22] MEDS: METOCLOPRAMIDE HCL 5MG/ml INJ 2ml VIAL IV ONE (12:45)
[2024-10-22] MEDS ORDERED: MORPHINE SULFATE 4 MG/ML SYR/VIAL IV PRN (12:45)
[2024-10-22] MEDS: KETOROLAC TROMETH 30 MG/ML 1ML VIAL IV ONE (12:45)
[2024-10-22] MEDS ORDERED: MORPHINE SULFATE INJ 2 MG/ml SYRG IV PRN (12:45)
[2024-10-22] MEDS: ceFAZolin 1GM VL ONE ×2 (13:20→13:25)
--- NOTE | 2024-10-22 13:40 | DVHOP2 ---
Operative Report - 2 Report Details Date: 10/22/24 Preop Diagnosis: sacral buttock wound Postop Diagnosis: sacral buttock wound Surgeon: Dr. Dennis Tello, Anesthesiologist: Dr. Arrieta Anesthesia: Mac Consent: The patient was informed of the risks and benefits of the procedure. These include but are not limited to complications of anesthesia, postoperative infection, incomplete relief of symptoms, recurrence of symptoms, damage to blood vessels, nerves and tendons, deep venous thrombosis, pulmonary embolism and possible need for repeat surgery in the future. Name of Procedure Performed debridement of sacral/ buttock wound Procedure Details Procedure Details: The patient was brought to the operating room, and under adequate anesthesia the patient was placed on a left lateral position, buttock . The area was than prepped and draped in a sterile fashion. Debridement of necrotic tissue was undertaken. The wound was then pulse lavaged with 2 L of saline containing Ancef. The wound was packed loosely with iodine saturated Kerlix. Specimen: necrotic tissue Condition Good Disposition Still a Patient MAGNOLIA TELLO INNER [employer]UBE CUTTER Oct 22, 2024 13:40
[2024-10-22] MEDS: Ensure HIGH Protein Chocolate 8oz Bottle PO SCH (15:08)
--- NOTE | 2024-10-22 16:37 | DVHPNRES ---
Progress Note Date Seen: Oct 22, 2024 Resident Creating Document: LEORA FULLER RESIDENT Has the PT tested + for MRSA If YES, has PT been informed?: No Medical Necessity Reason Pt with a Central, PICC or Fol: No Subjective Review of Systems This is a 29-year-old with diabetes mellitus type 1 diagnosed at the age of 12, hypothyroidism, does not take any medications at home who presented to the ER with a chief complaint of buttock pain and generalized weakness. Patient reports that she has been experiencing pain in her buttock, redness and swelling, nausea vomiting for the past 2 days. On arrival patient was hypotensive 84/39 mmHg, tachycardic and tachypneic. CT scan showed necrotizing fascitis in the patient underwent I and D 10/07, 150 mL of yellow colored fluid was drained and sent for culture. 10/08-patient underwent colostomy placement. Serum glucose was 500 on arrival and patient was started on IV insulin drip. A1c greater than 13. 10/21-Patient seen and examined, reports no active symptoms. Continue vancomycin, fluconazole, clindamycin, Levaquin. Pending I and D tomorrow. NPO after midnight. TSH up trending, increased levothyroxine to 75 mcg daily. Follow up with free T4 10/22 - patient seen and examined, no active complaint. Undergoing debridement. Objective vital signs Vital Sign Date Time Temp Pulse Resp B/P (MAP) Pulse Ox O2 Delivery O2 Flow Rate FiO2 10/22/24 14:10 75 17 101/59 (73) 93 10/22/24 13:41 98.1 98.1 10/22/24 13:41 Mask 5.0 98 Total Intake and Output 10/21/24 10/21/24 10/22/24 15:00 23:00 07:00 Intake Total 400 ml 450 ml 450 ml Output Total 700 ml 500 ml 900 ml Balance -300 ml -50 ml -450 ml medications Current Medications Medications Dose Ordered Sig/Geo Route Start Time Stop Time Status Last Admin Dose Admin Vancomycin HCl 0 ml @ 0 mls/hr UD IV 10/06/24 19:30 Morphine Sulfate 2 mg Q4HPRN PRN IV 10/06/24 19:30 10/22/24 07:42 2 MG Dextrose 50 ml UD PRN IV 10/07/24 11:15 Cancel Insulin Glargine 15 units DAILY SC 10/08/24 10:00 Cancel Dextrose 50 ml PRN PRN IV 10/07/24 15:00 Cancel Dextrose 50 ml PRN PRN IV 10/08/24 08:15 Cancel Dextrose 50 ml UD PRN IV 10/10/24 08:45 Sertraline HCl 50 mg DAILY PO 10/10/24 12:30 10/21/24 10:18 50 MG Diagnostic Test (Pha) 1 strip ACHS 10/14/24 17:00 10/22/24 11:44 1 STRIP Insulin Human Regular ACHS SC 10/14/24 17:00 10/22/24 06:23 2 UNITS Acetaminophen 650 mg Q4HP PRN PO 10/15/24 12:15 Clindamycin HCl 300 mg Q8HR PO 10/15/24 22:00 10/22/24 05:43 300 MG Levofloxacin 750 mg DAILY PO 10/17/24 10:00 10/22/24 10:29 750 MG Fluconazole 200 mg DAILY PO 10/17/24 10:00 10/21/24 10:18 200 MG Pantoprazole Sodium 40 mg BID PO 10/18/24 22:00 10/21/24 21:17 40 MG Sucralfate 1 gm QID@0600,1130,1700,2200 PO 10/18/24 17:00 10/22/24 05:43 1 GM Insulin Glargine 10 units HS CA 10/19/24 22:00 10/21/24 21:21 10 UNITS Enteral Nutritional Formula 240 ml TIDWM PO 10/22/24 15:00 10/22/24 15:08 240 ML Levothyroxine Sodium 75 mcg QAM@0600 PO 10/23/24 06:00 Vancomycin HCl 150 ml @ 150 mls/hr Q12H IV 10/22/24 20:00 Morphine Sulfate 2 mg Q4H PRN IV 10/22/24 12:45 10/22/24 16:46 Examination Morbidly obese female patient lying in bed comfortably, no acute distress. General: Morbid obese, afebrile, palor, mucosae are moist Cardiovascular: Regular S1 and S2. No murmurs, gallops or rubs. No JVD elevation. No pedal edema Respiratory: Normal B/L air entry on room air. Clear lung sounds on auscultation Abdomen: Soft, nontender, nondistended, normoactive bowel sounds, no rebound tenderness, no organomegaly, no masses. Colostomy bag seen draining yellow soft stool. Status post multiple I and D bilateral gluteal cleft with a dressing covering the defect. Extensive sacral and lumbar ulcer, still fibrinopurulent tissue and a possible new collection in the left buttock, vac was placed again Genitourinary: Deferred MSK/skin: Mobilizes 4 limbs. Skin is dry and warm Neurological: No motor, no sensitive deficits, normal speech. Pupils are isocoric and reactive. Psych/Mental Status: A/Ox3 laboratory and microbiology Laboratory Tests 10/22/24 05:03 Test 10/22/24 05:03 Range/Units Serum Glucose 138 H 74-106 mg/dL Microbiology Date/Time Source Procedure Growth Status 10/07/24 10:30 Voided Urine Urine Culture - Final Presumptive Judie albicans Complete 10/07/24 08:21 Other Other Gram Stain - Final Complete 10/07/24 08:21 Anaerobic Culture - Final Prevotella loescheii Complete 10/07/24 08:21 Other Other Aerobic Culture - Final Complete 10/06/24 11:20 Blood Blood Culture - Final NO GROWTH AFTER 5 DAYS OF INCUBATION. Complete Labs and/or images reviewed: Labs reviewed by me, Image(s) reviewed by me Problem List/Assessment/Plan Problem List/Assessment/Plan -Neurologic: #Acute metabolic encephalopathy secondary to sepsis and metabolic derangements. No focal neurological deficits documented. more alert, AOX3 Infectious Diseases #Septic shock due to necrotizing fasciitis of the gluteal and sacral region secondary to pilonidal cyst infection due to prevotella loescheii #sp I&D 10/07/24 #sp debridement of affected area (pilonidal cyst both buttocks, perianal area) and creation of a diverting colostomy 10/08/24 #s/p I&D 10/22 Confirmed intra-op with devitalized tissue and large purulent collection WBC peaked at 31K with left shift on arrival, downtrending Source control achieved with surgical debridement Started on broad-spectrum antibiotics (Zosyn + Vanc): now meropenem+ vanco+ clindamycin Blood cultures on arrival negative ID consulted per Dr Villafana 10/10/24: dressing change: less necrotic tissue, bicarb and insulin drip stopped, downgrade to the floor, continue transfer, surgery ordered a ct scan: Redemonstrated bilateral gluteal region soft tissue edema and subcutaneous emphysema which extends from the perianal region to the lower back, suggestive of necrotizing fasciitis. Appears improved from prior.Interval laparotomy and left lower quadrant ostomy with associated postsurgical changes. Hepatomegaly. 10/11/24: wbc is trending slightly higher, wound still has necrotic tissue but looks better than yesterday, patient will benefit [facility] due to possible involvement of anal sphincter,as well as plastic surgery right now with colostomy on place 10/14/24: new Debridement of devitalized tissue was undertaken. There was no further evidence of necrotizing infection. The wound was then pulse lavaged with 3 L of saline containing Ancef. The wound was packed loosely with iodine saturated Kerlix. The patient will need plastic surgical attention which is not available at this facility, per general surgery patient will benefit for transfer to [facility], wound consult was placed for vac placement, kidney function recovers, lantus was decreased to 15 ui 10/15/24: wound vac was placed, extra dose of morphine due to pain, BPs soft, 500 cc bolus, pending transfer [facility] 10/18/24: wound vac was changed, possible need of new debridement?, dr Villafana and dr Zamorano informed about the vac change, 10/21 - patient refused a wound dressing change, I and D tomorrow. 10/22-patient undergoing I and D Cardiovascular: #Septic shock due to necrotizing fasciitis Resolving, off pressors Continue IV vancomycin, clindamycin, Levaquin, fluconazole Respiratory: #Pneumonia gram+/gram- Consolidation of much of the visualized right middle and right lower lobes with air bronchograms concerning for pneumonia. At least small right pleural effusion. #Acute hypoxemic respiratory failure secondary to sepsis and poor perfusion #Respiratory acidosis possible obesity hypoventilation syndrome today room air No mechanical ventilation Metabolic/Endocrine: #Severe AGMA due to lactic acidosis-resolving #Uncontrolled diabetes hba1c 13 dc bicarb and insulin drip lantus 15 ui #Hypothyroidism: TSH 12.1, low free T4 free T3 Given severity of illness, IV levothyroxine started to prevent myxedema daily Cortisol: 30.84 normal, adrenal insufficiency ruled out levothyroxine increased to 75 PO #Hypomagnesemia replaced Hematology: #Leukocytosis, improving with neutrophilic predominance (WBC >30K) at admission #Anemia Hgb 9.3, likely hemodilutional or inflammatory No evidence of DIC, platelets stable Monitor for anemia of critical illness Renal: АНДРЕЙ due to VMN on possible CKD, baseline creatinine unknown, resolved (from hypoperfusion and sepsis + chronic component from diabetes) Cr trending high UA: proteinuria (1+), trace ketones, glucosuria (4+), WBC 16 possible UTI component or inflammation Protein/Creatinine ratio = 218.6 mg/g suggests underlying CKD Renal US: Echogenic kidneys, no hydronephrosis, medical kidney disease consistent with diabetic nephropathy GI #sp colostomy 10/08/24 #Possible low-grade small bowel obstruction #Trace free fluid in the abdomen and pelvis #gastric ulcer #duodenal ulcer clear liquid diet 10/16/24: patient was having epigastric pain, dr villafana came at bedside, pain improved with analgesia, meropenem dc and Levaquin PO was started, also fluconazol was transitioned to PO, later in the late afternoon, patient was having abdominal pain, control operator flow coat team ordered a CT scan that showed: The patient is status post sigmoidectomy with a left lower quadrant colostomy. There is moderate stool burden in the colon. The appendix is normal. There is fluid within a few proximal ileal small bowel loops although not pathologically enlarged and fecal material within a loop of ileum in the left abdomen which enters a convergence of bowel loops in the midabdomen and can no longer be distinguished. The distal ileum in the right lower quadrant is completely decompressed. There is trace free fluid in the abdomen and pelvis, new compared with the prior study. Consolidation of much of the visualized right middle and right lower lobes with air bronchograms concerning for pneumonia. At least small right pleural effusion. Significantly worse compared with the prior study. Findings discussed with dr Villafana 10/17/24: gastrografin showed no small bowel obstruction, abdominal pain is improving, RUQ US: normal, we will continue PO AB, wound vac change tomorrow, GI on board 10/18/24Dr Saunders GI, perfomed upper endoscope, showing gastric and duondenal ulcer, protonix and sucralfate per GI, lantus 10ui : #Complicated UTI, presumptive judie albicans UA: trace ketones, glucosuria, 1+ protein, few bacteria Bladder decompressed via Prajapati, likely due to altered mental status and hypotension fluconazol iv MSK/Soft Tissue: #Extensive necrotizing fasciitis involving gluteal/sacral regions Large abscess drained (~150 mL purulent fluid), tissue debrided Pulse lavage and wound packed sp debridement of affected area (pilonidal cyst both buttocks, perianal area) and creation of a diverting colostomy 10/08/24 wound is having baker and white patches, patient will benefit for transfer [facility] 10/10/24: dressing change: less necrotic tissue 10/14/24: new Debridement of devitalized tissue was undertaken. There was no further evidence of necrotizing infection. The wound was then pulse lavaged with 3 L of saline containing Ancef. The wound was packed loosely with iodine saturated Kerlix. The patient will need plastic surgical attention which is not available at this facility, per general surgery patient will benefit for transfer to [facility], wound consult was placed for vac placement 10/15/24: wound vac was placed, extra dose of morphine due to pain, BPs soft, 500 cc bolus, pending transfer [facility] Plan discussed with patient, family at bedside in which all questions have been answered Case discussed with Dr Luo Plan discussed with: Patient My Orders My Orders Orders - LEORA FULLER Procedure Category Date Status Time Nutritional PHA 10/22/24 In Process Supplements (Ensure 15:00 Levothyroxine Tablet PHA 10/23/24 In Process (Synthroid Tablet) 06:00 Npo (Nothing By DIET 10/22/24 Transmitted Mouth) Diet Breakfast Dietary Evaluation Review Comments: 1) TPN if NPO > 7 days 2) Advance to [facility] 60gm as medically feasible 3) Cuco 1 pk BID for wound healing 4) Monitor I/O, lab values, wt trend Expected Outcomes/Goals: To meet >75% estimated needs wound to improve Fu 2-3 days Date of Service: Oct 22, 2024 Billing Provider: GEOVANY VILLALOBOS MD Common Visit Codes: [id number] INP/OBS CARE(HIGH) LEORA FULLER Oct 22, 2024 16:37 GEOVANY VILLALOBOS MD Oct 23, 2024 01:59
[2024-10-23] VITALS (7 sets, daily range): BP systolic 98–131; BP diastolic 63–78; PULSE 80–84; RESP 16–20; TEMP 97.8–98.7; O2SAT 95–99
[2024-10-23] MEDS: LEVOTHYROXINE SODIUM 25 MCG TAB PO SCH (05:28)
[2024-10-23 07:08] LABS: Nucleated Red Blood Cells % 0.1 %
[2024-10-23 07:10] LABS: Hematocrit 22.9 % (36.0-46.0); Hemoglobin 8.0 g/dL (12.2-16.2); Mean Corpuscular Hemoglobin 29.7 pg (28.0-32.0); Mean Corpuscular Volume 84.4 fL (80.0-100.0)
--- NOTE | 2024-10-23 13:02 | DVHPN2 ---
Subjective Date Seen: Oct 23, 2024 Post op day Post op day: 1 Patient reports: Feels better Nursing reports: No new complaints General: Normal HNT: Normal Cardiovascular: Normal Respiratory: Normal Gastrointestinal: Normal Genitourinary: Normal Musculoskeletal: Normal Neurological: Normal Objective Vitals Vital Sign Date Time Temp Pulse Resp B/P (MAP) Pulse Ox O2 Delivery O2 Flow Rate FiO2 10/23/24 09:00 98.7 80 16 115/71 (86) 96 98.7 10/22/24 20:00 Room Air* 0 21 Total Intake and Output 10/22/24 10/22/24 10/23/24 15:00 23:00 07:00 Intake Total 100 ml 490 ml 1000 ml Output Total 1050 ml 910 ml Balance 100 ml -560 ml 90 ml Medications Current Medications Medications Dose Ordered Sig/Geo Route Start Time Stop Time Status Last Admin Dose Admin Vancomycin HCl 0 ml @ 0 mls/hr UD IV 10/06/24 19:30 Morphine Sulfate 2 mg Q4HPRN PRN IV 10/06/24 19:30 10/23/24 08:21 2 MG Dextrose 50 ml UD PRN IV 10/07/24 11:15 Cancel Insulin Glargine 15 units DAILY SC 10/08/24 10:00 Cancel Dextrose 50 ml PRN PRN IV 10/07/24 15:00 Cancel Dextrose 50 ml PRN PRN IV 10/08/24 08:15 Cancel Dextrose 50 ml UD PRN IV 10/10/24 08:45 Sertraline HCl 50 mg DAILY PO 10/10/24 12:30 10/23/24 10:49 50 MG Diagnostic Test (Pha) 1 strip ACHS 10/14/24 17:00 10/23/24 11:43 1 STRIP Insulin Human Regular ACHS SC 10/14/24 17:00 10/23/24 11:50 2 UNITS Acetaminophen 650 mg Q4HP PRN PO 10/15/24 12:15 Clindamycin HCl 300 mg Q8HR PO 10/15/24 22:00 10/23/24 05:28 300 MG Levofloxacin 750 mg DAILY PO 10/17/24 10:00 10/23/24 10:49 750 MG Fluconazole 200 mg DAILY PO 10/17/24 10:00 10/23/24 10:48 200 MG Pantoprazole Sodium 40 mg BID PO 10/18/24 22:00 10/23/24 10:49 40 MG Sucralfate 1 gm QID@0600,1130,1700,2200 PO 10/18/24 17:00 10/23/24 10:50 1 GM Insulin Glargine 10 units HS SC 10/19/24 22:00 10/22/24 22:01 10 UNITS Enteral Nutritional Formula 240 ml TIDWM PO 10/22/24 15:00 10/23/24 11:43 240 ML Levothyroxine Sodium 75 mcg QAM@0600 PO 10/23/24 06:00 10/23/24 05:28 75 MCG Vancomycin HCl 150 ml @ 150 mls/hr Q12H IV 10/22/24 20:00 10/23/24 08:20 150 MLS/HR General: Normal, Obese Head/Eyes: Normal ENT: Normal Neck: Normal Lungs: Normal Cardiovascular: Normal, Regular rate and rhythm Musculoskeletal: Normal Extremities: Normal Skin: Other (sacral/ buttock wound ) Labs and Microbiology Laboratory Tests 10/23/24 04:52 10/22/24 05:03 Test 10/22/24 05:03 Range/Units Serum Glucose 138 H 74-106 mg/dL Ass/Plan Labs and/or images reviewed: Labs reviewed by me, Image(s) reviewed by me Problem List -Neurologic: #Acute metabolic encephalopathy secondary to sepsis and metabolic derangements. No focal neurological deficits documented. more alert, AOX3 Infectious Diseases #Septic shock due to necrotizing fasciitis of the gluteal and sacral region secondary to pilonidal cyst infection due to prevotella loescheii #sp I&D 10/07/24 #sp debridement of affected area (pilonidal cyst both buttocks, perianal area) and creation of a diverting colostomy 10/08/24 #s/p I&D 10/22 Confirmed intra-op with devitalized tissue and large purulent collection WBC peaked at 31K with left shift on arrival, downtrending Source control achieved with surgical debridement Started on broad-spectrum antibiotics (Zosyn + Vanc): now meropenem+ vanco+ clindamycin Blood cultures on arrival negative ID consulted per Dr Villafana 10/10/24: dressing change: less necrotic tissue, bicarb and insulin drip stopped, downgrade to the floor, continue transfer, surgery ordered a ct scan: Redemonstrated bilateral gluteal region soft tissue edema and subcutaneous emphysema which extends from the perianal region to the lower back, suggestive of necrotizing fasciitis. Appears improved from prior.Interval laparotomy and left lower quadrant ostomy with associated postsurgical changes. Hepatomegaly. 10/11/24: wbc is trending slightly higher, wound still has necrotic tissue but looks better than yesterday, patient will benefit for transfer to [facility] for colorectal surgery due to possible involvement of anal sphincter,as well as plastic surgery right now with colostomy on place 10/14/24: new Debridement of devitalized tissue was undertaken. There was no further evidence of necrotizing infection. The wound was then pulse lavaged with 3 L of saline containing Ancef. The wound was packed loosely with iodine saturated Kerlix. The patient will need plastic surgical attention which is not available at this facility, per general surgery patient will benefit for transfer to [facility], wound consult was placed for vac placement, kidney function recovers, lantus was decreased to 15 ui 10/15/24: wound vac was placed, extra dose of morphine due to pain, BPs soft, 500 cc bolus, pending transfer [facility] 10/18/24: wound vac was changed, possible need of new debridement?, dr Villafana and dr Zamorano informed about the vac change, 10/21 - patient refused a wound dressing change, I and D tomorrow. 10/22-patient undergoing I and D Cardiovascular: #Septic shock due to necrotizing fasciitis Resolving, off pressors Continue IV vancomycin, clindamycin, Levaquin, fluconazole Respiratory: #Pneumonia gram+/gram- Consolidation of much of the visualized right middle and right lower lobes with air bronchograms concerning for pneumonia. At least small right pleural effusion. #Acute hypoxemic respiratory failure secondary to sepsis and poor perfusion #Respiratory acidosis possible obesity hypoventilation syndrome today room air No mechanical ventilation Metabolic/Endocrine: #Severe AGMA due to lactic acidosis-resolving #Uncontrolled diabetes hba1c 13 dc bicarb and insulin drip lantus 15 ui #Hypothyroidism: TSH 12.1, low free T4 free T3 Given severity of illness, IV levothyroxine started to prevent myxedema daily Cortisol: 30.84 normal, adrenal insufficiency ruled out levothyroxine increased to 75 PO #Hypomagnesemia replaced Hematology: #Leukocytosis, improving with neutrophilic predominance (WBC >30K) at admission #Anemia Hgb 9.3, likely hemodilutional or inflammatory No evidence of DIC, platelets stable Monitor for anemia of critical illness Renal: АНДРЕЙ due to VMN on possible CKD, baseline creatinine unknown, resolved (from hypoperfusion and sepsis + chronic component from diabetes) Cr trending high UA: proteinuria (1+), trace ketones, glucosuria (4+), WBC 16 possible UTI component or inflammation Protein/Creatinine ratio = 218.6 mg/g suggests underlying CKD Renal US: Echogenic kidneys, no hydronephrosis, medical kidney disease consistent with diabetic nephropathy GI #sp colostomy 10/08/24 #Possible low-grade small bowel obstruction #Trace free fluid in the abdomen and pelvis #gastric ulcer #duodenal ulcer clear liquid diet 10/16/24: patient was having epigastric pain, dr villafana came at bedside, pain improved with analgesia, meropenem dc and Levaquin PO was started, also fluconazol was transitioned to PO, later in the late afternoon, patient was having abdominal pain, content administrator team ordered a CT scan that showed: The patient is status post sigmoidectomy with a left lower quadrant colostomy. There is moderate stool burden in the colon. The appendix is normal. There is fluid within a few proximal ileal small bowel loops although not pathologically enlarged and fecal material within a loop of ileum in the left abdomen which enters a convergence of bowel loops in the midabdomen and can no longer be distinguished. The distal ileum in the right lower quadrant is completely decompressed. There is trace free fluid in the abdomen and pelvis, new compared with the prior study. Consolidation of much of the visualized right middle and right lower lobes with air bronchograms concerning for pneumonia. At least small right pleural effusion. Significantly worse compared with the prior study. Findings discussed with dr Villafana 10/17/24: gastrografin showed no small bowel obstruction, abdominal pain is improving, RUQ US: normal, we will continue PO AB, wound vac change tomorrow, GI on board 10/18/24Dr Saunders GI, perfomed upper endoscope, showing gastric and duondenal ulcer, protonix and sucralfate per GI, lantus 10ui : #Complicated UTI, presumptive judie albicans UA: trace ketones, glucosuria, 1+ protein, few bacteria Bladder decompressed via Prajapati, likely due to altered mental status and hypotension fluconazol iv MSK/Soft Tissue: #Extensive necrotizing fasciitis involving gluteal/sacral regions Large abscess drained (~150 mL purulent fluid), tissue debrided Pulse lavage and wound packed sp debridement of affected area (pilonidal cyst both buttocks, perianal area) and creation of a diverting colostomy 10/08/24 wound is having baker and white patches, patient will benefit for transfer to [facility] for plastic surgery 10/10/24: dressing change: less necrotic tissue 10/14/24: new Debridement of devitalized tissue was undertaken. There was no further evidence of necrotizing infection. The wound was then pulse lavaged with 3 L of saline containing Ancef. The wound was packed loosely with iodine saturated Kerlix. The patient will need plastic surgical attention which is not available at this facility, per general surgery patient will benefit for transfer to [facility], wound consult was placed for vac placement 10/15/24: wound vac was placed, extra dose of morphine due to pain, BPs soft, 500 cc bolus, pending transfer [facility] Plan discussed with patient, family at bedside in which all questions have been answered Case discussed with Dr Luo Assessment/Plan stoma ok, no gas wound clean dry and intact Nurse reports overnight drainage from wound labs and notes reviewed Plan: wound dressing to be change twice a day patient to lie on right or left side, not on her back continue current treatment 10/11/24 s/p debridement of sacral buttock necrotic tissue / colostomy no new complaints, stoma functioning wound covered in dressing per Nurse wound dressing changed today Plan: wound dressing to be changed as ordered wound consult patient needs Higher level of care for plastic surgery reconstruction sacral area 10/19/24 s/p debridement of sacral buttock necrotic tissue / colostomy no new complaints, stoma functioning , abdomen soft, non distended, non tender wound vac, no erythema on edges of wound tolerating diet Plan: wound vac reassess wound a couple days 10/22/24 s/p debridement of sacral buttock necrotic tissue / colostomy POD#7 no new complaints, stoma functioning , abdomen soft, non distended, non tender wound vac, no erythema on edges of wound tolerating diet Plan: wound vac debridement of sacral/ buttock wound tomorrow 10/23/24 s/p debridement of sacral buttock necrotic tissue / colostomy no new complaints, stoma functioning , abdomen soft, non distended, non tender wound vac, no erythema on edges of wound tolerating diet Prognosis: Good Plan discussed with Dr. villafana Visit Coding Surgery Date of Service if different f: Oct 23, 2024 Billing Provider: VERONICA VILLAFANA MD Surgery Visit Codes: [id number] INP/OBS CARE(HIGH) MAGNOLIA TELLO NP Oct 23, 2024 13:02
[2024-10-23] MEDS: Glucerna Carbsteady SHAKE Vanilla 8oz PO SCH (17:32)
--- NOTE | 2024-10-23 18:33 | DVHPNRES ---
Progress Note Date Seen: Oct 23, 2024 Resident Creating Document: LEORA FULLER RESIDENT Has the PT tested + for MRSA If YES, has PT been informed?: No Medical Necessity Reason Pt with a Central, PICC or Fol: No Subjective Review of Systems Patient seen and examined, reports no active distress. Prajapati catheter discontinued. Objective vital signs Vital Sign Date Time Temp Pulse Resp B/P (MAP) Pulse Ox O2 Delivery O2 Flow Rate FiO2 10/23/24 18:03 84 18 105/61 10/23/24 16:50 97.8 98 97.8 10/23/24 08:00 Room Air* 0 21 Total Intake and Output 10/22/24 10/22/24 10/23/24 15:00 23:00 07:00 Intake Total 100 ml 490 ml 1000 ml Output Total 1050 ml 910 ml Balance 100 ml -560 ml 90 ml medications Current Medications Medications Dose Ordered Sig/Geo Route Start Time Stop Time Status Last Admin Dose Admin Vancomycin HCl 0 ml @ 0 mls/hr UD IV 10/06/24 19:30 Morphine Sulfate 2 mg Q4HPRN PRN IV 10/06/24 19:30 10/23/24 17:33 2 MG Dextrose 50 ml UD PRN IV 10/07/24 11:15 Cancel Insulin Glargine 15 units DAILY SC 10/08/24 10:00 Cancel Dextrose 50 ml PRN PRN IV 10/07/24 15:00 Cancel Dextrose 50 ml PRN PRN IV 10/08/24 08:15 Cancel Dextrose 50 ml UD PRN IV 10/10/24 08:45 Sertraline HCl 50 mg DAILY PO 10/10/24 12:30 10/23/24 10:49 50 MG Diagnostic Test (Pha) 1 strip ACHS 10/14/24 17:00 10/23/24 17:22 1 STRIP Insulin Human Regular ACHS SC 10/14/24 17:00 10/23/24 17:30 2 UNITS Acetaminophen 650 mg Q4HP PRN PO 10/15/24 12:15 Clindamycin HCl 300 mg Q8HR PO 10/15/24 22:00 10/23/24 14:30 300 MG Levofloxacin 750 mg DAILY PO 10/17/24 10:00 10/23/24 10:49 750 MG Fluconazole 200 mg DAILY PO 10/17/24 10:00 10/23/24 10:48 200 MG Pantoprazole Sodium 40 mg BID PO 10/18/24 22:00 10/23/24 10:49 40 MG Sucralfate 1 gm QID@0600,1130,1700,2200 PO 10/18/24 17:00 10/23/24 17:27 1 GM Insulin Glargine 10 units HS SC 10/19/24 22:00 10/22/24 22:01 10 UNITS Levothyroxine Sodium 75 mcg QAM@0600 PO 10/23/24 06:00 10/23/24 05:28 75 MCG Vancomycin HCl 150 ml @ 150 mls/hr Q12H IV 10/22/24 20:00 10/23/24 08:20 150 MLS/HR Enteral Nutritional Formula 240 ml TIDWM PO 10/23/24 18:00 10/23/24 17:32 240 ML Enteral Nutritional Formula 27.5 gm DAILY PO 10/24/24 10:00 Examination Morbidly obese female patient lying in bed comfortably, no acute distress. General: Morbid obese, afebrile, palor, mucosae are moist Cardiovascular: Regular S1 and S2. No murmurs, gallops or rubs. No JVD elevation. No pedal edema Respiratory: Normal B/L air entry on room air. Clear lung sounds on auscultation Abdomen: Soft, nontender, nondistended, normoactive bowel sounds, no rebound tenderness, no organomegaly, no masses. Colostomy bag seen draining yellow soft stool. Status post multiple I and D bilateral gluteal cleft with a dressing covering the defect. Extensive sacral and lumbar ulcer, still fibrinopurulent tissue and a possible new collection in the left buttock, vac was placed again Genitourinary: Deferred MSK/skin: Mobilizes 4 limbs. Skin is dry and warm Neurological: No motor, no sensitive deficits, normal speech. Pupils are isocoric and reactive. Psych/Mental Status: A/Ox3 laboratory and microbiology Laboratory Tests 10/23/24 04:52 10/22/24 05:03 Test 10/22/24 05:03 Range/Units Serum Glucose 138 H 74-106 mg/dL Microbiology Date/Time Source Procedure Growth Status 10/07/24 10:30 Voided Urine Urine Culture - Final Presumptive Judie albicans Complete 10/07/24 08:21 Other Other Gram Stain - Final Complete 10/07/24 08:21 Anaerobic Culture - Final Prevotella loescheii Complete 10/07/24 08:21 Other Other Aerobic Culture - Final Complete 10/06/24 11:20 Blood Blood Culture - Final NO GROWTH AFTER 5 DAYS OF INCUBATION. Complete Labs and/or images reviewed: Labs reviewed by me, Image(s) reviewed by me Problem List/Assessment/Plan Problem List/Assessment/Plan -Neurologic: #Acute metabolic encephalopathy secondary to sepsis and metabolic derangements. No focal neurological deficits documented. more alert, AOX3 Infectious Diseases #Septic shock due to necrotizing fasciitis of the gluteal and sacral region secondary to pilonidal cyst infection due to prevotella loescheii #sp I&D 10/07/24 #sp debridement of affected area (pilonidal cyst both buttocks, perianal area) and creation of a diverting colostomy 10/08/24 #s/p I&D 10/22 Confirmed intra-op with devitalized tissue and large purulent collection WBC peaked at 31K with left shift on arrival, downtrending Source control achieved with surgical debridement Started on broad-spectrum antibiotics (Zosyn + Vanc): now meropenem+ vanco+ clindamycin Blood cultures on arrival negative ID consulted per Dr Villafana 10/10/24: dressing change: less necrotic tissue, bicarb and insulin drip stopped, downgrade to the floor, continue transfer, surgery ordered a ct scan: Redemonstrated bilateral gluteal region soft tissue edema and subcutaneous emphysema which extends from the perianal region to the lower back, suggestive of necrotizing fasciitis. Appears improved from prior.Interval laparotomy and left lower quadrant ostomy with associated postsurgical changes. Hepatomegaly. 10/11/24: wbc is trending slightly higher, wound still has necrotic tissue but looks better than yesterday, patient will benefit for transfer to [facility] for colorectal surgery due to possible involvement of anal sphincter,as well as plastic surgery right now with colostomy on place 10/14/24: new Debridement of devitalized tissue was undertaken. There was no further evidence of necrotizing infection. The wound was then pulse lavaged with 3 L of saline containing Ancef. The wound was packed loosely with iodine saturated Kerlix. The patient will need plastic surgical attention which is not available at this facility, per general surgery patient will benefit for transfer to [facility], wound consult was placed for vac placement, kidney function recovers, lantus was decreased to 15 ui 10/15/24: wound vac was placed, extra dose of morphine due to pain, BPs soft, 500 cc bolus, pending transfer [facility] 10/18/24: wound vac was changed, possible need of new debridement?, dr Villafana and dr Zamorano informed about the vac change, 10/21 - patient refused a wound dressing change, I and D tomorrow. 10/22-patient undergoing I and D, Wound VAC changed 10/23-Prajapati catheter discontinued Cardiovascular: #Septic shock due to necrotizing fasciitis Resolving, off pressors Continue IV vancomycin, clindamycin, Levaquin, fluconazole Respiratory: #Pneumonia gram+/gram- Consolidation of much of the visualized right middle and right lower lobes with air bronchograms concerning for pneumonia. At least small right pleural effusion. #Acute hypoxemic respiratory failure secondary to sepsis and poor perfusion #Respiratory acidosis possible obesity hypoventilation syndrome today room air No mechanical ventilation Metabolic/Endocrine: #Severe AGMA due to lactic acidosis-resolving #Uncontrolled diabetes hba1c 13 dc bicarb and insulin drip lantus 15 ui #Hypothyroidism: TSH 12.1, low free T4 free T3 Given severity of illness, IV levothyroxine started to prevent myxedema daily Cortisol: 30.84 normal, adrenal insufficiency ruled out levothyroxine increased to 75 PO #Hypomagnesemia replaced Hematology: #Leukocytosis, improving with neutrophilic predominance (WBC >30K) at admission #Anemia Hgb 9.3, likely hemodilutional or inflammatory No evidence of DIC, platelets stable Monitor for anemia of critical illness Renal: АНДРЕЙ due to VMN on possible CKD, baseline creatinine unknown, resolved (from hypoperfusion and sepsis + chronic component from diabetes) Cr trending high UA: proteinuria (1+), trace ketones, glucosuria (4+), WBC 16 possible UTI component or inflammation Protein/Creatinine ratio = 218.6 mg/g suggests underlying CKD Renal US: Echogenic kidneys, no hydronephrosis, medical kidney disease consistent with diabetic nephropathy GI #sp colostomy 10/08/24 #Possible low-grade small bowel obstruction #Trace free fluid in the abdomen and pelvis #gastric ulcer #duodenal ulcer clear liquid diet 10/16/24: patient was having epigastric pain, dr villafana came at bedside, pain improved with analgesia, meropenem dc and Levaquin PO was started, also fluconazol was transitioned to PO, later in the late afternoon, patient was having abdominal pain, center receptionist team ordered a CT scan that showed: The patient is status post sigmoidectomy with a left lower quadrant colostomy. There is moderate stool burden in the colon. The appendix is normal. There is fluid within a few proximal ileal small bowel loops although not pathologically enlarged and fecal material within a loop of ileum in the left abdomen which enters a convergence of bowel loops in the midabdomen and can no longer be distinguished. The distal ileum in the right lower quadrant is completely decompressed. There is trace free fluid in the abdomen and pelvis, new compared with the prior study. Consolidation of much of the visualized right middle and right lower lobes with air bronchograms concerning for pneumonia. At least small right pleural effusion. Significantly worse compared with the prior study. Findings discussed with dr Villafana 10/17/24: gastrografin showed no small bowel obstruction, abdominal pain is improving, RUQ US: normal, we will continue PO AB, wound vac change tomorrow, GI on board 10/18/24Dr Chip GI, perfomed upper endoscope, showing gastric and duondenal ulcer, protonix and sucralfate per GI, lantus 10ui : #Complicated UTI, presumptive judie albicans UA: trace ketones, glucosuria, 1+ protein, few bacteria Bladder decompressed via Prajapati, likely due to altered mental status and hypotension fluconazol iv MSK/Soft Tissue: #Extensive necrotizing fasciitis involving gluteal/sacral regions Large abscess drained (~150 mL purulent fluid), tissue debrided Pulse lavage and wound packed sp debridement of affected area (pilonidal cyst both buttocks, perianal area) and creation of a diverting colostomy 10/08/24 wound is having baker and white patches, patient will benefit for transfer to [facility] for plastic surgery 10/10/24: dressing change: less necrotic tissue 10/14/24: new Debridement of devitalized tissue was undertaken. There was no further evidence of necrotizing infection. The wound was then pulse lavaged with 3 L of saline containing Ancef. The wound was packed loosely with iodine saturated Kerlix. The patient will need plastic surgical attention which is not available at this facility, per general surgery patient will benefit for transfer to [facility], wound consult was placed for vac placement 10/15/24: wound vac was placed, extra dose of morphine due to pain, BPs soft, 500 cc bolus, pending transfer [facility] Plan discussed with patient, family at bedside in which all questions have been answered Case discussed with Dr Luo Plan discussed with: Patient My Orders My Orders Orders - LEORA FULLER Procedure Category Date Status Time Nutritional PHA 10/23/24 In Process Supplements (Glucerna 18:00 Nutritional PHA 10/24/24 In Process Supplements (Cuco 10:00 Complete Blood Count LAB 10/24/24 Verified 04:00 Basic Metabolic Panel LAB 10/24/24 Verified 04:00 Magnesium LAB 10/24/24 Verified 04:00 Dietary Evaluation Review Comments: 1) TPN if NPO > 7 days [facility] 3) Cuco 1 pk BID for wound healing 4) Monitor I/O, lab values, wt trend Expected Outcomes/Goals: To meet >75% estimated needs wound to improve Fu 2-3 days Date of Service: Oct 23, 2024 Billing Provider: GEOVANY VILLALOBOS MD Common Visit Codes: [id number] INP/OBS CARE(HIGH) LEORA FULLER Oct 23, 2024 18:33 GEOVANY VILLALOBOS MD Oct 28, 2024 00:35
--- NOTE | 2024-10-23 18:45 | DVHPN2 ---
Progress Note - Dictate Date Seen: Oct 23, 2024 Has the PT tested + for MRSA If YES, has PT been informed?: No Medical Necessity Reason Pt with a Central, PICC or Fol: No Subjective No new complaints Patient is resting comfortably She is tolerating diet Patient is moving her bowels H&H down to 8.0 Patient was taking NSAIDs prior to admission which likely caused her ulcers vital signs Vital Sign Date Time Temp Pulse Resp B/P (MAP) Pulse Ox O2 Delivery O2 Flow Rate FiO2 10/23/24 18:03 84 18 105/61 10/23/24 16:50 97.8 98 97.8 10/23/24 08:00 Room Air* 0 21 Total Intake and Output 10/22/24 10/22/24 10/23/24 15:00 23:00 07:00 Intake Total 100 ml 490 ml 1000 ml Output Total 1050 ml 910 ml Balance 100 ml -560 ml 90 ml medications Current Medications Medications Dose Ordered Sig/Geo Route Start Time Stop Time Status Last Admin Dose Admin Vancomycin HCl 0 ml @ 0 mls/hr UD IV 10/06/24 19:30 Morphine Sulfate 2 mg Q4HPRN PRN IV 10/06/24 19:30 10/23/24 17:33 2 MG Dextrose 50 ml UD PRN IV 10/07/24 11:15 Cancel Insulin Glargine 15 units DAILY SC 10/08/24 10:00 Cancel Dextrose 50 ml PRN PRN IV 10/07/24 15:00 Cancel Dextrose 50 ml PRN PRN IV 10/08/24 08:15 Cancel Dextrose 50 ml UD PRN IV 10/10/24 08:45 Sertraline HCl 50 mg DAILY PO 10/10/24 12:30 10/23/24 10:49 50 MG Diagnostic Test (Pha) 1 strip ACHS 10/14/24 17:00 10/23/24 17:22 1 STRIP Insulin Human Regular ACHS SC 10/14/24 17:00 10/23/24 17:30 2 UNITS Acetaminophen 650 mg Q4HP PRN PO 10/15/24 12:15 Clindamycin HCl 300 mg Q8HR PO 10/15/24 22:00 10/23/24 14:30 300 MG Levofloxacin 750 mg DAILY PO 10/17/24 10:00 10/23/24 10:49 750 MG Fluconazole 200 mg DAILY PO 10/17/24 10:00 10/23/24 10:48 200 MG Pantoprazole Sodium 40 mg BID PO 10/18/24 22:00 10/23/24 10:49 40 MG Sucralfate 1 gm QID@0600,1130,1700,2200 PO 10/18/24 17:00 10/23/24 17:27 1 GM Insulin Glargine 10 units HS SC 10/19/24 22:00 10/22/24 22:01 10 UNITS Levothyroxine Sodium 75 mcg QAM@0600 PO 10/23/24 06:00 10/23/24 05:28 75 MCG Vancomycin HCl 150 ml @ 150 mls/hr Q12H IV 10/22/24 20:00 10/23/24 08:20 150 MLS/HR Enteral Nutritional Formula 240 ml TIDWM PO 10/23/24 18:00 10/23/24 17:32 240 ML Enteral Nutritional Formula 27.5 gm DAILY PO 10/24/24 10:00 objective eneral: Normal, Obese Head/Eyes: Normal ENT: Normal Neck: Normal Lungs: Normal Cardiovascular: Normal, Regular rate and rhythm Musculoskeletal: Normal Extremities: Normal Skin: Other (sacral/ buttock wound )wound vac laboratory and microbiology Laboratory Tests 10/23/24 04:52 10/22/24 05:03 Test 10/22/24 05:03 Range/Units Serum Glucose 138 H 74-106 mg/dL Problems(with codes): (1) Acute constipation (2) Gastric peptic ulcer (3) Pilonidal cyst (4) Duodenal ulcer (5) Sepsis (6) Hyperglycemia (7) Generalized weakness (8) Necrotizing fasciitis Prognosis Plan Patient is S/P repeat debridement of sacral wound Patient may have had a slight drop in H and H because of recent surgery Continue Protonix and Carafate Continue to monitor labs Continue IV antibiotics I will follow up patient with you Dietary Evaluation Review Comments: 1) TPN if NPO > 7 days 2) Advance to [facility]gm as medically feasible 3) Cuco 1 pk BID for wound healing 4) Monitor I/O, lab values, wt trend Expected Outcomes/Goals: To meet >75% estimated needs wound to improve Fu 2-3 days Plan discussed with: Patient ELOINA MENDOZA MD Oct 23, 2024 18:45
[2024-10-24 01:00] VITALS: BP 101/56; PULSE 76; RESP 22; TEMP 98.3; O2SAT 100
[2024-10-24 05:00] VITALS: BP 110/73; PULSE 79; RESP 20; TEMP 97.7; O2SAT 94
[2024-10-24 07:44] LABS: Hematocrit 24.6 % (36.0-46.0); Hemoglobin 8.6 g/dL (12.2-16.2); Mean Corpuscular Hemoglobin 29.7 pg (28.0-32.0); Mean Corpuscular Volume 85.1 fL (80.0-100.0); Nucleated Red Blood Cells % 0.1 %
[2024-10-24 07:51] LABS: Anion Gap 8 (5-15); Carbon Dioxide 27 mmol/L (20-31); Chloride 106 mmol/L (98-107); Potassium 4.8 mmol/L (3.5-5.1); Sodium 141 mmol/L (136-145)
[2024-10-24 07:52] LABS: Calcium 9.5 mg/dL (8.7-10.4)
[2024-10-24 07:57] LABS: BUN/Creatinine Ratio 8.4 (10.0-20.0); Blood Urea Nitrogen 7 mg/dL (9-23); Glucose 144 mg/dL (74-106)
[2024-10-24 07:58] LABS: Magnesium 1.2 mg/dL (1.6-2.6)
[2024-10-24] MEDS: Juven Orange Powder PACKET 27.5gm PO SCH (08:19)
[2024-10-24 09:00] VITALS: BP 114/74; PULSE 79; RESP 17; TEMP 98; O2SAT 96
[2024-10-24] MEDS: MAGNESIUM SULFATE 1GM/100ML 100 ML IV SCH (10:00)
--- NOTE | 2024-10-24 10:56 | DVHPNRES ---
Progress Note Date Seen: Oct 24, 2024 Resident Creating Document: LEORA FULLER RESIDENT Has the PT tested + for MRSA If YES, has PT been informed?: No Medical Necessity Reason Pt with a Central, PICC or Fol: No Subjective Review of Systems This is a 29-year-old with diabetes mellitus type 1 diagnosed at the age of 12, hypothyroidism, does not take any medications at home who presented to the ER with a chief complaint of buttock pain and generalized weakness. Patient reports that she has been experiencing pain in her buttock, redness and swelling, nausea vomiting for the past 2 days. On arrival patient was hypotensive 84/39 mmHg, tachycardic and tachypneic. CT scan showed necrotizing fascitis in the patient underwent I and D 10/07, 150 mL of yellow colored fluid was drained and sent for culture. 10/08-patient underwent colostomy placement. Serum glucose was 500 on arrival and patient was started on IV insulin drip. A1c greater than 13. 10/21-Patient seen and examined, reports no active symptoms. Continue vancomycin, fluconazole, clindamycin, Levaquin. Pending I and D tomorrow. NPO after midnight. TSH up trending, increased levothyroxine to 75 mcg daily. Follow up with free T4 10/22 - patient seen and examined, no active complaint. Undergoing debridement. 10/23 - Patient seen and examined, reports no active distress. Boykin catheter discontinued. 10/24 - De escalate IV antibiotics to Unasyn. Patient retaining urine, straight cath done, may need boykin and outpt suprapubic Objective vital signs Vital Sign Date Time Temp Pulse Resp B/P (MAP) Pulse Ox O2 Delivery O2 Flow Rate FiO2 10/24/24 09:00 98.0 79 17 114/74 (87) 96 98.0 10/23/24 20:00 Room Air* 0 21 Total Intake and Output 10/23/24 10/23/24 10/24/24 15:00 23:00 07:00 Intake Total 150 ml 775 ml 400 ml Output Total 1085 ml 50 ml Balance -935 ml 725 ml 400 ml medications Current Medications Medications Dose Ordered Sig/Geo Route Start Time Stop Time Status Last Admin Dose Admin Vancomycin HCl 0 ml @ 0 mls/hr UD IV 10/06/24 19:30 Morphine Sulfate 2 mg Q4HPRN PRN IV 10/06/24 19:30 10/24/24 08:15 2 MG Dextrose 50 ml UD PRN IV 10/07/24 11:15 Cancel Insulin Glargine 15 units DAILY SC 10/08/24 10:00 Cancel Dextrose 50 ml PRN PRN IV 10/07/24 15:00 Cancel Dextrose 50 ml PRN PRN IV 10/08/24 08:15 Cancel Dextrose 50 ml UD PRN IV 10/10/24 08:45 Sertraline HCl 50 mg DAILY PO 10/10/24 12:30 10/24/24 08:18 50 MG Diagnostic Test (Pha) 1 strip ACHS 10/14/24 17:00 10/24/24 06:22 1 STRIP Insulin Human Regular ACHS SC 10/14/24 17:00 10/24/24 06:22 2 UNITS Acetaminophen 650 mg Q4HP PRN PO 10/15/24 12:15 Clindamycin HCl 300 mg Q8HR PO 10/15/24 22:00 10/24/24 05:43 300 MG Levofloxacin 750 mg DAILY PO 10/17/24 10:00 10/24/24 08:19 750 MG Fluconazole 200 mg DAILY PO 10/17/24 10:00 10/24/24 08:18 200 MG Pantoprazole Sodium 40 mg BID PO 10/18/24 22:00 10/24/24 08:18 40 MG Sucralfate 1 gm QID@0600,1130,1700,2200 PO 10/18/24 17:00 10/24/24 10:31 1 GM Insulin Glargine 10 units HS SC 10/19/24 22:00 10/23/24 22:19 10 UNITS Levothyroxine Sodium 75 mcg QAM@0600 PO 10/23/24 06:00 10/24/24 05:43 75 MCG Enteral Nutritional Formula 240 ml TIDWM PO 10/23/24 18:00 10/24/24 08:19 240 ML Enteral Nutritional Formula 27.5 gm DAILY PO 10/24/24 10:00 10/24/24 08:19 27.5 GM Magnesium Sulfate/ Dextrose 100 ml @ 100 mls/hr Q1HR IV 10/24/24 09:00 10/24/24 12:59 10/24/24 10:31 100 MLS/HR Vancomycin HCl 150 ml @ 150 mls/hr Q12H IV 10/24/24 20:00 Examination Morbidly obese female patient lying in bed comfortably, no acute distress. General: Morbid obese, afebrile, palor, mucosae are moist Cardiovascular: Regular S1 and S2. No murmurs, gallops or rubs. No JVD elevation. No pedal edema Respiratory: Normal B/L air entry on room air. Clear lung sounds on auscultation Abdomen: Soft, nontender, nondistended, normoactive bowel sounds, no rebound tenderness, no organomegaly, no masses. Colostomy bag seen draining yellow soft stool. Status post multiple I and D bilateral gluteal cleft with a dressing covering the defect. Extensive sacral and lumbar ulcer, still fibrinopurulent tissue and a possible new collection in the left buttock, vac was placed again Genitourinary: Deferred MSK/skin: Mobilizes 4 limbs. Skin is dry and warm Neurological: No motor, no sensitive deficits, normal speech. Pupils are isocoric and reactive. Psych/Mental Status: A/Ox3 laboratory and microbiology Laboratory Tests 10/24/24 07:15 Test 10/24/24 07:15 Range/Units Serum Glucose 144 H 74-106 mg/dL Microbiology Date/Time Source Procedure Growth Status 10/07/24 10:30 Voided Urine Urine Culture - Final Presumptive Judie albicans Complete 10/07/24 08:21 Other Other Gram Stain - Final Complete 10/07/24 08:21 Anaerobic Culture - Final Prevotella loescheii Complete 10/07/24 08:21 Other Other Aerobic Culture - Final Complete 10/06/24 11:20 Blood Blood Culture - Final NO GROWTH AFTER 5 DAYS OF INCUBATION. Complete Labs and/or images reviewed: Labs reviewed by me, Image(s) reviewed by me Problem List/Assessment/Plan Problem List/Assessment/Plan -Neurologic: #Acute metabolic encephalopathy secondary to sepsis and metabolic derangements. No focal neurological deficits documented. more alert, AOX3 Infectious Diseases #Septic shock due to necrotizing fasciitis of the gluteal and sacral region secondary to pilonidal cyst infection due to prevotella loescheii #sp I&D 10/07/24 #sp debridement of affected area (pilonidal cyst both buttocks, perianal area) and creation of a diverting colostomy 10/08/24 #s/p I&D 10/22 Confirmed intra-op with devitalized tissue and large purulent collection WBC peaked at 31K with left shift on arrival, downtrending Source control achieved with surgical debridement Started on broad-spectrum antibiotics (Zosyn + Vanc): now meropenem+ vanco+ clindamycin Blood cultures on arrival negative ID consulted per Dr Villafana 10/10/24: dressing change: less necrotic tissue, bicarb and insulin drip stopped, downgrade to the floor, continue transfer, surgery ordered a ct scan: Redemonstrated bilateral gluteal region soft tissue edema and subcutaneous emphysema which extends from the perianal region to the lower back, suggestive of necrotizing fasciitis. Appears improved from prior.Interval laparotomy and left lower quadrant ostomy with associated postsurgical changes. Hepatomegaly. 10/11/24: wbc is trending slightly higher, wound still has necrotic tissue but looks better than yesterday, patient will benefit for transfer to [facility] for colorectal surgery due to possible involvement of anal sphincter,as well as plastic surgery right now with colostomy on place 10/14/24: new Debridement of devitalized tissue was undertaken. There was no further evidence of necrotizing infection. The wound was then pulse lavaged with 3 L of saline containing Ancef. The wound was packed loosely with iodine saturated Kerlix. The patient will need plastic surgical attention which is not available at this facility, per general surgery patient will benefit for transfer to [facility], wound consult was placed for vac placement, kidney function recovers, lantus was decreased to 15 ui 10/15/24: wound vac was placed, extra dose of morphine due to pain, BPs soft, 500 cc bolus, pending transfer [facility] 10/18/24: wound vac was changed, possible need of new debridement?, dr Villafana and dr Zamorano informed about the vac change, 10/21 - patient refused a wound dressing change, I and D tomorrow. 10/22-patient undergoing I and D, Wound VAC changed 10/23-Boykin catheter discontinued 10/24 - IV antibiotics switched to Unasyn Cardiovascular: #Septic shock due to necrotizing fasciitis Resolving, off pressors DC vancomycin, clindamycin, Levaquin, fluconazole Continue IV unasyn Respiratory: #Pneumonia gram+/gram- Consolidation of much of the visualized right middle and right lower lobes with air bronchograms concerning for pneumonia. At least small right pleural effusion. #Acute hypoxemic respiratory failure secondary to sepsis and poor perfusion #Respiratory acidosis possible obesity hypoventilation syndrome today room air No mechanical ventilation Metabolic/Endocrine: #Severe AGMA due to lactic acidosis-resolving #Uncontrolled diabetes hba1c 13 dc bicarb and insulin drip lantus 15 ui #Hypothyroidism: TSH 12.1, low free T4 free T3 Given severity of illness, IV levothyroxine started to prevent myxedema daily Cortisol: 30.84 normal, adrenal insufficiency ruled out levothyroxine increased to 75 PO #Hypomagnesemia replaced Hematology: #Leukocytosis, improving with neutrophilic predominance (WBC >30K) at admission #Anemia Hgb 9.3, likely hemodilutional or inflammatory No evidence of DIC, platelets stable Monitor for anemia of critical illness Renal: АНДРЕЙ due to VMN on possible CKD, baseline creatinine unknown, resolved (from hypoperfusion and sepsis + chronic component from diabetes) Cr trending high UA: proteinuria (1+), trace ketones, glucosuria (4+), WBC 16 possible UTI component or inflammation Protein/Creatinine ratio = 218.6 mg/g suggests underlying CKD Renal US: Echogenic kidneys, no hydronephrosis, medical kidney disease consistent with diabetic nephropathy GI #sp colostomy 10/08/24 #Possible low-grade small bowel obstruction #Trace free fluid in the abdomen and pelvis #gastric ulcer #duodenal ulcer clear liquid diet 10/16/24: patient was having epigastric pain, dr villafana came at bedside, pain improved with analgesia, meropenem dc and Levaquin PO was started, also fluconazol was transitioned to PO, later in the late afternoon, patient was having abdominal pain, customer support consultant team ordered a CT scan that showed: The patient is status post sigmoidectomy with a left lower quadrant colostomy. There is moderate stool burden in the colon. The appendix is normal. There is fluid within a few proximal ileal small bowel loops although not pathologically enlarged and fecal material within a loop of ileum in the left abdomen which enters a convergence of bowel loops in the midabdomen and can no longer be distinguished. The distal ileum in the right lower quadrant is completely decompressed. There is trace free fluid in the abdomen and pelvis, new compared with the prior study. Consolidation of much of the visualized right middle and right lower lobes with air bronchograms concerning for pneumonia. At least small right pleural effusion. Significantly worse compared with the prior study. Findings discussed with dr Villafana 10/17/24: gastrografin showed no small bowel obstruction, abdominal pain is improving, RUQ US: normal, we will continue PO AB, wound vac change tomorrow, GI on board 10/18/24Dr Chip GI, perfomed upper endoscope, showing gastric and duondenal ulcer, protonix and sucralfate per GI, lantus 10ui : #Complicated UTI, presumptive judie albicans UA: trace ketones, glucosuria, 1+ protein, few bacteria Bladder decompressed via Boykin, likely due to altered mental status and hypotension DC fluconazol iv MSK/Soft Tissue: #Extensive necrotizing fasciitis involving gluteal/sacral regions Large abscess drained (~150 mL purulent fluid), tissue debrided Pulse lavage and wound packed sp debridement of affected area (pilonidal cyst both buttocks, perianal area) and creation of a diverting colostomy 10/08/24 wound is having baker and white patches, patient will benefit for transfer to [facility] for plastic surgery 10/10/24: dressing change: less necrotic tissue 10/14/24: new Debridement of devitalized tissue was undertaken. There was no further evidence of necrotizing infection. The wound was then pulse lavaged with 3 L of saline containing Ancef. The wound was packed loosely with iodine saturated Kerlix. The patient will need plastic surgical attention which is not available at this facility, per general surgery patient will benefit for transfer to [facility], wound consult was placed for vac placement 10/15/24: wound vac was placed, extra dose of morphine due to pain, BPs soft, 500 cc bolus, pending transfer [facility] Plan discussed with patient, family at bedside in which all questions have been answered Case discussed with Dr Luo Plan discussed with: Patient My Orders My Orders Orders - LEORA FULLER RESIDENT Procedure Category Date Status Time Nutritional PHA 10/23/24 In Process Supplements (Glucerna 18:00 Nutritional PHA 10/24/24 In Process Supplements (Cuco 10:00 Magnesium Sulfate PHA 10/24/24 In Process 1gm/100ml 09:00 Dietary Evaluation Review Comments: 1) TPN if NPO > 7 days 2) Advance to [facility] 60gm as medically feasible 3) Cuco 1 pk BID for wound healing 4) Monitor I/O, lab values, wt trend Expected Outcomes/Goals: To meet >75% estimated needs wound to improve Fu 2-3 days Date of Service: Oct 24, 2024 Billing Provider: GEOVANY VILLALOBOS MD Common Visit Codes: [id number] INP/OBS CARE(HIGH) LEORA FULLER RESIDENT Oct 24, 2024 10:56 GEOVANY VILLALOBOS MD Oct 28, 2024 00:38
[2024-10-24] MEDS: AMPICILLIN & SULBACTAM SODIUM 3 GM in SODIUM CHL 0.9% 100 ML IV SCH (12:09)
[2024-10-24 13:00] VITALS: BP 97/67; PULSE 86; RESP 17; TEMP 97.8; O2SAT 96
--- NOTE | 2024-10-24 15:36 | DVHPN2 ---
Subjective Date Seen: Oct 24, 2024 Post op day Post op day: 9 Patient reports: Feels better Nursing reports: No new complaints General: Normal HNT: Normal Cardiovascular: Normal Respiratory: Normal Gastrointestinal: Normal Genitourinary: Normal Musculoskeletal: Normal Neurological: Normal Objective Vitals Vital Sign Date Time Temp Pulse Resp B/P (MAP) Pulse Ox O2 Delivery O2 Flow Rate FiO2 10/24/24 15:05 86 17 102/65 10/24/24 13:00 97.8 96 97.8 10/24/24 08:00 Room Air* 0 21 Total Intake and Output 10/23/24 10/23/24 10/24/24 15:00 23:00 07:00 Intake Total 150 ml 775 ml 400 ml Output Total 1085 ml 50 ml Balance -935 ml 725 ml 400 ml Medications Current Medications Medications Dose Ordered Sig/Geo Route Start Time Stop Time Status Last Admin Dose Admin Dextrose 50 ml UD PRN IV 10/07/24 11:15 Cancel Insulin Glargine 15 units DAILY SC 10/08/24 10:00 Cancel Dextrose 50 ml PRN PRN IV 10/07/24 15:00 Cancel Dextrose 50 ml PRN PRN IV 10/08/24 08:15 Cancel Dextrose 50 ml UD PRN IV 10/10/24 08:45 Sertraline HCl 50 mg DAILY PO 10/10/24 12:30 10/24/24 08:18 50 MG Diagnostic Test (Pha) 1 strip ACHS 10/14/24 17:00 10/24/24 11:13 1 STRIP Insulin Human Regular ACHS SC 10/14/24 17:00 10/24/24 11:17 2 UNITS Acetaminophen 650 mg Q4HP PRN PO 10/15/24 12:15 Fluconazole 200 mg DAILY PO 10/17/24 10:00 10/24/24 08:18 200 MG Pantoprazole Sodium 40 mg BID PO 10/18/24 22:00 10/24/24 08:18 40 MG Sucralfate 1 gm QID@0600,1130,1700,2200 PO 10/18/24 17:00 10/24/24 10:31 1 GM Insulin Glargine 10 units HS SC 10/19/24 22:00 10/23/24 22:19 10 UNITS Levothyroxine Sodium 75 mcg QAM@0600 PO 10/23/24 06:00 10/24/24 05:43 75 MCG Enteral Nutritional Formula 240 ml TIDWM PO 10/23/24 18:00 10/24/24 11:39 240 ML Enteral Nutritional Formula 27.5 gm DAILY PO 10/24/24 10:00 10/24/24 08:19 27.5 GM Ampicillin Sodium/ Sulbactam Sodium 3 gm/Sodium Chloride 100 ml @ 100 mls/hr Q6H IV 10/24/24 11:00 10/24/24 12:09 100 MLS/HR General: Normal, Obese Head/Eyes: Normal ENT: Normal Neck: Normal Lungs: Normal Cardiovascular: Normal, Regular rate and rhythm Musculoskeletal: Normal Extremities: Normal Skin: Other (sacral/ buttock wound ) Labs and Microbiology Laboratory Tests 10/24/24 07:15 Test 10/24/24 07:15 Range/Units Serum Glucose 144 H 74-106 mg/dL Ass/Plan Labs and/or images reviewed: Labs reviewed by me, Image(s) reviewed by me Problem List -Neurologic: #Acute metabolic encephalopathy secondary to sepsis and metabolic derangements. No focal neurological deficits documented. more alert, AOX3 Infectious Diseases #Septic shock due to necrotizing fasciitis of the gluteal and sacral region secondary to pilonidal cyst infection due to prevotella loescheii #sp I&D 10/07/24 #sp debridement of affected area (pilonidal cyst both buttocks, perianal area) and creation of a diverting colostomy 10/08/24 #s/p I&D 10/22 Confirmed intra-op with devitalized tissue and large purulent collection WBC peaked at 31K with left shift on arrival, downtrending Source control achieved with surgical debridement Started on broad-spectrum antibiotics (Zosyn + Vanc): now meropenem+ vanco+ clindamycin Blood cultures on arrival negative ID consulted per Dr Villafana 10/10/24: dressing change: less necrotic tissue, bicarb and insulin drip stopped, downgrade to the floor, continue transfer, surgery ordered a ct scan: Redemonstrated bilateral gluteal region soft tissue edema and subcutaneous emphysema which extends from the perianal region to the lower back, suggestive of necrotizing fasciitis. Appears improved from prior.Interval laparotomy and left lower quadrant ostomy with associated postsurgical changes. Hepatomegaly. 10/11/24: wbc is trending slightly higher, wound still has necrotic tissue but looks better than yesterday, patient will benefit for transfer to [facility] for colorectal surgery due to possible involvement of anal sphincter,as well as plastic surgery right now with colostomy on place 10/14/24: new Debridement of devitalized tissue was undertaken. There was no further evidence of necrotizing infection. The wound was then pulse lavaged with 3 L of saline containing Ancef. The wound was packed loosely with iodine saturated Kerlix. The patient will need plastic surgical attention which is not available at this facility, per general surgery patient will benefit for transfer to [facility], wound consult was placed for vac placement, kidney function recovers, lantus was decreased to 15 ui 10/15/24: wound vac was placed, extra dose of morphine due to pain, BPs soft, 500 cc bolus, pending transfer [facility] 10/18/24: wound vac was changed, possible need of new debridement?, dr Villafana and dr Zamorano informed about the vac change, 10/21 - patient refused a wound dressing change, I and D tomorrow. 10/22-patient undergoing I and D, Wound VAC changed 10/23-Prajapati catheter discontinued 10/24 - IV antibiotics switched to Unasyn Cardiovascular: #Septic shock due to necrotizing fasciitis Resolving, off pressors DC vancomycin, clindamycin, Levaquin, fluconazole Continue IV unasyn Respiratory: #Pneumonia gram+/gram- Consolidation of much of the visualized right middle and right lower lobes with air bronchograms concerning for pneumonia. At least small right pleural effusion. #Acute hypoxemic respiratory failure secondary to sepsis and poor perfusion #Respiratory acidosis possible obesity hypoventilation syndrome today room air No mechanical ventilation Metabolic/Endocrine: #Severe AGMA due to lactic acidosis-resolving #Uncontrolled diabetes hba1c 13 dc bicarb and insulin drip lantus 15 ui #Hypothyroidism: TSH 12.1, low free T4 free T3 Given severity of illness, IV levothyroxine started to prevent myxedema daily Cortisol: 30.84 normal, adrenal insufficiency ruled out levothyroxine increased to 75 PO #Hypomagnesemia replaced Hematology: #Leukocytosis, improving with neutrophilic predominance (WBC >30K) at admission #Anemia Hgb 9.3, likely hemodilutional or inflammatory No evidence of DIC, platelets stable Monitor for anemia of critical illness Renal: АНДРЕЙ due to VMN on possible CKD, baseline creatinine unknown, resolved (from hypoperfusion and sepsis + chronic component from diabetes) Cr trending high UA: proteinuria (1+), trace ketones, glucosuria (4+), WBC 16 possible UTI component or inflammation Protein/Creatinine ratio = 218.6 mg/g suggests underlying CKD Renal US: Echogenic kidneys, no hydronephrosis, medical kidney disease consistent with diabetic nephropathy GI #sp colostomy 10/08/24 #Possible low-grade small bowel obstruction #Trace free fluid in the abdomen and pelvis #gastric ulcer #duodenal ulcer clear liquid diet 10/16/24: patient was having epigastric pain, dr villafana came at bedside, pain improved with analgesia, meropenem dc and Levaquin PO was started, also fluconazol was transitioned to PO, later in the late afternoon, patient was having abdominal pain, taxation 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 There is moderate stool burden in the colon. The appendix is normal. There is fluid within a few proximal ileal small bowel loops although not pathologically enlarged and fecal material within a loop of ileum in the left abdomen which enters a convergence of bowel loops in the midabdomen and can no longer be distinguished. The distal ileum in the right lower quadrant is completely decompressed. There is trace free fluid in the abdomen and pelvis, new compared with the prior study. Consolidation of much of the visualized right middle and right lower lobes with air bronchograms concerning for pneumonia. At least small right pleural effusion. Significantly worse compared with the prior study. Findings discussed with dr Villafana 10/17/24: gastrografin showed no small bowel obstruction, abdominal pain is improving, RUQ US: normal, we will continue PO AB, wound vac change tomorrow, GI on board 10/18/24Dr Saunders GI, perfomed upper endoscope, showing gastric and duondenal ulcer, protonix and sucralfate per GI, lantus 10ui : #Complicated UTI, presumptive judie albicans UA: trace ketones, glucosuria, 1+ protein, few bacteria Bladder decompressed via Prajapati, likely due to altered mental status and hypotension DC fluconazol iv MSK/Soft Tissue: #Extensive necrotizing fasciitis involving gluteal/sacral regions Large abscess drained (~150 mL purulent fluid), tissue debrided Pulse lavage and wound packed sp debridement of affected area (pilonidal cyst both buttocks, perianal area) and creation of a diverting colostomy 10/08/24 wound is having baker and white patches, patient will benefit for transfer to [facility] for plastic surgery 10/10/24: dressing change: less necrotic tissue 10/14/24: new Debridement of devitalized tissue was undertaken. There was no further evidence of necrotizing infection. The wound was then pulse lavaged with 3 L of saline containing Ancef. The wound was packed loosely with iodine saturated Kerlix. The patient will need plastic surgical attention which is not available at this facility, per general surgery patient will benefit for transfer to [facility], wound consult was placed for vac placement 10/15/24: wound vac was placed, extra dose of morphine due to pain, BPs soft, 500 cc bolus, pending transfer [facility] Plan discussed with patient, family at bedside in which all questions have been answered Case discussed with Dr Luo Assessment/Plan stoma ok, no gas wound clean dry and intact Nurse reports overnight drainage from wound labs and notes reviewed Plan: wound dressing to be change twice a day patient to lie on right or left side, not on her back continue current treatment 10/11/24 s/p debridement of sacral buttock necrotic tissue / colostomy no new complaints, stoma functioning wound covered in dressing per Nurse wound dressing changed today Plan: wound dressing to be changed as ordered wound consult patient needs Higher level of care for plastic surgery reconstruction sacral area 10/19/24 s/p debridement of sacral buttock necrotic tissue / colostomy no new complaints, stoma functioning , abdomen soft, non distended, non tender wound vac, no erythema on edges of wound tolerating diet Plan: wound vac reassess wound a couple days 10/22/24 s/p debridement of sacral buttock necrotic tissue / colostomy POD#7 no new complaints, stoma functioning , abdomen soft, non distended, non tender wound vac, no erythema on edges of wound tolerating diet Plan: wound vac debridement of sacral/ buttock wound tomorrow 10/23/24 s/p debridement of sacral buttock necrotic tissue / colostomy no new complaints, stoma functioning , abdomen soft, non distended, non tender wound vac, no erythema on edges of wound tolerating diet 10/24/2024 s/p debridement of sacral/ buttock wound , ex lap colostomy POD #9 No new complaints. Review of Systems: - The patient denies nausea and vomiting. They are tolerating their diet. Physical Exam: - The patient is resting comfortably in bed. - Abdomen is soft, non-distended, and non-tender. - Stoma has fecal matter present. - A wound vacuum is applied to the sacral buttock wound. The wound edges show no erythema or tenderness. The patient denies any pain from the wound area. Plan: - Will sign off. No surgical intervention is needed. - Discussed with Dr. Villafana, who agrees with the plan. - Please recall if needed. Prognosis: Good Plan discussed with patient, Dr. Villafana Visit Coding Surgery Date of Service if different f: Oct 24, 2024 Billing Provider: VERONICA VILLAFANA MD Surgery Visit Codes: [id number] INP/OBS CARE(HIGH) MAGNOLIA TELLO NP Oct 24, 2024 15:36
[2024-10-24 16:36] VITALS: BP 94/59; PULSE 81; RESP 17; TEMP 98.6; O2SAT 96
--- NOTE | 2024-10-24 19:28 | DVHPN2 ---
Progress Note - Dictate Date Seen: Oct 24, 2024 Has the PT tested + for MRSA If YES, has PT been informed?: No Medical Necessity Reason Pt with a Central, PICC or Fol: No Subjective No new complaints Patient is resting comfortably She is tolerating diet Patient is moving her bowels H&H stable at 8.6 Patient was taking NSAIDs prior to admission which likely caused her ulcers vital signs Vital Sign Date Time Temp Pulse Resp B/P (MAP) Pulse Ox O2 Delivery O2 Flow Rate FiO2 10/24/24 16:36 98.6 81 17 94/59 (71) 96 98.6 10/24/24 08:00 Room Air* 0 21 Total Intake and Output 10/23/24 10/23/24 10/24/24 15:00 23:00 07:00 Intake Total 150 ml 775 ml 400 ml Output Total 1085 ml 50 ml Balance -935 ml 725 ml 400 ml medications Current Medications Medications Dose Ordered Sig/Geo Route Start Time Stop Time Status Last Admin Dose Admin Dextrose 50 ml UD PRN IV 10/07/24 11:15 Cancel Insulin Glargine 15 units DAILY SC 10/08/24 10:00 Cancel Dextrose 50 ml PRN PRN IV 10/07/24 15:00 Cancel Dextrose 50 ml PRN PRN IV 10/08/24 08:15 Cancel Dextrose 50 ml UD PRN IV 10/10/24 08:45 Sertraline HCl 50 mg DAILY PO 10/10/24 12:30 10/24/24 08:18 50 MG Diagnostic Test (Pha) 1 strip ACHS 10/14/24 17:00 10/24/24 17:14 1 STRIP Insulin Human Regular ACHS SC 10/14/24 17:00 10/24/24 17:22 6 UNITS Acetaminophen 650 mg Q4HP PRN PO 10/15/24 12:15 Fluconazole 200 mg DAILY PO 10/17/24 10:00 10/24/24 08:18 200 MG Pantoprazole Sodium 40 mg BID PO 10/18/24 22:00 10/24/24 08:18 40 MG Sucralfate 1 gm QID@0600,1130,1700,2200 PO 10/18/24 17:00 10/24/24 17:18 1 GM Insulin Glargine 10 units HS SC 10/19/24 22:00 10/23/24 22:19 10 UNITS Levothyroxine Sodium 75 mcg QAM@0600 PO 10/23/24 06:00 10/24/24 05:43 75 MCG Enteral Nutritional Formula 240 ml TIDWM PO 10/23/24 18:00 10/24/24 11:39 240 ML Enteral Nutritional Formula 27.5 gm DAILY PO 10/24/24 10:00 10/24/24 08:19 27.5 GM Ampicillin Sodium/ Sulbactam Sodium 3 gm/Sodium Chloride 100 ml @ 100 mls/hr Q6H IV 10/24/24 11:00 10/24/24 17:18 100 MLS/HR objective eneral: Normal, Obese Head/Eyes: Normal ENT: Normal Neck: Normal Lungs: Normal Cardiovascular: Normal, Regular rate and rhythm Musculoskeletal: Normal Extremities: Normal Skin: Other (sacral/ buttock wound )wound vac laboratory and microbiology Laboratory Tests 10/24/24 07:15 Test 10/24/24 07:15 Range/Units Serum Glucose 144 H 74-106 mg/dL Problems(with codes): (1) Acute constipation (2) Gastric peptic ulcer (3) Pilonidal cyst (4) Duodenal ulcer (5) Sepsis (6) Generalized weakness (7) Necrotizing fasciitis Prognosis Plan Diet as tolerated Continue PPI and Carafate Avoid NSAIDs Prajapati catheter discontinued, encourage ambulation Patient is on IV Unasyn S/P I and D debridement and wound VAC change Dietary Evaluation Review Comments: 1) TPN if NPO > 7 days 2) [facility] as medically feasible 3) Cuco 1 pk BID for wound healing 4) Monitor I/O, lab values, wt trend Expected Outcomes/Goals: To meet >75% estimated needs wound to improve Fu 2-3 days Plan discussed with: Patient ELOINA MENDOZA MD Oct 24, 2024 19:28
[2024-10-24] MEDS ORDERED: VANCOMYCIN 750mg/150ml 150 ML IV SCH (20:00)
[2024-10-24] MEDS: ACETAMINOPHEN 325 MG TAB PO PRN (20:27)
[2024-10-24 21:00] VITALS: BP 107/64; PULSE 80; RESP 16; TEMP 97.1; O2SAT 95
[2024-10-25 01:00] VITALS: BP 103/62; PULSE 75; RESP 12; TEMP 97; O2SAT 96
[2024-10-25 05:00] VITALS: BP_SYST 115; BP_SYST 122; BP_DIAS 80; BP_DIAS 81; PULSE 75; PULSE 99; RESP 16; RESP 18; TEMP 97.9; TEMP 98.4; O2SAT 96; O2SAT 99
[2024-10-25 05:49] LABS: Hematocrit 23.2 % (36.0-46.0); Hemoglobin 8.0 g/dL (12.2-16.2); Mean Corpuscular Hemoglobin 28.9 pg (28.0-32.0); Mean Corpuscular Volume 84.1 fL (80.0-100.0); Nucleated Red Blood Cells % 0.0 %
[2024-10-25 05:55] LABS: Calcium 9.1 mg/dL (8.7-10.4); Chloride 106 mmol/L (98-107); Potassium 4.1 mmol/L (3.5-5.1); Sodium 140 mmol/L (136-145)
[2024-10-25 05:56] LABS: Anion Gap 8 (5-15); Carbon Dioxide 26 mmol/L (20-31)
[2024-10-25 06:01] LABS: BUN/Creatinine Ratio 9.0 (10.0-20.0)
[2024-10-25 06:09] LABS: Blood Urea Nitrogen 7 mg/dL (9-23); Glucose 173 mg/dL (74-106)
[2024-10-25 08:33] VITALS: BP 115/68; PULSE 80; RESP 16; TEMP 97.8; O2SAT 96
[2024-10-25 12:25] VITALS: BP 117/65; PULSE 76; RESP 16; TEMP 97.9; O2SAT 97
[2024-10-25] MEDS: HYDROcodone-ACET 5/325MG TAB PO PRN (13:30)
--- NOTE | 2024-10-25 16:19 | DVHPN2 ---
Progress Note - Dictate Date Seen: Oct 25, 2024 Has the PT tested + for MRSA If YES, has PT been informed?: No Medical Necessity Reason Pt with a Central, PICC or Fol: No Subjective No new complaints Patient is resting comfortably She is tolerating diet Patient is moving her bowels H&H stable at 8.6 Patient was taking NSAIDs prior to admission which likely caused her ulcers vital signs Vital Sign Date Time Temp Pulse Resp B/P (MAP) Pulse Ox O2 Delivery O2 Flow Rate FiO2 10/25/24 12:25 97.9 76 16 117/65 (82) 97 97.9 10/25/24 08:00 Room Air* 0 21 Total Intake and Output 10/24/24 10/24/24 10/25/24 15:00 23:00 07:00 Intake Total 300 ml 1125 ml 800 ml Output Total 600 ml 150 ml 1475 ml Balance -300 ml 975 ml -675 ml medications Current Medications Medications Dose Ordered Sig/Geo Route Start Time Stop Time Status Last Admin Dose Admin Dextrose 50 ml UD PRN IV 10/07/24 11:15 Cancel Insulin Glargine 15 units DAILY SC 10/08/24 10:00 Cancel Dextrose 50 ml PRN PRN IV 10/07/24 15:00 Cancel Dextrose 50 ml PRN PRN IV 10/08/24 08:15 Cancel Dextrose 50 ml UD PRN IV 10/10/24 08:45 Sertraline HCl 50 mg DAILY PO 10/10/24 12:30 10/25/24 09:27 50 MG Diagnostic Test (Pha) 1 strip ACHS 10/14/24 17:00 10/25/24 11:42 1 STRIP Insulin Human Regular ACHS SC 10/14/24 17:00 10/25/24 11:41 3 UNITS Acetaminophen 650 mg Q4HP PRN PO 10/15/24 12:15 10/25/24 09:35 650 MG Pantoprazole Sodium 40 mg BID PO 10/18/24 22:00 10/25/24 09:27 40 MG Sucralfate 1 gm QID@0600,1130,1700,2200 PO 10/18/24 17:00 10/25/24 11:28 1 GM Insulin Glargine 10 units HS SC 10/19/24 22:00 10/24/24 22:02 10 UNITS Levothyroxine Sodium 75 mcg QAM@0600 PO 10/23/24 06:00 10/25/24 06:05 75 MCG Enteral Nutritional Formula 240 ml TIDWM PO 10/23/24 18:00 10/25/24 13:08 240 ML Enteral Nutritional Formula 27.5 gm DAILY PO 10/24/24 10:00 10/24/24 08:19 27.5 GM Ampicillin Sodium/ Sulbactam Sodium 3 gm/Sodium Chloride 100 ml @ 100 mls/hr Q6H IV 10/24/24 11:00 10/25/24 11:28 100 MLS/HR Acetaminophen/ Hydrocodone Bitart 1 tab Q6HPRN PRN PO 10/25/24 13:30 10/25/24 13:30 1 TAB objective eneral: Normal, Obese Head/Eyes: Normal ENT: Normal Neck: Normal Lungs: Normal Cardiovascular: Normal, Regular rate and rhythm Musculoskeletal: Normal Extremities: Normal Skin: Other (sacral/ buttock wound )wound vac laboratory and microbiology Laboratory Tests 10/25/24 04:53 Test 10/25/24 04:53 Range/Units Serum Glucose 173 H 74-106 mg/dL Problems(with codes): (1) Acute constipation (2) Gastric peptic ulcer (3) Pilonidal cyst (4) Duodenal ulcer (5) Sepsis (6) Generalized weakness (7) Necrotizing fasciitis Prognosis Plan Diet as tolerated Continue PPI and Carafate Avoid NSAIDs Prajapati catheter discontinued, encourage ambulation Patient is on IV Unasyn S/P I and D debridement and wound VAC change Dietary Evaluation Review Comments: 1) TPN if NPO > 7 days 2) Advance to [facility] 60gm as medically feasible 3) Cuco 1 pk BID for wound healing 4) Monitor I/O, lab values, wt trend Expected Outcomes/Goals: To meet >75% estimated needs wound to improve Fu 2-3 days Plan discussed with: Patient ELOINA MENDOZA MD Oct 25, 2024 16:19
[2024-10-25 16:30] VITALS: BP 106/65; PULSE 81; RESP 16; TEMP 98.4; O2SAT 96
--- NOTE | 2024-10-25 16:42 | DVHPNRES ---
Progress Note Date Seen: Oct 25, 2024 Resident Creating Document: LEORA FULLER RESIDENT Has the PT tested + for MRSA If YES, has PT been informed?: No Medical Necessity Reason Pt with a Central, PICC or Fol: No Subjective Review of Systems This is a 29-year-old with diabetes mellitus type 1 diagnosed at the age of 12, hypothyroidism, does not take any medications at home who presented to the ER with a chief complaint of buttock pain and generalized weakness. Patient reports that she has been experiencing pain in her buttock, redness and swelling, nausea vomiting for the past 2 days. On arrival patient was hypotensive 84/39 mmHg, tachycardic and tachypneic. CT scan showed necrotizing fascitis in the patient underwent I and D 10/07, 150 mL of yellow colored fluid was drained and sent for culture. 10/08-patient underwent colostomy placement. Serum glucose was 500 on arrival and patient was started on IV insulin drip. A1c greater than 13. 10/21-Patient seen and examined, reports no active symptoms. Continue vancomycin, fluconazole, clindamycin, Levaquin. Pending I and D tomorrow. NPO after midnight. TSH up trending, increased levothyroxine to 75 mcg daily. Follow up with free T4 10/22 - patient seen and examined, no active complaint. Undergoing debridement. 10/23 - Patient seen and examined, reports no active distress. Boykin catheter discontinued. 10/24 - De escalate IV antibiotics to Unasyn. Patient retaining urine, straight cath done, may need boykin and outpt suprapubic 10/25 - Patient seen, wound vac changed, social consulted for DME wound vac Objective vital signs Vital Sign Date Time Temp Pulse Resp B/P (MAP) Pulse Ox O2 Delivery O2 Flow Rate FiO2 10/25/24 12:25 97.9 76 16 117/65 (82) 97 97.9 10/25/24 08:00 Room Air* 0 21 Total Intake and Output 10/24/24 10/24/24 10/25/24 15:00 23:00 07:00 Intake Total 300 ml 1125 ml 800 ml Output Total 600 ml 150 ml 1475 ml Balance -300 ml 975 ml -675 ml medications Current Medications Medications Dose Ordered Sig/Geo Route Start Time Stop Time Status Last Admin Dose Admin Dextrose 50 ml UD PRN IV 10/07/24 11:15 Cancel Insulin Glargine 15 units DAILY SC 10/08/24 10:00 Cancel Dextrose 50 ml PRN PRN IV 10/07/24 15:00 Cancel Dextrose 50 ml PRN PRN IV 10/08/24 08:15 Cancel Dextrose 50 ml UD PRN IV 10/10/24 08:45 Sertraline HCl 50 mg DAILY PO 10/10/24 12:30 10/25/24 09:27 50 MG Diagnostic Test (Pha) 1 strip ACHS 10/14/24 17:00 10/25/24 11:42 1 STRIP Insulin Human Regular ACHS SC 10/14/24 17:00 10/25/24 11:41 3 UNITS Acetaminophen 650 mg Q4HP PRN PO 10/15/24 12:15 10/25/24 09:35 650 MG Pantoprazole Sodium 40 mg BID PO 10/18/24 22:00 10/25/24 09:27 40 MG Sucralfate 1 gm QID@0600,1130,1700,2200 PO 10/18/24 17:00 10/25/24 11:28 1 GM Insulin Glargine 10 units HS SC 10/19/24 22:00 10/24/24 22:02 10 UNITS Levothyroxine Sodium 75 mcg QAM@0600 PO 10/23/24 06:00 10/25/24 06:05 75 MCG Enteral Nutritional Formula 240 ml TIDWM PO 10/23/24 18:00 10/25/24 13:08 240 ML Enteral Nutritional Formula 27.5 gm DAILY PO 10/24/24 10:00 10/24/24 08:19 27.5 GM Ampicillin Sodium/ Sulbactam Sodium 3 gm/Sodium Chloride 100 ml @ 100 mls/hr Q6H IV 10/24/24 11:00 10/25/24 11:28 100 MLS/HR Acetaminophen/ Hydrocodone Bitart 1 tab Q6HPRN PRN PO 10/25/24 13:30 10/25/24 13:30 1 TAB Examination Morbidly obese female patient lying in bed comfortably, no acute distress. General: Morbid obese, afebrile, palor, mucosae are moist Cardiovascular: Regular S1 and S2. No murmurs, gallops or rubs. No JVD elevation. No pedal edema Respiratory: Normal B/L air entry on room air. Clear lung sounds on auscultation Abdomen: Soft, nontender, nondistended, normoactive bowel sounds, no rebound tenderness, no organomegaly, no masses. Colostomy bag seen draining yellow soft stool. Status post multiple I and D bilateral gluteal cleft with a dressing covering the defect. Extensive sacral and lumbar ulcer, still fibrinopurulent tissue and a possible new collection in the left buttock, vac was placed again Genitourinary: Deferred MSK/skin: Mobilizes 4 limbs. Skin is dry and warm Neurological: No motor, no sensitive deficits, normal speech. Pupils are isocoric and reactive. Psych/Mental Status: A/Ox3 laboratory and microbiology Laboratory Tests 10/25/24 04:53 Test 10/25/24 04:53 Range/Units Serum Glucose 173 H 74-106 mg/dL Microbiology Date/Time Source Procedure Growth Status 10/07/24 10:30 Voided Urine Urine Culture - Final Presumptive Judie albicans Complete 10/07/24 08:21 Other Other Gram Stain - Final Complete 10/07/24 08:21 Anaerobic Culture - Final Prevotella loescheii Complete 10/07/24 08:21 Other Other Aerobic Culture - Final Complete 10/06/24 11:20 Blood Blood Culture - Final NO GROWTH AFTER 5 DAYS OF INCUBATION. Complete Labs and/or images reviewed: Labs reviewed by me, Image(s) reviewed by me Problem List/Assessment/Plan Problem List/Assessment/Plan -Neurologic: #Acute metabolic encephalopathy secondary to sepsis and metabolic derangements. No focal neurological deficits documented. more alert, AOX3 Infectious Diseases #Septic shock due to necrotizing fasciitis of the gluteal and sacral region secondary to pilonidal cyst infection due to prevotella loescheii #sp I&D 10/07/24 #sp debridement of affected area (pilonidal cyst both buttocks, perianal area) and creation of a diverting colostomy 10/08/24 #s/p I&D 10/22 Confirmed intra-op with devitalized tissue and large purulent collection WBC peaked at 31K with left shift on arrival, downtrending Source control achieved with surgical debridement Started on broad-spectrum antibiotics (Zosyn + Vanc): now meropenem+ vanco+ clindamycin Blood cultures on arrival negative ID consulted per Dr Villafana 10/10/24: dressing change: less necrotic tissue, bicarb and insulin drip stopped, downgrade to the floor, continue transfer, surgery ordered a ct scan: Redemonstrated bilateral gluteal region soft tissue edema and subcutaneous emphysema which extends from the perianal region to the lower back, suggestive of necrotizing fasciitis. Appears improved from prior.Interval laparotomy and left lower quadrant ostomy with associated postsurgical changes. Hepatomegaly. 10/11/24: wbc is trending slightly higher, wound still has necrotic tissue but looks better than yesterday, patient will benefit for transfer to [facility] for colorectal surgery due to possible involvement of anal sphincter,as well as plastic surgery right now with colostomy on place 10/14/24: new Debridement of devitalized tissue was undertaken. There was no further evidence of necrotizing infection. The wound was then pulse lavaged with 3 L of saline containing Ancef. The wound was packed loosely with iodine saturated Kerlix. The patient will need plastic surgical attention which is not available at this facility, per general surgery patient will benefit for transfer to [facility], wound consult was placed for vac placement, kidney function recovers, lantus was decreased to 15 ui 10/15/24: wound vac was placed, extra dose of morphine due to pain, BPs soft, 500 cc bolus, pending transfer [facility] 10/18/24: wound vac was changed, possible need of new debridement?, dr Villafana and dr Zamorano informed about the vac change, 10/21 - patient refused a wound dressing change, I and D tomorrow. 10/22-patient undergoing I and D, Wound VAC changed 10/23-Boykin catheter discontinued 10/24 - IV antibiotics switched to Unasyn 10/26 - wound vac changed, social consulted for DME wound vac Cardiovascular: #Septic shock due to necrotizing fasciitis Resolving, off pressors DC vancomycin, clindamycin, Levaquin, fluconazole Continue IV unasyn Respiratory: #Pneumonia gram+/gram- Consolidation of much of the visualized right middle and right lower lobes with air bronchograms concerning for pneumonia. At least small right pleural effusion. #Acute hypoxemic respiratory failure secondary to sepsis and poor perfusion #Respiratory acidosis possible obesity hypoventilation syndrome today room air No mechanical ventilation Metabolic/Endocrine: #Severe AGMA due to lactic acidosis-resolving #Uncontrolled diabetes hba1c 13 dc bicarb and insulin drip lantus 15 ui #Hypothyroidism: TSH 12.1, low free T4 free T3 Given severity of illness, IV levothyroxine started to prevent myxedema daily Cortisol: 30.84 normal, adrenal insufficiency ruled out levothyroxine increased to 75 PO #Hypomagnesemia replaced Hematology: #Leukocytosis, improving with neutrophilic predominance (WBC >30K) at admission #Anemia Hgb 9.3, likely hemodilutional or inflammatory No evidence of DIC, platelets stable Monitor for anemia of critical illness Renal: АНДРЕЙ due to VMN on possible CKD, baseline creatinine unknown, resolved (from hypoperfusion and sepsis + chronic component from diabetes) Cr trending high UA: proteinuria (1+), trace ketones, glucosuria (4+), WBC 16 possible UTI component or inflammation Protein/Creatinine ratio = 218.6 mg/g suggests underlying CKD Renal US: Echogenic kidneys, no hydronephrosis, medical kidney disease consistent with diabetic nephropathy GI #sp colostomy 10/08/24 #Possible low-grade small bowel obstruction #Trace free fluid in the abdomen and pelvis #gastric ulcer #duodenal ulcer clear liquid diet 10/16/24: patient was having epigastric pain, dr villafana came at bedside, pain improved with analgesia, meropenem dc and Levaquin PO was started, also fluconazol was transitioned to PO, later in the late afternoon, patient was having abdominal pain, container crane operator team ordered a CT scan that showed: The patient is status post sigmoidectomy with a left lower quadrant colostomy. There is moderate stool burden in the colon. The appendix is normal. There is fluid within a few proximal ileal small bowel loops although not pathologically enlarged and fecal material within a loop of ileum in the left abdomen which enters a convergence of bowel loops in the midabdomen and can no longer be distinguished. The distal ileum in the right lower quadrant is completely decompressed. There is trace free fluid in the abdomen and pelvis, new compared with the prior study. Consolidation of much of the visualized right middle and right lower lobes with air bronchograms concerning for pneumonia. At least small right pleural effusion. Significantly worse compared with the prior study. Findings discussed with dr Villafana 10/17/24: gastrografin showed no small bowel obstruction, abdominal pain is improving, RUQ US: normal, we will continue PO AB, wound vac change tomorrow, GI on board 10/18/24Dr Saunders GI, perfomed upper endoscope, showing gastric and duondenal ulcer, protonix and sucralfate per GI, lantus 10ui : #Complicated UTI, presumptive judie albicans UA: trace ketones, glucosuria, 1+ protein, few bacteria Bladder decompressed via Boykin, likely due to altered mental status and hypotension DC fluconazol iv MSK/Soft Tissue: #Extensive necrotizing fasciitis involving gluteal/sacral regions Large abscess drained (~150 mL purulent fluid), tissue debrided Pulse lavage and wound packed sp debridement of affected area (pilonidal cyst both buttocks, perianal area) and creation of a diverting colostomy 10/08/24 wound is having baker and white patches, patient will benefit for transfer to [facility] for plastic surgery 10/10/24: dressing change: less necrotic tissue 10/14/24: new Debridement of devitalized tissue was undertaken. There was no further evidence of necrotizing infection. The wound was then pulse lavaged with 3 L of saline containing Ancef. The wound was packed loosely with iodine saturated Kerlix. The patient will need plastic surgical attention which is not available at this facility, per general surgery patient will benefit for transfer to [facility], wound consult was placed for vac placement 10/15/24: wound vac was placed, extra dose of morphine due to pain, BPs soft, 500 cc bolus, pending transfer [facility] Plan discussed with patient, family at bedside in which all questions have been answered Case discussed with Dr Luo. DME wound vac requested Plan discussed with: Patient My Orders My Orders Orders - LEORA FULLER Procedure Category Date Status Time Hydrocodone-Acet PHA 10/25/24 In Process 5/325mg Tab ([place] 13:30 * Home Economics Expert CONS 10/25/24 Transmitted Consult Dietary Evaluation Review Comments: 1) TPN if NPO > 7 days 2) Advance to CCHO 60gm as medically feasible 3) Cuco 1 pk BID for wound healing 4) Monitor I/O, lab values, wt trend Expected Outcomes/Goals: To meet >75% estimated needs wound to improve Fu 2-3 days Date of Service: Oct 25, 2024 Billing Provider: GEOVANY VILLALOBOS MD Common Visit Codes: [id number] INP/OBS CARE(HIGH) LEORA FULLER Oct 25, 2024 16:42 GEOVANY VILLALOBOS MD Oct 28, 2024 00:47
[2024-10-25 21:00] VITALS: BP 114/68; PULSE 86; RESP 16; TEMP 97.5; O2SAT 95
[2024-10-26] VITALS (7 sets, daily range): BP systolic 103–129; BP diastolic 65–81; PULSE 78–89; RESP 16–19; TEMP 97.4–98.7; O2SAT 95–100
[2024-10-26 07:34] LABS: Chloride 107 mmol/L (98-107); Potassium 4.0 mmol/L (3.5-5.1); Sodium 142 mmol/L (136-145)
[2024-10-26 07:35] LABS: Anion Gap 8 (5-15); Carbon Dioxide 27 mmol/L (20-31)
[2024-10-26 07:40] LABS: BUN/Creatinine Ratio 18.7 (10.0-20.0); Blood Urea Nitrogen 14 mg/dL (9-23); Calcium 8.1 mg/dL (8.7-10.4); Glucose 164 mg/dL (74-106)
--- NOTE | 2024-10-26 09:30 | DVHPN2 ---
Subjective Date Seen: Oct 26, 2024 Post op day Post op day: 11 Patient reports: Feels better Nursing reports: No new complaints General: Normal HNT: Normal Cardiovascular: Normal Respiratory: Normal Gastrointestinal: Normal Genitourinary: Normal Musculoskeletal: Normal Neurological: Normal Objective Vitals Vital Sign Date Time Temp Pulse Resp B/P (MAP) Pulse Ox O2 Delivery O2 Flow Rate FiO2 10/26/24 05:00 98.0 79 16 118/71 (87) 95 98.0 10/25/24 20:00 Room Air* 0 21 Total Intake and Output 10/25/24 10/25/24 10/26/24 15:00 23:00 07:00 Intake Total 400 ml 800 ml Output Total 1100 ml 1000 ml Balance -700 ml -200 ml Medications Current Medications Medications Dose Ordered Sig/Geo Route Start Time Stop Time Status Last Admin Dose Admin Dextrose 50 ml UD PRN IV 10/07/24 11:15 Cancel Insulin Glargine 15 units DAILY SC 10/08/24 10:00 Cancel Dextrose 50 ml PRN PRN IV 10/07/24 15:00 Cancel Dextrose 50 ml PRN PRN IV 10/08/24 08:15 Cancel Dextrose 50 ml UD PRN IV 10/10/24 08:45 Sertraline HCl 50 mg DAILY PO 10/10/24 12:30 10/26/24 09:10 50 MG Diagnostic Test (Pha) 1 strip ACHS 10/14/24 17:00 10/26/24 06:16 1 STRIP Insulin Human Regular ACHS SC 10/14/24 17:00 10/26/24 06:18 2 UNITS Acetaminophen 650 mg Q4HP PRN PO 10/15/24 12:15 10/25/24 16:54 650 MG Pantoprazole Sodium 40 mg BID PO 10/18/24 22:00 10/26/24 09:10 40 MG Sucralfate 1 gm QID@0600,1130,1700,2200 PO 10/18/24 17:00 10/26/24 05:17 1 GM Insulin Glargine 10 units HS SC 10/19/24 22:00 10/25/24 21:36 10 UNITS Levothyroxine Sodium 75 mcg QAM@0600 PO 10/23/24 06:00 10/26/24 05:17 75 MCG Enteral Nutritional Formula 240 ml TIDWM PO 10/23/24 18:00 10/26/24 09:10 240 ML Enteral Nutritional Formula 27.5 gm DAILY PO 10/24/24 10:00 10/26/24 09:10 27.5 GM Ampicillin Sodium/ Sulbactam Sodium 3 gm/Sodium Chloride 100 ml @ 100 mls/hr Q6H IV 10/24/24 11:00 10/26/24 05:17 100 MLS/HR Acetaminophen/ Hydrocodone Bitart 1 tab Q6HPRN PRN PO 10/25/24 13:30 10/26/24 05:18 1 TAB General: Normal, Obese Head/Eyes: Normal ENT: Normal Neck: Normal Lungs: Normal Cardiovascular: Normal, Regular rate and rhythm Musculoskeletal: Normal Extremities: Normal Skin: Other (sacral/ buttock wound ) Labs and Microbiology Laboratory Tests 10/26/24 06:53 10/25/24 04:53 Test 10/26/24 06:53 Range/Units Serum Glucose 164 H 74-106 mg/dL Ass/Plan Labs and/or images reviewed: Labs reviewed by me, Image(s) reviewed by me Problem List -Neurologic: #Acute metabolic encephalopathy secondary to sepsis and metabolic derangements. No focal neurological deficits documented. more alert, AOX3 Infectious Diseases #Septic shock due to necrotizing fasciitis of the gluteal and sacral region secondary to pilonidal cyst infection due to prevotella loescheii #sp I&D 10/07/24 #sp debridement of affected area (pilonidal cyst both buttocks, perianal area) and creation of a diverting colostomy 10/08/24 #s/p I&D 10/22 Confirmed intra-op with devitalized tissue and large purulent collection WBC peaked at 31K with left shift on arrival, downtrending Source control achieved with surgical debridement Started on broad-spectrum antibiotics (Zosyn + Vanc): now meropenem+ vanco+ clindamycin Blood cultures on arrival negative ID consulted per Dr Villafana 10/10/24: dressing change: less necrotic tissue, bicarb and insulin drip stopped, downgrade to the floor, continue transfer, surgery ordered a ct scan: Redemonstrated bilateral gluteal region soft tissue edema and subcutaneous emphysema which extends from the perianal region to the lower back, suggestive of necrotizing fasciitis. Appears improved from prior.Interval laparotomy and left lower quadrant ostomy with associated postsurgical changes. Hepatomegaly. 10/11/24: wbc is trending slightly higher, wound still has necrotic tissue but looks better than yesterday, patient will benefit for transfer to [facility] for colorectal surgery due to possible involvement of anal sphincter,as well as plastic surgery right now with colostomy on place 10/14/24: new Debridement of devitalized tissue was undertaken. There was no further evidence of necrotizing infection. The wound was then pulse lavaged with 3 L of saline containing Ancef. The wound was packed loosely with iodine saturated Kerlix. The patient will need plastic surgical attention which is not available at this facility, per general surgery patient will benefit for transfer to [facility], wound consult was placed for vac placement, kidney function recovers, lantus was decreased to 15 ui 10/15/24: wound vac was placed, extra dose of morphine due to pain, BPs soft, 500 cc bolus, pending transfer [facility] 10/18/24: wound vac was changed, possible need of new debridement?, dr Villafana and dr Zamorano informed about the vac change, 10/21 - patient refused a wound dressing change, I and D tomorrow. 10/22-patient undergoing I and D, Wound VAC changed 10/23-Prajapati catheter discontinued 10/24 - IV antibiotics switched to Unasyn 10/26 - wound vac changed, social consulted for DME wound vac Cardiovascular: #Septic shock due to necrotizing fasciitis Resolving, off pressors DC vancomycin, clindamycin, Levaquin, fluconazole Continue IV unasyn Respiratory: #Pneumonia gram+/gram- Consolidation of much of the visualized right middle and right lower lobes with air bronchograms concerning for pneumonia. At least small right pleural effusion. #Acute hypoxemic respiratory failure secondary to sepsis and poor perfusion #Respiratory acidosis possible obesity hypoventilation syndrome today room air No mechanical ventilation Metabolic/Endocrine: #Severe AGMA due to lactic acidosis-resolving #Uncontrolled diabetes hba1c 13 dc bicarb and insulin drip lantus 15 ui #Hypothyroidism: TSH 12.1, low free T4 free T3 Given severity of illness, IV levothyroxine started to prevent myxedema daily Cortisol: 30.84 normal, adrenal insufficiency ruled out levothyroxine increased to 75 PO #Hypomagnesemia replaced Hematology: #Leukocytosis, improving with neutrophilic predominance (WBC >30K) at admission #Anemia Hgb 9.3, likely hemodilutional or inflammatory No evidence of DIC, platelets stable Monitor for anemia of critical illness Renal: АНДРЕЙ due to VMN on possible CKD, baseline creatinine unknown, resolved (from hypoperfusion and sepsis + chronic component from diabetes) Cr trending high UA: proteinuria (1+), trace ketones, glucosuria (4+), WBC 16 possible UTI component or inflammation Protein/Creatinine ratio = 218.6 mg/g suggests underlying CKD Renal US: Echogenic kidneys, no hydronephrosis, medical kidney disease consistent with diabetic nephropathy GI #sp colostomy 10/08/24 #Possible low-grade small bowel obstruction #Trace free fluid in the abdomen and pelvis #gastric ulcer #duodenal ulcer clear liquid diet 10/16/24: patient was having epigastric pain, dr villafana came at bedside, pain improved with analgesia, meropenem dc and Levaquin PO was started, also fluconazol was transitioned to PO, later in the late afternoon, patient was having abdominal pain, 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 There is moderate stool burden in the colon. The appendix is normal. There is fluid within a few proximal ileal small bowel loops although not pathologically enlarged and fecal material within a loop of ileum in the left abdomen which enters a convergence of bowel loops in the midabdomen and can no longer be distinguished. The distal ileum in the right lower quadrant is completely decompressed. There is trace free fluid in the abdomen and pelvis, new compared with the prior study. Consolidation of much of the visualized right middle and right lower lobes with air bronchograms concerning for pneumonia. At least small right pleural effusion. Significantly worse compared with the prior study. Findings discussed with dr Villafana 10/17/24: gastrografin showed no small bowel obstruction, abdominal pain is improving, RUQ US: normal, we will continue PO AB, wound vac change tomorrow, GI on board 10/18/24Dr Saunders GI, perfomed upper endoscope, showing gastric and duondenal ulcer, protonix and sucralfate per GI, lantus 10ui : #Complicated UTI, presumptive judie albicans UA: trace ketones, glucosuria, 1+ protein, few bacteria Bladder decompressed via Prajapati, likely due to altered mental status and hypotension DC fluconazol iv MSK/Soft Tissue: #Extensive necrotizing fasciitis involving gluteal/sacral regions Large abscess drained (~150 mL purulent fluid), tissue debrided Pulse lavage and wound packed sp debridement of affected area (pilonidal cyst both buttocks, perianal area) and creation of a diverting colostomy 10/08/24 wound is having baker and white patches, patient will benefit for transfer to [facility] for plastic surgery 10/10/24: dressing change: less necrotic tissue 10/14/24: new Debridement of devitalized tissue was undertaken. There was no further evidence of necrotizing infection. The wound was then pulse lavaged with 3 L of saline containing Ancef. The wound was packed loosely with iodine saturated Kerlix. The patient will need plastic surgical attention which is not available at this facility, per general surgery patient will benefit for transfer to [facility], wound consult was placed for vac placement 10/15/24: wound vac was placed, extra dose of morphine due to pain, BPs soft, 500 cc bolus, pending transfer [facility] Plan discussed with patient, family at bedside in which all questions have been answered Case discussed with Dr Luo. DME wound vac requested Assessment/Plan stoma ok, no gas wound clean dry and intact Nurse reports overnight drainage from wound labs and notes reviewed Plan: wound dressing to be change twice a day patient to lie on right or left side, not on her back continue current treatment 10/11/24 s/p debridement of sacral buttock necrotic tissue / colostomy no new complaints, stoma functioning wound covered in dressing per Nurse wound dressing changed today Plan: wound dressing to be changed as ordered wound consult patient needs Higher level of care for plastic surgery reconstruction sacral area 10/19/24 s/p debridement of sacral buttock necrotic tissue / colostomy no new complaints, stoma functioning , abdomen soft, non distended, non tender wound vac, no erythema on edges of wound tolerating diet Plan: wound vac reassess wound a couple days 10/22/24 s/p debridement of sacral buttock necrotic tissue / colostomy POD#7 no new complaints, stoma functioning , abdomen soft, non distended, non tender wound vac, no erythema on edges of wound tolerating diet Plan: wound vac debridement of sacral/ buttock wound tomorrow 10/23/24 s/p debridement of sacral buttock necrotic tissue / colostomy no new complaints, stoma functioning , abdomen soft, non distended, non tender wound vac, no erythema on edges of wound tolerating diet 10/24/2024 s/p debridement of sacral/ buttock wound , ex lap colostomy POD #9 No new complaints. Review of Systems: - The patient denies nausea and vomiting. They are tolerating their diet. Physical Exam: - The patient is resting comfortably in bed. - Abdomen is soft, non-distended, and non-tender. - Stoma has fecal matter present. - A wound vacuum is applied to the sacral buttock wound. The wound edges show no erythema or tenderness. The patient denies any pain from the wound area. Plan: - Will sign off. No surgical intervention is needed. - Discussed with Dr. Villafana, who agrees with the plan. - Please recall if needed. 10/26/2024 s/p debridement of sacral/ buttock wound , ex lap colostomy POD #11 No new complaints. Review of Systems: - The patient denies nausea and vomiting. She tolerating diet - The patient is resting comfortably in bed. - Abdomen is soft, non-distended, and non-tender. - Stoma has fecal matter present. no complaint of pain - A wound vacuum is applied to the sacral buttock wound. The wound edges show no erythema or tenderness. The patient denies any pain from the wound area. - I was asked by a physician by text what was the plan with the sacral /buttock wound, I reiterated that the plan must be referral to a plastic surgeon Dr. Villafana also placed the recommendation on his prior notes Plan: discussed with Dr. Villafana and agrees with the following plan - Higher level of care with plastic surgery for the sacral / buttock wound - Will sign off - Please recall if needed. Prognosis: Good Plan discussed with Dr. Villafana , Patient Visit Coding Surgery Date of Service if different f: Oct 26, 2024 Billing Provider: VERONICA VILLAFANA MD Surgery Visit Codes: [id number] INP/OBS CARE(HIGH) MAGNOLIA TELLO NP Oct 26, 2024 09:30
--- NOTE | 2024-10-26 10:50 | DVHPN2 ---
Progress Note - Dictate Date Seen: Oct 26, 2024 Has the PT tested + for MRSA If YES, has PT been informed?: No Medical Necessity Reason Pt with a Central, PICC or Fol: No Subjective 10/26/2024 s/p debridement of sacral/ buttock wound , ex lap colostomy POD #11 No new complaints Patient is resting comfortably She is tolerating diet Patient is moving her bowels H&H stable at 8.0 Patient was taking NSAIDs prior to admission which likely caused her ulcers seen on EGD vital signs Vital Sign Date Time Temp Pulse Resp B/P (MAP) Pulse Ox O2 Delivery O2 Flow Rate FiO2 10/26/24 09:00 97.9 79 16 117/75 (89) 97 97.9 10/25/24 20:00 Room Air* 0 21 Total Intake and Output 10/25/24 10/25/24 10/26/24 15:00 23:00 07:00 Intake Total 400 ml 800 ml Output Total 1100 ml 1000 ml Balance -700 ml -200 ml medications Current Medications Medications Dose Ordered Sig/Geo Route Start Time Stop Time Status Last Admin Dose Admin Dextrose 50 ml UD PRN IV 10/07/24 11:15 Cancel Insulin Glargine 15 units DAILY SC 10/08/24 10:00 Cancel Dextrose 50 ml PRN PRN IV 10/07/24 15:00 Cancel Dextrose 50 ml PRN PRN IV 10/08/24 08:15 Cancel Dextrose 50 ml UD PRN IV 10/10/24 08:45 Sertraline HCl 50 mg DAILY PO 10/10/24 12:30 10/26/24 09:10 50 MG Diagnostic Test (Pha) 1 strip ACHS 10/14/24 17:00 10/26/24 06:16 1 STRIP Insulin Human Regular ACHS SC 10/14/24 17:00 10/26/24 06:18 2 UNITS Acetaminophen 650 mg Q4HP PRN PO 10/15/24 12:15 10/25/24 16:54 650 MG Pantoprazole Sodium 40 mg BID PO 10/18/24 22:00 10/26/24 09:10 40 MG Sucralfate 1 gm QID@0600,1130,1700,2200 PO 10/18/24 17:00 10/26/24 05:17 1 GM Insulin Glargine 10 units HS SC 10/19/24 22:00 10/25/24 21:36 10 UNITS Levothyroxine Sodium 75 mcg QAM@0600 PO 10/23/24 06:00 10/26/24 05:17 75 MCG Enteral Nutritional Formula 240 ml TIDWM PO 10/23/24 18:00 10/26/24 09:10 240 ML Enteral Nutritional Formula 27.5 gm DAILY PO 10/24/24 10:00 10/26/24 09:10 27.5 GM Ampicillin Sodium/ Sulbactam Sodium 3 gm/Sodium Chloride 100 ml @ 100 mls/hr Q6H IV 10/24/24 11:00 10/26/24 05:17 100 MLS/HR Acetaminophen/ Hydrocodone Bitart 1 tab Q6HPRN PRN PO 10/25/24 13:30 10/26/24 05:18 1 TAB objective eneral: Normal, Obese Head/Eyes: Normal ENT: Normal Neck: Normal Lungs: Normal Cardiovascular: Normal, Regular rate and rhythm Musculoskeletal: Normal Extremities: Normal Skin: Other (sacral/ buttock wound )wound vac laboratory and microbiology Laboratory Tests 10/26/24 06:53 10/25/24 04:53 Test 10/26/24 06:53 Range/Units Serum Glucose 164 H 74-106 mg/dL Problems(with codes): (1) Gastric peptic ulcer (2) Pilonidal cyst (3) Duodenal ulcer (4) Sepsis (5) Generalized weakness (6) Necrotizing fasciitis Prognosis Plan Protonix 40 mg p.o. twice a day Carafate 1 g p.o. twice a day Diet as tolerated Plan for referral to higher level of care with plastic surgery for the sacral / buttock wound Dietary Evaluation Review Comments: 1) TPN if NPO > 7 days 2) Advance to [facility] 60gm as medically feasible 3) Cuco 1 pk BID for wound healing 4) Monitor I/O, lab values, wt trend Expected Outcomes/Goals: To meet >75% estimated needs wound to improve Fu 2-3 days Plan discussed with: Other (None) ELOINA MENDOZA MD Oct 26, 2024 10:50
--- NOTE | 2024-10-26 11:18 | DVHPNRES ---
Progress Note Date Seen: Oct 26, 2024 Resident Creating Document: JERRY ZAMUDIO RESIDENT Has the PT tested + for MRSA If YES, has PT been informed?: No Medical Necessity Reason Pt with a Central, PICC or Fol: No Subjective Review of Systems This is a 29-year-old with diabetes mellitus type 1 diagnosed at the age of 12, hypothyroidism, does not take any medications at home who presented to the ER with a chief complaint of buttock pain and generalized weakness. Patient reports that she has been experiencing pain in her buttock, redness and swelling, nausea vomiting for the past 2 days. On arrival patient was hypotensive 84/39 mmHg, tachycardic and tachypneic. CT scan showed necrotizing fascitis in the patient underwent I and D 10/07, 150 mL of yellow colored fluid was drained and sent for culture. 10/08-patient underwent colostomy placement. Serum glucose was 500 on arrival and patient was started on IV insulin drip. A1c greater than 13. 10/21-Patient seen and examined, reports no active symptoms. Continue vancomycin, fluconazole, clindamycin, Levaquin. Pending I and D tomorrow. NPO after midnight. TSH up trending, increased levothyroxine to 75 mcg daily. Follow up with free T4 10/22 - patient seen and examined, no active complaint. Undergoing debridement. 10/23 - Patient seen and examined, reports no active distress. Boykin catheter discontinued. 10/24 - De escalate IV antibiotics to Unasyn. Patient retaining urine, straight cath done, may need boykin and outpt suprapubic 10/25 - Patient seen, wound vac changed, social consulted for DME wound vac 10/26/24 Patient seen at bedside. Patient appears alert x3, comfortable. Wound VAC was changed yesterday, social service was consulted for DME wound VAC and order was placed to transfer to [facility]. Objective vital signs Vital Sign Date Time Temp Pulse Resp B/P (MAP) Pulse Ox O2 Delivery O2 Flow Rate FiO2 10/26/24 09:00 97.9 79 16 117/75 (89) 97 97.9 10/25/24 20:00 Room Air* 0 21 Total Intake and Output 10/25/24 10/25/24 10/26/24 15:00 23:00 07:00 Intake Total 400 ml 800 ml Output Total 1100 ml 1000 ml Balance -700 ml -200 ml medications Current Medications Medications Dose Ordered Sig/Geo Route Start Time Stop Time Status Last Admin Dose Admin Dextrose 50 ml UD PRN IV 10/07/24 11:15 Cancel Insulin Glargine 15 units DAILY SC 10/08/24 10:00 Cancel Dextrose 50 ml PRN PRN IV 10/07/24 15:00 Cancel Dextrose 50 ml PRN PRN IV 10/08/24 08:15 Cancel Dextrose 50 ml UD PRN IV 10/10/24 08:45 Sertraline HCl 50 mg DAILY PO 10/10/24 12:30 10/26/24 09:10 50 MG Diagnostic Test (Pha) 1 strip ACHS 10/14/24 17:00 10/26/24 06:16 1 STRIP Insulin Human Regular ACHS SC 10/14/24 17:00 10/26/24 06:18 2 UNITS Acetaminophen 650 mg Q4HP PRN PO 10/15/24 12:15 10/25/24 16:54 650 MG Pantoprazole Sodium 40 mg BID PO 10/18/24 22:00 10/26/24 09:10 40 MG Sucralfate 1 gm QID@0600,1130,1700,2200 PO 10/18/24 17:00 10/26/24 05:17 1 GM Insulin Glargine 10 units HS SC 10/19/24 22:00 10/25/24 21:36 10 UNITS Levothyroxine Sodium 75 mcg QAM@0600 PO 10/23/24 06:00 10/26/24 05:17 75 MCG Enteral Nutritional Formula 240 ml TIDWM PO 10/23/24 18:00 10/26/24 09:10 240 ML Enteral Nutritional Formula 27.5 gm DAILY PO 10/24/24 10:00 10/26/24 09:10 27.5 GM Ampicillin Sodium/ Sulbactam Sodium 3 gm/Sodium Chloride 100 ml @ 100 mls/hr Q6H IV 10/24/24 11:00 10/26/24 05:17 100 MLS/HR Acetaminophen/ Hydrocodone Bitart 1 tab Q6HPRN PRN PO 10/25/24 13:30 10/26/24 05:18 1 TAB Examination General: Patient alert and oriented in person, place and time. Patient following commands. HEENT: Normocephalic, atraumatic, moist mucous membranes Respiratory/pulmonary: Clear lungs bilaterally, vesicular murmurs present in almost all lung pinto, no associated crackles or wheezes. Cardiovascular: Normal heart sounds S1 and S2 with no associated murmurs Abdomen: Obese abdomen, Colostomy bag seen draining yellow soft stool. Status post multiple I and D bilateral gluteal cleft with a dressing covering the defect. Extensive sacral and lumbar ulcer, still fibrinopurulent tissue and a possible new collection in the left buttock, vac was placed again. Extremities: There is no peripheral edema present at the lower extremities. Peripheral Pulses: 3+ Radial (R). 3+ Radial (L). 3+ Dorsalis pedis (R). 3+ Dorsalis pedis(L) Skin: No rashes or pruritus, there is no sacral edema present at this time. Neurological: Intact cranial nerves with no focal neurologic deficits laboratory and microbiology Laboratory Tests 10/26/24 06:53 10/25/24 04:53 Test 10/26/24 06:53 Range/Units Serum Glucose 164 H 74-106 mg/dL Microbiology Date/Time Source Procedure Growth Status 10/07/24 10:30 Voided Urine Urine Culture - Final Presumptive Judie albicans Complete 10/07/24 08:21 Other Other Gram Stain - Final Complete 10/07/24 08:21 Anaerobic Culture - Final Prevotella loescheii Complete 10/07/24 08:21 Other Other Aerobic Culture - Final Complete 10/06/24 11:20 Blood Blood Culture - Final NO GROWTH AFTER 5 DAYS OF INCUBATION. Complete Problem List/Assessment/Plan Problem List/Assessment/Plan Neurologic: #Acute metabolic encephalopathy secondary to sepsis and metabolic derangements. No focal neurological deficits documented. more alert, AOX3 Infectious Diseases #Septic shock due to necrotizing fasciitis of the gluteal and sacral region secondary to pilonidal cyst infection due to prevotella loescheii #sp I&D 10/07/24 #sp debridement of affected area (pilonidal cyst both buttocks, perianal area) and creation of a diverting colostomy 10/08/24 #s/p I&D 10/22 Confirmed intra-op with devitalized tissue and large purulent collection WBC peaked at 31K with left shift on arrival, downtrending Source control achieved with surgical debridement Started on broad-spectrum antibiotics (Zosyn + Vanc): now meropenem+ vanco+ clindamycin Blood cultures on arrival negative ID consulted per Dr Villafana 10/10/24: dressing change: less necrotic tissue, bicarb and insulin drip stopped, downgrade to the floor, continue transfer, surgery ordered a ct scan: Redemonstrated bilateral gluteal region soft tissue edema and subcutaneous emphysema which extends from the perianal region to the lower back, suggestive of necrotizing fasciitis. Appears improved from prior.Interval laparotomy and left lower quadrant ostomy with associated postsurgical changes. Hepatomegaly. 10/11/24: wbc is trending slightly higher, wound still has necrotic tissue but looks better than yesterday, patient will benefit for transfer to [facility] for colorectal surgery due to possible involvement of anal sphincter,as well as plastic surgery right now with colostomy on place 10/14/24: new Debridement of devitalized tissue was undertaken. There was no further evidence of necrotizing infection. The wound was then pulse lavaged with 3 L of saline containing Ancef. The wound was packed loosely with iodine saturated Kerlix. The patient will need plastic surgical attention which is not available at this facility, per general surgery patient will benefit for transfer to [facility], wound consult was placed for vac placement, kidney function recovers, lantus was decreased to 15 ui 10/15/24: wound vac was placed, extra dose of morphine due to pain, BPs soft, 500 cc bolus, pending transfer [facility] 10/18/24: wound vac was changed, possible need of new debridement?, dr Villafana and dr Zamorano informed about the vac change, 10/21 - patient refused a wound dressing change, I and D tomorrow. 10/22-patient undergoing I and D, Wound VAC changed 10/23-Boykin catheter discontinued 10/24 - IV antibiotics switched to Unasyn 10/25 - wound vac changed, social consulted for DME wound vac 10/26/24- wound VAC was changed yesterday, social Service consulted for DME wound VAC and transfer to higher level of care. there is 200cc of milky armas/brown liquid exudate in the wound vac canister Cardiovascular: #Septic shock due to necrotizing fasciitis Resolving, off pressors DC vancomycin, clindamycin, Levaquin, fluconazole Continue IV unasyn Respiratory: #Pneumonia gram+/gram- Consolidation of much of the visualized right middle and right lower lobes with air bronchograms concerning for pneumonia. At least small right pleural effusion. #Acute hypoxemic respiratory failure secondary to sepsis and poor perfusion #Respiratory acidosis possible obesity hypoventilation syndrome today room air No mechanical ventilation Metabolic/Endocrine: #Severe AGMA due to lactic acidosis-resolving #Uncontrolled diabetes hba1c 13 dc bicarb and insulin drip lantus 15 ui #Hypothyroidism: TSH 12.1, low free T4 free T3 Given severity of illness, IV levothyroxine started to prevent myxedema daily Cortisol: 30.84 normal, adrenal insufficiency ruled out levothyroxine increased to 75 PO #Hypomagnesemia replaced Hematology: #Leukocytosis, improving with neutrophilic predominance (WBC >30K) at admission #Anemia Hgb 9.3, likely hemodilutional or inflammatory No evidence of DIC, platelets stable Monitor for anemia of critical illness Renal: АНДРЕЙ due to VMN on possible CKD, baseline creatinine unknown, resolved (from hypoperfusion and sepsis + chronic component from diabetes) Cr trending high UA: proteinuria (1+), trace ketones, glucosuria (4+), WBC 16 possible UTI component or inflammation Protein/Creatinine ratio = 218.6 mg/g suggests underlying CKD Renal US: Echogenic kidneys, no hydronephrosis, medical kidney disease consistent with diabetic nephropathy GI #sp colostomy 10/08/24 #Possible low-grade small bowel obstruction #Trace free fluid in the abdomen and pelvis #gastric ulcer #duodenal ulcer clear liquid diet 10/16/24: patient was having epigastric pain, dr villafana came at bedside, pain improved with analgesia, meropenem dc and Levaquin PO was started, also fluconazol was transitioned to PO, later in the late afternoon, patient was having abdominal pain, [employer] team ordered a CT scan that showed: The patient is status post sigmoidectomy with a left lower quadrant colostomy. There is moderate stool burden in the colon. The appendix is normal. There is fluid within a few proximal ileal small bowel loops although not pathologically enlarged and fecal material within a loop of ileum in the left abdomen which enters a convergence of bowel loops in the midabdomen and can no longer be distinguished. The distal ileum in the right lower quadrant is completely decompressed. There is trace free fluid in the abdomen and pelvis, new compared with the prior study. Consolidation of much of the visualized right middle and right lower lobes with air bronchograms concerning for pneumonia. At least small right pleural effusion. Significantly worse compared with the prior study. Findings discussed with dr Villafana 10/17/24: gastrografin showed no small bowel obstruction, abdominal pain is improving, RUQ US: normal, we will continue PO AB, wound vac change tomorrow, GI on board 10/18/24Dr Chip GI, perfomed upper endoscope, showing gastric and duondenal ulcer, protonix and sucralfate per GI, lantus 10ui : #Complicated UTI, presumptive judie albicans UA: trace ketones, glucosuria, 1+ protein, few bacteria Bladder decompressed via Boykin, likely due to altered mental status and hypotension DC fluconazol iv MSK/Soft Tissue: #Extensive necrotizing fasciitis involving gluteal/sacral regions Large abscess drained (~150 mL purulent fluid), tissue debrided Pulse lavage and wound packed sp debridement of affected area (pilonidal cyst both buttocks, perianal area) and creation of a diverting colostomy 10/08/24 wound is having baker and white patches, patient will benefit for transfer to [facility] for plastic surgery 10/10/24: dressing change: less necrotic tissue 10/14/24: new Debridement of devitalized tissue was undertaken. There was no further evidence of necrotizing infection. The wound was then pulse lavaged with 3 L of saline containing Ancef. The wound was packed loosely with iodine saturated Kerlix. The patient will need plastic surgical attention which is not available at this facility, per general surgery patient will benefit for transfer to [facility], wound consult was placed for vac placement 10/15/24: wound vac was placed, extra dose of morphine due to pain, BPs soft, 500 cc bolus, pending transfer [facility] Plan discussed with patient, family at bedside in which all questions have been answered Case discussed with Dr Luo. DME wound vac requested Plan discussed with: Patient Dietary Evaluation Review Comments: 1) TPN if NPO > 7 days 2) Advance to [facility] [place] 60gm as medically feasible 3) Cuco 1 pk BID for wound healing 4) Monitor I/O, lab values, wt trend Expected Outcomes/Goals: To meet >75% estimated needs wound to improve Fu 2-3 days Date of Service: Oct 26, 2024 Billing Provider: RONNIE HOPKINS MD Common Visit Codes: [id number] INP/OBS CARE(HIGH) JERRY ZAMUDIO RESIDENT Oct 26, 2024 11:18 RONNIE HOPKINS MD Oct 26, 2024 21:18
[2024-10-27] VITALS (8 sets, daily range): BP systolic 98–123; BP diastolic 56–78; PULSE 82–85; RESP 16–18; TEMP 97.7–99.1; O2SAT 94–97
[2024-10-27 06:36] LABS: Hemoglobin 8.9 g/dL (12.2-16.2)
[2024-10-27 06:38] LABS: Hematocrit 25.6 % (36.0-46.0); Mean Corpuscular Hemoglobin 29.4 pg (28.0-32.0); Mean Corpuscular Volume 84.0 fL (80.0-100.0); Nucleated Red Blood Cells % 0.3 %
[2024-10-27 06:46] LABS: Calcium 8.7 mg/dL (8.7-10.4); Chloride 104 mmol/L (98-107); Potassium 3.8 mmol/L (3.5-5.1); Sodium 140 mmol/L (136-145)
[2024-10-27 06:47] LABS: Anion Gap 8 (5-15); Carbon Dioxide 28 mmol/L (20-31)
[2024-10-27 06:52] LABS: BUN/Creatinine Ratio 19.7 (10.0-20.0); Blood Urea Nitrogen 14 mg/dL (9-23)
[2024-10-27 06:55] LABS: Glucose 128 mg/dL (74-106)
--- NOTE | 2024-10-27 17:16 | DVHPNRES ---
Progress Note Date Seen: Oct 27, 2024 Resident Creating Document: ANUP FINNEGAN RESIDENT Has the PT tested + for MRSA If YES, has PT been informed?: No Medical Necessity Reason Pt with a Central, PICC or Fol: Yes The following are medically ne: Boykin Catheter Subjective Review of Systems This is a 29-year-old with diabetes mellitus type 1 diagnosed at the age of 12, hypothyroidism, does not take any medications at home who presented to the ER with a chief complaint of buttock pain and generalized weakness. Patient reports that she has been experiencing pain in her buttock, redness and swelling, nausea vomiting for the past 2 days. On arrival patient was hypotensive 84/39 mmHg, tachycardic and tachypneic. CT scan showed necrotizing fascitis in the patient underwent I and D 10/07, 150 mL of yellow colored fluid was drained and sent for culture. 10/08-patient underwent colostomy placement. Serum glucose was 500 on arrival and patient was started on IV insulin drip. A1c greater than 13. 10/21-Patient seen and examined, reports no active symptoms. Continue vancomycin, fluconazole, clindamycin, Levaquin. Pending I and D tomorrow. NPO after midnight. TSH up trending, increased levothyroxine to 75 mcg daily. Follow up with free T4 10/22 - patient seen and examined, no active complaint. Undergoing debridement. 10/23 - Patient seen and examined, reports no active distress. Boykin catheter discontinued. 10/24 - De escalate IV antibiotics to Unasyn. Patient retaining urine, straight cath done, may need boykin and outpt suprapubic 10/25 - Patient seen, wound vac changed, social consulted for DME wound vac 10/26/24 Patient seen at bedside. Patient appears alert x3, comfortable. Wound VAC was changed yesterday, social service was consulted for DME wound VAC and order was placed to transfer to [facility]. 10/27/2024: Patient was seen and examined by me at the bedside. Patient appears alert x3, comfortable. Dance Entertainer has been consulted for Transfer to [facility] for colorectal surgery and plastic. wound VAC form signed by Dr. Ricketts and clinical sent to naomi Morton with [facility]. Per Fred at [facility], he is requesting, medical necessity form, prior treatment wound care notes and H&P. Per Fred this may not get addressed today because this process is tedious. CM will follow up tomorrow. Objective vital signs Vital Sign Date Time Temp Pulse Resp B/P (MAP) Pulse Ox O2 Delivery O2 Flow Rate FiO2 10/27/24 13:00 99.1 82 16 123/78 (93) 96 99.1 10/27/24 08:00 Room Air* 0 21 Total Intake and Output 10/26/24 10/26/24 10/27/24 15:00 23:00 07:00 Intake Total 100 ml 1050 ml 800 ml Output Total 1300 ml 1275 ml Balance 100 ml -250 ml -475 ml medications Current Medications Medications Dose Ordered Sig/Geo Route Start Time Stop Time Status Last Admin Dose Admin Dextrose 50 ml UD PRN IV 10/07/24 11:15 Cancel Insulin Glargine 15 units DAILY SC 10/08/24 10:00 Cancel Dextrose 50 ml PRN PRN IV 10/07/24 15:00 Cancel Dextrose 50 ml PRN PRN IV 10/08/24 08:15 Cancel Dextrose 50 ml UD PRN IV 10/10/24 08:45 Sertraline HCl 50 mg DAILY PO 10/10/24 12:30 10/27/24 09:55 50 MG Diagnostic Test (Pha) 1 strip ACHS 10/14/24 17:00 10/27/24 11:19 1 STRIP Insulin Human Regular ACHS SC 10/14/24 17:00 10/27/24 11:23 9 UNITS Acetaminophen 650 mg Q4HP PRN PO 10/15/24 12:15 10/25/24 16:54 650 MG Pantoprazole Sodium 40 mg BID PO 10/18/24 22:00 10/27/24 09:55 40 MG Sucralfate 1 gm QID@0600,1130,1700,2200 PO 10/18/24 17:00 10/27/24 11:19 1 GM Insulin Glargine 10 units HS SC 10/19/24 22:00 10/26/24 21:15 10 UNITS Levothyroxine Sodium 75 mcg QAM@0600 PO 10/23/24 06:00 10/27/24 05:30 75 MCG Enteral Nutritional Formula 240 ml TIDWM PO 10/23/24 18:00 10/27/24 08:45 240 ML Enteral Nutritional Formula 27.5 gm DAILY PO 10/24/24 10:00 10/27/24 09:58 27.5 GM Ampicillin Sodium/ Sulbactam Sodium 3 gm/Sodium Chloride 100 ml @ 100 mls/hr Q6H IV 10/24/24 11:00 10/27/24 11:20 100 MLS/HR Acetaminophen/ Hydrocodone Bitart 1 tab Q6HPRN PRN PO 10/25/24 13:30 10/27/24 11:39 1 TAB Enoxaparin Sodium 40 mg DAILY SC 10/28/24 10:00 Examination General: Patient alert and oriented in person, place and time. Patient following commands. HEENT: Normocephalic, atraumatic, moist mucous membranes Respiratory/pulmonary: Clear lungs bilaterally, vesicular murmurs present in almost all lung pinto, no associated crackles or wheezes. Cardiovascular: Normal heart sounds S1 and S2 with no associated murmurs Abdomen: Obese abdomen, Colostomy bag seen draining yellow soft stool. Status post multiple I and D bilateral gluteal cleft with a dressing covering the defect. Extensive sacral and lumbar ulcer, still fibrinopurulent tissue and a possible new collection in the left buttock, vac was placed again. Extremities: There is no peripheral edema present at the lower extremities. Peripheral Pulses: 3+ Radial (R). 3+ Radial (L). 3+ Dorsalis pedis (R). 3+ Dorsalis pedis(L) Skin: No rashes or pruritus, there is no sacral edema present at this time. Neurological: Intact cranial nerves with no focal neurologic deficits laboratory and microbiology Laboratory Tests 10/27/24 05:20 Test 10/27/24 05:20 Range/Units Serum Glucose 128 H 74-106 mg/dL Microbiology Date/Time Source Procedure Growth Status 10/07/24 10:30 Voided Urine Urine Culture - Final Presumptive Judie albicans Complete 10/07/24 08:21 Other Other Gram Stain - Final Complete 10/07/24 08:21 Anaerobic Culture - Final Prevotella loescheii Complete 10/07/24 08:21 Other Other Aerobic Culture - Final Complete 10/06/24 11:20 Blood Blood Culture - Final NO GROWTH AFTER 5 DAYS OF INCUBATION. Complete Labs and/or images reviewed: Labs reviewed by me, Image(s) reviewed by me Problem List/Assessment/Plan Problem List/Assessment/Plan Neurologic: #Acute metabolic encephalopathy secondary to sepsis and metabolic derangements. No focal neurological deficits documented. more alert, AOX3 Infectious Diseases #Septic shock due to necrotizing fasciitis of the gluteal and sacral region secondary to pilonidal cyst infection due to prevotella loescheii #sp I&D 10/07/24 #sp debridement of affected area (pilonidal cyst both buttocks, perianal area) and creation of a diverting colostomy 10/08/24 #s/p I&D 10/22 Confirmed intra-op with devitalized tissue and large purulent collection WBC peaked at 31K with left shift on arrival, downtrending Source control achieved with surgical debridement Started on broad-spectrum antibiotics (Zosyn + Vanc): now meropenem+ vanco+ clindamycin Blood cultures on arrival negative ID consulted per Dr Villafana 10/10/24: dressing change: less necrotic tissue, bicarb and insulin drip stopped, downgrade to the floor, continue transfer, surgery ordered a ct scan: Redemonstrated bilateral gluteal region soft tissue edema and subcutaneous emphysema which extends from the perianal region to the lower back, suggestive of necrotizing fasciitis. Appears improved from prior.Interval laparotomy and left lower quadrant ostomy with associated postsurgical changes. Hepatomegaly. 10/11/24: wbc is trending slightly higher, wound still has necrotic tissue but looks better than yesterday, patient will benefit for transfer to [facility] for colorectal surgery due to possible involvement of anal sphincter,as well as plastic surgery right now with colostomy on place 10/14/24: new Debridement of devitalized tissue was undertaken. There was no further evidence of necrotizing infection. The wound was then pulse lavaged with 3 L of saline containing Ancef. The wound was packed loosely with iodine saturated Kerlix. The patient will need plastic surgical attention which is not available at this facility, per general surgery patient will benefit for transfer to [facility], wound consult was placed for vac placement, kidney function recovers, lantus was decreased to 15 ui 10/15/24: wound vac was placed, extra dose of morphine due to pain, BPs soft, 500 cc bolus, pending transfer [facility] 10/18/24: wound vac was changed, possible need of new debridement?, dr Villafana and dr Zamorano informed about the vac change, 10/21 - patient refused a wound dressing change, I and D tomorrow. 10/22-patient undergoing I and D, Wound VAC changed 10/23-Boykin catheter discontinued 10/24 - IV antibiotics switched to Unasyn 10/25 - wound vac changed, social consulted for DME wound vac 10/26/24- wound VAC was changed yesterday, social Service consulted for DME wound VAC and transfer to higher level of care. there is 200cc of milky armas/brown liquid exudate in the wound vac canister 10/27/2024 addiction social worker consulted for transfer to [facility] for colorectal surgery and plastic Cardiovascular: #Septic shock due to necrotizing fasciitis Resolving, off pressors DC vancomycin, clindamycin, Levaquin, fluconazole Continue IV unasyn Respiratory: #Pneumonia gram+/gram- Consolidation of much of the visualized right middle and right lower lobes with air bronchograms concerning for pneumonia. At least small right pleural effusion. #Acute hypoxemic respiratory failure secondary to sepsis and poor perfusion #Respiratory acidosis possible obesity hypoventilation syndrome today room air No mechanical ventilation Metabolic/Endocrine: #Severe AGMA due to lactic acidosis-resolving #Uncontrolled diabetes hba1c 13 dc bicarb and insulin drip lantus 15 ui #Hypothyroidism: TSH 12.1, low free T4 free T3 Given severity of illness, IV levothyroxine started to prevent myxedema daily Cortisol: 30.84 normal, adrenal insufficiency ruled out levothyroxine increased to 75 PO #Hypomagnesemia replaced Hematology: #Leukocytosis, improving with neutrophilic predominance (WBC >30K) at admission #Anemia Hgb 9.3, likely hemodilutional or inflammatory No evidence of DIC, platelets stable Monitor for anemia of critical illness Renal: АНДРЕЙ due to VMN on possible CKD, baseline creatinine unknown, resolved (from hypoperfusion and sepsis + chronic component from diabetes) Cr trending high UA: proteinuria (1+), trace ketones, glucosuria (4+), WBC 16 possible UTI component or inflammation Protein/Creatinine ratio = 218.6 mg/g suggests underlying CKD Renal US: Echogenic kidneys, no hydronephrosis, medical kidney disease consistent with diabetic nephropathy GI #sp colostomy 10/08/24 #Possible low-grade small bowel obstruction #Trace free fluid in the abdomen and pelvis #gastric ulcer #duodenal ulcer clear liquid diet 10/16/24: patient was having epigastric pain, dr villafana came at bedside, pain improved with analgesia, meropenem dc and Levaquin PO was started, also fluconazol was transitioned to PO, later in the late afternoon, patient was having abdominal pain, etl application developer team ordered a CT scan that showed: The patient is status post sigmoidectomy with a left lower quadrant colostomy. There is moderate stool burden in the colon. The appendix is normal. There is fluid within a few proximal ileal small bowel loops although not pathologically enlarged and fecal material within a loop of ileum in the left abdomen which enters a convergence of bowel loops in the midabdomen and can no longer be distinguished. The distal ileum in the right lower quadrant is completely decompressed. There is trace free fluid in the abdomen and pelvis, new compared with the prior study. Consolidation of much of the visualized right middle and right lower lobes with air bronchograms concerning for pneumonia. At least small right pleural effusion. Significantly worse compared with the prior study. Findings discussed with dr Villafana 10/17/24: gastrografin showed no small bowel obstruction, abdominal pain is improving, RUQ US: normal, we will continue PO AB, wound vac change tomorrow, GI on board 10/18/24Dr Chip GI, perfomed upper endoscope, showing gastric and duondenal ulcer, protonix and sucralfate per GI, lantus 10ui : #Complicated UTI, presumptive judie albicans UA: trace ketones, glucosuria, 1+ protein, few bacteria Bladder decompressed via Boykin, likely due to altered mental status and hypotension DC fluconazol iv MSK/Soft Tissue: #Extensive necrotizing fasciitis involving gluteal/sacral regions Large abscess drained (~150 mL purulent fluid), tissue debrided Pulse lavage and wound packed sp debridement of affected area (pilonidal cyst both buttocks, perianal area) and creation of a diverting colostomy 10/08/24 wound is having baker and white patches, patient will benefit for transfer to [facility] for plastic surgery 10/10/24: dressing change: less necrotic tissue 10/14/24: new Debridement of devitalized tissue was undertaken. There was no further evidence of necrotizing infection. The wound was then pulse lavaged with 3 L of saline containing Ancef. The wound was packed loosely with iodine saturated Kerlix. The patient will need plastic surgical attention which is not available at this facility, per general surgery patient will benefit for transfer to [facility], wound consult was placed for vac placement 10/15/24: wound vac was placed, extra dose of morphine due to pain, BPs soft, 500 cc bolus, pending transfer [facility] Plan discussed with patient, family at bedside in which all questions have been answered Case discussed with Dr Preciado. Plan discussed with: Patient, Other (rn) My Orders My Orders Orders - ANUP FINNEGAN Procedure Category Date Status Time Enoxaparin Sodium PHA 10/28/24 In Process (Lovenox) 10:00 Dietary Evaluation Review Comments: 1) TPN if NPO > 7 days 2) [facility] as medically feasible 3) Cuco 1 pk BID for wound healing 4) Monitor I/O, lab values, wt trend Expected Outcomes/Goals: To meet >75% estimated needs wound to improve Fu 2-3 days Date of Service: Oct 27, 2024 Billing Provider: RONNIE PRECIADO MD Common Visit Codes: [id number] INP/OBS CARE(MOD) ANUP FINNEGAN RESIDENT Oct 27, 2024 17:16 RONNIE PRECIADO MD Oct 27, 2024 21:40
[2024-10-28] VITALS (8 sets, daily range): BP systolic 96–129; BP diastolic 56–75; PULSE 79–93; RESP 16–20; TEMP 97.7–98.5; O2SAT 95–98
[2024-10-28 07:19] LABS: Hematocrit 24.7 % (36.0-46.0); Hemoglobin 8.5 g/dL (12.2-16.2); Mean Corpuscular Hemoglobin 29.1 pg (28.0-32.0); Mean Corpuscular Volume 84.4 fL (80.0-100.0); Nucleated Red Blood Cells % 0.0 %
[2024-10-28] MEDS: ENOXAPARIN SOD 40 MG/0.4 ML SYRINGE SC SCH (10:59)
--- NOTE | 2024-10-28 15:28 | DVHPNRES ---
Progress Note Date Seen: Oct 28, 2024 Resident Creating Document: LEORA FULLER RESIDENT Has the PT tested + for MRSA If YES, has PT been informed?: No Medical Necessity Reason Pt with a Central, PICC or Fol: Yes The following are medically ne: Boykin Catheter Subjective Review of Systems Review of Systems This is a 29-year-old with diabetes mellitus type 1 diagnosed at the age of 12, hypothyroidism, does not take any medications at home who presented to the ER with a chief complaint of buttock pain and generalized weakness. Patient reports that she has been experiencing pain in her buttock, redness and swelling, nausea vomiting for the past 2 days. On arrival patient was hypotensive 84/39 mmHg, tachycardic and tachypneic. CT scan showed necrotizing fascitis in the patient underwent I and D 10/07, 150 mL of yellow colored fluid was drained and sent for culture. 10/08-patient underwent colostomy placement. Serum glucose was 500 on arrival and patient was started on IV insulin drip. A1c greater than 13. 10/21-Patient seen and examined, reports no active symptoms. Continue vancomycin, fluconazole, clindamycin, Levaquin. Pending I and D tomorrow. NPO after midnight. TSH up trending, increased levothyroxine to 75 mcg daily. Follow up with free T4 10/22 - patient seen and examined, no active complaint. Undergoing debridement. 10/23 - Patient seen and examined, reports no active distress. Boykin catheter discontinued. 10/24 - De escalate IV antibiotics to Unasyn. Patient retaining urine, straight cath done, may need boykin and outpt suprapubic 10/25 - Patient seen, wound vac changed, social consulted for DME wound vac 10/28 - patient reports feeling fine, in no acute distress. Repeat TSH 11. Objective vital signs Vital Sign Date Time Temp Pulse Resp B/P (MAP) Pulse Ox O2 Delivery O2 Flow Rate FiO2 10/28/24 13:00 97.7 93 20 125/74 (91) 96 97.7 10/28/24 08:00 Room Air* 0 21 Total Intake and Output 10/27/24 10/27/24 10/28/24 15:00 23:00 07:00 Intake Total 100 ml 1650 ml 1000 ml Output Total 1000 ml 900 ml Balance 100 ml 650 ml 100 ml medications Current Medications Medications Dose Ordered Sig/Geo Route Start Time Stop Time Status Last Admin Dose Admin Dextrose 50 ml UD PRN IV 10/07/24 11:15 Cancel Insulin Glargine 15 units DAILY SC 10/08/24 10:00 Cancel Dextrose 50 ml PRN PRN IV 10/07/24 15:00 Cancel Dextrose 50 ml PRN PRN IV 10/08/24 08:15 Cancel Dextrose 50 ml UD PRN IV 10/10/24 08:45 Sertraline HCl 50 mg DAILY PO 10/10/24 12:30 10/28/24 10:58 50 MG Diagnostic Test (Pha) 1 strip ACHS 10/14/24 17:00 10/28/24 11:08 1 STRIP Insulin Human Regular ACHS SC 10/14/24 17:00 10/28/24 11:10 6 UNITS Acetaminophen 650 mg Q4HP PRN PO 10/15/24 12:15 10/25/24 16:54 650 MG Pantoprazole Sodium 40 mg BID PO 10/18/24 22:00 10/28/24 10:58 40 MG Sucralfate 1 gm QID@0600,1130,1700,2200 PO 10/18/24 17:00 10/28/24 11:00 1 GM Insulin Glargine 10 units HS SC 10/19/24 22:00 10/27/24 22:34 10 UNITS Levothyroxine Sodium 75 mcg QAM@0600 PO 10/23/24 06:00 10/28/24 06:08 75 MCG Enteral Nutritional Formula 240 ml TIDWM PO 10/23/24 18:00 10/28/24 10:58 240 ML Enteral Nutritional Formula 27.5 gm DAILY PO 10/24/24 10:00 10/28/24 10:58 27.5 GM Ampicillin Sodium/ Sulbactam Sodium 3 gm/Sodium Chloride 100 ml @ 100 mls/hr Q6H IV 10/24/24 11:00 10/28/24 11:00 100 MLS/HR Acetaminophen/ Hydrocodone Bitart 1 tab Q6HPRN PRN PO 10/25/24 13:30 10/28/24 05:53 1 TAB Enoxaparin Sodium 40 mg DAILY SC 10/28/24 10:00 10/28/24 10:59 40 MG Examination Morbidly obese female patient lying in bed comfortably, no acute distress. General: Morbid obese, afebrile, palor, mucosae are moist Cardiovascular: Regular S1 and S2. No murmurs, gallops or rubs. No JVD elevation. No pedal edema Respiratory: Normal B/L air entry on room air. Clear lung sounds on auscultation Abdomen: Soft, nontender, nondistended, normoactive bowel sounds, no rebound tenderness, no organomegaly, no masses. Colostomy bag seen draining yellow soft stool. Status post multiple I and D bilateral gluteal cleft with a dressing covering the defect. Extensive sacral and lumbar ulcer, still fibrinopurulent tissue and a possible new collection in the left buttock, vac was placed again Genitourinary: Deferred MSK/skin: Mobilizes 4 limbs. Skin is dry and warm Neurological: No motor, no sensitive deficits, normal speech. Pupils are isocoric and reactive. Psych/Mental Status: A/Ox3 laboratory and microbiology Laboratory Tests 10/28/24 06:02 10/27/24 05:20 Test 10/27/24 05:20 Range/Units Serum Glucose 128 H 74-106 mg/dL Microbiology Date/Time Source Procedure Growth Status 10/27/24 14:35 Nose MRSA Screen - Final Complete 10/07/24 10:30 Voided Urine Urine Culture - Final Presumptive Judie albicans Complete 10/06/24 11:20 Blood Blood Culture - Final NO GROWTH AFTER 5 DAYS OF INCUBATION. Complete Labs and/or images reviewed: Labs reviewed by me, Image(s) reviewed by me Problem List/Assessment/Plan Problem List/Assessment/Plan #Acute metabolic encephalopathy secondary to sepsis and metabolic derangements. #Septic shock due to necrotizing fasciitis of the gluteal and sacral region secondary to pilonidal cyst infection due to prevotella loescheii sp I&D 10/07/24 and 10/22 #sp debridement of affected area (pilonidal cyst both buttocks, perianal area) and creation of a diverting colostomy 10/08/24 #Severe AGMA due to lactic acidosis-resolving Source control achieved with surgical debridement Blood cultures on arrival negative ID consulted per Dr Pretty 10/10/24: dressing change: less necrotic tissue, bicarb and insulin drip stopped, downgrade to the floor, continue transfer, surgery ordered a ct scan: Redemonstrated bilateral gluteal region soft tissue edema and subcutaneous emphysema which extends from the perianal region to the lower back, suggestive of necrotizing fasciitis. Appears improved from prior.Interval laparotomy and left lower quadrant ostomy with associated postsurgical changes. Hepatomegaly. 10/11/24: wbc is trending slightly higher, wound still has necrotic tissue but looks better than yesterday, patient will benefit for transfer to [facility] for colorectal surgery due to possible involvement of anal sphincter,as well as plastic surgery right now with colostomy on place 10/14/24: new Debridement of devitalized tissue was undertaken. There was no further evidence of necrotizing infection. The wound was then pulse lavaged with 3 L of saline containing Ancef. The wound was packed loosely with iodine saturated Kerlix. The patient will need plastic surgical attention which is not available at this facility, per general surgery patient will benefit for transfer to [facility], wound consult was placed for vac placement, kidney function recovers, lantus was decreased to 15 ui 10/15/24: wound vac was placed, extra dose of morphine due to pain, BPs soft, 500 cc bolus, pending transfer [facility] 10/18/24: wound vac was changed, possible need of new debridement?, dr Pretty and dr Zamorano informed about the vac change, 10/21 - patient refused a wound dressing change, I and D tomorrow. 10/22-patient undergoing I and D, Wound VAC changed 10/23-Boykin catheter discontinued 10/24 - IV antibiotics switched to Unasyn 10/26 - wound vac changed, social consulted for DME wound vac 10/28 - continue unasyn #Pneumonia gram+/gram- #Acute hypoxemic respiratory failure secondary to sepsis and poor perfusion #Respiratory acidosis possible obesity hypoventilation syndrome Consolidation of much of the visualized right middle and right lower lobes with air bronchograms concerning for pneumonia. At least small right pleural effusion. ON RA #Uncontrolled diabetes hba1c 13 # neurogenic bladder requiring Boykin dc bicarb and insulin drip lantus 15 ui #Hypothyroidism: Cortisol: 30.84 normal, adrenal insufficiency ruled out levothyroxine increased to 75 PO #Hypomagnesemia replaced #Anemia Hgb 9.3, likely hemodilutional or inflammatory No evidence of DIC, platelets stable Monitor for anemia of critical illness АНДРЕЙ due to VMN on possible CKD, baseline creatinine unknown, resolved #Complicated UTI, presumptive judie albicans UA: trace ketones, glucosuria, 1+ protein, few bacteria Bladder decompressed via Boykin, likely due to altered mental status and hypotension DC fluconazol #sp colostomy 10/08/24 #Possible low-grade small bowel obstruction #Trace free fluid in the abdomen and pelvis #gastric ulcer #duodenal ulcer on soft diet Lovenox 40 mg daily Glucernia tid Plan discussed with patient, family at bedside in which all questions have been answered Case discussed with Dr Luo. DME wound vac pending Plan discussed with: Patient Dietary Evaluation Review Comments: 1) TPN if NPO > 7 days 2) [facility] to [facility] as medically feasible 3) Cuco 1 pk BID for wound healing 4) Monitor I/O, lab values, wt trend Expected Outcomes/Goals: To meet >75% estimated needs wound to improve Fu 2-3 days LEORA FULLER RESIDENT Oct 28, 2024 15:28
--- NOTE | 2024-10-28 22:03 | DVHPN2 ---
Progress Note - Dictate Date Seen: Oct 28, 2024 Has the PT tested + for MRSA If YES, has PT been informed?: No Medical Necessity Reason Pt with a Central, PICC or Fol: Yes The following are medically ne: Prajapati Catheter Subjective 10/28/2024 s/p debridement of sacral/ buttock wound , ex lap colostomy POD # 13 No new complaints Patient is resting comfortably She is tolerating diet Patient is moving her bowels H&H stable at 8.0 Patient was taking NSAIDs prior to admission which likely caused her ulcers seen on EGD vital signs Vital Sign Date Time Temp Pulse Resp B/P (MAP) Pulse Ox O2 Delivery O2 Flow Rate FiO2 10/28/24 20:57 98.5 89 17 96/56 (69) 96 98.5 10/28/24 08:00 Room Air* 0 21 Total Intake and Output 10/27/24 10/27/24 10/28/24 15:00 23:00 07:00 Intake Total 100 ml 1650 ml 1000 ml Output Total 1000 ml 900 ml Balance 100 ml 650 ml 100 ml medications Current Medications Medications Dose Ordered Sig/Geo Route Start Time Stop Time Status Last Admin Dose Admin Dextrose 50 ml UD PRN IV 10/07/24 11:15 Cancel Insulin Glargine 15 units DAILY SC 10/08/24 10:00 Cancel Dextrose 50 ml PRN PRN IV 10/07/24 15:00 Cancel Dextrose 50 ml PRN PRN IV 10/08/24 08:15 Cancel Dextrose 50 ml UD PRN IV 10/10/24 08:45 Sertraline HCl 50 mg DAILY PO 10/10/24 12:30 10/28/24 10:58 50 MG Diagnostic Test (Pha) 1 strip ACHS 10/14/24 17:00 10/28/24 17:33 1 STRIP Insulin Human Regular ACHS SC 10/14/24 17:00 10/28/24 21:56 6 UNITS Acetaminophen 650 mg Q4HP PRN PO 10/15/24 12:15 10/25/24 16:54 650 MG Pantoprazole Sodium 40 mg BID PO 10/18/24 22:00 10/28/24 10:58 40 MG Sucralfate 1 gm QID@0600,1130,1700,2200 PO 10/18/24 17:00 10/28/24 17:33 1 GM Insulin Glargine 10 units HS SC 10/19/24 22:00 10/27/24 22:34 10 UNITS Levothyroxine Sodium 75 mcg QAM@0600 PO 10/23/24 06:00 10/28/24 06:08 75 MCG Enteral Nutritional Formula 240 ml TIDWM PO 10/23/24 18:00 10/28/24 18:34 240 ML Enteral Nutritional Formula 27.5 gm DAILY PO 10/24/24 10:00 10/28/24 10:58 27.5 GM Ampicillin Sodium/ Sulbactam Sodium 3 gm/Sodium Chloride 100 ml @ 100 mls/hr Q6H IV 10/24/24 11:00 10/28/24 18:34 100 MLS/HR Acetaminophen/ Hydrocodone Bitart 1 tab Q6HPRN PRN PO 10/25/24 13:30 10/28/24 15:12 1 TAB Enoxaparin Sodium 40 mg DAILY SC 10/28/24 10:00 10/28/24 10:59 40 MG objective eneral: Normal, Obese Head/Eyes: Normal ENT: Normal Neck: Normal Lungs: Normal Cardiovascular: Normal, Regular rate and rhythm Musculoskeletal: Normal Extremities: Normal Skin: Other (sacral/ buttock wound )wound vac laboratory and microbiology Laboratory Tests 10/28/24 06:02 10/27/24 05:20 Test 10/27/24 05:20 Range/Units Serum Glucose 128 H 74-106 mg/dL Problems(with codes): (1) Acute constipation (2) Gastric peptic ulcer (3) Pilonidal cyst (4) Duodenal ulcer (5) Sepsis (6) Generalized weakness (7) Necrotizing fasciitis (8) Hyperglycemia Prognosis Plan Continue IV antibiotics Continue wound care Supportive care Discharge planning as per hospitalist Surgeon has recommended elective referral to higher level of care for 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
[2024-10-29] VITALS (7 sets, daily range): BP systolic 102–120; BP diastolic 61–76; PULSE 79–89; RESP 16–20; TEMP 97–98.4; O2SAT 95–98
--- NOTE | 2024-10-29 14:17 | DVHPNRES ---
Progress Note Date Seen: Oct 29, 2024 Resident Creating Document: LEORA FULLER RESIDENT Has the PT tested + for MRSA If YES, has PT been informed?: No Medical Necessity Reason Pt with a Central, PICC or Fol: Yes The following are medically ne: Boykin Catheter Subjective Review of Systems This is a 29-year-old with diabetes mellitus type 1 diagnosed at the age of 12, hypothyroidism, does not take any medications at home who presented to the ER with a chief complaint of buttock pain and generalized weakness. Patient reports that she has been experiencing pain in her buttock, redness and swelling, nausea vomiting for the past 2 days. On arrival patient was hypotensive 84/39 mmHg, tachycardic and tachypneic. CT scan showed necrotizing fascitis in the patient underwent I and D 10/07, 150 mL of yellow colored fluid was drained and sent for culture. 10/08-patient underwent colostomy placement. Serum glucose was 500 on arrival and patient was started on IV insulin drip. A1c greater than 13. 10/21-Patient seen and examined, reports no active symptoms. Continue vancomycin, fluconazole, clindamycin, Levaquin. Pending I and D tomorrow. NPO after midnight. TSH up trending, increased levothyroxine to 75 mcg daily. Follow up with free T4 10/22 - patient seen and examined, no active complaint. Undergoing debridement. 10/23 - Patient seen and examined, reports no active distress. Boykin catheter discontinued. 10/24 - De escalate IV antibiotics to Unasyn. Patient retaining urine, straight cath done, may need boykin and outpt suprapubic 10/25 - Patient seen, wound vac changed, social consulted for DME wound vac 10/28 - patient reports feeling fine, in no acute distress. Repeat TSH 11. 10/29 - wound care please for change of wound VAC , patient stable. Objective vital signs Vital Sign Date Time Temp Pulse Resp B/P (MAP) Pulse Ox O2 Delivery O2 Flow Rate FiO2 10/29/24 12:46 97.6 82 20 120/76 (91) 97 97.6 10/29/24 08:00 Room Air* 0 21 Total Intake and Output 10/28/24 10/28/24 10/29/24 15:00 23:00 07:00 Intake Total 1400 ml 2300 ml Output Total 1700 ml 800 ml Balance -300 ml 1500 ml medications Current Medications Medications Dose Ordered Sig/Geo Route Start Time Stop Time Status Last Admin Dose Admin Dextrose 50 ml UD PRN IV 10/07/24 11:15 Cancel Insulin Glargine 15 units DAILY SC 10/08/24 10:00 Cancel Dextrose 50 ml PRN PRN IV 10/07/24 15:00 Cancel Dextrose 50 ml PRN PRN IV 10/08/24 08:15 Cancel Dextrose 50 ml UD PRN IV 10/10/24 08:45 Sertraline HCl 50 mg DAILY PO 10/10/24 12:30 10/29/24 10:09 50 MG Diagnostic Test (Pha) 1 strip ACHS 10/14/24 17:00 10/29/24 12:05 1 STRIP Insulin Human Regular ACHS SC 10/14/24 17:00 10/29/24 12:13 6 UNITS Acetaminophen 650 mg Q4HP PRN PO 10/15/24 12:15 10/25/24 16:54 650 MG Pantoprazole Sodium 40 mg BID PO 10/18/24 22:00 10/29/24 10:09 40 MG Sucralfate 1 gm QID@0600,1130,1700,2200 PO 10/18/24 17:00 10/29/24 10:09 1 GM Insulin Glargine 10 units HS SC 10/19/24 22:00 10/28/24 22:04 10 UNITS Levothyroxine Sodium 75 mcg QAM@0600 PO 10/23/24 06:00 10/29/24 05:45 75 MCG Enteral Nutritional Formula 240 ml TIDWM PO 10/23/24 18:00 10/29/24 12:05 240 ML Enteral Nutritional Formula 27.5 gm DAILY PO 10/24/24 10:00 10/29/24 10:10 27.5 GM Ampicillin Sodium/ Sulbactam Sodium 3 gm/Sodium Chloride 100 ml @ 100 mls/hr Q6H IV 10/24/24 11:00 10/29/24 10:09 100 MLS/HR Acetaminophen/ Hydrocodone Bitart 1 tab Q6HPRN PRN PO 10/25/24 13:30 10/29/24 12:04 1 TAB Enoxaparin Sodium 40 mg DAILY SC 10/28/24 10:00 10/29/24 10:10 40 MG Examination Morbidly obese female patient lying in bed comfortably, no acute distress. General: Morbid obese, afebrile, palor, mucosae are moist Cardiovascular: Regular S1 and S2. No murmurs, gallops or rubs. No JVD elevation. No pedal edema Respiratory: Normal B/L air entry on room air. Clear lung sounds on auscultation Abdomen: Soft, nontender, nondistended, normoactive bowel sounds, no rebound tenderness, no organomegaly, no masses. Colostomy bag seen draining yellow soft stool. Status post multiple I and D bilateral gluteal cleft with a dressing covering the defect. Extensive sacral and lumbar ulcer, still fibrinopurulent tissue and a possible new collection in the left buttock, vac was placed again Genitourinary: Deferred MSK/skin: Mobilizes 4 limbs. Skin is dry and warm Neurological: No motor, no sensitive deficits, normal speech. Pupils are isocoric and reactive. Psych/Mental Status: A/Ox3 laboratory and microbiology Laboratory Tests 10/28/24 06:02 10/27/24 05:20 Test 10/27/24 05:20 Range/Units Serum Glucose 128 H 74-106 mg/dL Microbiology Date/Time Source Procedure Growth Status 10/27/24 14:35 Nose MRSA Screen - Final Complete 10/07/24 10:30 Voided Urine Urine Culture - Final Presumptive Judie albicans Complete 10/06/24 11:20 Blood Blood Culture - Final NO GROWTH AFTER 5 DAYS OF INCUBATION. Complete Labs and/or images reviewed: Labs reviewed by me, Image(s) reviewed by me Problem List/Assessment/Plan Problem List/Assessment/Plan #Acute metabolic encephalopathy secondary to sepsis and metabolic derangements. #Septic shock due to necrotizing fasciitis of the gluteal and sacral region secondary to pilonidal cyst infection due to prevotella loescheii sp I&D 10/07/24 and 10/22 #sp debridement of affected area (pilonidal cyst both buttocks, perianal area) and creation of a diverting colostomy 10/08/24 #Severe AGMA due to lactic acidosis-resolving Source control achieved with surgical debridement Blood cultures on arrival negative ID consulted per Dr Pretty 10/10/24: dressing change: less necrotic tissue, bicarb and insulin drip stopped, downgrade to the floor, continue transfer, surgery ordered a ct scan: Redemonstrated bilateral gluteal region soft tissue edema and subcutaneous emphysema which extends from the perianal region to the lower back, suggestive of necrotizing fasciitis. Appears improved from prior.Interval laparotomy and left lower quadrant ostomy with associated postsurgical changes. Hepatomegaly. 10/11/24: wbc is trending slightly higher, wound still has necrotic tissue but looks better than yesterday, patient will benefit for transfer to [facility] for colorectal surgery due to possible involvement of anal sphincter,as well as plastic surgery right now with colostomy on place 10/14/24: new Debridement of devitalized tissue was undertaken. There was no further evidence of necrotizing infection. The wound was then pulse lavaged with 3 L of saline containing Ancef. The wound was packed loosely with iodine saturated Kerlix. The patient will need plastic surgical attention which is not available at this facility, per general surgery patient will benefit for transfer to [facility], wound consult was placed for vac placement, kidney function recovers, lantus was decreased to 15 ui 10/15/24: wound vac was placed, extra dose of morphine due to pain, BPs soft, 500 cc bolus, pending transfer [facility] 10/18/24: wound vac was changed, possible need of new debridement?, dr Pretty and dr Zamorano informed about the vac change, 10/21 - patient refused a wound dressing change, I and D tomorrow. 10/22-patient undergoing I and D, Wound VAC changed 10/23-Boykin catheter discontinued 10/24 - IV antibiotics switched to Unasyn 10/26 - wound vac changed, social consulted for DME wound vac 10/28 - continue unasyn 10/29 wound care paged for change of wound VAC #Pneumonia gram+/gram- #Acute hypoxemic respiratory failure secondary to sepsis and poor perfusion #Respiratory acidosis possible obesity hypoventilation syndrome Consolidation of much of the visualized right middle and right lower lobes with air bronchograms concerning for pneumonia. At least small right pleural effusion. ON RA #Uncontrolled diabetes hba1c 13 # neurogenic bladder requiring Boykin dc bicarb and insulin drip lantus 15 ui #Hypothyroidism: Cortisol: 30.84 normal, adrenal insufficiency ruled out levothyroxine increased to 75 PO #Hypomagnesemia replaced #Anemia Hgb 9.3, likely hemodilutional or inflammatory No evidence of DIC, platelets stable Monitor for anemia of critical illness [id number] due to VMN on possible CKD, baseline creatinine unknown, resolved #Complicated UTI, presumptive judie albicans UA: trace ketones, glucosuria, 1+ protein, few bacteria Bladder decompressed via Boykin, likely due to altered mental status and hypotension DC fluconazol #sp colostomy 10/08/24 #Possible low-grade small bowel obstruction #Trace free fluid in the abdomen and pelvis #gastric ulcer #duodenal ulcer on soft diet Lovenox 40 mg daily Glucernia tid Plan discussed with patient, family at bedside in which all questions have been answered Case discussed with Dr Luo. DME wound vac pending Plan discussed with: Patient Dietary Evaluation Review Comments: 1) TPN if NPO > 7 days 2) Advance to [facility] 60gm as medically feasible 3) Cuco 1 pk BID for wound healing 4) Monitor I/O, lab values, wt trend Expected Outcomes/Goals: To meet >75% estimated needs wound to improve Fu 2-3 days LEORA FULLER RESIDENT Oct 29, 2024 14:17
--- NOTE | 2024-10-29 14:49 | DVHPN2 ---
Progress Note - Dictate Date Seen: Oct 29, 2024 Has the PT tested + for MRSA If YES, has PT been informed?: No Medical Necessity Reason Pt with a Central, PICC or Fol: Yes The following are medically ne: Prajapati Catheter Subjective No new complaints Patient is resting comfortably She is tolerating diet Patient is moving her bowels H&H stable at 8.5 Patient was taking NSAIDs prior to admission which likely caused her ulcers seen on EGD vital signs Vital Sign Date Time Temp Pulse Resp B/P (MAP) Pulse Ox O2 Delivery O2 Flow Rate FiO2 10/29/24 12:46 97.6 82 20 120/76 (91) 97 97.6 10/29/24 08:00 Room Air* 0 21 Total Intake and Output 10/28/24 10/28/24 10/29/24 15:00 23:00 07:00 Intake Total 1400 ml 2300 ml Output Total 1700 ml 800 ml Balance -300 ml 1500 ml medications Current Medications Medications Dose Ordered Sig/Geo Route Start Time Stop Time Status Last Admin Dose Admin Dextrose 50 ml UD PRN IV 10/07/24 11:15 Cancel Insulin Glargine 15 units DAILY SC 10/08/24 10:00 Cancel Dextrose 50 ml PRN PRN IV 10/07/24 15:00 Cancel Dextrose 50 ml PRN PRN IV 10/08/24 08:15 Cancel Dextrose 50 ml UD PRN IV 10/10/24 08:45 Sertraline HCl 50 mg DAILY PO 10/10/24 12:30 10/29/24 10:09 50 MG Diagnostic Test (Pha) 1 strip ACHS 10/14/24 17:00 10/29/24 12:05 1 STRIP Insulin Human Regular ACHS SC 10/14/24 17:00 10/29/24 12:13 6 UNITS Acetaminophen 650 mg Q4HP PRN PO 10/15/24 12:15 10/25/24 16:54 650 MG Pantoprazole Sodium 40 mg BID PO 10/18/24 22:00 10/29/24 10:09 40 MG Sucralfate 1 gm QID@0600,1130,1700,2200 PO 10/18/24 17:00 10/29/24 10:09 1 GM Insulin Glargine 10 units HS SC 10/19/24 22:00 10/28/24 22:04 10 UNITS Levothyroxine Sodium 75 mcg QAM@0600 PO 10/23/24 06:00 10/29/24 05:45 75 MCG Enteral Nutritional Formula 240 ml TIDWM PO 10/23/24 18:00 10/29/24 12:05 240 ML Enteral Nutritional Formula 27.5 gm DAILY PO 10/24/24 10:00 10/29/24 10:10 27.5 GM Ampicillin Sodium/ Sulbactam Sodium 3 gm/Sodium Chloride 100 ml @ 100 mls/hr Q6H IV 10/24/24 11:00 10/29/24 10:09 100 MLS/HR Acetaminophen/ Hydrocodone Bitart 1 tab Q6HPRN PRN PO 10/25/24 13:30 10/29/24 12:04 1 TAB Enoxaparin Sodium 40 mg DAILY SC 10/28/24 10:00 10/29/24 10:10 40 MG objective eneral: Normal, Obese Head/Eyes: Normal ENT: Normal Neck: Normal Lungs: Normal Cardiovascular: Normal, Regular rate and rhythm Musculoskeletal: Normal Extremities: Normal Skin: Other (sacral/ buttock wound )wound vac laboratory and microbiology Laboratory Tests 10/28/24 06:02 10/27/24 05:20 Test 10/27/24 05:20 Range/Units Serum Glucose 128 H 74-106 mg/dL Problems(with codes): (1) Acute constipation (2) Gastric peptic ulcer (3) Pilonidal cyst (4) Duodenal ulcer (5) Sepsis (6) Generalized weakness (7) Necrotizing fasciitis Prognosis Plan Continue IV antibiotics Continue wound care Supportive care Oral PPI plus Carafate Oral iron supplementation Discharge planning as per hospitalist Surgeon has recommended elective referral to higher level of care for 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
[2024-10-29] MEDS: FERROUS SULFATE 325mg EC TAB PO SCH (18:29)
[2024-10-30] VITALS (7 sets, daily range): BP systolic 97–121; BP diastolic 59–79; PULSE 82–87; RESP 16–18; TEMP 97–98.6; O2SAT 94–98
[2024-10-30 10:32] LABS: Chloride 101 mmol/L (98-107); Potassium 4.5 mmol/L (3.5-5.1); Sodium 138 mmol/L (136-145)
[2024-10-30 10:33] LABS: Anion Gap 7 (5-15); Calcium 9.1 mg/dL (8.7-10.4); Carbon Dioxide 30 mmol/L (20-31)
[2024-10-30 10:38] LABS: BUN/Creatinine Ratio 20.0 (10.0-20.0); Blood Urea Nitrogen 16 mg/dL (9-23)
[2024-10-30 10:45] LABS: Glucose 139 mg/dL (74-106)
--- NOTE | 2024-10-30 13:45 | DVHPN2 ---
Progress Note - Dictate Date Seen: Oct 30, 2024 Has the PT tested + for MRSA If YES, has PT been informed?: No Medical Necessity Reason Pt with a Central, PICC or Fol: Yes The following are medically ne: Prajapati Catheter Subjective No new complaints Patient is sleeping comfortably She is tolerating diet Patient is moving her bowels H&H stable at 8.5 Patient was taking NSAIDs prior to admission which likely caused her ulcers seen on EGD vital signs Vital Sign Date Time Temp Pulse Resp B/P (MAP) Pulse Ox O2 Delivery O2 Flow Rate FiO2 10/30/24 12:56 98.6 87 18 121/68 (85) 96 98.6 10/30/24 07:57 Room Air* 0 21 Total Intake and Output 10/29/24 10/29/24 10/30/24 15:00 23:00 07:00 Intake Total 100 ml 605 ml 1050 ml Output Total 1500 ml 1250 ml Balance 100 ml -895 ml -200 ml medications Current Medications Medications Dose Ordered Sig/Geo Route Start Time Stop Time Status Last Admin Dose Admin Dextrose 50 ml UD PRN IV 10/07/24 11:15 Cancel Insulin Glargine 15 units DAILY SC 10/08/24 10:00 Cancel Dextrose 50 ml PRN PRN IV 10/07/24 15:00 Cancel Dextrose 50 ml PRN PRN IV 10/08/24 08:15 Cancel Dextrose 50 ml UD PRN IV 10/10/24 08:45 Sertraline HCl 50 mg DAILY PO 10/10/24 12:30 10/30/24 10:55 50 MG Diagnostic Test (Pha) 1 strip ACHS 10/14/24 17:00 10/30/24 12:14 1 STRIP Insulin Human Regular ACHS SC 10/14/24 17:00 10/30/24 12:18 6 UNITS Acetaminophen 650 mg Q4HP PRN PO 10/15/24 12:15 10/25/24 16:54 650 MG Pantoprazole Sodium 40 mg BID PO 10/18/24 22:00 10/30/24 10:54 40 MG Sucralfate 1 gm QID@0600,1130,1700,2200 PO 10/18/24 17:00 10/30/24 10:54 1 GM Insulin Glargine 10 units HS SC 10/19/24 22:00 10/29/24 21:32 10 UNITS Levothyroxine Sodium 75 mcg QAM@0600 PO 10/23/24 06:00 10/30/24 05:43 75 MCG Enteral Nutritional Formula 240 ml TIDWM PO 10/23/24 18:00 10/30/24 12:15 240 ML Enteral Nutritional Formula 27.5 gm DAILY PO 10/24/24 10:00 10/30/24 10:56 27.5 GM Ampicillin Sodium/ Sulbactam Sodium 3 gm/Sodium Chloride 100 ml @ 100 mls/hr Q6H IV 10/24/24 11:00 10/30/24 10:54 100 MLS/HR Acetaminophen/ Hydrocodone Bitart 1 tab Q6HPRN PRN PO 10/25/24 13:30 10/30/24 10:55 1 TAB Enoxaparin Sodium 40 mg DAILY SC 10/28/24 10:00 10/30/24 10:56 40 MG Ferrous Sulfate 325 mg BIDWM PO 10/29/24 18:00 10/30/24 10:55 325 MG objective eneral: Normal, Obese Head/Eyes: Normal ENT: Normal Neck: Normal Lungs: Normal Cardiovascular: Normal, Regular rate and rhythm Musculoskeletal: Normal Extremities: Normal Skin: Other (sacral/ buttock wound )wound vac laboratory and microbiology Laboratory Tests 10/30/24 09:13 10/28/24 06:02 Test 10/30/24 09:13 Range/Units Serum Glucose 139 H 74-106 mg/dL Problems(with codes): (1) Gastric peptic ulcer (2) Pilonidal cyst (3) Duodenal ulcer (4) Sepsis (5) Hyperglycemia (6) Necrotizing fasciitis (7) Generalized weakness Prognosis Plan Continue IV antibiotics Continue wound care Supportive care Oral PPI plus Carafate Oral iron supplementation Discharge planning as per hospitalist Surgeon has recommended elective referral to higher level of care for plastic surgery transfer and 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 3) Cuco 1 pk BID for wound healing 4) Monitor I/O, lab values, wt trend Expected Outcomes/Goals: To meet >75% estimated needs wound to improve Fu 2-3 days Plan discussed with: Patient ELOINA MENDOZA MD Oct 30, 2024 13:45
--- NOTE | 2024-10-30 17:46 | DVHPNRES ---
Progress Note Has the PT tested + for MRSA If YES, has PT been informed?: No Medical Necessity Reason Pt with a Central, PICC or Fol: Yes The following are medically ne: Prajapati Catheter Objective vital signs Vital Sign Date Time Temp Pulse Resp B/P (MAP) Pulse Ox O2 Delivery O2 Flow Rate FiO2 10/30/24 17:00 97.8 85 18 115/68 (84) 97 97.8 10/30/24 07:57 Room Air* 0 21 Total Intake and Output 10/29/24 10/29/24 10/30/24 15:00 23:00 07:00 Intake Total 100 ml 605 ml 1050 ml Output Total 1500 ml 1250 ml Balance 100 ml -895 ml -200 ml medications Current Medications Medications Dose Ordered Sig/Geo Route Start Time Stop Time Status Last Admin Dose Admin Dextrose 50 ml UD PRN IV 10/07/24 11:15 Cancel Insulin Glargine 15 units DAILY SC 10/08/24 10:00 Cancel Dextrose 50 ml PRN PRN IV 10/07/24 15:00 Cancel Dextrose 50 ml PRN PRN IV 10/08/24 08:15 Cancel Dextrose 50 ml UD PRN IV 10/10/24 08:45 Sertraline HCl 50 mg DAILY PO 10/10/24 12:30 10/30/24 10:55 50 MG Diagnostic Test (Pha) 1 strip ACHS 10/14/24 17:00 10/30/24 12:14 1 STRIP Insulin Human Regular ACHS SC 10/14/24 17:00 10/30/24 12:18 6 UNITS Acetaminophen 650 mg Q4HP PRN PO 10/15/24 12:15 10/25/24 16:54 650 MG Pantoprazole Sodium 40 mg BID PO 10/18/24 22:00 10/30/24 10:54 40 MG Sucralfate 1 gm QID@0600,1130,1700,2200 PO 10/18/24 17:00 10/30/24 10:54 1 GM Insulin Glargine 10 units HS SC 10/19/24 22:00 10/29/24 21:32 10 UNITS Levothyroxine Sodium 75 mcg QAM@0600 PO 10/23/24 06:00 10/30/24 05:43 75 MCG Enteral Nutritional Formula 240 ml TIDWM PO 10/23/24 18:00 10/30/24 12:15 240 ML Enteral Nutritional Formula 27.5 gm DAILY PO 10/24/24 10:00 10/30/24 10:56 27.5 GM Ampicillin Sodium/ Sulbactam Sodium 3 gm/Sodium Chloride 100 ml @ 100 mls/hr Q6H IV 10/24/24 11:00 10/30/24 10:54 100 MLS/HR Acetaminophen/ Hydrocodone Bitart 1 tab Q6HPRN PRN PO 10/25/24 13:30 10/30/24 10:55 1 TAB Enoxaparin Sodium 40 mg DAILY SC 10/28/24 10:00 10/30/24 10:56 40 MG Ferrous Sulfate 325 mg BIDWM PO 10/29/24 18:00 10/30/24 10:55 325 MG laboratory and microbiology Laboratory Tests 10/30/24 09:13 10/28/24 06:02 Test 10/30/24 09:13 Range/Units Serum Glucose 139 H 74-106 mg/dL Microbiology Date/Time Source Procedure Growth Status 10/27/24 14:35 Nose MRSA Screen - Final Complete 10/07/24 10:30 Voided Urine Urine Culture - Final Presumptive Judie albicans Complete 10/06/24 11:20 Blood Blood Culture - Final NO GROWTH AFTER 5 DAYS OF INCUBATION. Complete Problem List/Assessment/Plan Problem List/Assessment/Plan #Acute metabolic encephalopathy secondary to sepsis and metabolic derangements. #Septic shock due to necrotizing fasciitis of the gluteal and sacral region secondary to pilonidal cyst infection due to prevotella loescheii sp I&D 10/07/24 and 10/22 #sp debridement of affected area (pilonidal cyst both buttocks, perianal area) and creation of a diverting colostomy 10/08/24 #Severe AGMA due to lactic acidosis-resolving Source control achieved with surgical debridement Blood cultures on arrival negative ID consulted per Dr Pretty 10/10/24: dressing change: less necrotic tissue, bicarb and insulin drip stopped, downgrade to the floor, continue transfer, surgery ordered a ct scan: Redemonstrated bilateral gluteal region soft tissue edema and subcutaneous emphysema which extends from the perianal region to the lower back, suggestive of necrotizing fasciitis. Appears improved from prior.Interval laparotomy and left lower quadrant ostomy with associated postsurgical changes. Hepatomegaly. 10/11/24: wbc is trending slightly higher, wound still has necrotic tissue but looks better than yesterday, patient will benefit for transfer to [facility] for colorectal surgery due to possible involvement of anal sphincter,as well as plastic surgery right now with colostomy on place 10/14/24: new Debridement of devitalized tissue was undertaken. There was no further evidence of necrotizing infection. The wound was then pulse lavaged with 3 L of saline containing Ancef. The wound was packed loosely with iodine saturated Kerlix. The patient will need plastic surgical attention which is not available at this facility, per general surgery patient will benefit for transfer to [facility], wound consult was placed for vac placement, kidney function recovers, lantus was decreased to 15 ui 10/15/24: wound vac was placed, extra dose of morphine due to pain, BPs soft, 500 cc bolus, pending transfer [facility] 10/18/24: wound vac was changed, possible need of new debridement?, dr Pretty and dr Zamorano informed about the vac change, 10/21 - patient refused a wound dressing change, I and D tomorrow. 10/22-patient undergoing I and D, Wound VAC changed 10/23-Prajapati catheter discontinued 10/24 - IV antibiotics switched to Unasyn 10/26 - wound vac changed, social consulted for DME wound vac 10/28 - continue unasyn 10/29 wound care paged for change of wound VAC #Pneumonia gram+/gram- #Acute hypoxemic respiratory failure secondary to sepsis and poor perfusion #Respiratory acidosis possible obesity hypoventilation syndrome Consolidation of much of the visualized right middle and right lower lobes with air bronchograms concerning for pneumonia. At least small right pleural effusion. ON RA #Uncontrolled diabetes hba1c 13 # neurogenic bladder requiring Prajapati dc bicarb and insulin drip lantus 15 ui #Hypothyroidism: Cortisol: 30.84 normal, adrenal insufficiency ruled out levothyroxine increased to 75 PO #Hypomagnesemia replaced #Anemia Hgb 9.3, likely hemodilutional or inflammatory No evidence of DIC, platelets stable Monitor for anemia of critical illness АНДРЕЙ due to VMN on possible CKD, baseline creatinine unknown, resolved #Complicated UTI, presumptive judie albicans UA: trace ketones, glucosuria, 1+ protein, few bacteria Bladder decompressed via Prajapati, likely due to altered mental status and hypotension DC fluconazol #sp colostomy 7/15/25 #Possible low-grade small bowel obstruction #Trace free fluid in the abdomen and pelvis #gastric ulcer #duodenal ulcer on soft diet Lovenox 40 mg daily Glucernia tid Plan discussed with patient, family at bedside in which all questions have been answered Case discussed with Dr Luo. DME wound vac pending Dietary Evaluation Review Comments: 1) TPN if NPO > 7 days 2) [facility] 3) Cuco 1 pk BID for wound healing 4) Monitor I/O, lab values, wt trend Expected Outcomes/Goals: To meet >75% estimated needs wound to improve Fu 2-3 days LEORA FULLER RESIDENT Oct 30, 2024 17:46
--- NOTE | 2024-10-30 17:53 | DVHPNRES ---
Progress Note Date Seen: Oct 30, 2024 Resident Creating Document: LEORA FULLER RESIDENT Has the PT tested + for MRSA If YES, has PT been informed?: No Medical Necessity Reason Pt with a Central, PICC or Fol: Yes The following are medically ne: Boykin Catheter Subjective Review of Systems This is a 29-year-old with diabetes mellitus type 1 diagnosed at the age of 12, hypothyroidism, does not take any medications at home who presented to the ER with a chief complaint of buttock pain and generalized weakness. Patient reports that she has been experiencing pain in her buttock, redness and swelling, nausea vomiting for the past 2 days. On arrival patient was hypotensive 84/39 mmHg, tachycardic and tachypneic. CT scan showed necrotizing fascitis in the patient underwent I and D 10/07, 150 mL of yellow colored fluid was drained and sent for culture. 10/08-patient underwent colostomy placement. Serum glucose was 500 on arrival and patient was started on IV insulin drip. A1c greater than 13. 10/21-Patient seen and examined, reports no active symptoms. Continue vancomycin, fluconazole, clindamycin, Levaquin. Pending I and D tomorrow. NPO after midnight. TSH up trending, increased levothyroxine to 75 mcg daily. Follow up with free T4 10/22 - patient seen and examined, no active complaint. Undergoing debridement. 10/23 - Patient seen and examined, reports no active distress. Boykin catheter discontinued. 10/24 - De escalate IV antibiotics to Unasyn. Patient retaining urine, straight cath done, may need boykin and outpt suprapubic 10/25 - Patient seen, wound vac changed, social consulted for DME wound vac 10/28 - patient reports feeling fine, in no acute distress. Repeat TSH . 10/29 - wound care please for change of wound VAC , patient stable. 10/30- patient seen and examined at the bedside. No active symptoms. Continue Unasyn Objective vital signs Vital Sign Date Time Temp Pulse Resp B/P (MAP) Pulse Ox O2 Delivery O2 Flow Rate FiO2 10/30/24 17:00 97.8 85 18 115/68 (84) 97 97.8 10/30/24 07:57 Room Air* 0 21 Total Intake and Output 10/29/24 10/29/24 10/30/24 15:00 23:00 07:00 Intake Total 100 ml 605 ml 1050 ml Output Total 1500 ml 1250 ml Balance 100 ml -895 ml -200 ml medications Current Medications Medications Dose Ordered Sig/Geo Route Start Time Stop Time Status Last Admin Dose Admin Dextrose 50 ml UD PRN IV 10/07/24 11:15 Cancel Insulin Glargine 15 units DAILY SC 10/08/24 10:00 Cancel Dextrose 50 ml PRN PRN IV 10/07/24 15:00 Cancel Dextrose 50 ml PRN PRN IV 10/08/24 08:15 Cancel Dextrose 50 ml UD PRN IV 10/10/24 08:45 Sertraline HCl 50 mg DAILY PO 10/10/24 12:30 10/30/24 10:55 50 MG Diagnostic Test (Pha) 1 strip ACHS 10/14/24 17:00 10/30/24 12:14 1 STRIP Insulin Human Regular ACHS SC 10/14/24 17:00 10/30/24 12:18 6 UNITS Acetaminophen 650 mg Q4HP PRN PO 10/15/24 12:15 10/25/24 16:54 650 MG Pantoprazole Sodium 40 mg BID PO 10/18/24 22:00 10/30/24 10:54 40 MG Sucralfate 1 gm QID@0600,1130,1700,2200 PO 10/18/24 17:00 10/30/24 10:54 1 GM Insulin Glargine 10 units HS SC 10/19/24 22:00 10/29/24 21:32 10 UNITS Levothyroxine Sodium 75 mcg QAM@0600 PO 10/23/24 06:00 10/30/24 05:43 75 MCG Enteral Nutritional Formula 240 ml TIDWM PO 10/23/24 18:00 10/30/24 12:15 240 ML Enteral Nutritional Formula 27.5 gm DAILY PO 10/24/24 10:00 10/30/24 10:56 27.5 GM Ampicillin Sodium/ Sulbactam Sodium 3 gm/Sodium Chloride 100 ml @ 100 mls/hr Q6H IV 10/24/24 11:00 10/30/24 10:54 100 MLS/HR Acetaminophen/ Hydrocodone Bitart 1 tab Q6HPRN PRN PO 10/25/24 13:30 10/30/24 10:55 1 TAB Enoxaparin Sodium 40 mg DAILY SC 10/28/24 10:00 10/30/24 10:56 40 MG Ferrous Sulfate 325 mg BIDWM PO 10/29/24 18:00 10/30/24 10:55 325 MG Examination Morbidly obese female patient lying in bed comfortably, no acute distress. General: Morbid obese, afebrile, palor, mucosae are moist Cardiovascular: Regular S1 and S2. No murmurs, gallops or rubs. No JVD elevation. No pedal edema Respiratory: Normal B/L air entry on room air. Clear lung sounds on auscultation Abdomen: Soft, nontender, nondistended, normoactive bowel sounds, no rebound tenderness, no organomegaly, no masses. Colostomy bag seen draining yellow soft stool. Status post multiple I and D bilateral gluteal cleft with a dressing covering the defect. Extensive sacral and lumbar ulcer, still fibrinopurulent tissue and a possible new collection in the left buttock, vac was placed again Genitourinary: Deferred MSK/skin: Mobilizes 4 limbs. Skin is dry and warm Neurological: No motor, no sensitive deficits, normal speech. Pupils are isocoric and reactive. Psych/Mental Status: A/Ox3 laboratory and microbiology Laboratory Tests 10/30/24 09:13 10/28/24 06:02 Test 10/30/24 09:13 Range/Units Serum Glucose 139 H 74-106 mg/dL Microbiology Date/Time Source Procedure Growth Status 10/27/24 14:35 Nose MRSA Screen - Final Complete 10/07/24 10:30 Voided Urine Urine Culture - Final Presumptive Judie albicans Complete 10/06/24 11:20 Blood Blood Culture - Final NO GROWTH AFTER 5 DAYS OF INCUBATION. Complete Labs and/or images reviewed: Labs reviewed by me, Image(s) reviewed by me Problem List/Assessment/Plan Problem List/Assessment/Plan #Acute metabolic encephalopathy secondary to sepsis and metabolic derangements. #Septic shock due to necrotizing fasciitis of the gluteal and sacral region secondary to pilonidal cyst infection due to prevotella loescheii sp I&D 10/07/24 and 10/22 #sp debridement of affected area (pilonidal cyst both buttocks, perianal area) and creation of a diverting colostomy 10/08/24 #Severe AGMA due to lactic acidosis-resolving Source control achieved with surgical debridement Blood cultures on arrival negative ID consulted per Dr Pretty 10/10/24: dressing change: less necrotic tissue, bicarb and insulin drip stopped, downgrade to the floor, continue transfer, surgery ordered a ct scan: Redemonstrated bilateral gluteal region soft tissue edema and subcutaneous emphysema which extends from the perianal region to the lower back, suggestive of necrotizing fasciitis. Appears improved from prior.Interval laparotomy and left lower quadrant ostomy with associated postsurgical changes. Hepatomegaly. 10/11/24: wbc is trending slightly higher, wound still has necrotic tissue but looks better than yesterday, patient will benefit for transfer to [facility] for colorectal surgery due to possible involvement of anal sphincter,as well as plastic surgery right now with colostomy on place 10/14/24: new Debridement of devitalized tissue was undertaken. There was no further evidence of necrotizing infection. The wound was then pulse lavaged with 3 L of saline containing Ancef. The wound was packed loosely with iodine saturated Kerlix. The patient will need plastic surgical attention which is not available at this facility, per general surgery patient will benefit for transfer to [facility], wound consult was placed for vac placement, kidney function recovers, lantus was decreased to 15 ui 10/15/24: wound vac was placed, extra dose of morphine due to pain, BPs soft, 500 cc bolus, pending transfer [facility] 10/18/24: wound vac was changed, possible need of new debridement?, dr Pretty and dr Zamorano informed about the vac change, 10/21 - patient refused a wound dressing change, I and D tomorrow. 10/22-patient undergoing I and D, Wound VAC changed 10/23-Boykin catheter discontinued 10/24 - IV antibiotics switched to Unasyn 10/26 - wound vac changed, social consulted for DME wound vac 10/28 - continue unasyn 10/29 wound care paged for change of wound VAC 10/30 - pending woundcare change. #Pneumonia gram+/gram- #Acute hypoxemic respiratory failure secondary to sepsis and poor perfusion #Respiratory acidosis possible obesity hypoventilation syndrome Consolidation of much of the visualized right middle and right lower lobes with air bronchograms concerning for pneumonia. At least small right pleural effusion. ON RA #Uncontrolled diabetes hba1c 13 # neurogenic bladder requiring Boykin dc bicarb and insulin drip lantus 15 ui #Hypothyroidism: Cortisol: 30.84 normal, adrenal insufficiency ruled out levothyroxine increased to 75 PO #Hypomagnesemia replaced #Anemia Hgb 9.3, likely hemodilutional or inflammatory No evidence of DIC, platelets stable Monitor for anemia of critical illness АНДРЕЙ due to VMN on possible CKD, baseline creatinine unknown, resolved #Complicated UTI, presumptive judie albicans UA: trace ketones, glucosuria, 1+ protein, few bacteria Bladder decompressed via Boykin, likely due to altered mental status and hypotension DC fluconazol #sp colostomy 10/08/24 #Possible low-grade small bowel obstruction #Trace free fluid in the abdomen and pelvis #gastric ulcer #duodenal ulcer on soft diet Lovenox 40 mg daily Glucernia tid Plan discussed with patient, family at bedside in which all questions have been answered Case discussed with Dr Luo. DME wound vac pending Plan discussed with: Patient Dietary Evaluation Review Comments: 1) TPN if NPO > 7 days 2) [facility] 3) Cuco 1 pk BID for wound healing 4) Monitor I/O, lab values, wt trend Expected Outcomes/Goals: To meet >75% estimated needs wound to improve Fu 2-3 days LEORA FULLER RESIDENT Oct 30, 2024 17:53
[2024-10-31 01:00] VITALS: BP 113/74; PULSE 83; RESP 18; TEMP 97.3; O2SAT 99
[2024-10-31 05:00] VITALS: BP 104/60; PULSE 86; RESP 18; TEMP 98.1; O2SAT 94
[2024-10-31 06:09] LABS: Hematocrit 24.2 % (36.0-46.0); Hemoglobin 8.3 g/dL (12.2-16.2); Mean Corpuscular Hemoglobin 29.2 pg (28.0-32.0); Mean Corpuscular Volume 84.7 fL (80.0-100.0); Nucleated Red Blood Cells % 0.1 %
[2024-10-31 09:00] VITALS: BP 124/76; PULSE 84; RESP 16; TEMP 97.6; O2SAT 97
[2024-10-31 13:00] VITALS: BP 130/82; PULSE 91; RESP 17; TEMP 97.9; O2SAT 97
[2024-10-31 17:00] VITALS: BP 109/48; PULSE 89; RESP 18; TEMP 98.5; O2SAT 100
--- NOTE | 2024-10-31 18:03 | DVHPNRES ---
Progress Note Date Seen: Oct 31, 2024 Resident Creating Document: LEORA FULLER RESIDENT Has the PT tested + for MRSA If YES, has PT been informed?: No Medical Necessity Reason Pt with a Central, PICC or Fol: Yes The following are medically ne: Boykin Catheter Subjective Review of Systems This is a 29-year-old with diabetes mellitus type 1 diagnosed at the age of 12, hypothyroidism, does not take any medications at home who presented to the ER with a chief complaint of buttock pain and generalized weakness. Patient reports that she has been experiencing pain in her buttock, redness and swelling, nausea vomiting for the past 2 days. On arrival patient was hypotensive 84/39 mmHg, tachycardic and tachypneic. CT scan showed necrotizing fascitis in the patient underwent I and D 10/07, 150 mL of yellow colored fluid was drained and sent for culture. 10/08-patient underwent colostomy placement. Serum glucose was 500 on arrival and patient was started on IV insulin drip. A1c greater than 13. 10/21-Patient seen and examined, reports no active symptoms. Continue vancomycin, fluconazole, clindamycin, Levaquin. Pending I and D tomorrow. NPO after midnight. TSH up trending, increased levothyroxine to 75 mcg daily. Follow up with free T4 10/22 - patient seen and examined, no active complaint. Undergoing debridement. 10/23 - Patient seen and examined, reports no active distress. Boykin catheter discontinued. 10/24 - De escalate IV antibiotics to Unasyn. Patient retaining urine, straight cath done, may need boykin and outpt suprapubic 10/25 - Patient seen, wound vac changed, social consulted for DME wound vac 10/28 - patient reports feeling fine, in no acute distress. Repeat TSH 11. 10/29 - wound care please for change of wound VAC , patient stable. 10/30- patient seen and examined at the bedside. No active symptoms. Continue Unasyn 10/31 - patient seen and examined, wound clinic appointment set on November 07, pending wound VAC to be arranged Objective vital signs Vital Sign Date Time Temp Pulse Resp B/P (MAP) Pulse Ox O2 Delivery O2 Flow Rate FiO2 10/31/24 17:00 98.5 89 18 109/48 (68) 100 98.5 10/31/24 08:00 Room Air* 0 21 Total Intake and Output 10/30/24 10/30/24 10/31/24 15:00 23:00 07:00 Intake Total 230 ml 600 ml Output Total 1300 ml 100 ml Balance 230 ml -700 ml -100 ml medications Current Medications Medications Dose Ordered Sig/Geo Route Start Time Stop Time Status Last Admin Dose Admin Dextrose 50 ml UD PRN IV 10/07/24 11:15 Cancel Insulin Glargine 15 units DAILY SC 10/08/24 10:00 Cancel Dextrose 50 ml PRN PRN IV 10/07/24 15:00 Cancel Dextrose 50 ml PRN PRN IV 10/08/24 08:15 Cancel Dextrose 50 ml UD PRN IV 10/10/24 08:45 Sertraline HCl 50 mg DAILY PO 10/10/24 12:30 10/31/24 09:34 50 MG Diagnostic Test (Pha) 1 strip ACHS 10/14/24 17:00 10/31/24 17:06 1 STRIP Insulin Human Regular ACHS SC 10/14/24 17:00 10/31/24 17:09 6 UNITS Acetaminophen 650 mg Q4HP PRN PO 10/15/24 12:15 10/25/24 16:54 650 MG Pantoprazole Sodium 40 mg BID PO 10/18/24 22:00 10/31/24 09:34 40 MG Sucralfate 1 gm QID@0600,1130,1700,2200 PO 10/18/24 17:00 10/31/24 17:06 1 GM Insulin Glargine 10 units HS SC 10/19/24 22:00 10/30/24 21:56 10 UNITS Levothyroxine Sodium 75 mcg QAM@0600 PO 10/23/24 06:00 10/31/24 06:39 75 MCG Enteral Nutritional Formula 240 ml TIDWM PO 10/23/24 18:00 10/31/24 17:44 240 ML Enteral Nutritional Formula 27.5 gm DAILY PO 10/24/24 10:00 10/31/24 09:34 27.5 GM Ampicillin Sodium/ Sulbactam Sodium 3 gm/Sodium Chloride 100 ml @ 100 mls/hr Q6H IV 10/24/24 11:00 10/31/24 17:43 100 MLS/HR Acetaminophen/ Hydrocodone Bitart 1 tab Q6HPRN PRN PO 10/25/24 13:30 10/31/24 17:11 1 TAB Enoxaparin Sodium 40 mg DAILY SC 10/28/24 10:00 10/31/24 09:34 40 MG Ferrous Sulfate 325 mg BIDWM PO 10/29/24 18:00 10/31/24 17:44 325 MG Examination Morbidly obese female patient lying in bed comfortably, no acute distress. General: Morbid obese, afebrile, palor, mucosae are moist Cardiovascular: Regular S1 and S2. No murmurs, gallops or rubs. No JVD elevation. No pedal edema Respiratory: Normal B/L air entry on room air. Clear lung sounds on auscultation Abdomen: Soft, nontender, nondistended, normoactive bowel sounds, no rebound tenderness, no organomegaly, no masses. Colostomy bag seen draining yellow soft stool. Status post multiple I and D bilateral gluteal cleft with a dressing covering the defect. Extensive sacral and lumbar ulcer, still fibrinopurulent tissue and a possible new collection in the left buttock, vac was placed again Genitourinary: Deferred MSK/skin: Mobilizes 4 limbs. Skin is dry and warm Neurological: No motor, no sensitive deficits, normal speech. Pupils are isocoric and reactive. Psych/Mental Status: A/Ox3 laboratory and microbiology Laboratory Tests 10/31/24 05:20 10/30/24 09:13 Test 10/30/24 09:13 Range/Units Serum Glucose 139 H 74-106 mg/dL Microbiology Date/Time Source Procedure Growth Status 10/27/24 14:35 Nose MRSA Screen - Final Complete 10/07/24 10:30 Voided Urine Urine Culture - Final Presumptive Judie albicans Complete 10/06/24 11:20 Blood Blood Culture - Final NO GROWTH AFTER 5 DAYS OF INCUBATION. Complete Labs and/or images reviewed: Labs reviewed by me, Image(s) reviewed by me Problem List/Assessment/Plan Problem List/Assessment/Plan #Acute metabolic encephalopathy secondary to sepsis and metabolic derangements. #Septic shock due to necrotizing fasciitis of the gluteal and sacral region secondary to pilonidal cyst infection due to prevotella loescheii sp I&D 10/07/24 and 10/22 #sp debridement of affected area (pilonidal cyst both buttocks, perianal area) and creation of a diverting colostomy 10/08/24 #Severe AGMA due to lactic acidosis-resolving Source control achieved with surgical debridement Blood cultures on arrival negative ID consulted per Dr Pretty 10/10/24: dressing change: less necrotic tissue, bicarb and insulin drip stopped, downgrade to the floor, continue transfer, surgery ordered a ct scan: Redemonstrated bilateral gluteal region soft tissue edema and subcutaneous emphysema which extends from the perianal region to the lower back, suggestive of necrotizing fasciitis. Appears improved from prior.Interval laparotomy and left lower quadrant ostomy with associated postsurgical changes. Hepatomegaly. 10/11/24: wbc is trending slightly higher, wound still has necrotic tissue but looks better than yesterday, patient will benefit for transfer to [facility] for colorectal surgery due to possible involvement of anal sphincter,as well as plastic surgery right now with colostomy on place 10/14/24: new Debridement of devitalized tissue was undertaken. There was no further evidence of necrotizing infection. The wound was then pulse lavaged with 3 L of saline containing Ancef. The wound was packed loosely with iodine saturated Kerlix. The patient will need plastic surgical attention which is not available at this facility, per general surgery patient will benefit for transfer to [facility], wound consult was placed for vac placement, kidney function recovers, lantus was decreased to 15 ui 10/15/24: wound vac was placed, extra dose of morphine due to pain, BPs soft, 500 cc bolus, pending transfer [facility] 10/18/24: wound vac was changed, possible need of new debridement?, dr Pretty and dr Zamorano informed about the vac change, 10/21 - patient refused a wound dressing change, I and D tomorrow. 10/22-patient undergoing I and D, Wound VAC changed 10/23-Boykin catheter discontinued 10/24 - IV antibiotics switched to Unasyn 10/26 - wound vac changed, social consulted for DME wound vac 10/28 - continue unasyn 10/29 wound care paged for change of wound VAC 10/30 - pending woundcare change. 10/31 - continuing Unasyn, wound care clinic appointment set on 11/07. Pending Wound VAC delivery. #Pneumonia gram+/gram- #Acute hypoxemic respiratory failure secondary to sepsis and poor perfusion #Respiratory acidosis possible obesity hypoventilation syndrome Consolidation of much of the visualized right middle and right lower lobes with air bronchograms concerning for pneumonia. At least small right pleural effusion. ON RA #Uncontrolled diabetes hba1c 13 # neurogenic bladder requiring Boykin dc bicarb and insulin drip lantus 15 ui #Hypothyroidism: Cortisol: 30.84 normal, adrenal insufficiency ruled out levothyroxine increased to 75 PO #Hypomagnesemia replaced #Anemia Hgb 9.3, likely hemodilutional or inflammatory No evidence of DIC, platelets stable Monitor for anemia of critical illness АНДРЕЙ due to VMN on possible CKD, baseline creatinine unknown, resolved #Complicated UTI, presumptive judie albicans UA: trace ketones, glucosuria, 1+ protein, few bacteria Bladder decompressed via Boykin, likely due to altered mental status and hypotension DC fluconazol #sp colostomy 10/08/24 #Possible low-grade small bowel obstruction #Trace free fluid in the abdomen and pelvis #gastric ulcer #duodenal ulcer on soft diet Lovenox 40 mg daily Glucernia tid Plan discussed with patient, family at bedside in which all questions have been answered Case discussed with Dr Luo. DME wound vac pending Plan discussed with: Patient, Other (Aunt at bedside) Dietary Evaluation Review Comments: 1) TPN if NPO > 7 days 2) [facility] as [facility] 3) Cuco 1 pk BID for wound healing 4) Monitor I/O, lab values, wt trend Expected Outcomes/Goals: To meet >75% estimated needs wound to improve Fu 2-3 days LEORA FULLER RESIDENT Oct 31, 2024 18:03
[2024-10-31 21:00] VITALS: BP 113/77; PULSE 89; RESP 17; TEMP 98; O2SAT 96
[2024-11-01] VITALS (7 sets, daily range): BP systolic 93–127; BP diastolic 53–80; PULSE 78–91; RESP 17–20; TEMP 98.1–99.4; O2SAT 95–100
--- NOTE | 2024-11-01 16:28 | DVHPNRES ---
Progress Note Date Seen: Nov 01, 2024 Resident Creating Document: LEORA FULLER RESIDENT Has the PT tested + for MRSA If YES, has PT been informed?: No Medical Necessity Reason Pt with a Central, PICC or Fol: Yes The following are medically ne: Boykin Catheter Subjective Review of Systems This is a 29-year-old with diabetes mellitus type 1 diagnosed at the age of 12, hypothyroidism, does not take any medications at home who presented to the ER with a chief complaint of buttock pain and generalized weakness. Patient reports that she has been experiencing pain in her buttock, redness and swelling, nausea vomiting for the past 2 days. On arrival patient was hypotensive 84/39 mmHg, tachycardic and tachypneic. CT scan showed necrotizing fascitis in the patient underwent I and D 10/07, 150 mL of yellow colored fluid was drained and sent for culture. 10/08-patient underwent colostomy placement. Serum glucose was 500 on arrival and patient was started on IV insulin drip. A1c greater than 13. 10/21-Patient seen and examined, reports no active symptoms. Continue vancomycin, fluconazole, clindamycin, Levaquin. Pending I and D tomorrow. NPO after midnight. TSH up trending, increased levothyroxine to 75 mcg daily. Follow up with free T4 10/22 - patient seen and examined, no active complaint. Undergoing debridement. 10/23 - Patient seen and examined, reports no active distress. Boykin catheter discontinued. 10/24 - De escalate IV antibiotics to Unasyn. Patient retaining urine, straight cath done, may need boykin and outpt suprapubic 10/25 - Patient seen, wound vac changed, social consulted for DME wound vac 10/28 - patient reports feeling fine, in no acute distress. Repeat TSH . 10/29 - wound care please for change of wound VAC , patient stable. 10/30- patient seen and examined at the bedside. No active symptoms. Continue Unasyn 10/31 - patient seen and examined, wound clinic appointment set on November 07, pending wound VAC to be arranged 11/01 - patient seen and examined, wound VAC is on, patient is stable. Objective vital signs Vital Sign Date Time Temp Pulse Resp B/P (MAP) Pulse Ox O2 Delivery O2 Flow Rate FiO2 11/01/24 13:00 98.5 85 18 119/80 (93) 100 98.5 8/8/25 08:00 Room Air* 0 21 Total Intake and Output 10/31/24 10/31/24 11/01/24 15:00 23:00 07:00 Intake Total 100 ml 1234 ml 800 ml Output Total 2000 ml 3670 ml Balance 100 ml -766 ml -2870 ml medications Current Medications Medications Dose Ordered Sig/Geo Route Start Time Stop Time Status Last Admin Dose Admin Dextrose 50 ml UD PRN IV 10/07/24 11:15 Cancel Insulin Glargine 15 units DAILY SC 10/08/24 10:00 Cancel Dextrose 50 ml PRN PRN IV 10/07/24 15:00 Cancel Dextrose 50 ml PRN PRN IV 10/08/24 08:15 Cancel Dextrose 50 ml UD PRN IV 10/10/24 08:45 Sertraline HCl 50 mg DAILY PO 10/10/24 12:30 11/01/24 10:01 50 MG Diagnostic Test (Pha) 1 strip ACHS 10/14/24 17:00 11/01/24 10:04 1 STRIP Insulin Human Regular ACHS SC 10/14/24 17:00 11/01/24 11:00 2 UNITS Acetaminophen 650 mg Q4HP PRN PO 10/15/24 12:15 10/25/24 16:54 650 MG Pantoprazole Sodium 40 mg BID PO 10/18/24 22:00 11/01/24 10:01 40 MG Sucralfate 1 gm QID@0600,1130,1700,2200 PO 10/18/24 17:00 11/01/24 10:57 1 GM Insulin Glargine 10 units HS SC 10/19/24 22:00 10/31/24 21:48 10 UNITS Levothyroxine Sodium 75 mcg QAM@0600 PO 10/23/24 06:00 11/01/24 05:44 75 MCG Enteral Nutritional Formula 240 ml TIDWM PO 10/23/24 18:00 11/01/24 08:35 240 ML Enteral Nutritional Formula 27.5 gm DAILY PO 10/24/24 10:00 11/01/24 10:02 27.5 GM Ampicillin Sodium/ Sulbactam Sodium 3 gm/Sodium Chloride 100 ml @ 100 mls/hr Q6H IV 10/24/24 11:00 11/01/24 10:05 100 MLS/HR Acetaminophen/ Hydrocodone Bitart 1 tab Q6HPRN PRN PO 10/25/24 13:30 11/01/24 15:32 1 TAB Enoxaparin Sodium 40 mg DAILY SC 10/28/24 10:00 11/01/24 10:01 40 MG Ferrous Sulfate 325 mg BIDWM PO 10/29/24 18:00 11/01/24 08:34 325 MG Examination Morbidly obese female patient lying in bed comfortably, no acute distress. General: Morbid obese, afebrile, palor, mucosae are moist Cardiovascular: Regular S1 and S2. No murmurs, gallops or rubs. No JVD elevation. No pedal edema Respiratory: Normal B/L air entry on room air. Clear lung sounds on auscultation Abdomen: Soft, nontender, nondistended, normoactive bowel sounds, no rebound tenderness, no organomegaly, no masses. Colostomy bag seen draining yellow soft stool. Status post multiple I and D bilateral gluteal cleft with a dressing covering the defect. Extensive sacral and lumbar ulcer, still fibrinopurulent tissue and a possible new collection in the left buttock, vac was placed again Genitourinary: Deferred MSK/skin: Mobilizes 4 limbs. Skin is dry and warm Neurological: No motor, no sensitive deficits, normal speech. Pupils are isocoric and reactive. Psych/Mental Status: A/Ox3 laboratory and microbiology Laboratory Tests 10/31/24 05:20 10/30/24 09:13 Test 10/30/24 09:13 Range/Units Serum Glucose 139 H 74-106 mg/dL Microbiology Date/Time Source Procedure Growth Status 10/27/24 14:35 Nose MRSA Screen - Final Complete 10/07/24 10:30 Voided Urine Urine Culture - Final Presumptive Jduie albicans Complete 10/06/24 11:20 Blood Blood Culture - Final NO GROWTH AFTER 5 DAYS OF INCUBATION. Complete Labs and/or images reviewed: Labs reviewed by me, Image(s) reviewed by me Problem List/Assessment/Plan Problem List/Assessment/Plan #Acute metabolic encephalopathy secondary to sepsis and metabolic derangements. #Septic shock due to necrotizing fasciitis of the gluteal and sacral region secondary to pilonidal cyst infection due to prevotella loescheii sp I&D 10/07/24 and 10/22 #sp debridement of affected area (pilonidal cyst both buttocks, perianal area) and creation of a diverting colostomy 10/08/24 #Severe AGMA due to lactic acidosis-resolving Source control achieved with surgical debridement Blood cultures on arrival negative ID consulted per Dr Pretty 10/10/24: dressing change: less necrotic tissue, bicarb and insulin drip stopped, downgrade to the floor, continue transfer, surgery ordered a ct scan: Redemonstrated bilateral gluteal region soft tissue edema and subcutaneous emphysema which extends from the perianal region to the lower back, suggestive of necrotizing fasciitis. Appears improved from prior.Interval laparotomy and left lower quadrant ostomy with associated postsurgical changes. Hepatomegaly. 10/11/24: wbc is trending slightly higher, wound still has necrotic tissue but looks better than yesterday, patient will benefit for transfer to [facility] for colorectal surgery due to possible involvement of anal sphincter,as well as plastic surgery right now with colostomy on place 10/14/24: new Debridement of devitalized tissue was undertaken. There was no further evidence of necrotizing infection. The wound was then pulse lavaged with 3 L of saline containing Ancef. The wound was packed loosely with iodine saturated Kerlix. The patient will need plastic surgical attention which is not available at this facility, per general surgery patient will benefit for transfer to [facility], wound consult was placed for vac placement, kidney function recovers, lantus was decreased to 15 ui 10/15/24: wound vac was placed, extra dose of morphine due to pain, BPs soft, 500 cc bolus, pending transfer [facility] 10/18/24: wound vac was changed, possible need of new debridement?, dr Pretty and dr Zamorano informed about the vac change, 10/21 - patient refused a wound dressing change, I and D tomorrow. 10/22-patient undergoing I and D, Wound VAC changed 10/23-Boykin catheter discontinued 10/24 - IV antibiotics switched to Unasyn 10/26 - wound vac changed, social consulted for DME wound vac 10/28 - continue unasyn 10/29 wound care paged for change of wound VAC 10/30 - pending woundcare change. 10/31 - continuing Unasyn, wound care clinic appointment set on 11/07. Pending Wound VAC delivery. 11/01 - continuing with wound vac, unasyn #Pneumonia gram+/gram- #Acute hypoxemic respiratory failure secondary to sepsis and poor perfusion #Respiratory acidosis possible obesity hypoventilation syndrome Consolidation of much of the visualized right middle and right lower lobes with air bronchograms concerning for pneumonia. At least small right pleural effusion. ON RA #Uncontrolled diabetes hba1c 13 # neurogenic bladder requiring Boykin dc bicarb and insulin drip lantus 15 ui #Hypothyroidism: Cortisol: 30.84 normal, adrenal insufficiency ruled out levothyroxine increased to 75 PO #Hypomagnesemia replaced #Anemia Hgb 9.3, likely hemodilutional or inflammatory No evidence of DIC, platelets stable Monitor for anemia of critical illness АНДРЕЙ due to VMN on possible CKD, baseline creatinine unknown, resolved #Complicated UTI, presumptive judie albicans UA: trace ketones, glucosuria, 1+ protein, few bacteria Bladder decompressed via Boykin, likely due to altered mental status and hypotension DC fluconazol #sp colostomy 10/08/24 #Possible low-grade small bowel obstruction #Trace free fluid in the abdomen and pelvis #gastric ulcer #duodenal ulcer on soft diet Lovenox 40 mg daily Glucernia tid Plan discussed with patient, family at bedside in which all questions have been answered Case discussed with Dr Luo. DME wound vac pending Plan discussed with: Patient Dietary Evaluation Review Comments: 1) TPN if NPO > 7 days 2) Advance to [facility] 60gm as medically feasible 3) Cuco 1 pk BID for wound healing 4) Monitor I/O, lab values, wt trend Expected Outcomes/Goals: To meet >75% estimated needs wound to improve Fu 2-3 days LEORA FULLER RESIDENT Nov 01, 2024 16:28
[2024-11-02 01:00] VITALS: BP 113/79; PULSE 80; RESP 18; TEMP 97.9; O2SAT 100
[2024-11-02 05:00] VITALS: BP 115/72; PULSE 84; RESP 18; TEMP 97.1; O2SAT 97
[2024-11-02 09:00] VITALS: BP 106/68; PULSE 85; RESP 16; TEMP 97.9; O2SAT 97
--- NOTE | 2024-11-02 12:56 | DVHPN2 ---
Progress Note - Dictate Date Seen: Nov 02, 2024 Has the PT tested + for MRSA If YES, has PT been informed?: No Medical Necessity Reason Pt with a Central, PICC or Fol: Yes The following are medically ne: Prajapati Catheter Subjective No new complaints Patient awake alert in no acute distress Patient does ambulate with the assistance She is tolerating diet Patient is moving her bowels H&H stable at 8.3 Patient was taking NSAIDs prior to admission which likely caused her ulcers seen on EGD vital signs Vital Sign Date Time Temp Pulse Resp B/P (MAP) Pulse Ox O2 Delivery O2 Flow Rate FiO2 11/02/24 09:00 97.9 85 16 106/68 (81) 97 97.9 11/02/24 08:05 Room Air* 0 21 Total Intake and Output 11/01/24 11/01/24 11/02/24 15:00 23:00 07:00 Intake Total 100 ml 780 ml 900 ml Output Total 1975 ml 1250 ml Balance 100 ml -1195 ml -350 ml medications Current Medications Medications Dose Ordered Sig/Geo Route Start Time Stop Time Status Last Admin Dose Admin Dextrose 50 ml UD PRN IV 10/07/24 11:15 Cancel Insulin Glargine 15 units DAILY SC 10/08/24 10:00 Cancel Dextrose 50 ml PRN PRN IV 10/07/24 15:00 Cancel Dextrose 50 ml PRN PRN IV 10/08/24 08:15 Cancel Dextrose 50 ml UD PRN IV 10/10/24 08:45 Sertraline HCl 50 mg DAILY PO 10/10/24 12:30 11/02/24 10:23 50 MG Diagnostic Test (Pha) 1 strip ACHS 10/14/24 17:00 11/02/24 10:25 1 STRIP Insulin Human Regular ACHS SC 10/14/24 17:00 11/02/24 11:26 6 UNITS Acetaminophen 650 mg Q4HP PRN PO 10/15/24 12:15 10/25/24 16:54 650 MG Pantoprazole Sodium 40 mg BID PO 10/18/24 22:00 11/02/24 10:23 40 MG Sucralfate 1 gm QID@0600,1130,1700,2200 PO 10/18/24 17:00 11/02/24 10:24 1 GM Insulin Glargine 10 units HS SC 10/19/24 22:00 11/01/24 21:43 10 UNITS Levothyroxine Sodium 75 mcg QAM@0600 PO 10/23/24 06:00 11/02/24 05:30 75 MCG Enteral Nutritional Formula 240 ml TIDWM PO 10/23/24 18:00 11/02/24 11:23 240 ML Enteral Nutritional Formula 27.5 gm DAILY PO 10/24/24 10:00 11/02/24 10:29 27.5 GM Ampicillin Sodium/ Sulbactam Sodium 3 gm/Sodium Chloride 100 ml @ 100 mls/hr Q6H IV 10/24/24 11:00 11/02/24 10:27 100 MLS/HR Acetaminophen/ Hydrocodone Bitart 1 tab Q6HPRN PRN PO 10/25/24 13:30 11/02/24 05:31 1 TAB Enoxaparin Sodium 40 mg DAILY SC 10/28/24 10:00 11/02/24 10:24 40 MG Ferrous Sulfate 325 mg BIDWM PO 10/29/24 18:00 11/02/24 08:33 325 MG objective eneral: Normal, Obese Head/Eyes: Normal ENT: Normal Neck: Normal Lungs: Normal Cardiovascular: Normal, Regular rate and rhythm Musculoskeletal: Normal Extremities: Normal Skin: Other (sacral/ buttock wound )wound vac laboratory and microbiology Laboratory Tests 10/31/24 05:20 10/30/24 09:13 Test 10/30/24 09:13 Range/Units Serum Glucose 139 H 74-106 mg/dL Problems(with codes): (1) Acute constipation (2) Gastric peptic ulcer (3) Pilonidal cyst (4) Sepsis (5) Generalized weakness (6) Necrotizing fasciitis (7) Duodenal ulcer Prognosis Plan Continue IV antibiotics Continue wound care Supportive care Oral PPI plus Carafate Oral iron supplementation Discharge planning as per hospitalist Surgeon has recommended elective referral to higher level of care for plastic surgery traffic worker trying to arrange wound VAC Dietary Evaluation Review Comments: 1) TPN if NPO > 7 days 2) Advance to [facility] 60gm as medically feasible 3) Cuco 1 pk BID for wound healing 4) Monitor I/O, lab values, wt trend Expected Outcomes/Goals: To meet >75% estimated needs wound to improve Fu 2-3 days Plan discussed with: Patient ELOINA MENDOZA MD Nov 02, 2024 12:56
[2024-11-02 13:00] VITALS: BP 125/79; PULSE 87; RESP 18; TEMP 98.5; O2SAT 98
--- NOTE | 2024-11-02 14:44 | DVHPNRES ---
Progress Note Date Seen: Nov 02, 2024 Resident Creating Document: LEORA FULLER RESIDENT Has the PT tested + for MRSA If YES, has PT been informed?: No Medical Necessity Reason Pt with a Central, PICC or Fol: Yes The following are medically ne: Boykin Catheter Subjective Review of Systems This is a 29-year-old with diabetes mellitus type 1 diagnosed at the age of 12, hypothyroidism, does not take any medications at home who presented to the ER with a chief complaint of buttock pain and generalized weakness. Patient reports that she has been experiencing pain in her buttock, redness and swelling, nausea vomiting for the past 2 days. On arrival patient was hypotensive 84/39 mmHg, tachycardic and tachypneic. CT scan showed necrotizing fascitis in the patient underwent I and D 10/07, 150 mL of yellow colored fluid was drained and sent for culture. 10/08-patient underwent colostomy placement. Serum glucose was 500 on arrival and patient was started on IV insulin drip. A1c greater than 13. 10/21-Patient seen and examined, reports no active symptoms. Continue vancomycin, fluconazole, clindamycin, Levaquin. Pending I and D tomorrow. NPO after midnight. TSH up trending, increased levothyroxine to 75 mcg daily. Follow up with free T4 10/22 - patient seen and examined, no active complaint. Undergoing debridement. 10/23 - Patient seen and examined, reports no active distress. Boykin catheter discontinued. 10/24 - De escalate IV antibiotics to Unasyn. Patient retaining urine, straight cath done, may need boykin and outpt suprapubic 10/25 - Patient seen, wound vac changed, social consulted for DME wound vac 10/28 - patient reports feeling fine, in no acute distress. Repeat TSH . 10/29 - wound care please for change of wound VAC , patient stable. 10/30- patient seen and examined at the bedside. No active symptoms. Continue Unasyn 10/31 - patient seen and examined, wound clinic appointment set on November 07, pending wound VAC to be arranged 11/01 - patient seen and examined, wound VAC is on, patient is stable. 11/02 - patient seen and examined, no acute complaints, per surgeon, elective high-level of care and wound clinic, wound VAC actively draining Objective vital signs Vital Sign Date Time Temp Pulse Resp B/P (MAP) Pulse Ox O2 Delivery O2 Flow Rate FiO2 11/02/24 09:00 97.9 85 16 106/68 (81) 97 97.9 11/02/24 08:05 Room Air* 0 21 Total Intake and Output 11/01/24 11/01/24 11/02/24 15:00 23:00 07:00 Intake Total 100 ml 780 ml 900 ml Output Total 1975 ml 1250 ml Balance 100 ml -1195 ml -350 ml medications Current Medications Medications Dose Ordered Sig/Geo Route Start Time Stop Time Status Last Admin Dose Admin Dextrose 50 ml UD PRN IV 10/07/24 11:15 Cancel Insulin Glargine 15 units DAILY SC 10/08/24 10:00 Cancel Dextrose 50 ml PRN PRN IV 10/07/24 15:00 Cancel Dextrose 50 ml PRN PRN IV 10/08/24 08:15 Cancel Dextrose 50 ml UD PRN IV 10/10/24 08:45 Sertraline HCl 50 mg DAILY PO 10/10/24 12:30 11/02/24 10:23 50 MG Diagnostic Test (Pha) 1 strip ACHS 10/14/24 17:00 11/02/24 10:25 1 STRIP Insulin Human Regular ACHS SC 10/14/24 17:00 11/02/24 11:26 6 UNITS Acetaminophen 650 mg Q4HP PRN PO 10/15/24 12:15 10/25/24 16:54 650 MG Pantoprazole Sodium 40 mg BID PO 10/18/24 22:00 11/02/24 10:23 40 MG Sucralfate 1 gm QID@0600,1130,1700,2200 PO 10/18/24 17:00 11/02/24 10:24 1 GM Insulin Glargine 10 units HS SC 10/19/24 22:00 11/01/24 21:43 10 UNITS Levothyroxine Sodium 75 mcg QAM@0600 PO 10/23/24 06:00 11/02/24 05:30 75 MCG Enteral Nutritional Formula 240 ml TIDWM PO 10/23/24 18:00 11/02/24 11:23 240 ML Enteral Nutritional Formula 27.5 gm DAILY PO 10/24/24 10:00 11/02/24 10:29 27.5 GM Ampicillin Sodium/ Sulbactam Sodium 3 gm/Sodium Chloride 100 ml @ 100 mls/hr Q6H IV 10/24/24 11:00 11/02/24 10:27 100 MLS/HR Acetaminophen/ Hydrocodone Bitart 1 tab Q6HPRN PRN PO 10/25/24 13:30 11/02/24 05:31 1 TAB Enoxaparin Sodium 40 mg DAILY SC 10/28/24 10:00 11/02/24 10:24 40 MG Ferrous Sulfate 325 mg BIDWM PO 10/29/24 18:00 11/02/24 08:33 325 MG Examination Morbidly obese female patient lying in bed comfortably, no acute distress. General: Morbid obese, afebrile, palor, mucosae are moist Cardiovascular: Regular S1 and S2. No murmurs, gallops or rubs. No JVD elevation. No pedal edema Respiratory: Normal B/L air entry on room air. Clear lung sounds on auscultation Abdomen: Soft, nontender, nondistended, normoactive bowel sounds, no rebound tenderness, no organomegaly, no masses. Colostomy bag seen draining yellow soft stool. Status post multiple I and D bilateral gluteal cleft with a dressing covering the defect. Extensive sacral and lumbar ulcer, still fibrinopurulent tissue and a possible new collection in the left buttock, vac was placed again Genitourinary: Deferred MSK/skin: Mobilizes 4 limbs. Skin is dry and warm Neurological: No motor, no sensitive deficits, normal speech. Pupils are isocoric and reactive. Psych/Mental Status: A/Ox3 laboratory and microbiology Laboratory Tests 10/31/24 05:20 10/30/24 09:13 Test 10/30/24 09:13 Range/Units Serum Glucose 139 H 74-106 mg/dL Microbiology Date/Time Source Procedure Growth Status 10/27/24 14:35 Nose MRSA Screen - Final Complete 10/07/24 10:30 Voided Urine Urine Culture - Final Presumptive Judie albicans Complete 10/06/24 11:20 Blood Blood Culture - Final NO GROWTH AFTER 5 DAYS OF INCUBATION. Complete Labs and/or images reviewed: Labs reviewed by me, Image(s) reviewed by me Problem List/Assessment/Plan Problem List/Assessment/Plan #Acute metabolic encephalopathy secondary to sepsis and metabolic derangements. #Septic shock due to necrotizing fasciitis of the gluteal and sacral region secondary to pilonidal cyst infection due to prevotella loescheii sp I&D 10/07/24 and 10/22 #sp debridement of affected area (pilonidal cyst both buttocks, perianal area) and creation of a diverting colostomy 10/08/24 #Severe AGMA due to lactic acidosis-resolving Source control achieved with surgical debridement Blood cultures on arrival negative ID consulted per Dr Pretty 10/10/24: dressing change: less necrotic tissue, bicarb and insulin drip stopped, downgrade to the floor, continue transfer, surgery ordered a ct scan: Redemonstrated bilateral gluteal region soft tissue edema and subcutaneous emphysema which extends from the perianal region to the lower back, suggestive of necrotizing fasciitis. Appears improved from prior.Interval laparotomy and left lower quadrant ostomy with associated postsurgical changes. Hepatomegaly. 10/11/24: wbc is trending slightly higher, wound still has necrotic tissue but looks better than yesterday, patient will benefit for transfer to [facility] for colorectal surgery due to possible involvement of anal sphincter,as well as plastic surgery right now with colostomy on place 10/14/24: new Debridement of devitalized tissue was undertaken. There was no further evidence of necrotizing infection. The wound was then pulse lavaged with 3 L of saline containing Ancef. The wound was packed loosely with iodine saturated Kerlix. The patient will need plastic surgical attention which is not available at this facility, per general surgery patient will benefit for transfer to [facility], wound consult was placed for vac placement, kidney function recovers, lantus was decreased to 15 ui 10/15/24: wound vac was placed, extra dose of morphine due to pain, BPs soft, 500 cc bolus, pending transfer [facility] 10/18/24: wound vac was changed, possible need of new debridement?, dr Pretty and dr Zamorano informed about the vac change, 10/21 - patient refused a wound dressing change, I and D tomorrow. 10/22-patient undergoing I and D, Wound VAC changed 10/23-Boykin catheter discontinued 10/24 - IV antibiotics switched to Unasyn 10/26 - wound vac changed, social consulted for DME wound vac 10/28 - continue unasyn 10/29 wound care paged for change of wound VAC 10/30 - pending woundcare change. 10/31 - continuing Unasyn, wound care clinic appointment set on 11/07. Pending Wound VAC delivery. 11/01 - continuing with wound vac, unasyn 11/02 - pending DME equipment, stable #Pneumonia gram+/gram- #Acute hypoxemic respiratory failure secondary to sepsis and poor perfusion #Respiratory acidosis possible obesity hypoventilation syndrome Consolidation of much of the visualized right middle and right lower lobes with air bronchograms concerning for pneumonia. At least small right pleural effusion. ON RA #Uncontrolled diabetes hba1c 13 # neurogenic bladder requiring Boykin dc bicarb and insulin drip lantus 15 ui #Hypothyroidism: Cortisol: 30.84 normal, adrenal insufficiency ruled out levothyroxine increased to 75 PO #Hypomagnesemia replaced #Anemia Hgb 9.3, likely hemodilutional or inflammatory No evidence of DIC, platelets stable Monitor for anemia of critical illness АНДРЕЙ due to VMN on possible CKD, baseline creatinine unknown, resolved #Complicated UTI, presumptive judie albicans UA: trace ketones, glucosuria, 1+ protein, few bacteria Bladder decompressed via Boykin, likely due to altered mental status and hypotension DC fluconazol #sp colostomy 10/08/24 #Possible low-grade small bowel obstruction #Trace free fluid in the abdomen and pelvis #gastric ulcer #duodenal ulcer on soft diet Lovenox 40 mg daily Glucernia tid Plan discussed with patient, family at bedside in which all questions have been answered Case discussed with Dr Gould, DME wound vac pending Plan discussed with: Patient Dietary Evaluation Review Comments: 1) TPN if NPO > 7 days 2) [facility] as medically feasible 3) Cuco 1 pk BID for wound healing 4) Monitor I/O, lab values, wt trend Expected Outcomes/Goals: To meet >75% estimated needs wound to improve Fu 2-3 days LEORA FULLER RESIDENT Nov 02, 2024 14:44
[2024-11-02 16:56] VITALS: BP 112/74; PULSE 91; RESP 18; TEMP 97.7; O2SAT 100
[2024-11-02 21:00] VITALS: BP 114/75; PULSE 93; RESP 17; TEMP 98; O2SAT 97
[2024-11-03] VITALS (8 sets, daily range): BP systolic 99–123; BP diastolic 55–78; PULSE 86–96; RESP 15–18; TEMP 97.5–97.9; O2SAT 95–99
--- NOTE | 2024-11-03 12:06 | DVHPNRES ---
Progress Note Date Seen: Nov 03, 2024 Resident Creating Document: JERRY ZAMUDIO RESIDENT Has the PT tested + for MRSA If YES, has PT been informed?: No Medical Necessity Reason Pt with a Central, PICC or Fol: Yes The following are medically ne: Boykin Catheter Subjective Review of Systems This is a 29-year-old with diabetes mellitus type 1 diagnosed at the age of 12, hypothyroidism, does not take any medications at home who presented to the ER with a chief complaint of buttock pain and generalized weakness. Patient reports that she has been experiencing pain in her buttock, redness and swelling, nausea vomiting for the past 2 days. On arrival patient was hypotensive 84/39 mmHg, tachycardic and tachypneic. CT scan showed necrotizing fascitis in the patient underwent I and D 10/07, 150 mL of yellow colored fluid was drained and sent for culture. 10/08-patient underwent colostomy placement. Serum glucose was 500 on arrival and patient was started on IV insulin drip. A1c greater than 13. 10/21-Patient seen and examined, reports no active symptoms. Continue vancomycin, fluconazole, clindamycin, Levaquin. Pending I and D tomorrow. NPO after midnight. TSH up trending, increased levothyroxine to 75 mcg daily. Follow up with free T4 10/22 - patient seen and examined, no active complaint. Undergoing debridement. 10/23 - Patient seen and examined, reports no active distress. Boykin catheter discontinued. 10/24 - De escalate IV antibiotics to Unasyn. Patient retaining urine, straight cath done, may need boykin and outpt suprapubic 10/25 - Patient seen, wound vac changed, social consulted for DME wound vac 10/28 - patient reports feeling fine, in no acute distress. Repeat TSH . 10/29 - wound care please for change of wound VAC , patient stable. 10/30- patient seen and examined at the bedside. No active symptoms. Continue Unasyn 10/31 - patient seen and examined, wound clinic appointment set on November 07, pending wound VAC to be arranged 11/01 - patient seen and examined, wound VAC is on, patient is stable. 11/02 - patient seen and examined, no acute complaints, per surgeon, elective high-level of care and wound clinic, wound VAC actively draining 11/03- patient seen at bedside, appears alert x4, in no distress, no new acute complaints, contacted social service for an arrangement of wound VAC, pending. Objective vital signs Vital Sign Date Time Temp Pulse Resp B/P (MAP) Pulse Ox O2 Delivery O2 Flow Rate FiO2 11/03/24 09:00 97.5 87 16 107/70 (82) 99 97.5 11/03/24 08:00 Room Air* 0 21 Total Intake and Output 11/02/24 11/02/24 11/03/24 15:00 23:00 07:00 Intake Total 100 ml 670 ml 500 ml Output Total 75 ml 1601 ml 1300 ml Balance 25 ml -931 ml -800 ml medications Current Medications Medications Dose Ordered Sig/Geo Route Start Time Stop Time Status Last Admin Dose Admin Dextrose 50 ml UD PRN IV 10/07/24 11:15 Cancel Insulin Glargine 15 units DAILY SC 10/08/24 10:00 Cancel Dextrose 50 ml PRN PRN IV 10/07/24 15:00 Cancel Dextrose 50 ml PRN PRN IV 10/08/24 08:15 Cancel Dextrose 50 ml UD PRN IV 10/10/24 08:45 Sertraline HCl 50 mg DAILY PO 10/10/24 12:30 11/03/24 09:26 50 MG Diagnostic Test (Pha) 1 strip ACHS 10/14/24 17:00 11/03/24 06:21 1 STRIP Insulin Human Regular ACHS SC 10/14/24 17:00 11/03/24 06:22 3 UNITS Acetaminophen 650 mg Q4HP PRN PO 10/15/24 12:15 10/25/24 16:54 650 MG Pantoprazole Sodium 40 mg BID PO 10/18/24 22:00 11/03/24 09:26 40 MG Sucralfate 1 gm QID@0600,1130,1700,2200 PO 10/18/24 17:00 11/03/24 05:40 1 GM Insulin Glargine 10 units HS SC 10/19/24 22:00 11/02/24 21:50 10 UNITS Levothyroxine Sodium 75 mcg QAM@0600 PO 10/23/24 06:00 11/03/24 05:40 75 MCG Enteral Nutritional Formula 240 ml TIDWM PO 10/23/24 18:00 11/03/24 09:27 240 ML Enteral Nutritional Formula 27.5 gm DAILY PO 10/24/24 10:00 11/03/24 09:27 27.5 GM Ampicillin Sodium/ Sulbactam Sodium 3 gm/Sodium Chloride 100 ml @ 100 mls/hr Q6H IV 10/24/24 11:00 11/03/24 05:40 100 MLS/HR Acetaminophen/ Hydrocodone Bitart 1 tab Q6HPRN PRN PO 10/25/24 13:30 11/03/24 09:27 1 TAB Enoxaparin Sodium 40 mg DAILY SC 10/28/24 10:00 11/03/24 09:26 40 MG Ferrous Sulfate 325 mg BIDWM PO 10/29/24 18:00 11/03/24 08:26 325 MG Examination General: Patient alert and oriented in person, place and time. Patient following commands. HEENT: Normocephalic, atraumatic, moist mucous membranes Respiratory/pulmonary: Clear lungs bilaterally, vesicular murmurs present in almost all lung pinto, no associated crackles or wheezes. Cardiovascular: Normal heart sounds S1 and S2 with no associated murmurs Abdomen: Abdomen nondistended, there is no pain to palpation in any of the abdominal quadrants, no palpable masses.Colostomy bag seen draining yellow soft stool. Status post multiple I and D bilateral gluteal cleft with a dressing covering the defect. Extensive sacral and lumbar ulcer, still fibrinopurulent tissue and a possible new collection in the left buttock, vac was placed again. Extremities: There is no peripheral edema present at the lower extremities. Peripheral Pulses: 3+ Radial (R). 3+ Radial (L). 3+ Dorsalis pedis (R). 3+ Dorsalis pedis(L) Skin: No rashes or pruritus, there is no sacral edema present at this time. Neurological: Intact cranial nerves with no focal neurologic deficits laboratory and microbiology Laboratory Tests 10/31/24 05:20 10/30/24 09:13 Test 10/30/24 09:13 Range/Units Serum Glucose 139 H 74-106 mg/dL Microbiology Date/Time Source Procedure Growth Status 10/27/24 14:35 Nose MRSA Screen - Final Complete 10/07/24 10:30 Voided Urine Urine Culture - Final Presumptive Judie albicans Complete 10/06/24 11:20 Blood Blood Culture - Final NO GROWTH AFTER 5 DAYS OF INCUBATION. Complete Problem List/Assessment/Plan Problem List/Assessment/Plan #Acute metabolic encephalopathy secondary to sepsis and metabolic derangements. #Septic shock due to necrotizing fasciitis of the gluteal and sacral region secondary to pilonidal cyst infection due to prevotella loescheii sp I&D 10/07/24 and 10/22 #sp debridement of affected area (pilonidal cyst both buttocks, perianal area) and creation of a diverting colostomy 10/08/24 #Severe AGMA due to lactic acidosis-resolving Source control achieved with surgical debridement Blood cultures on arrival negative ID consulted per Dr Pretty 10/10/24: dressing change: less necrotic tissue, bicarb and insulin drip stopped, downgrade to the floor, continue transfer, surgery ordered a ct scan: Redemonstrated bilateral gluteal region soft tissue edema and subcutaneous emphysema which extends from the perianal region to the lower back, suggestive of necrotizing fasciitis. Appears improved from prior.Interval laparotomy and left lower quadrant ostomy with associated postsurgical changes. Hepatomegaly. 10/11/24: wbc is trending slightly higher, wound still has necrotic tissue but looks better than yesterday, patient will benefit for transfer to [facility] for colorectal surgery due to possible involvement of anal sphincter,as well as plastic surgery right now with colostomy on place 10/14/24: new Debridement of devitalized tissue was undertaken. There was no further evidence of necrotizing infection. The wound was then pulse lavaged with 3 L of saline containing Ancef. The wound was packed loosely with iodine saturated Kerlix. The patient will need plastic surgical attention which is not available at this facility, per general surgery patient will benefit for transfer to [facility], wound consult was placed for vac placement, kidney function recovers, lantus was decreased to 15 ui 10/15/24: wound vac was placed, extra dose of morphine due to pain, BPs soft, 500 cc bolus, pending transfer [facility] 10/18/24: wound vac was changed, possible need of new debridement?, dr Pretty and dr Zamorano informed about the vac change, 10/21 - patient refused a wound dressing change, I and D tomorrow. 10/22-patient undergoing I and D, Wound VAC changed 10/23-Boykin catheter discontinued 10/24 - IV antibiotics switched to Unasyn 10/26 - wound vac changed, social consulted for DME wound vac 10/28 - continue unasyn 10/29 wound care paged for change of wound VAC 10/30 - pending woundcare change. 10/31 - continuing Unasyn, wound care clinic appointment set on 11/07. Pending Wound VAC delivery. 11/01 - continuing with wound vac, unasyn 11/02 - pending DME equipment, stable 11/03- pending DME equipment, social service to arrange wound VAC, pending. #Pneumonia gram+/gram- #Acute hypoxemic respiratory failure secondary to sepsis and poor perfusion #Respiratory acidosis possible obesity hypoventilation syndrome Consolidation of much of the visualized right middle and right lower lobes with air bronchograms concerning for pneumonia. At least small right pleural effusion. ON RA #Uncontrolled diabetes hba1c 13 # neurogenic bladder requiring Boykin dc bicarb and insulin drip lantus 15 ui #Hypothyroidism: Cortisol: 30.84 normal, adrenal insufficiency ruled out levothyroxine increased to 75 PO #Hypomagnesemia replaced #Anemia Hgb 9.3, likely hemodilutional or inflammatory No evidence of DIC, platelets stable Monitor for anemia of critical illness АНДРЕЙ due to VMN on possible CKD, baseline creatinine unknown, resolved #Complicated UTI, presumptive judie albicans UA: trace ketones, glucosuria, 1+ protein, few bacteria Bladder decompressed via Boykin, likely due to altered mental status and hypotension DC fluconazol #sp colostomy 10/08/24 #Possible low-grade small bowel obstruction #Trace free fluid in the abdomen and pelvis #gastric ulcer #duodenal ulcer on soft diet Lovenox 40 mg daily Glucernia tid Plan discussed with patient, family at bedside in which all questions have been answered Case discussed with MIRYAM Razo wound vac pending Plan discussed with: Patient Dietary Evaluation Review Comments: 1) TPN if NPO > 7 days 2) [facility] 3) Cuco 1 pk BID for wound healing 4) Monitor I/O, lab values, wt trend Expected Outcomes/Goals: To meet >75% estimated needs wound to improve Fu 2-3 days Date of Service: Nov 03, 2024 Billing Provider: RHINA PATEL MD Common Visit Codes: [id number] INP/OBS CARE(HIGH) JERRY ZAMUDIO RESIDENT Nov 03, 2024 12:06 RHINA PATEL MD Nov 08, 2024 21:43
[2024-11-04] VITALS (7 sets, daily range): BP systolic 108–117; BP diastolic 56–74; PULSE 72–101; RESP 14–20; TEMP 97.3–98.4; O2SAT 93–98
[2024-11-04] MEDS: HYDROcodone-ACET 5/325MG TAB PO ONE (02:55)
[2024-11-04 06:08] LABS: Hematocrit 26.4 % (36.0-46.0); Hemoglobin 9.0 g/dL (12.2-16.2); Mean Corpuscular Hemoglobin 29.4 pg (28.0-32.0); Mean Corpuscular Volume 85.9 fL (80.0-100.0); Nucleated Red Blood Cells % 0.1 %
[2024-11-04 06:17] LABS: Calcium 9.3 mg/dL (8.7-10.4); Chloride 101 mmol/L (98-107); Potassium 4.4 mmol/L (3.5-5.1); Sodium 137 mmol/L (136-145)
[2024-11-04 06:18] LABS: Anion Gap 9 (5-15); Carbon Dioxide 27 mmol/L (20-31)
[2024-11-04 06:23] LABS: BUN/Creatinine Ratio 18.8 (10.0-20.0); Blood Urea Nitrogen 16 mg/dL (9-23)
[2024-11-04 06:33] LABS: Glucose 167 mg/dL (74-106)
--- NOTE | 2024-11-04 14:32 | DVHPNRES ---
Progress Note Date Seen: Nov 04, 2024 Resident Creating Document: LEORA FULLER RESIDENT Has the PT tested + for MRSA If YES, has PT been informed?: No Medical Necessity Reason Pt with a Central, PICC or Fol: Yes The following are medically ne: Boykin Catheter Subjective Review of Systems This is a 29-year-old with diabetes mellitus type 1 diagnosed at the age of 12, hypothyroidism, does not take any medications at home who presented to the ER with a chief complaint of buttock pain and generalized weakness. Patient reports that she has been experiencing pain in her buttock, redness and swelling, nausea vomiting for the past 2 days. On arrival patient was hypotensive 84/39 mmHg, tachycardic and tachypneic. CT scan showed necrotizing fascitis in the patient underwent I and D 10/07, 150 mL of yellow colored fluid was drained and sent for culture. 10/08-patient underwent colostomy placement. Serum glucose was 500 on arrival and patient was started on IV insulin drip. A1c greater than 13. 10/21-Patient seen and examined, reports no active symptoms. Continue vancomycin, fluconazole, clindamycin, Levaquin. Pending I and D tomorrow. NPO after midnight. TSH up trending, increased levothyroxine to 75 mcg daily. Follow up with free T4 10/22 - patient seen and examined, no active complaint. Undergoing debridement. 10/23 - Patient seen and examined, reports no active distress. Boykin catheter discontinued. 10/24 - De escalate IV antibiotics to Unasyn. Patient retaining urine, straight cath done, may need boykin and outpt suprapubic 10/25 - Patient seen, wound vac changed, social consulted for DME wound vac 10/28 - patient reports feeling fine, in no acute distress. Repeat TSH . 10/29 - wound care please for change of wound VAC , patient stable. 10/30- patient seen and examined at the bedside. No active symptoms. Continue Unasyn 10/31 - patient seen and examined, wound clinic appointment set on November 07, pending wound VAC to be arranged 11/01 - patient seen and examined, wound VAC is on, patient is stable. 11/02 - patient seen and examined, no acute complaints, per surgeon, elective high-level of care and wound clinic, wound VAC actively draining 11/04 - reports abdominal pain, nausea, bowel sounds intact, colostomy bag with dark brown semi-solid stool. IV metoclopramide and Bentyl given. Objective vital signs Vital Sign Date Time Temp Pulse Resp B/P (MAP) Pulse Ox O2 Delivery O2 Flow Rate FiO2 11/04/24 13:00 98.4 91 20 109/71 (84) 97 98.4 11/04/24 08:00 Room Air* 0 21 Total Intake and Output 11/03/24 11/03/24 11/04/24 15:00 23:00 07:00 Intake Total 500 ml 200 ml Output Total 800 ml 2500 ml Balance -300 ml -2300 ml medications Current Medications Medications Dose Ordered Sig/Geo Route Start Time Stop Time Status Last Admin Dose Admin Dextrose 50 ml UD PRN IV 10/07/24 11:15 Cancel Insulin Glargine 15 units DAILY SC 10/08/24 10:00 Cancel Dextrose 50 ml PRN PRN IV 10/07/24 15:00 Cancel Dextrose 50 ml PRN PRN IV 10/08/24 08:15 Cancel Dextrose 50 ml UD PRN IV 10/10/24 08:45 Sertraline HCl 50 mg DAILY PO 10/10/24 12:30 11/04/24 09:50 50 MG Diagnostic Test (Pha) 1 strip ACHS 10/14/24 17:00 11/04/24 11:49 1 STRIP Insulin Human Regular ACHS SC 10/14/24 17:00 11/04/24 11:59 3 UNITS Acetaminophen 650 mg Q4HP PRN PO 10/15/24 12:15 11/03/24 23:25 650 MG Pantoprazole Sodium 40 mg BID PO 10/18/24 22:00 11/04/24 09:50 40 MG Sucralfate 1 gm QID@0600,1130,1700,2200 PO 10/18/24 17:00 11/04/24 11:49 1 GM Insulin Glargine 10 units HS SC 10/19/24 22:00 11/03/24 22:01 10 UNITS Levothyroxine Sodium 75 mcg QAM@0600 PO 10/23/24 06:00 11/04/24 05:35 75 MCG Enteral Nutritional Formula 240 ml TIDWM PO 10/23/24 18:00 11/04/24 08:10 240 ML Enteral Nutritional Formula 27.5 gm DAILY PO 10/24/24 10:00 11/04/24 08:10 27.5 GM Ampicillin Sodium/ Sulbactam Sodium 3 gm/Sodium Chloride 100 ml @ 100 mls/hr Q6H IV 10/24/24 11:00 11/04/24 05:35 100 MLS/HR Enoxaparin Sodium 40 mg DAILY SC 10/28/24 10:00 11/04/24 09:50 40 MG Ferrous Sulfate 325 mg BIDWM PO 10/29/24 18:00 11/04/24 08:10 325 MG Acetaminophen/ Hydrocodone Bitart 1 tab Q4HPRN PRN PO 11/04/24 11:45 Examination Morbidly obese female patient lying in bed comfortably, no acute distress. General: Morbid obese, afebrile, palor, mucosae are moist Cardiovascular: Regular S1 and S2. No murmurs, gallops or rubs. No JVD elevation. No pedal edema Respiratory: Normal B/L air entry on room air. Clear lung sounds on auscultation Abdomen: Soft, nontender, nondistended, normoactive bowel sounds, no rebound tenderness, no organomegaly, no masses. Colostomy bag seen draining yellow soft stool. Status post multiple I and D bilateral gluteal cleft with a dressing covering the defect. Extensive sacral and lumbar ulcer, still fibrinopurulent tissue and a possible new collection in the left buttock, vac was placed again Genitourinary: Deferred MSK/skin: Mobilizes 4 limbs. Skin is dry and warm Neurological: No motor, no sensitive deficits, normal speech. Pupils are isocoric and reactive. Psych/Mental Status: A/Ox3 laboratory and microbiology Laboratory Tests 11/04/24 05:46 Test 11/04/24 05:46 Range/Units Serum Glucose 167 H 74-106 mg/dL Microbiology Date/Time Source Procedure Growth Status 10/27/24 14:35 Nose MRSA Screen - Final Complete 10/07/24 10:30 Voided Urine Urine Culture - Final Presumptive Judie albicans Complete 10/06/24 11:20 Blood Blood Culture - Final NO GROWTH AFTER 5 DAYS OF INCUBATION. Complete Labs and/or images reviewed: Labs reviewed by me, Image(s) reviewed by me Problem List/Assessment/Plan Problem List/Assessment/Plan #Acute metabolic encephalopathy secondary to sepsis and metabolic derangements. #Septic shock due to necrotizing fasciitis of the gluteal and sacral region secondary to pilonidal cyst infection due to prevotella loescheii sp I&D 10/07/24 and 10/22 #sp debridement of affected area (pilonidal cyst both buttocks, perianal area) and creation of a diverting colostomy 10/08/24 #Severe AGMA due to lactic acidosis-resolving Source control achieved with surgical debridement Blood cultures on arrival negative ID consulted per Dr Pretty 10/10/24: dressing change: less necrotic tissue, bicarb and insulin drip stopped, downgrade to the floor, continue transfer, surgery ordered a ct scan: Redemonstrated bilateral gluteal region soft tissue edema and subcutaneous emphysema which extends from the perianal region to the lower back, suggestive of necrotizing fasciitis. Appears improved from prior.Interval laparotomy and left lower quadrant ostomy with associated postsurgical changes. Hepatomegaly. 10/11/24: wbc is trending slightly higher, wound still has necrotic tissue but looks better than yesterday, patient will benefit for transfer to [facility] for colorectal surgery due to possible involvement of anal sphincter,as well as plastic surgery right now with colostomy on place 10/14/24: new Debridement of devitalized tissue was undertaken. There was no further evidence of necrotizing infection. The wound was then pulse lavaged with 3 L of saline containing Ancef. The wound was packed loosely with iodine saturated Kerlix. The patient will need plastic surgical attention which is not available at this facility, per general surgery patient will benefit for transfer to [facility], wound consult was placed for vac placement, kidney function recovers, lantus was decreased to 15 ui 10/15/24: wound vac was placed, extra dose of morphine due to pain, BPs soft, 500 cc bolus, pending transfer [facility] 10/18/24: wound vac was changed, possible need of new debridement?, dr Pretty and dr Zamorano informed about the vac change, 10/21 - patient refused a wound dressing change, I and D tomorrow. 10/22-patient undergoing I and D, Wound VAC changed 10/23-Boykin catheter discontinued 10/24 - IV antibiotics switched to Unasyn 10/26 - wound vac changed, social consulted for DME wound vac 10/28 - continue unasyn 10/29 wound care paged for change of wound VAC 10/30 - pending woundcare change. 10/31 - continuing Unasyn, wound care clinic appointment set on 11/07. Pending Wound VAC delivery. 11/01 - continuing with wound vac, unasyn 11/02 - pending DME equipment, stable 11/04 - Bentyl and metoclopramide given for abdominal pain #Pneumonia gram+/gram- #Acute hypoxemic respiratory failure secondary to sepsis and poor perfusion #Respiratory acidosis possible obesity hypoventilation syndrome Consolidation of much of the visualized right middle and right lower lobes with air bronchograms concerning for pneumonia. At least small right pleural effusion. ON RA #Uncontrolled diabetes hba1c 13 # neurogenic bladder requiring Boykin dc bicarb and insulin drip lantus 15 ui #Hypothyroidism: Cortisol: 30.84 normal, adrenal insufficiency ruled out levothyroxine increased to 75 PO #Hypomagnesemia replaced #Anemia Hgb 9.3, likely hemodilutional or inflammatory No evidence of DIC, platelets stable Monitor for anemia of critical illness АНДРЕЙ due to VMN on possible CKD, baseline creatinine unknown, resolved #Complicated UTI, presumptive judie albicans UA: trace ketones, glucosuria, 1+ protein, few bacteria Bladder decompressed via Boykin, likely due to altered mental status and hypotension DC fluconazol #sp colostomy 10/08/24 #Possible low-grade small bowel obstruction #Trace free fluid in the abdomen and pelvis #gastric ulcer #duodenal ulcer on soft diet Lovenox 40 mg daily Glucernia tid Plan discussed with patient, family at bedside in which all questions have been answered Case discussed with Dr Da Silva. DME wound vac pending Plan discussed with: Patient My Orders My Orders Orders - LEORA FULLER Procedure Category Date Status Time Hydrocodone-Acet PHA 11/04/24 In Process 5/325mg Tab ([place] 11:45 Dietary Evaluation Review Comments: 1) TPN if NPO > 7 days 2) Advance to [facility] 60gm as medically feasible 3) Cuco 1 pk BID for wound healing 4) Monitor I/O, lab values, wt trend Expected Outcomes/Goals: To meet >75% estimated needs wound to improve Fu 2-3 days Date of Service: Nov 05, 2024 Billing Provider: JENNY DA SILVA MD Common Visit Codes: [id number] INP/OBS CARE(HIGH) LEORA FULLER Nov 04, 2024 14:32 JENNY DA SILVA MD Nov 05, 2024 17:35
[2024-11-04] MEDS: DICYCLOMINE HCL 10 MG CAP PO ONE (15:08)
[2024-11-04] MEDS: HYDROcodone-ACET 5/325MG TAB PO PRN (15:08)
[2024-11-04] MEDS: METOCLOPRAMIDE HCL 5MG/ml INJ 2ml VIAL IV ONE (15:08)
--- NOTE | 2024-11-04 15:20 | DVHPN2 ---
Progress Note - Dictate Date Seen: Nov 04, 2024 Has the PT tested + for MRSA If YES, has PT been informed?: No Medical Necessity Reason Pt with a Central, PICC or Fol: Yes The following are medically ne: Prajapati Catheter Subjective Patient complaining of some nausea and abdominal discomfort todaye She is tolerating diet Patient is moving her bowels H&H stable at 9.0 Patient was taking NSAIDs prior to admission which likely caused her ulcers seen on EGD vital signs Vital Sign Date Time Temp Pulse Resp B/P (MAP) Pulse Ox O2 Delivery O2 Flow Rate FiO2 11/04/24 13:00 98.4 91 20 109/71 (84) 97 98.4 11/04/24 08:00 Room Air* 0 21 Total Intake and Output 11/03/24 11/03/24 11/04/24 15:00 23:00 07:00 Intake Total 500 ml 200 ml Output Total 800 ml 2500 ml Balance -300 ml -2300 ml medications Current Medications Medications Dose Ordered Sig/Geo Route Start Time Stop Time Status Last Admin Dose Admin Dextrose 50 ml UD PRN IV 10/07/24 11:15 Cancel Insulin Glargine 15 units DAILY SC 10/08/24 10:00 Cancel Dextrose 50 ml PRN PRN IV 10/07/24 15:00 Cancel Dextrose 50 ml PRN PRN IV 10/08/24 08:15 Cancel Dextrose 50 ml UD PRN IV 10/10/24 08:45 Sertraline HCl 50 mg DAILY PO 10/10/24 12:30 11/04/24 09:50 50 MG Diagnostic Test (Pha) 1 strip ACHS 10/14/24 17:00 11/04/24 11:49 1 STRIP Insulin Human Regular ACHS SC 10/14/24 17:00 11/04/24 11:59 3 UNITS Acetaminophen 650 mg Q4HP PRN PO 10/15/24 12:15 11/03/24 23:25 650 MG Pantoprazole Sodium 40 mg BID PO 10/18/24 22:00 11/04/24 09:50 40 MG Sucralfate 1 gm QID@0600,1130,1700,2200 PO 10/18/24 17:00 11/04/24 11:49 1 GM Insulin Glargine 10 units HS SC 10/19/24 22:00 11/03/24 22:01 10 UNITS Levothyroxine Sodium 75 mcg QAM@0600 PO 10/23/24 06:00 11/04/24 05:35 75 MCG Enteral Nutritional Formula 240 ml TIDWM PO 10/23/24 18:00 11/04/24 15:09 240 ML Enteral Nutritional Formula 27.5 gm DAILY PO 10/24/24 10:00 11/04/24 08:10 27.5 GM Ampicillin Sodium/ Sulbactam Sodium 3 gm/Sodium Chloride 100 ml @ 100 mls/hr Q6H IV 10/24/24 11:00 11/04/24 05:35 100 MLS/HR Enoxaparin Sodium 40 mg DAILY SC 10/28/24 10:00 11/04/24 09:50 40 MG Ferrous Sulfate 325 mg BIDWM PO 10/29/24 18:00 11/04/24 08:10 325 MG Acetaminophen/ Hydrocodone Bitart 1 tab Q4HPRN PRN PO 11/04/24 11:45 11/04/24 15:08 1 TAB objective eneral: Normal, Obese Head/Eyes: Normal ENT: Normal Neck: Normal Lungs: Normal Cardiovascular: Normal, Regular rate and rhythm Musculoskeletal: Normal Extremities: Normal Skin: Other (sacral/ buttock wound )wound vac laboratory and microbiology Laboratory Tests 11/04/24 05:46 Test 11/04/24 05:46 Range/Units Serum Glucose 167 H 74-106 mg/dL Problems(with codes): (1) Gastric peptic ulcer (2) Duodenal ulcer (3) Sepsis (4) Pilonidal cyst (5) Generalized weakness (6) Necrotizing fasciitis Prognosis Assessment plan Nausea abdominal pain likely related to medication effect from prolonged antibiotics She could have also mild ileus Patient has been started on IV Reglan and Bentyl p.o. Continue Protonix and Carafate I will follow up patient with you Dietary Evaluation Review Comments: 1) TPN if NPO > 7 days 2) [facility] 3) Cuco 1 pk BID for wound healing 4) Monitor I/O, lab values, wt trend Expected Outcomes/Goals: To meet >75% estimated needs wound to improve Fu 2-3 days Plan discussed with: Patient ELOINA MENDOZA MD Nov 04, 2024 15:20
[2024-11-04] MEDS: ONDANSETRON HCL 4 MG/2 ML VIAL IV ONE (22:26)
[2024-11-05] VITALS (7 sets, daily range): BP systolic 96–126; BP diastolic 38–82; PULSE 83–98; RESP 15–18; TEMP 97.9–98.8; O2SAT 90–100
[2024-11-05 05:34] LABS: Hemoglobin 9.7 g/dL (12.2-16.2); Mean Corpuscular Volume 85.2 fL (80.0-100.0)
[2024-11-05 05:42] LABS: Hematocrit 28.0 % (36.0-46.0); Mean Corpuscular Hemoglobin 29.6 pg (28.0-32.0); Nucleated Red Blood Cells % 0.2 %
[2024-11-05 05:57] LABS: Alanine Aminotransferase 37 U/L (7-40)
[2024-11-05 05:58] LABS: Albumin 3.7 g/dL (3.2-4.8); Anion Gap 10 (5-15); BUN/Creatinine Ratio 16.2 (10.0-20.0); Bilirubin, Total 0.3 mg/dL (0.2-1.0); Blood Urea Nitrogen 12 mg/dL (9-23); Calcium 9.4 mg/dL (8.7-10.4); Carbon Dioxide 27 mmol/L (20-31); Chloride 100 mmol/L (98-107); Lipase 50 U/L (12-53); Potassium 3.9 mmol/L (3.5-5.1); Sodium 137 mmol/L (136-145); Total Protein 7.5 g/dL (5.7-8.2)
[2024-11-05 06:01] LABS: Alkaline Phosphatase 169 U/L (46-116); Glucose 120 mg/dL (74-106)
[2024-11-05] MEDS: SERTRALINE HCL 50 MG TAB PO SCH (17:06)
--- NOTE | 2024-11-05 17:40 | DVHPNRES ---
Progress Note Date Seen: Nov 05, 2024 Resident Creating Document: LEORA FULLER RESIDENT Has the PT tested + for MRSA If YES, has PT been informed?: No Medical Necessity Reason Pt with a Central, PICC or Fol: Yes The following are medically ne: Boykin Catheter Subjective Review of Systems This is a 29-year-old with diabetes mellitus type 1 diagnosed at the age of 12, hypothyroidism, does not take any medications at home who presented to the ER with a chief complaint of buttock pain and generalized weakness. Patient reports that she has been experiencing pain in her buttock, redness and swelling, nausea vomiting for the past 2 days. On arrival patient was hypotensive 84/39 mmHg, tachycardic and tachypneic. CT scan showed necrotizing fascitis in the patient underwent I and D 10/07, 150 mL of yellow colored fluid was drained and sent for culture. 10/08-patient underwent colostomy placement. Serum glucose was 500 on arrival and patient was started on IV insulin drip. A1c greater than 13. 10/21-Patient seen and examined, reports no active symptoms. Continue vancomycin, fluconazole, clindamycin, Levaquin. Pending I and D tomorrow. NPO after midnight. TSH up trending, increased levothyroxine to 75 mcg daily. Follow up with free T4 10/22 - patient seen and examined, no active complaint. Undergoing debridement. 10/23 - Patient seen and examined, reports no active distress. Boykin catheter discontinued. 10/24 - De escalate IV antibiotics to Unasyn. Patient retaining urine, straight cath done, may need boykin and outpt suprapubic 10/25 - Patient seen, wound vac changed, social consulted for DME wound vac 10/28 - patient reports feeling fine, in no acute distress. Repeat TSH . 10/29 - wound care please for change of wound VAC , patient stable. 10/30- patient seen and examined at the bedside. No active symptoms. Continue Unasyn 10/31 - patient seen and examined, wound clinic appointment set on November 07, pending wound VAC to be arranged 11/01 - patient seen and examined, wound VAC is on, patient is stable. 11/02 - patient seen and examined, no acute complaints, per surgeon, elective high-level of care and wound clinic, wound VAC actively draining 11/04 - reports abdominal pain, nausea, bowel sounds intact, colostomy bag with dark brown semi-solid stool. IV metoclopramide and Bentyl given. 11/05 - feels better, wound vac pending Objective vital signs Vital Sign Date Time Temp Pulse Resp B/P (MAP) Pulse Ox O2 Delivery O2 Flow Rate FiO2 11/05/24 16:57 98.8 90 18 120/81 (94) 96 98.8 11/05/24 08:00 Room Air* 0 21 Total Intake and Output 11/04/24 11/04/24 11/05/24 15:00 23:00 07:00 Intake Total 500 ml 500 ml Output Total 2000 ml 1200 ml Balance -1500 ml -700 ml medications Current Medications Medications Dose Ordered Sig/Geo Route Start Time Stop Time Status Last Admin Dose Admin Dextrose 50 ml UD PRN IV 10/07/24 11:15 Cancel Insulin Glargine 15 units DAILY SC 10/08/24 10:00 Cancel Dextrose 50 ml PRN PRN IV 10/07/24 15:00 Cancel Dextrose 50 ml PRN PRN IV 10/08/24 08:15 Cancel Dextrose 50 ml UD PRN IV 10/10/24 08:45 Diagnostic Test (Pha) 1 strip ACHS 10/14/24 17:00 11/05/24 17:06 1 STRIP Insulin Human Regular ACHS SC 10/14/24 17:00 11/05/24 11:38 9 UNITS Acetaminophen 650 mg Q4HP PRN PO 10/15/24 12:15 11/03/24 23:25 650 MG Pantoprazole Sodium 40 mg BID PO 10/18/24 22:00 11/05/24 09:10 40 MG Sucralfate 1 gm QID@0600,1130,1700,2200 PO 10/18/24 17:00 11/05/24 17:06 1 GM Insulin Glargine 10 units HS SC 10/19/24 22:00 11/04/24 22:37 10 UNITS Levothyroxine Sodium 75 mcg QAM@0600 PO 10/23/24 06:00 11/05/24 05:21 75 MCG Enteral Nutritional Formula 240 ml TIDWM PO 10/23/24 18:00 11/05/24 12:00 240 ML Enteral Nutritional Formula 27.5 gm DAILY PO 10/24/24 10:00 11/05/24 09:09 27.5 GM Ampicillin Sodium/ Sulbactam Sodium 3 gm/Sodium Chloride 100 ml @ 100 mls/hr Q6H IV 10/24/24 11:00 11/05/24 17:25 100 MLS/HR Enoxaparin Sodium 40 mg DAILY SC 10/28/24 10:00 11/05/24 09:10 40 MG Ferrous Sulfate 325 mg BIDWM PO 10/29/24 18:00 11/05/24 17:06 325 MG Acetaminophen/ Hydrocodone Bitart 1 tab Q4HPRN PRN PO 11/04/24 11:45 11/05/24 17:25 1 TAB Sertraline HCl 50 mg QPM PO 11/05/24 18:00 11/05/24 17:06 50 MG Examination Morbidly obese female patient lying in bed comfortably, no acute distress. General: Morbid obese, afebrile, palor, mucosae are moist Cardiovascular: Regular S1 and S2. No murmurs, gallops or rubs. No JVD elevation. No pedal edema Respiratory: Normal B/L air entry on room air. Clear lung sounds on auscultation Abdomen: Soft, nontender, nondistended, normoactive bowel sounds, no rebound tenderness, no organomegaly, no masses. Colostomy bag seen draining yellow soft stool. Status post multiple I and D bilateral gluteal cleft with a dressing covering the defect. Extensive sacral and lumbar ulcer, still fibrinopurulent tissue and a possible new collection in the left buttock, vac was placed again Genitourinary: Deferred MSK/skin: Mobilizes 4 limbs. Skin is dry and warm Neurological: No motor, no sensitive deficits, normal speech. Pupils are isocoric and reactive. Psych/Mental Status: A/Ox3 laboratory and microbiology Laboratory Tests 11/05/24 04:58 Test 11/05/24 04:58 Range/Units Serum Glucose 120 H 74-106 mg/dL Microbiology Date/Time Source Procedure Growth Status 10/27/24 14:35 Nose MRSA Screen - Final Complete 10/07/24 10:30 Voided Urine Urine Culture - Final Presumptive Judie albicans Complete 10/06/24 11:20 Blood Blood Culture - Final NO GROWTH AFTER 5 DAYS OF INCUBATION. Complete Labs and/or images reviewed: Labs reviewed by me, Image(s) reviewed by me Problem List/Assessment/Plan Problem List/Assessment/Plan #Acute metabolic encephalopathy secondary to sepsis and metabolic derangements. #Septic shock due to necrotizing fasciitis of the gluteal and sacral region secondary to pilonidal cyst infection due to prevotella loescheii sp I&D 10/07/24 and 10/22 #sp debridement of affected area (pilonidal cyst both buttocks, perianal area) and creation of a diverting colostomy 10/08/24 #Severe AGMA due to lactic acidosis-resolving Source control achieved with surgical debridement Blood cultures on arrival negative ID consulted per Dr Pretty 10/10/24: dressing change: less necrotic tissue, bicarb and insulin drip stopped, downgrade to the floor, continue transfer, surgery ordered a ct scan: Redemonstrated bilateral gluteal region soft tissue edema and subcutaneous emphysema which extends from the perianal region to the lower back, suggestive of necrotizing fasciitis. Appears improved from prior.Interval laparotomy and left lower quadrant ostomy with associated postsurgical changes. Hepatomegaly. 10/11/24: wbc is trending slightly higher, wound still has necrotic tissue but looks better than yesterday, patient will benefit for transfer to [facility] for colorectal surgery due to possible involvement of anal sphincter,as well as plastic surgery right now with colostomy on place 10/14/24: new Debridement of devitalized tissue was undertaken. There was no further evidence of necrotizing infection. The wound was then pulse lavaged with 3 L of saline containing Ancef. The wound was packed loosely with iodine saturated Kerlix. The patient will need plastic surgical attention which is not available at this facility, per general surgery patient will benefit for transfer to [facility], wound consult was placed for vac placement, kidney function recovers, lantus was decreased to 15 ui 10/15/24: wound vac was placed, extra dose of morphine due to pain, BPs soft, 500 cc bolus, pending transfer [facility] 10/18/24: wound vac was changed, possible need of new debridement?, dr Pretty and dr Zamorano informed about the vac change, 10/21 - patient refused a wound dressing change, I and D tomorrow. 10/22-patient undergoing I and D, Wound VAC changed 10/23-Boykin catheter discontinued 10/24 - IV antibiotics switched to Unasyn 10/26 - wound vac changed, social consulted for DME wound vac 10/28 - continue unasyn 10/29 wound care paged for change of wound VAC 10/30 - pending woundcare change. 10/31 - continuing Unasyn, wound care clinic appointment set on 11/07. Pending Wound VAC delivery. 11/01 - continuing with wound vac, unasyn 11/02 - pending DME equipment, stable 11/04 - Bentyl and metoclopramide given for abdominal pain 11/05 - feels better #Pneumonia gram+/gram- #Acute hypoxemic respiratory failure secondary to sepsis and poor perfusion #Respiratory acidosis possible obesity hypoventilation syndrome Consolidation of much of the visualized right middle and right lower lobes with air bronchograms concerning for pneumonia. At least small right pleural effusion. ON RA #Uncontrolled diabetes hba1c 13 # neurogenic bladder requiring Boykin dc bicarb and insulin drip lantus 15 ui #Hypothyroidism: Cortisol: 30.84 normal, adrenal insufficiency ruled out levothyroxine increased to 75 PO #Hypomagnesemia replaced #Anemia Hgb 9.3, likely hemodilutional or inflammatory No evidence of DIC, platelets stable Monitor for anemia of critical illness АНДРЕЙ due to VMN on possible CKD, baseline creatinine unknown, resolved #Complicated UTI, presumptive judie albicans UA: trace ketones, glucosuria, 1+ protein, few bacteria Bladder decompressed via Boykin, likely due to altered mental status and hypotension DC fluconazol #sp colostomy 10/08/24 #Possible low-grade small bowel obstruction #Trace free fluid in the abdomen and pelvis #gastric ulcer #duodenal ulcer on soft diet Lovenox 40 mg daily Glucernia tid Plan discussed with patient, family at bedside in which all questions have been answered Case discussed with Dr Da Silva. DME wound vac pending Plan discussed with: Patient Dietary Evaluation Review Comments: 1) TPN if NPO > 7 days 2) Advance to [facility] 60gm as medically feasible 3) Cuco 1 pk BID for wound healing 4) Monitor I/O, lab values, wt trend Expected Outcomes/Goals: To meet >75% estimated needs wound to improve Fu 2-3 days Date of Service: Nov 05, 2024 Billing Provider: JENNY DA SILVA MD Common Visit Codes: [id number] INP/OBS CARE(HIGH) LEORA FULLER RESIDENT Nov 05, 2024 17:40 JENNY DA SILVA MD Nov 05, 2024 18:20
--- NOTE | 2024-11-05 20:59 | DVHPN2 ---
Progress Note - Dictate Date Seen: Nov 05, 2024 Has the PT tested + for MRSA If YES, has PT been informed?: No Medical Necessity Reason Pt with a Central, PICC or Fol: Yes The following are medically ne: Prajapati Catheter Subjective Patient is feeling better, abdominal pain and nausea have improved Patient stated she was just bloated yesterday She is tolerating diet Patient is moving her bowels, colostomy is functional H&H stable at 9.0 Patient was taking NSAIDs prior to admission which likely caused her ulcers seen on EGD vital signs Vital Sign Date Time Temp Pulse Resp B/P (MAP) Pulse Ox O2 Delivery O2 Flow Rate FiO2 11/05/24 16:57 98.8 90 18 120/81 (94) 96 98.8 11/05/24 08:00 Room Air* 0 21 Total Intake and Output 11/04/24 11/04/24 11/05/24 15:00 23:00 07:00 Intake Total 500 ml 500 ml Output Total 2000 ml 1200 ml Balance -1500 ml -700 ml medications Current Medications Medications Dose Ordered Sig/Geo Route Start Time Stop Time Status Last Admin Dose Admin Dextrose 50 ml UD PRN IV 10/07/24 11:15 Cancel Insulin Glargine 15 units DAILY SC 10/08/24 10:00 Cancel Dextrose 50 ml PRN PRN IV 10/07/24 15:00 Cancel Dextrose 50 ml PRN PRN IV 10/08/24 08:15 Cancel Dextrose 50 ml UD PRN IV 10/10/24 08:45 Diagnostic Test (Pha) 1 strip ACHS 10/14/24 17:00 11/05/24 17:06 1 STRIP Insulin Human Regular ACHS SC 10/14/24 17:00 11/05/24 11:38 9 UNITS Acetaminophen 650 mg Q4HP PRN PO 10/15/24 12:15 11/03/24 23:25 650 MG Pantoprazole Sodium 40 mg BID PO 10/18/24 22:00 11/05/24 09:10 40 MG Sucralfate 1 gm QID@0600,1130,1700,2200 PO 10/18/24 17:00 11/05/24 17:06 1 GM Insulin Glargine 10 units HS SC 10/19/24 22:00 11/04/24 22:37 10 UNITS Levothyroxine Sodium 75 mcg QAM@0600 PO 10/23/24 06:00 11/05/24 05:21 75 MCG Enteral Nutritional Formula 240 ml TIDWM PO 10/23/24 18:00 11/05/24 18:22 240 ML Enteral Nutritional Formula 27.5 gm DAILY PO 10/24/24 10:00 11/05/24 09:09 27.5 GM Ampicillin Sodium/ Sulbactam Sodium 3 gm/Sodium Chloride 100 ml @ 100 mls/hr Q6H IV 10/24/24 11:00 11/05/24 17:25 100 MLS/HR Enoxaparin Sodium 40 mg DAILY SC 10/28/24 10:00 11/05/24 09:10 40 MG Ferrous Sulfate 325 mg BIDWM PO 10/29/24 18:00 11/05/24 17:06 325 MG Acetaminophen/ Hydrocodone Bitart 1 tab Q4HPRN PRN PO 11/04/24 11:45 11/05/24 17:25 1 TAB Sertraline HCl 50 mg QPM PO 11/05/24 18:00 11/05/24 17:06 50 MG objective eneral: Normal, Obese Head/Eyes: Normal ENT: Normal Neck: Normal Lungs: Normal Cardiovascular: Normal, Regular rate and rhythm Musculoskeletal: Normal Extremities: Normal Skin: Other (sacral/ buttock wound )wound vac laboratory and microbiology Laboratory Tests 11/05/24 04:58 Test 11/05/24 04:58 Range/Units Serum Glucose 120 H 74-106 mg/dL Problems(with codes): (1) Acute constipation (2) Gastric peptic ulcer (3) Pilonidal cyst (4) Duodenal ulcer (5) Sepsis (6) Generalized weakness (7) Necrotizing fasciitis Prognosis Plan Awaiting arrangement for wound VAC, check repeat hemoglobin A1c Patient has an appointment on November 07 that the wound clinic Continue supportive care PPI plus Carafate DC NSAIDs Dietary Evaluation Review Comments: 1) TPN if NPO > 7 days 2) [facility] as medically feasible 3) Cuco 1 pk BID for wound healing 4) Monitor I/O, lab values, wt trend Expected Outcomes/Goals: To meet >75% estimated needs wound to improve Fu 2-3 days Plan discussed with: Patient ELOINA MENDOZA MD Nov 05, 2024 20:59
[2024-11-06 01:00] VITALS: BP 103/70; PULSE 85; RESP 15; TEMP 97.9; O2SAT 95
[2024-11-06 05:00] VITALS: BP 113/74; PULSE 95; RESP 14; TEMP 98.1; O2SAT 99
[2024-11-06 09:00] VITALS: BP 104/50; PULSE 87; RESP 18; TEMP 98; O2SAT 97
[2024-11-06] MEDS: METOCLOPRAMIDE HCL 5MG/ml INJ 2ml VIAL IV ONE (09:51)
[2024-11-06 13:00] VITALS: BP 105/70; PULSE 88; RESP 18; TEMP 97.8; O2SAT 99
--- NOTE | 2024-11-06 14:56 | DVHPN2 ---
Progress Note - Dictate Date Seen: Nov 06, 2024 Has the PT tested + for MRSA If YES, has PT been informed?: No Medical Necessity Reason Pt with a Central, PICC or Fol: Yes The following are medically ne: Prajapati Catheter Subjective Patient is complaining of nausea again today She is tolerating diet Patient is moving her bowels, colostomy is functional H&H stable at 9.7 Patient was taking NSAIDs prior to admission which likely caused her ulcers seen on EGD vital signs Vital Sign Date Time Temp Pulse Resp B/P (MAP) Pulse Ox O2 Delivery O2 Flow Rate FiO2 11/06/24 13:00 97.8 88 18 105/70 (82) 99 97.8 11/06/24 08:00 Room Air* 0 21 Total Intake and Output 11/05/24 11/05/24 11/06/24 15:00 23:00 07:00 Intake Total 1140 ml 300 ml Output Total 450 ml 1115 ml 2050 ml Balance -450 ml 25 ml -1750 ml medications Current Medications Medications Dose Ordered Sig/Geo Route Start Time Stop Time Status Last Admin Dose Admin Dextrose 50 ml UD PRN IV 10/07/24 11:15 Cancel Insulin Glargine 15 units DAILY SC 10/08/24 10:00 Cancel Dextrose 50 ml PRN PRN IV 10/07/24 15:00 Cancel Dextrose 50 ml PRN PRN IV 10/08/24 08:15 Cancel Dextrose 50 ml UD PRN IV 10/10/24 08:45 Diagnostic Test (Pha) 1 strip ACHS 10/14/24 17:00 11/06/24 12:04 1 STRIP Insulin Human Regular ACHS SC 10/14/24 17:00 11/06/24 12:04 3 UNITS Acetaminophen 650 mg Q4HP PRN PO 10/15/24 12:15 11/03/24 23:25 650 MG Pantoprazole Sodium 40 mg BID PO 10/18/24 22:00 11/06/24 08:33 40 MG Sucralfate 1 gm QID@0600,1130,1700,2200 PO 10/18/24 17:00 11/06/24 11:57 1 GM Insulin Glargine 10 units HS SC 10/19/24 22:00 11/05/24 21:53 10 UNITS Levothyroxine Sodium 75 mcg QAM@0600 PO 10/23/24 06:00 11/06/24 05:05 75 MCG Enteral Nutritional Formula 240 ml TIDWM PO 10/23/24 18:00 11/06/24 08:34 240 ML Enteral Nutritional Formula 27.5 gm DAILY PO 10/24/24 10:00 11/06/24 08:34 27.5 GM Ampicillin Sodium/ Sulbactam Sodium 3 gm/Sodium Chloride 100 ml @ 100 mls/hr Q6H IV 10/24/24 11:00 11/06/24 11:57 100 MLS/HR Enoxaparin Sodium 40 mg DAILY SC 10/28/24 10:00 11/06/24 08:33 40 MG Ferrous Sulfate 325 mg BIDWM PO 10/29/24 18:00 11/06/24 08:33 325 MG Acetaminophen/ Hydrocodone Bitart 1 tab Q4HPRN PRN PO 11/04/24 11:45 11/05/24 17:25 1 TAB Sertraline HCl 50 mg QPM PO 11/05/24 18:00 11/05/24 17:06 50 MG objective eneral: Normal, Obese Head/Eyes: Normal ENT: Normal Neck: Normal Lungs: Normal Cardiovascular: Normal, Regular rate and rhythm Musculoskeletal: Normal Extremities: Normal Skin: Other (sacral/ buttock wound )wound vac laboratory and microbiology Laboratory Tests 11/05/24 04:58 Test 11/05/24 04:58 Range/Units Serum Glucose 120 H 74-106 mg/dL Problems(with codes): (1) Nausea (2) Duodenal ulcer (3) Pilonidal cyst (4) Generalized weakness (5) Necrotizing fasciitis Prognosis Plan Nausea possibly related to multiple medication use possibly Jackson possibly antibiotics Add Zofran 4 mg IV q.4 hours as needed for nausea Wound clinic appointment tomorrow, awaiting wound VAC Dietary Evaluation Review Comments: 1) TPN if NPO > 7 days 2) Advance to [facility] 60gm as medically feasible 3) Cuco 1 pk BID for wound healing 4) Monitor I/O, lab values, wt trend Expected Outcomes/Goals: To meet >75% estimated needs wound to improve Fu 2-3 days Plan discussed with: Patient ELOINA MENDOZA MD Nov 06, 2024 14:56
[2024-11-06] MEDS ORDERED: ONDANSETRON HCL 4 MG/2 ML VIAL IV PRN (15:00)
[2024-11-06] MEDS ORDERED: INSU100I21 SC (15:34)
[2024-11-06] MEDS ORDERED: INSLANTI SC (15:34)
[2024-11-06] MEDS ORDERED: LEVO25TA6 PO (15:34)
[2024-11-06] MEDS ORDERED: LANC-347 XX (15:34)
[2024-11-06] MEDS ORDERED: ALCO1PAD13 XX (15:34)
[2024-11-06] MEDS ORDERED: BLOO-169 XX (15:34)
[2024-11-06] MEDS ORDERED: CLIN1CAP70 PO (15:34)
[2024-11-06] MEDS ORDERED: PANT40T PO (15:34)
[2024-11-06] MEDS ORDERED: GLUC-224 VI (15:34)
[2024-11-06] MEDS ORDERED: LEVO750T40 PO (15:34)
--- NOTE | 2024-11-06 16:04 | DVH ---
Exam: XY KUB ABDOMEN SINGLE VIEW Indication: nausea and abd bloating Comparison: US ABDOMEN LIMITED on DOS: 10/17/24, XY SMALL BOWEL SERIES-W GASTROGRA on DOS: 10/17/24, CT CT AB PEL WO CON-NO ORAL OR IV on DOS: 10/16/24, CT CT AB PEL WO CON-NO ORAL OR IV on DOS: 10/10/24, U S KIDNEY on DOS: 10/07/24 Technique: radiographic views of the abdomen. Findings/ IMPRESSION: Nonspecific bowel-gas pattern.
[2024-11-06 17:06] VITALS: BP 102/70; PULSE 90; RESP 18; TEMP 97.4; O2SAT 98
--- NOTE | 2024-11-06 17:57 | DVHDSRES ---
Discharge Summary Date of Admission Resident Creating Document: LEORA FULLER RESIDENT Oct 06, 2024 at 19:20 Date of Discharge: Nov 06, 2024 Labs/Diagnostic Data: Laboratory Results Test 11/06/24 17:06 11/05/24 04:58 10/28/24 06:02 10/26/24 06:53 POC Glucose 253 mg/dl (70-106) White Blood Count 8.3 10^3/uL (4.4-10.8) Red Blood Count 3.28 10^6/uL (4.0-5.20) Hemoglobin 9.7 g/dL (12.2-16.2) Hematocrit 28.0 % (36.0-46.0) Mean Corpuscular Volume 85.2 fL (80.0-100.0) Mean Corpuscular Hemoglobin 29.6 pg (28.0-32.0) Mean Corpuscular Hemoglobin Concent 34.7 g/dL (32.0-36.0) Red Cell Distribution Width 14.5 % (11.8-14.3) Platelet Count 601 10^3/uL (140-450) Mean Platelet Volume 8.5 fL (6.9-10.8) Neutrophils (%) (Auto) 55.9 % (37.0-80.0) Lymphocytes (%) (Auto) 29.6 % (10.0-50.0) Monocytes (%) (Auto) 8.3 % (0.0-12.0) Eosinophils (%) (Auto) 5.4 % (0.0-7.0) Basophils (%) (Auto) 0.8 % (0.0-2.0) Neutrophils # (Auto) 4.7 10 ^3/uL (1.6-8.6) Lymphocytes # (Auto) 2.5 10 ^3/uL (0.4-5.4) Monocytes # (Auto) 0.7 10 ^3/uL (0-1.3) Eosinophils # (Auto) 0.4 10 ^3/uL (0-0.8) Basophils # (Auto) 0.1 10 ^3/uL (0-0.2) Nucleated Red Blood Cells 0.2 % Sodium Level 137 mmol/L (136-145) Potassium Level 3.9 mmol/L (3.5-5.1) Chloride Level 100 mmol/L (98-107) Carbon Dioxide Level 27 mmol/L (20-31) Anion Gap 10 (5-15) Blood Urea Nitrogen 12 mg/dL (9-23) Creatinine 0.74 mg/dL (0.550-1.02) Glomerular Filtration Rate Calc 112 mL/min (>90) BUN/Creatinine Ratio 16.2 (10.0-20.0) Serum Glucose 120 mg/dL (74-106) Hemoglobin A1c 9.2 % A1C (<5.7) Calcium Level 9.4 mg/dL (8.7-10.4) Total Bilirubin 0.3 mg/dL (0.2-1.0) Aspartate Amino Transferase (AST) 45 U/L (13-40) Alanine Aminotransferase (ALT) 37 U/L (7-40) Alkaline Phosphatase 169 U/L (46-116) Total Protein 7.5 g/dL (5.7-8.2) Albumin 3.7 g/dL (3.2-4.8) Lipase 50 U/L (12-53) Thyroid Stimulating Hormone (TSH) 10.27 uIU/mL (0.55-4.78) Vancomycin Level Trough < 3.0 ug/mL (5-10) Test 10/24/24 18:11 10/21/24 12:50 10/19/24 05:00 10/11/24 04:49 Magnesium Level 2.1 mg/dL (1.6-2.6) Free Thyroxine (T4) Calculated 0.90 ng/dL (0.89-1.76) Random Vancomycin Level 14.8 ug/mL (5-10) Differential Total Cells Counted 100.0 (100) Neutrophils % (Manual) 74 (37.0-80.0) Band Neutrophils % (Manual) 4 Lymphocytes % (Manual) 11 (10.0-50.0) Monocytes % (Manual) 8 (0-12) Eosinophils % (Manual) 3 (0-7) Basophils % (Manual) 0 (0.0-2.0) Metamyelocytes % (manual) 0 Myelocytes % (Manual) 0 Promyelocytes % (Manual) 0 Blast Cells % (Manual) 0 Reactive Lymphocytes 0 Platelet Estimate Adequate Iron Level 44 ug/dL (50-170) Total Iron Binding Capacity 184 ug/dL (250-425) Percent Iron Saturation 23.9 % (15-50) Ferritin 371.9 ng/mL (10-291) Test 10/10/24 11:56 10/10/24 03:25 10/09/24 13:50 10/09/24 12:02 Blood Gas Specimen Type Arterial Blood Gas Sample Site Right radial Blood Gas Patient Temperature 37.0 Arterial Blood Date Drawn [id number] Arterial Blood pH 7.445 (7.350-7.450) Arterial Blood Partial Pressure CO2 37.5 mmHg (32.0-45.0) Arterial Blood Partial Pressure O2 89.6 mmHg (83.0-108.0) Arterial Blood HCO3 25.2 mmol/L (21.0-28.0) Arterial Blood Oxygen Saturation 95.8 % (94.0-98.0) Arterial Blood Base Excess 1.2 mmol/L (-2.0-3.0) Arterial Blood Oxyhemoglobin 95.1 % (94.0-98.0) Arterial Blood Carboxyhemoglobin 0.6 % (0.5-1.5) Arterial Blood Methemoglobin 0.1 % (0.0-1.5) Kerwin Test Modified Blood Gas Total Hemoglobin 9.40 g/dL (12.0-16.0) Blood Gas Liter Flow 2.00 Blood Gas Modality Nasal cannula FiO2 % 28.0 Reticulocyte Count (auto) 0.32 % (0.5-1.5) Phosphorus Level 4.6 mg/dL (2.4-5.1) Lactic Acid Level 1.6 mmol/L (0.4-2.0) Vitamin D 25-Hydroxy 9.2 ng/mL (30.0-100) Creatine Kinase 59 U/L (34-145) Test 10/09/24 03:34 10/07/24 15:43 10/07/24 14:19 10/07/24 11:26 Parathyroid Hormone (Intact) 372.1 pg/mL (18.4-80.1) Blood Gas Critical Value Read Back yes Blood Gas Notified Whom kannan pabon Blood Gas Notified Time [id number] Blood Gas Notified By jacqueline brown Serum Osmolality 301 mOsm/kg (278-298) B-Type Natriuretic Peptide 682.46 pg/mL (0-100) Beta-Hydroxybutyric Acid 0.927 mmol/L (< 0.4) Free Triiodothyronine (T3) pg/mL 1.18 pg/mL (2.3-4.2) Cortisol AM Sample 30.84 ug/dL (5.27-22.45) Urine Osmolality 241 mOsm/kg Urine Opiates Screen Neg (NEGATIVE) Urine Fentanyl Screen Neg (NEGATIVE) Urine Barbiturates Screen Neg (NEGATIVE) Urine Phencyclidine Screen Neg (NEGATIVE) Urine Amphetamines Screen Neg (NEGATIVE) Urine Benzodiazepines Screen Neg (NEGATIVE) Urine Cocaine Screen Neg (NEGATIVE) Urine Cannabinoids Screen Neg (NEGATIVE) Test 10/07/24 11:25 10/06/24 16:50 10/06/24 11:19 10/06/24 05:09 Urine Creatinine 77.58 mg/dL (30.0-125.0) Urine Sodium 33 mmol/L (40-220) Urine Total Protein 218.6 mg/dL (1-14) Prothrombin Time 11.5 sec (9.3-11.8) Prothrombin Time INR 1.09 (0.9-1.15) Activated Partial Thromboplast Time 35.7 SEC (24.5-34.5) Anisocytosis (manual) Slight Urine Color Yellow (Yellow) Urine Clarity Turbid (Clear) Urine pH 5.5 (5.0-9.0) Urine Specific [place] 1.019 (1.001-1.035) Urine Protein 1+ (Negative) Urine Ketones Trace (Negative) Urine Blood 1+ /uL (Negative) Urine Nitrite Negative (Negative) Urine Bilirubin Negative (Negative) Urine Urobilinogen Normal mg/dL (Negative) Urine Leukocyte Esterase 1+ /uL (Negative) Urine RBC 3 /hpf (0 - 4) Urine Microscopic WBC 16 /HPF (0-5) Urine Squamous Epithelial Cells Few /hpf (<5) Urine Bacteria Few /hpf (None Seen) Urine Glucose 4+ mg/dL (Normal) Urine Test Negative (Negative) Other Laboratory Tests 11/05/24 04:58 Brief Hx & Hospital Course: This is a 29-year-old with diabetes mellitus type 1 diagnosed at the age of 12, hypothyroidism, does not take any medications at home who presented to the ER with a chief complaint of buttock pain and generalized weakness. Patient reports that she has been experiencing pain in her buttock, redness and swelling, nausea vomiting for the past 2 days. On arrival patient was hypotensive 84/39 mmHg, tachycardic and tachypneic. During the hospitalization,CT scan showed necrotizing fascitis in the patient and patient was diagnosed with Pilonidal cyst infection plus necrotizing infection of buttocks subsequently underwent I and D 10/07, 150 mL of yellow colored fluid was drained and sent for culture. 10/08-Secondary debridement of affected area (pilonidal cyst both buttocks, perianal area) and creation of a diverting colostomy. On arrival, Serum glucose was 500 on arrival and patient was started on IV insulin drip. A1c greater than 13. Patient was started on broad-spectrum antibiotics, including vancomycin, fluconazole, clindamycin and Levaquin. Patient underwent repeated debridements 10/14 and 10/22. IV insulin was discontinued and patient was started on diet, which she tolerated well in the diet was advanced to full liquid and then soft diet. Underwent upper EGD which showed pre-pyloric antral gastric ulcers Kg classification C, [id number] duodenitis with superficial coalescing duodenal bulb ulcers in the duodenal bulb and postbulbar area. Slightly irregular squamocolumnar junction no significant erosive esophagitis otherwise normal examination up to the 2nd and 3rd part of the duodenum. Patient was advised against the use of NSAIDs, Protonix b.i.d. and Carafate was started. Antibiotics was deescalated to Unasyn IV given negative cultures and resolving sepsis. Patient had АНДРЕЙ likely in the setting of sepsis and likely contrast induced nephropathy which improved with IV fluids, Prajapati catheter was discontinued but the patient could not urinate, patient likely has neurogenic bladder and a Prajapati catheter was reinserted. Patient's discharge was delayed given that she had no insurance and adequate follow up could not be arranged. Patient was educated on diabetes mellitus, hypothyroidism, symptoms of hypoglycemia, medication adverse effects and how to administer insulin. 11/06-patient is hemodynamically stable, clinically stable, reports no active complaint therefore she has been discharged home with the following instructions: DME wound VAC placed on the wound 11/06 Follow up with Wound Care Clinic on 11/07/24 Follow up with story teller as outpatient within 2 weeks Follow up with surgery clinic as outpatient within 2 weeks Follow up outpatient with Urology for possible suprapubic Prajapati for neurogenic bladder Follow up with the discharge Clinic Follow up with the primary care physician within 7 days Antibiotics clindamycin and levofloxacin for 2 weeks Patient agreed to the discharge planning. Discharge planning was done with the nurse and teach back method was used. Patient demonstrated understanding and she with arrange her own transportation to the wound care clinic and follow up visits. Operations or Procedures DATE OF SURGERY: 10/07/2024 PREOPERATIVE DIAGNOSES: Pilonidal cyst infection plus necrotizing infection of buttocks. POSTOPERATIVE DIAGNOSES: Pilonidal cyst infection plus necrotizing infection of buttocks. SURGEON: Dennis Pretty MD. ANESTHESIA: Local with IV sedation. ANESTHESIOLOGIST: Dr. Da Silva. PREOPERATIVE DIAGNOSES: Necrotizing infection, pilonidal cyst, buttocks, perianal area. POSTOPERATIVE DIAGNOSES: Necrotizing infection, pilonidal cyst, buttocks, perianal area. SURGEON: Dennis Pretty MD PLACING JUDGE: Rodriguez King NP ANESTHESIA: General endotracheal, [facility]. PROCEDURES: Secondary debridement of affected area (pilonidal cyst both buttocks, perianal area) and creation of a diverting colostomy. DATE OF SURGERY: 10/14/2024 PREOPERATIVE DIAGNOSIS: Wound, both buttocks. POSTOPERATIVE DIAGNOSIS: Wound, both buttocks. SURGEON: Dennis Pretty MD PLACING JUDGE: Rodriguez King NP ANESTHESIA: General endotracheal. ANESTHESIOLOGIST: Dr. Arrieta. Operative Report DATE OF OPERATION: 10/18/24 PROCEDURE: Upper Endoscopy with biopsy. PREOPERATIVE INDICATION: The patient is a 29 -year-old female undergoing endoscopy for epigastric pain and dyspepsia POSTOPERATIVE DIAGNOSES: 1. There were two 1.5- 2 cm pre-pyloric antral gastric ulcers Kg classification C with no visible vessel or active bleeding ; there was surrounding gastritis 2. There was [id number]-[id number] duodenitis with superficial coalescing duodenal bulb ulcers in the duodenal bulb and postbulbar area the 3. Slightly irregular squamocolumnar junction no significant erosive esophagitis otherwise normal examination up to the 2nd and 3rd part of the duodenum Operative Report - 2 Report Details Date: 10/22/24 Preop Diagnosis: sacral buttock wound Postop Diagnosis: sacral buttock wound Surgeon: Dr. Dennis King Anesthesiologist: Dr. Arrieta Anesthesia: Mac Consent: The patient was informed of the risks and benefits of the procedure. These include but are not limited to complications of anesthesia, postoperative infection, incomplete relief of symptoms, recurrence of symptoms, damage to blood vessels, nerves and tendons, deep venous thrombosis, pulmonary embolism and possible need for repeat surgery in the future. Name of Procedure Performed debridement of sacral/ buttock wound Procedure Details Procedure Details: The patient was brought to the operating room, and under adequate anesthesia the patient was placed on a left lateral position, buttock . The area was than prepped and draped in a sterile fashion. Debridement of necrotic tissue was undertaken. The wound was then pulse lavaged with 2 L of saline containing Ancef. The wound was packed loosely with iodine saturated Kerlix. Specimen: necrotic tissue Condition at Discharge: Good Final Diagnosis/Problems List #Acute metabolic encephalopathy secondary to sepsis and metabolic derangements. #Septic shock due to necrotizing fasciitis of the gluteal and sacral region secondary to pilonidal cyst infection due to prevotella loescheii sp I&D 10/07/24 and 10/22 # septic shock requiring pressor support #sp debridement of affected area (pilonidal cyst both buttocks, perianal area) and creation of a diverting colostomy 10/08/24 #Severe AGMA due to lactic acidosis-resolving #Pneumonia gram+/gram- #Acute hypoxemic respiratory failure secondary to sepsis and poor perfusion #Respiratory acidosis possible obesity hypoventilation syndrome #Uncontrolled type 1 diabetes mellitus-A1c greater than 13 # neurogenic bladder requiring Prajapati #Hypothyroidism: #Hypomagnesemia #Anemia likely due to chronic kidney disease #Acute kidney injury likely in the setting of sepsis and likely contrast induced nephropathy #Complicated UTI, presumptive judie albicans #sp colostomy 10/08/24 #Possible low-grade small bowel obstruction #gastric ulcer #duodenal ulcer #Secondary hyperparathyroidism #Vitamin-D deficiency Discharge Disposition: Home Discharge Instruct/Medications Diet: Consistent carbohydrate Activity: Light activity Follow Up/Referral: Follow up with Wound Care Clinic on 11/07/24 Follow up with story teller as outpatient within 2 weeks Follow up with surgery clinic as outpatient within 2 weeks Follow up with the discharge Clinic Follow up with the primary care physician within 7 days Medications: Insulin lispro 5 units sc before meal Insulin Lantus 10 units bedtime Levothyroxine 75 mcg q.a.m. Tablet levofloxacin 750 mg 2 weeks Tablet clindamycin 300mg 3 times daily Probiotics [id number] Scheduled Cholecalciferol (Vitamin D), 5,000 UNIT OR DAILY Clindamycin Hcl (Clindamycin Hcl), 300 MG PO TID Glucose Blood (Easy Touch Glucose Test S), 1 EA AC Insulin Glargine (Lantus), 10 UNIT SC DAILY Insulin Lispro (Humalog Maury Kwikpen), 5 UNIT SC AC Levofloxacin Hemihydrate (Levofloxacin), 750 MG PO DAILY Levothyroxine Sodium (Levothyroxine Sodium), 75 MCG PO QAM@0600 Pantoprazole Sodium Sesquihydr (Pantoprazole Sodium), 40 MG PO DAILY Sucralfate (Carafate Susp), 1 GM PO QID@0600,1130,1700,2200 Discontinued Medications Acetaminophen (Acetaminophen Extra Stren), 500 MG PO Q6HPRN PRN for Mild pain (1-4), (Reported) Apixaban Base (Eliquis), 5 MG PO BID, (Reported) Atorvastatin Calcium (Atorvastatin Calcium), 1 TAB PO DAILY, (Reported) B-Complex W/ C & Folic Acid (Caroline-Wilton), 1 OR, (Reported) Buspirone HCl (Buspirone Hydrochloride), 7.5 MG PO BID PRN for ANXIETY, (Reported) Calcium Carbonate (Antacid) (Antacid), 750 MG PO every 8 hours, (Reported) Carvedilol (Carvedilol), 25 MG PO BID, (Reported) Cephalexin Monohydrate (Cephalexin), 1 CAP PO QID Diphenhydramine Hcl (Benadryl Allergy), 25 MG PO every 6 hours PRN for FOR ITCHING, (Reported) Escitalopram Oxalate (Lexapro), 1 TAB PO DAILY, (Reported) Ferrous Sulfate (Ferrous Sulfate), 1 TAB PO DAILY, (Reported) Furosemide (Lasix), 1 TAB PO DAILY, (Reported) Guaifenesin (Mucinex), 1 TAB PO BID PRN for FOR COUGH, (Reported) Hydrocodone-Acetaminophen (Hydrocodone Bitartrate/AC 7.5-300 mg), 1 TAB PO every 8 hours, (Reported) Ibuprofen (Ibuprofen), 1 TAB PO TID Insulin Lispro (Human) (Humalog), 100 UNIT SC, (Reported) Ipratropium Daniel Hfa (Atrovent Hfa), 2 PUFF INH QID, (Reported) Ipratropium-Albuterol (Ipratropium Daniel/Albut), 1 KAYDEN IN, (Reported) Ipratropium-Albuterol (Ipratropium Daniel/Albut), 1 KAYDEN IN Q6HPRN PRN for SHORTNESS OF BREATH, (Reported) Lactulose (Lactulose), 30 ML PO BID Nutritional Supplements (Nepro With Carb Steady), 1 OR, (Reported) Polyethylene Glycol 3350 (Miralax), 17 GM PO, (Reported) Sevelamer Carbonate (Renvela), 3 TAB PO TID, (Reported) Durable Medical Equipment Blood Glucose Monitoring Suppl (Easy Touch Glucose Monito), EA XX AC, (DME) Isopropyl Alcohol (Alcohol Swabs), % XX AC, (DME) Lancets (Freestyle Lancets), AC XX AC, (DME) Discharge Statement: "Patient was advised to return to the ER or call 911 if any headaches, dizziness, shortness of breath, chest pain, abdominal pain, bleeding, fevers, or worsening of medical condition. Patient was counseled about treatment plan, medications, possible side effects, patientverbalized understanding. All questions were answered to the best of my ability. This discharge took greater then 30 minutes in planning, reviewing documentation, counseling the patient, and discussing with other team members." ASSESSMENT ASSESSMENT Assessment Acute necrotizing fasciitis status post repeated I&Ds and colostomy Diabetes mellitus uncontrolled ? Likely type 1 Date of Service: Nov 06, 2024 Billing Provider: JENNY DA SILVA MD Common Visit Codes: 56680-MMY/OBS SAME DATE (HIGH) LEORA FULLER RESIDENT Nov 06, 2024 17:57 JENNY DA SILVA MD Nov 07, 2024 12:02
[2024-11-06] MEDS ORDERED: CHOL500021 OR (17:59)
[2024-11-06] MEDS ORDERED: SUCR1SUS26 PO (17:59)
== END 2024-11-06 18:30 | disposition home health service (06) | DRG 710 ==
LOC: ER 10:28 → OVERFLOW 19:20 → ICU WEST 10-07 04:25 → TELE-EAST 10-10 17:45 → EAST 10-23 23:48
PROVIDERS: ADMIT Internal Medicine; ATTEND Internal Medicine
PROC: 0JD90ZZ Extraction of Buttock Subcutaneous Tissue and Fascia, Open Approach (ICD-10-PCS; 2024-10-07)
PROC: 05HB33Z Insertion of Infusion Device into Right Basilic Vein, Percutaneous Approach (ICD-10-PCS; 2024-10-07)
PROC: B54MZZA Ultrasonography of Right Upper Extremity Veins, Guidance (ICD-10-PCS; 2024-10-07)
PROC: 0JD90ZZ Extraction of Buttock Subcutaneous Tissue and Fascia, Open Approach (ICD-10-PCS; 2024-10-08)
PROC: 0D1N0Z4 Bypass Sigmoid Colon to Cutaneous, Open Approach (ICD-10-PCS; principal; 2024-10-08 13:38)
PROC: 0JB90ZZ Excision of Buttock Subcutaneous Tissue and Fascia, Open Approach (ICD-10-PCS; 2024-10-14)
PROC: 0DB98ZX Excision of Duodenum, Via Natural or Artificial Opening Endoscopic, Diagnostic (ICD-10-PCS; 2024-10-18)
PROC: 0DB68ZX Excision of Stomach, Via Natural or Artificial Opening Endoscopic, Diagnostic (ICD-10-PCS; 2024-10-18)
PROC: 05H933Z Insertion of Infusion Device into Right Brachial Vein, Percutaneous Approach (ICD-10-PCS; 2024-10-21)
PROC: B54MZZA Ultrasonography of Right Upper Extremity Veins, Guidance (ICD-10-PCS; 2024-10-21)
PROC: 0JB90ZZ Excision of Buttock Subcutaneous Tissue and Fascia, Open Approach (ICD-10-PCS; 2024-10-22)
DX: A41.9 Sepsis, unspecified organism (principal); J96.01 Acute respiratory failure with hypoxia; N17.0 Acute kidney failure with tubular necrosis; R65.21 Severe sepsis with septic shock; M72.6 Necrotizing fasciitis; G93.41 Metabolic encephalopathy; J15.69 Pneumonia due to other Gram-negative bacteria; L89.309 Pressure ulcer of unspecified buttock, unspecified stage; K56.609 Unspecified intestinal obstruction, unspecified as to partial versus complete obstruction; D63.1 Anemia in chronic kidney disease; L05.01 Pilonidal cyst with abscess; N18.9 Chronic kidney disease, unspecified; E10.65 Type 1 diabetes mellitus with hyperglycemia; E10.22 Type 1 diabetes mellitus with diabetic chronic kidney disease; E03.9 Hypothyroidism, unspecified; E83.42 Hypomagnesemia; D75.839 Thrombocytosis, unspecified; Z68.41 Body mass index [BMI] 40.0-44.9, adult; K29.80 Duodenitis without bleeding; K26.9 Duodenal ulcer, unspecified as acute or chronic, without hemorrhage or perforation; B37.49 Other urogenital candidiasis; E87.29 Other acidosis; N31.9 Neuromuscular dysfunction of bladder, unspecified; K25.9 Gastric ulcer, unspecified as acute or chronic, without hemorrhage or perforation; N14.11 Contrast-induced nephropathy; N25.81 Secondary hyperparathyroidism of renal origin; N30.90 Cystitis, unspecified without hematuria; L02.215 Cutaneous abscess of perineum; K29.70 Gastritis, unspecified, without bleeding; E66.2 Morbid (severe) obesity with alveolar hypoventilation; J15.9 Unspecified bacterial pneumonia; T50.8X5A Adverse effect of diagnostic agents, initial encounter; Z79.1 Long term (current) use of non-steroidal anti-inflammatories (NSAID); Z79.899 Other long term (current) drug therapy; Z79.4 Long term (current) use of insulin; Z83.3 Family history of diabetes mellitus; Y92.89 Other specified places as the place of occurrence of the external cause
CPT/HCPCS: 36415; 36600; 71045; 74018; 74176; 74250; 76705; 76775; 80048; 80053; 80202; 80307; 81001; 81025; 82010; 82306; 82533; 82550; 82565; 82570; 82728; 82805; 82962; 83036; 83540; 83550; 83605; 83690; 83735; 83880; 83930; 83935; 83970; 84100; 84156; 84300; 84439; 84443; 84481; 85007; 85025; 85027; 85045; 85610; 85730; 86850; 86900; 86901; 87040; 87070; 87075; 87076; 87081; 87086; 87088; 87205; 93005; 97110; 97116; 97163; 97530; G0378; J0690; J1100; J1450; J1815; J2003; J2185; J2250; J2405; J2470; J2543; J2704; J3480; J3490